=== PATIENT | female | born 1990 | race Hispanic/Latino ===

== ENCOUNTER 2017-12-01 10:45 | Emergency (ER) | payer SELFPAY ==
--- NOTE | 2017-12-01 15:06 | ER ---
Nurse's Notes [facility] Name: Chiquis Palma Age: 27 yrs Sex: Female : 1990 Arrival Date: 12/01/2017 Time: 10:48 Bed 9 Private MD: Diagnosis: Other sprain of right foot Presentation: 12/01 11:05 Presenting complaint: Mother states: Right foot pain after tripping over a toy 3 hours aj ago. Patient reports pain when baring weight. Transition of care: patient was not received from another setting of care. Onset of symptoms was December 01, 2017. Care prior to arrival: None. 11:05 Method Of Arrival: Ambulatory aj 11:05 Acuity: CHANTEL 4 aj 11:08 Note Patient ambulated to triage with limping gait. Patient ambulated to vending aj machines with no difficulty after triage. Triage Assessment: 11:06 General: Appears in no apparent distress. comfortable, Behavior is calm, cooperative, aj appropriate for age. Pain: Complains of pain in right foot Pain currently is 8 out of 10 on a pain scale. Neuro: Level of Consciousness is awake, alert, obeys commands, Oriented to person, place, time, situation. Respiratory: Airway is patent Respiratory effort is even, unlabored, Respiratory pattern is regular, symmetrical. Derm: Skin is intact, is healthy with good turgor, Skin is pink, warm \T\ dry. normal. Musculoskeletal: Reports pain in right foot. 17:00 Injury Description: Bruise. 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 - Social history:: Smoking status: Patient/guardian denies using tobacco. - Family history:: not pertinent. - Hospitalizations: : No recent hospitalization is reported. Screenin:23 Abuse screen: Denies threats or abuse. Denies injuries from another. Nutritional iw screening: No deficits noted. Tuberculosis screening: No symptoms or risk factors identified. Fall Risk None identified. Assessment: 13:22 General: Appears in no apparent distress. Behavior is calm, cooperative. Pain: iw Complains of pain in right foot. Neuro: Level of Consciousness is awake, alert, obeys commands, Oriented to person, place, time, situation. Cardiovascular: Patient's skin is warm and dry. Respiratory: Respiratory effort is even, unlabored. Derm: Skin is pink, warm \T\ dry. normal. Musculoskeletal: Range of motion: limited in right foot Swelling present in right foot. Vital Signs: 11:06 BP 146 / 116; Pulse 86; Resp 17; Temp 97.7; Pulse Ox 97% on R/A; Weight 101.15 kg; aj Height 5 ft. 0 in. (152.40 cm); Pain 8/10; 11:06 Body Mass Index 43.55 (101.15 kg, 152.40 cm) aj ED Course: 10:48 Patient arrived in ED. mr 11:06 Triage completed. aj 11:06 Arm band placed on right wrist. Patient placed in waiting room, Patient notified of aj wait time. X-ray ordered. 13:09 Shaniqua Arroyo, SELAM is Primary Nurse. iw 13:17 Lio Alvarez MD is Attending Physician. rn 13:23 No provider procedures requiring assistance completed. iw 13:30 Patient has correct armband on for positive identification. iw 15:20 Patient did not have IV access during this emergency room visit. iw Administered Medications: No medications were administered Outcome: 15:05 Discharge ordered by . rn 15:20 Discharged to home via wheelchair, with family. iw 15:20 Condition: good 15:20 Discharge instructions given to patient, family, Instructed on discharge instructions, follow up and referral plans. Demonstrated understanding of instructions, follow-up care. 15:24 Patient left the ED. iw Signatures: Rosalinda Kasper RN RN aj Rivera, Maria mr Shaniqua Arroyo, RN SELAM Lio Alvarez MD MD rn
--- NOTE | 2017-12-01 15:06 | EDPHYS ---
Physician Documentation [facility] Name: Chiquis Palma Age: 27 yrs Sex: Female : 1990 Arrival Date: 12/01/2017 Time: 10:48 Bed 9 Private MD: ED Physician Lio Alvarez HPI: 12/01 14:47 This 27 yrs old Female presents to ER via Ambulatory with complaints of Foot rn Injury. 14:47 The patient presents with an injury, pain. The complaints affect the right foot. Onset: rn The symptoms/episode began/occurred this morning. The patient has not experienced similar symptoms in the past. Reports tripped over toy, unsure which way hurt foot, hurts at heel and instep, no deformity, + mild pain, mild swelling.. 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 - Social history:: Smoking status: Patient/guardian denies using tobacco. - Family history:: not pertinent. - Hospitalizations: : No recent hospitalization is reported. ROS: 14:47 Constitutional: Negative for fever, chills, and weight loss, MS/Extremity: + right foot rn injury and pain Exam: 14:47 Constitutional: This is a well developed, well nourished patient who is awake, alert, rn and in no acute distress. MS/ Extremity: Pulses equal, no cyanosis. Neurovascular intact. Full, normal range of motion. Equal circumference. + mild tenderness top of foot at midfoot, + mild tenderness inner heel, no deformities. No tenderness along bilateral malleoli. Vital Signs: 11:06 BP 146 / 116; Pulse 86; Resp 17; Temp 97.7; Pulse Ox 97% on R/A; Weight 101.15 kg; aj Height 5 ft. 0 in. (152.40 cm); Pain 8/10; 11:06 Body Mass Index 43.55 (101.15 kg, 152.40 cm) aj MDM: 13:17 Patient medically screened. rn 15:04 Differential diagnosis: fracture, sprain. Data reviewed: vital signs, nurses notes, rn radiologic studies, plain films, and as a result, I will discharge patient. Counseling: I had a detailed discussion with the patient and/or guardian regarding: the historical points, exam findings, and any diagnostic results supporting the discharge/admit diagnosis, radiology results, the need for outpatient follow up, to return to the emergency department if symptoms worsen or persist or if there are any questions or concerns that arise at home. Special discussion: I discussed with the patient/guardian in detail that at this point there is no indication for admission to the hospital. It is understood, however, that if the symptoms persist or worsen the patient needs to return immediately for re-evaluation. 12/01 11:08 Order name: XRAY Foot RIGHT 3 View aj Administered Medications: No medications were administered Disposition: 12/01/17 15:05 Discharged to Home. Impression: Other sprain of right foot. - Condition is Stable. - Discharge Instructions: Foot Sprain. - Work release form, Medication Reconciliation Form, Thank You Letter, Antibiotic Education, Prescription Opioid Use form. - Follow up: Private Physician; When: As needed; Reason: Recheck today's complaints, Re-evaluation by your physician. - Problem is new. - Symptoms have improved. Signatures: Dispatcher [employer] Rosalinda George RN RN aj Williams, Irene, RN RN iw Nieto, Roman, MD MD rn
[2017-12-01 15:27] VITALS: BP 146/116; TEMP 97.7; O2SAT 97
--- NOTE | 2017-12-01 15:30 | RAD REPORT ---
EXAM DESCRIPTION: RAD - Foot Right 3 View - 12/01/2017 2:58 pm CLINICAL HISTORY: Right foot pain following trauma COMPARISON: None. FINDINGS: No fracture, dislocation or periosteal reaction. No air or foreign body in the soft tissues. IMPRESSION: Negative right foot examination.
== END 2017-12-01 15:24 | disposition home or self-care (01) ==
LOC: ER 10:45
DX: S93.691A Other sprain of right foot, initial encounter (principal); W01.0XXA Fall on same level from slipping, tripping and stumbling without subsequent striking against object, initial encounter; Y92.009 Unspecified place in unspecified non-institutional (private) residence as the place of occurrence of the external cause
CPT/HCPCS: 99281

== ENCOUNTER 2018-08-08 20:12 | Inpatient (IN) | payer OTHER ==
[2018-08-08] MEDS ORDERED: BUTORPHANOL 1 MG/ML INJ IV PRN (20:51)
[2018-08-08] MEDS ORDERED: PROMETHAZINE 25 MG/ML VIAL IV PRN (20:51)
[2018-08-08] MEDS ORDERED: Ringers Lactate 1,000 ML IV PRN (20:51)
[2018-08-08] MEDS ORDERED: METHYLERGONOVINE 0.2MG/ML AMP IM PRN (20:51)
[2018-08-08] MEDS ORDERED: Ringers Lactate 1,000 ML IV SCH (21:00)
[2018-08-08 21:38] LABS: RPR Titer ND
[2018-08-08 21:44] LABS: Absolute Lymphocytes (CBC) 1.5 K/uL (0.7-4.9); Absolute Monocytes 0.4 K/uL (0.1-1.3); Absolute Neutrophil 5.5 K/uL (1.8-8.0); Basophils % 0.3 % (0-1.3); Eosinophils % 0.4 % (0-4.4); Hematocrit 38.9 % (36.0-45.0); Lymphocytes % 20.1 % (15.3-44.8); MCH 27.6 pg (27.0-35.0); MCV 83.1 fL (80-100); MPV 9.9 fL (7.6-11.3); Monocytes % 5.6 % (3.3-12.3); RBC Red Blood Cell Count 4.68 M/uL (3.86-4.86)
[2018-08-08 21:53] LABS: Glucose Level 197 mg/dL (74-106)
[2018-08-09 00:27] VITALS: BMI 41.0
[2018-08-09 01:42] LABS: RPR (Rapid Plasma Reagin) NON-REACT (NON-REACT)
[2018-08-09] MEDS ORDERED: FENTANYL CITR 100 MCG/2 ML IV ONE (03:45)
[2018-08-09] MEDS ORDERED: ROPIVACAINE HCL 100 ML IV PRN (03:45)
[2018-08-09] MEDS ORDERED: ROPIVACAINE HCL 0.2% 20ML AMP SQ ONE (03:47)
[2018-08-09] MEDS ORDERED: OXYTOCIN/LR 20 UNIT/1,000 ML BAG IV SCH (04:00)
[2018-08-09] MEDS ORDERED: IBUPROFEN 200 MG TAB PO PRN (06:49)
[2018-08-09] MEDS ORDERED: CARBOPROST TROME 250 MCG/ML IM PRN (06:49)
[2018-08-09] MEDS ORDERED: METHYLERGONOVINE 0.2 MG TAB PO PRN (06:49)
[2018-08-09] MEDS ORDERED: METHYLERGONOVINE 0.2MG/ML AMP IM PRN (06:49)
--- NOTE | 2018-08-09 06:55 | P.BOP ---
Preoperative diagnosis: Term IUP, Gestational DM, uncontrolled, SROM Postoperative diagnosis: Same, delivery viable male infant Secondary procedure: repair perineal lacerations Estimated blood loss: <300ml Anesthesia: epidural Complications: Other (mild shoulder dystocia treated with Carmelita manuever) Transferred to: Other (273)
[2018-08-09] MEDS ORDERED: OXYTOCIN/LR 20 UNITS/1,000 ML BAG IV SCH (07:00)
[2018-08-09] MEDS ORDERED: METFORMIN ER 500 MG TAB PO SCH (08:00)
[2018-08-09] MEDS: Oxycodone HCl/Acetaminophen 1 TAB TAB PO PRN ×2 (11:17→17:18)
[2018-08-09] MEDS: METFORMIN ER 500 MG TAB PO SCH (17:14)
[2018-08-10] MEDS: Oxycodone HCl/Acetaminophen 1 TAB TAB PO PRN (04:06)
[2018-08-10] MEDS: METFORMIN ER 500 MG TAB PO SCH (07:58)
[2018-08-10] MEDS ORDERED: MEASLES,MUMPS,RUBELLA VAC 0.5ML SQVAC ONE (08:07)
[2018-08-10 08:13] VITALS: BP 124/68; TEMP 97.6
--- NOTE | 2018-08-10 08:39 | PREOPHP ---
Date of Admission: 08/08/2018 History Of Present Illness: Ms. Palma is a 27-year-old female, 4, para 2-1-0-3, fo llowed initially through Dr. Sanchez's office, but transferred to [facility] when she became a gestati onal diabetic. She has been seen through the [facility] and diagnosed with gestational diabetes and was placed on metformin, but has not taken her medication over the last 3 weeks. She says that she had a hard time remembering to take it. She presents with spontaneous rupture of membranes in prodro mal labor. Past Medical History: Includes 2 prior term deliveries, 1 prior 5-plus pound infant who was probably born at 35 weeks gestation. She has no other significant hospitalizations, accidents, illnesses, in juries, on no medications on a regular basis other than the prescribed vitamins and metformi n, which she does not take. She does not smoke. She has no significant allergies. Family History: Noncontributory. Review of Systems: She reports no recent cough, cold, fever, chills. No recent nausea, vomiting. She denies any breast lumps. She denies any bowel or bladder issues. has been active. She reports spontaneous ru pture of membranes and then presented by ambulance to Labor and Delivery. Physical Examination: General: Reveals obese female, in no apparent distress. Neck: Supple without adenopathy or thyromegaly. Lungs: Clear. Cardiac: Regular rate and rhythm without murmurs. Breasts: Not examined. Abdomen: Obese, term fetus. Pelvic: Cervix noted to be 3+ to 4 cm dilated, vertex presentation. Extremities: No cyanosis, clubbing, or edema. Impression: Term , gestational diabetes, uncontrolled spontaneous rupture of membranes. Plan: The patient will be augmented with Pitocin as necessary. ESE/STEFFI Voice ID: [id number]
--- NOTE | 2018-08-10 19:17 | OP ---
Surgeon: Mynor Castellon MD Ms. Palma is a 27-year-old female, followed through [facility], admitted with spontaneous rupture of membranes, not in labor. After Pitocin augmentation of labor, she had a first stage of labor of 10 hours and 9 minutes, second stage of labor of 21 minutes. She delivered by spontaneous controlled vaginal delivery a 7-pound 15-ounce male , 6 and 7. After short delay of cord clamping, the cord was clamped, cut, and the infant placed in a warmer, attended to by the nursing staff. Cor d blood was obtained. Placenta spontaneously expelled and appeared to be intact. Intrauterine exam revealed no retained placental fragments. She delivered with epidural anesthesia and had excellent r elief with this. She suffered a midline second-degree perineal laceration and periclitoral laceratio n repaired in the usual fashion with 3-0 Vicryl suture. Estimated total blood loss was less than 300 cc. The infant is somewhat floppy at , responded to stimulation. heart rate tracing wit h good variability to the end of the tracing. No obvious evidence of infection was noted from the st andpoint of maternal fever or tachycardia. MPG/MODL Voice ID: [id number] Report ID: [id number]
--- NOTE | 2018-08-11 06:39 | DS ---
Date of Discharge: 08/10/2018 Final Hospital Discharge Diagnosis: Term , delivered. Complications: None. Procedures: Pitocin augmentation of labor, placement of epidural catheter, spontaneous controlled va ginal delivery of viable male , repair of perineal lacerations. Hospital Course: The patient is a 27-year-old female, 4, para 2-1-0-3 at 39 weeks g estation admitted with spontaneous rupture of membranes, not in labor. She was followed through [facility] and presents to our facility via ambulance with spontaneous rupture of membranes. Labor and delivery were complicated by somewhat low scores. She delivered a 7 pound 15 ounce male infant , 6, 7. Infant was subsequently transferred to [facility]. The patient was dismissed on t he first day, ambulatory, to be seen back through the [facility] for visit and for diabetic care. Of note is that she had not been taking her metformin for at least a 3-week cuong od of time by her history. Lab work included an admission hemoglobin and hematocrit 12.9, 38.9, dism issal of 33.1. Dismissal medications include metformin 1000 mg p.o. b.i.d. She was to check her blo od sugars 4 times daily and report to her clinic. She has Rh positive blood type. She had an admiss ion glucose approximately 197. Fasting blood sugar on the morning of dismissal was 168. She was to continue taking her iron and vitamins. Of note is despite repeated requests for re cords through [facility], these were not supplied until after her delivery retrieving them through [facility]. They were not received from [facility]. Because of this on review of those katie rds that showed she was positive strep for carriage, which the patient did not have knowledge of and/ or voice and the patient was treated according to unknown strep protocol including risk factors, which she did not have. ESE/STEFFI Voice ID: [id number] Report ID: [id number]
[2018-08-12 13:31] LABS: HBsAG Nonreactive (Nonreactive)
== END 2018-08-10 10:35 | disposition home or self-care (01) | DRG 807 ==
LOC: L&D 20:12 → 2ND-WC 20:57
PROVIDERS: ADMIT Specialist; ATTEND Specialist
PROC: 0KQM0ZZ Repair Perineum Muscle, Open Approach (ICD-10-PCS; principal; 2018-08-09)
PROC: 10E0XZZ Delivery of Products of Conception, External Approach (ICD-10-PCS; 2018-08-09)
DX: O70.1 Second degree perineal laceration during delivery (principal); Z37.0 Single live birth; O66.0 Obstructed labor due to shoulder dystocia; O24.425 Gestational diabetes mellitus in childbirth, controlled by oral hypoglycemic drugs; O99.824 Streptococcus B carrier state complicating childbirth; Z3A.00 Weeks of gestation of pregnancy not specified; Z23 Encounter for immunization; O99.214 Obesity complicating childbirth
CPT/HCPCS: 36415; 82947; 82962; 85014; 85025; 86592; 86762; 86901; 87340; 90707; G0433; J0595; J2210; J2550; J2590; J2795; J3010

== ENCOUNTER 2019-04-30 21:10 | Emergency (ER) | payer OTHER, SELFPAY ==
--- OUTSIDE RECORDS SUMMARY | 2019-04-30 21:13 | XMS REPORT ---
:1990 [facility] Address [address] [place] [address] Dr. Bliss [address] [place] [id number] Care Team Providers Name Role Phone Unavailable Unavailable Unavailable Problems This patient has no known problems. Allergies, Adverse Reactions, Alerts This patient has no known allergies or adverse reactions. Medications This patient has no known medications.
[2019-04-30] MEDS ORDERED: ONDANSETRON 4 MG/2 ML VIAL ONE (21:42)
[2019-04-30] MEDS ORDERED: MORPHINE 4 MG/ML SYR ONE (21:42)
[2019-04-30] MEDS ORDERED: NA CHLORIDE 0.9% 1,000 ML ONE (21:42)
[2019-04-30 22:09] LABS: Absolute Lymphocytes (CBC) 1.4 K/uL (0.7-4.9); Basophils % 0.4 % (0-1.3); Hematocrit 47.3 % (36.0-45.0); Lymphocytes % 11.5 % (15.3-44.8); MPV 9.1 fL (7.6-11.3); RBC Red Blood Cell Count 5.41 M/uL (3.86-4.86)
[2019-04-30 22:29] LABS: Albumin 3.6 g/dL (3.4-5.0); Bilirubin Direct 0.2 mg/dL (0-0.2); Bilirubin Total 0.9 mg/dL (0.2-1.0); Potassium 3.4 mmol/L (3.5-5.1); Protein, Total 7.9 g/dL (6.4-8.2)
--- NOTE | 2019-05-01 00:43 | ER ---
Nurse's Notes [facility] Name: Chiquis Palma Age: 28 yrs Sex: Female : 1990 Arrival Date: 04/30/2019 Time: 21:19 Bed 19 Private MD: Diagnosis: Upper abdominal pain, unspecified Presentation: 04/30 21:21 Presenting complaint: Patient states: RUQ pain made worse with breathing since 1500 la1 today, denies V/D. Transition of care: patient was not received from another setting of care. Onset of symptoms was April 30, 2019. Risk Assessment: Do you want to hurt yourself or someone else? Patient reports no desire to harm self or others. Initial Sepsis Screen: Does the patient meet any 2 criteria? No. Patient's initial sepsis screen is negative. Does the patient have a suspected source of infection? No. Patient's initial sepsis screen is negative. Care prior to arrival: None. 21:21 Method Of Arrival: Ambulatory la1 21:21 Acuity: CHANTEL 2 la1 Historical: - Allergies: 21:23 NKDA; la1 - Home Meds: 21:23 None [Active]; la1 - PMHx: 21:23 Diabetes - NIDDM; la1 - PSHx: 21:23 None; la1 - Immunization history:: Adult Immunizations up to date. - Social history:: Smoking status: Patient/guardian denies using tobacco. - Ebola Screening: : No symptoms or risks identified at this time. Screenin:03 Abuse screen: Denies threats or abuse. Denies injuries from another. Nutritional rr5 screening: No deficits noted. Tuberculosis screening: No symptoms or risk factors identified. Fall Risk IV access (20 points). Total Madsen Fall Scale indicates No Risk (0-24 pts). Assessment: 21:30 General: Appears in no apparent distress. uncomfortable, Behavior is calm, cooperative, rr5 appropriate for age. 21:30 Pain: Complains of pain in right upper quadrant Pain radiates to right lower quadrant rr5 Pain currently is 10 out of 10 on a pain scale. Quality of pain is described as aching, Pain began gradually, Is intermittent. Neuro: Level of Consciousness is awake, alert, obeys commands, Oriented to person, place, time, situation, Appropriate for age. Cardiovascular: Capillary refill < 3 seconds Patient's skin is warm and dry. Respiratory: Airway is patent Respiratory effort is even, unlabored, Respiratory pattern is regular, symmetrical. GI: Abdomen is obese, Reports lower abdominal pain, upper abdominal pain. : No signs and/or symptoms were reported regarding the genitourinary system. EENT: No signs and/or symptoms were reported regarding the EENT system. Derm: Skin is intact, Skin temperature is warm. Musculoskeletal: Circulation, motion, and sensation intact. Capillary refill < 3 seconds. 22:30 Reassessment: Patient appears in no apparent distress at this time. Patient and/or rr5 family updated on plan of care and expected duration. Pain level reassessed. Patient is alert, oriented x 3, equal unlabored respirations, skin warm/dry/pink. 23:15 Reassessment: Patient appears in no apparent distress at this time. Patient is alert, rr5 oriented x 3, equal unlabored respirations, skin warm/dry/pink. awaiting for CT result. Patient states feeling better. Patient states symptoms have improved. 05/01 00:10 Reassessment: Patient appears in no apparent distress at this time. Patient and/or rr5 family updated on plan of care and expected duration. Pain level reassessed. Patient is alert, oriented x 3, equal unlabored respirations, skin warm/dry/pink. no complaints made. Patient states symptoms have improved. 01:05 Reassessment: Patient appears in no apparent distress at this time. Patient is alert, rr5 oriented x 3, equal unlabored respirations, skin warm/dry/pink. discharge instruction given and explained without complaints made. Vital Signs: 04/30 21:23 BP 129 / 91; Pulse 135; Resp 16; Temp 98.4; Pulse Ox 98% on R/A; Weight 90.72 kg; la1 Height 5 ft. 1 in. (154.94 cm); 22:20 BP 125 / 79; Pulse 115; Resp 17; Pulse Ox 98% on R/A; rr5 23:00 BP 121 / 85; Pulse 110; Resp 17; Pulse Ox 99% on R/A; rr5 05/01 00:00 BP 115 / 70; Pulse 95; Resp 17; Pulse Ox 99% on R/A; rr5 00:56 BP 110 / 75; Pulse 100; Resp 16; Temp 98.1; Pulse Ox 99% on R/A; Pain 6/10; rr5 04/30 21:23 Body Mass Index 37.79 (90.72 kg, 154.94 cm) la1 ED Course: 04/30 21:19 Patient arrived in ED. es 21:22 Triage completed. la1 21:23 Arm band placed on right wrist. la1 21:25 Patient has correct armband on for positive identification. Placed in gown. Bed in low rr5 position. Call light in reach. Side rails up X2. Pulse ox on. NIBP on. 21:30 Rose Mary Anna FNP-C is PHCP. kb 21:30 Dav Gonzales MD is Attending Physician. kb 21:41 Charly Varela RN is Primary Nurse. rr5 21:50 No provider procedures requiring assistance completed. Inserted saline lock: 20 gauge rr5 in right forearm, using aseptic technique. Blood collected. 22:38 Radiology exam delayed due to test not completed at this time. vm2 23:54 CT Abd/Pelvis - IV Contrast Only In Process Unspecified. EDMS 05/01 01:05 IV discontinued, intact, bleeding controlled, No redness/swelling at site. Pressure rr5 dressing applied. 01:32 Chest Single View XRAY In Process Unspecified. EDMS Administered Medications: 04/30 21:55 Drug: NS 0.9% 1000 ml Route: IV; Rate: 1000 ml; Site: right forearm; rr5 22:50 Follow up: Response: No adverse reaction; IV Status: Completed infusion; IV Intake: rr5 1000ml 21:56 Drug: Zofran 4 mg Route: IVP; Site: right forearm; rr5 22:50 Follow up: Response: No adverse reaction rr5 21:58 Drug: morphine 4 mg Route: IVP; Site: right forearm; rr5 21:58 Follow up: RASS 0 rr5 23:00 Follow up: Response: RASS: Alert and Calm (0) rr5 Intake: 22:50 IV: 1000ml; Total: 1000ml. rr5 Outcome: 05/01 00:35 Discharge ordered by . kb 01:05 Discharged to home ambulatory. rr5 01:05 Condition: stable 01:05 Discharge instructions given to patient, Instructed on discharge instructions, follow up and referral plans. medication usage, Demonstrated understanding of instructions, follow-up care, medications, Prescriptions given X 2. 01:07 Patient left the ED. rr5 Signatures: Dispatcher [employer] Rose Mary Alcantara, GABRIELLE PARSONS-Brit Chapa Lee RN RN [email or web address] Heather Da Silva Raymond, RN RN rr5
--- NOTE | 2019-05-01 00:44 | EDPHYS ---
Physician Documentation [facility] Name: Chiquis Palma Age: 28 yrs Sex: Female : 1990 Arrival Date: 04/30/2019 Time: 21:19 Bed 19 Private MD: ED Physician Dav Gonzales HPI: 05/01 00:26 This 28 yrs old Female presents to ER via Ambulatory with complaints of kb Abdominal Pain. 00:26 The patient presents with abdominal pain in the right upper quadrant. Onset: The kb symptoms/episode began/occurred today. The symptoms do not radiate. Associated signs and symptoms: none. The symptoms are described as constant. Modifying factors: The symptoms are alleviated by nothing, the symptoms are aggravated by breathing deeply. Severity of pain: At its worst the pain was moderate in the emergency department the pain is unchanged. The patient has not experienced similar symptoms in the past. The patient has not recently seen a physician. Historical: - Allergies: 04/30 21:23 NKDA; la1 - Home Meds: 21:23 None [Active]; la1 - PMHx: 21:23 Diabetes - NIDDM; la1 - PSHx: 21:23 None; la1 - Immunization history:: Adult Immunizations up to date. - Social history:: Smoking status: Patient/guardian denies using tobacco. - Ebola Screening: : No symptoms or risks identified at this time. ROS: 23:19 Constitutional: Negative for fever, chills, and weight loss, Cardiovascular: Negative kb for chest pain, palpitations, and edema, Back: Negative for injury and pain, : Negative for injury, bleeding, discharge, and swelling, MS/Extremity: Negative for injury and deformity, Skin: Negative for injury, rash, and discoloration, Neuro: Negative for headache, weakness, numbness, tingling, and seizure. 23:19 Respiratory: Positive for pain with respiration. 23:19 Abdomen/GI: Positive for abdominal pain, nausea, Negative for nausea, vomiting, and diarrhea. Exam: 23:21 Constitutional: This is a well developed, well nourished patient who is awake, alert, kb and in no acute distress. Head/Face: Normocephalic, atraumatic. Chest/axilla: Normal chest wall appearance and motion. Nontender with no deformity. No lesions are appreciated. Cardiovascular: Regular rate and rhythm with a normal S1 and S2. No gallops, murmurs, or rubs. Normal PMI, no JVD. No pulse deficits. Respiratory: Lungs have equal breath sounds bilaterally, clear to auscultation and percussion. No rales, rhonchi or wheezes noted. No increased work of breathing, no retractions or nasal flaring. Back: No spinal tenderness. No costovertebral tenderness. Full range of motion. Skin: Warm, dry with normal turgor. Normal color with no rashes, no lesions, and no evidence of cellulitis. MS/ Extremity: Pulses equal, no cyanosis. Neurovascular intact. Full, normal range of motion. Neuro: Awake and alert, GCS 15, oriented to person, place, time, and situation. Cranial nerves II-XII grossly intact. Motor strength 5/5 in all extremities. Sensory grossly intact. Cerebellar exam normal. Normal gait. 23:21 Abdomen/GI: Inspection: abdomen appears normal, Bowel sounds: normal, in all quadrants, Palpation: soft, in all quadrants, mild abdominal tenderness, in the right lower quadrant, moderate abdominal tenderness, in the right upper quadrant. Vital Signs: 21:23 BP 129 / 91; Pulse 135; Resp 16; Temp 98.4; Pulse Ox 98% on R/A; Weight 90.72 kg; la1 Height 5 ft. 1 in. (154.94 cm); 22:20 BP 125 / 79; Pulse 115; Resp 17; Pulse Ox 98% on R/A; rr5 23:00 BP 121 / 85; Pulse 110; Resp 17; Pulse Ox 99% on R/A; rr5 05/01 00:00 BP 115 / 70; Pulse 95; Resp 17; Pulse Ox 99% on R/A; rr5 00:56 BP 110 / 75; Pulse 100; Resp 16; Temp 98.1; Pulse Ox 99% on R/A; Pain 6/10; rr5 04/30 21:23 Body Mass Index 37.79 (90.72 kg, 154.94 cm) la1 MDM: 04/30 21:30 Patient medically screened. kb 05/01 00:18 Data reviewed: vital signs, nurses notes. Data interpreted: Pulse oximetry: on room air kb is 99 %. Interpretation: normal. 00:35 Data reviewed: I have discussed the patient's presentation/case with the attending Emergency Department Physician;. Counseling: I had a detailed discussion with the patient and/or guardian regarding: the historical points, exam findings, and any diagnostic results supporting the discharge/admit diagnosis, lab results, radiology results, the need for outpatient follow up, a family practitioner, to return to the emergency department if symptoms worsen or persist or if there are any questions or concerns that arise at home. 04/30 21:39 Order name: Basic Metabolic Panel; Complete Time: 22:34 kb 04/30 21:39 Order name: CBC with Diff; Complete Time: 22:34 04/30 21:39 Order name: Hepatic Function; Complete Time: 22:34 kb 04/30 21:39 Order name: Lipase; Complete Time: 22:34 04/30 21:39 Order name: D-Dimer; Complete Time: 22:34 kb 04/30 22:35 Order name: CT Abd/Pelvis - IV Contrast Only 04/30 21:39 Order name: IV Saline Lock; Complete Time: 22:03 04/30 21:39 Order name: Labs collected and sent; Complete Time: 22:03 05/01 00:20 Order name: Chest Single View XRAY Administered Medications: 04/30 21:55 Drug: NS 0.9% 1000 ml Route: IV; Rate: 1000 ml; Site: right forearm; rr5 22:50 Follow up: Response: No adverse reaction; IV Status: Completed infusion; IV Intake: rr5 1000ml 21:56 Drug: Zofran 4 mg Route: IVP; Site: right forearm; rr5 22:50 Follow up: Response: No adverse reaction rr5 21:58 Drug: morphine 4 mg Route: IVP; Site: right forearm; rr5 21:58 Follow up: RASS 0 rr5 23:00 Follow up: Response: RASS: Alert and Calm (0) rr5 Disposition: 05/01 04:42 Co-signature as Attending Physician, Dav Gonzales MD I agree with the assessment and tw4 plan of care. Disposition: 05/01/19 00:35 Discharged to Home. Impression: Upper abdominal pain, unspecified. - Condition is Stable. - Discharge Instructions: Abdominal Pain, Adult, [id number]. - Prescriptions for Bentyl 20 mg Oral Tablet - take 1 tablet by ORAL route every 6 hours As needed; 20 tablet. Zofran 4 mg Oral Tablet - take 1 tablet by ORAL route every 6 hours As needed; 20 tablet. - Medication Reconciliation Form, Thank You Letter, Antibiotic Education, Prescription Opioid Use, Work release form form. - Follow up: Emergency Department; When: As needed; Reason: Worsening of condition. Follow up: Private Physician; When: 2 - 3 days; Reason: Recheck today's complaints, Continuance of care, Re-evaluation by your physician. Signatures: Dispatcher [employer] EDMS Rose Mary Anna, NNPS-C NNPS-Gino Rubio RN RN la1 Dav Gonzales MD MD tw4 Charly Varela RN RN rr5 Corrections: (The following items were deleted from the chart) 01:07 00:35 05/01/2019 00:35 Discharged to Home. Impression: Upper abdominal pain, rr5 unspecified. Condition is Stable. Forms are Medication Reconciliation Form, Thank You Letter, Antibiotic Education, Prescription Opioid Use. Follow up: Emergency Department; When: As needed; Reason: Worsening of condition. Follow up: Private Physician; When: 2 - 3 days; Reason: Recheck today's complaints, Continuance of care, Re-evaluation by your physician. kb
[2019-05-01 02:32] VITALS: O2SAT 99
[2019-05-01 02:34] VITALS: BP 110/75; TEMP 98.1
--- NOTE | 2019-05-01 12:07 | RAD REPORT ---
EXAM DESCRIPTION: RAD - Chest Single View - 05/01/2019 1:31 am CLINICAL HISTORY: CHEST PAIN Chest pain. COMPARISON: CHEST PA AND LAT 2 VIEW dated 09/30/2012; CHEST PA AND LAT 2 VIEW dated 01/17/2009; ABDOMEN ACUTE SERIES dated 07/24/2006 FINDINGS: Portable technique limits examination quality. The lungs are grossly clear. The heart is normal in size. No displaced fractures. IMPRESSION: No acute intrathoracic process suspected.
--- NOTE | 2019-05-03 10:02 | RAD REPORT ---
EXAM DESCRIPTION: Pelvis W Contrast CLINICAL HISTORY: 28 years Female ABD PAIN COMPARISON: None TECHNIQUE: Images were obtained in axial, sagittal, and coronal planes. Intravenous contrast was adm inistered. Arterial and venous phase imaging was performed. This exam was performed according to our departmental dose-optimization program which includes use of Automated Exposure Control, adjustment of the mA and/or kV according to patient size and/or use of i terative reconstruction technique. FINDINGS: Marked decreased attenuation involving the liver consistent with fatty change. Hepatic enl argement noted. Spleen is enlarged measuring 13.4 cm in greatest dimension. Unremarkable pancreas, ga llbladder, and adrenal glands bilaterally. No obstructing renal calcifications bilaterally. No hydronephrosis bilaterally. Unremarkable bladder. No abnormality abdominal aorta or portal vein. No adenopathy or abnormal fluid collections seen. 3.2 x 2.3 cm right ovarian cyst. Appendix not well identified however no secondary signs for appendicitis. No bowel obstruction, perfo ration, or inflammation. Dependent atelectatic change lower lungs bilaterally. No acute osseous abnormality. IMPRESSION: No acute intra-abdominal abnormality. Enlarged liver with associated fatty change. Enlarged spleen. 3.2 cm right ovarian cyst. Electronically signed by: Belen Wiggins MD 05/01/2019 12:12 AM CDT Due to temporary technical issues with the PACS/Fluency reporting system, reports are being signed by the in house radiologist as a courtesy to ensure prompt reporting. The interpreting radiologist is f ully responsible for the content of the report.
== END 2019-05-01 01:07 | disposition home or self-care (01) ==
LOC: ER 21:10
DX: R10.11 Right upper quadrant pain (principal)
CPT/HCPCS: 36415; 71045; 74177; 80048; 80076; 83690; 85025; 85379; 96361; 96374; 96375; 99284; J2405; J7030

== ENCOUNTER 2019-12-29 06:01 | Emergency (ER) | payer SELFPAY ==
--- OUTSIDE RECORDS SUMMARY | 2019-12-29 06:03 | XMS REPORT | Summary of Care ---
:1990 Author Organization [facility] - Health Address [address] [place] [address] Care Team Providers Name Role Phone Doctor Unassigned, [place] Insurance Hmo Unavailable Parvez Uribe Primary Care Provider Reason for Referral Other (Routine) Status Reason Specialty Diagnoses / Referred By Referred To Procedures Contact Contact New Request Diagnoses Personal history of gallstones Rey Wakefield Humphrey, [place], Procedures Discharge Follow-up: Specialty Provider MALCOLM DRAPER; 1 Week MD ALVES [address] [place] [address] [address] [facility] [id number] [place], [place] Mc [id number] [place] [address] Phone: [phone] Phone: Fax: Reason for Visit Reason Comments Epigastric Pain Auth/Cert Status Reason Specialty Diagnoses / Referred By Referred To Procedures Contact Contact Emergency Medicine Diagnoses EPIGASTRIC PAIN [facility] Emergency Dept [address] [place] [address] [place] [address] Fax: Encounter Details Date Type Department Care Team Description 05/01/2019 - Emergency ADC-Emergency Rey Wakefield RUTye pain (Pr imary Dx); 05/02/2019 Department MD Delma Personal history of gallstones; [address] [place] [address] Dr Sullivan [facility] Uncontrolled type 2 diabetes mellitus with hyperglycemia; [place] [address] [id number] Noncompliance with medication regimen [phone] [place] [address] [phone] Allergies No Known Allergiesdocumented as of this encounter (statuses as of 05/02/2019) Medications No known medicationsdocumented as of this encounter (statuses as of 05/02/2019) Active Problems Problem Noted Date Nexplanon insertion 12/03/2018 Atypical squamous cell changes of undetermined signifi cance (ASCUS) on 12/01/2018 vaginal cytology Overview: Awaiting on HPV results. Well woman exam 11/19/2018 Diabetes insipidus 11/19/2018 Encounter for contraceptive management, unspecified ty pe 11/19/2018 BMI 40.0-44.9, adult 11/19/2018 Morbid obesity 06/10/2018 documented as of this encounter (statuses as of 05/02/2019) Resolved Problems Problem Noted Date Resolved Date Encounter for initial prescription of contraceptives, 201811/19/2018 unspecified contraceptive Pre-existing diabetes mellitus affecting in third 07/16/2018 11/19/2018 trimester, antepartum Rubella non-immune status 06/11/2018 11/19/2018 Overview: Address in PP. Maternal varicella, non-immune 06/11/2018 9 Overview: Address in PP. Supervision of high risk , antepartum 06/10/2018 11/19/2018 Overview: Transfer from Dr Sanchez - L papers scanned in [place], GBBS positive O positive Hep B NR HIV NR Dated by 15 week ultrasound History of delivery, currently 06/10/2018 11/19/2018 Multiparity 06/10/2018 11/19/2018 Type II or unspecified type diabetes mellitus with 8 11/19/2018 hyperosmolarity, not stated as uncontrolled Need for Tdap vaccination 06/10/2018 11/19/2018 Insufficient care 08/25/2016 06/10/2018 Nausea and vomiting during 08/25/2016 Vaginal discharge during 08/25/201606/10 documented as of this encounter (statuses as of 05/02/2019) Immunizations Name Administration Dates Next Due Tdap 06/10/2018 documented as of this encounter Social History Tobacco Use Types Packs/Day Years Used Date Current Every Day Smoker Cigarettes 0.5 Sta rted: 2019 Smokeless Tobacco: Never Used Alcohol Use Drinks/Week oz/Week Comments No 0 Standard drinks or equivalent 0.0 Sex Assigned at Date Recorded Not on file Job Start Date Occupation Industry Not on file Not on file Not on file Travel History Travel Start Travel End No recent travel history available. documented as of this encounter Last Filed Vital Signs Vital Sign Reading Time Taken Comments Blood Pressure 98/85 05/01/2019 11:00 PM CDT Pulse 91 05/01/2019 11:00 PM CDT Temperature 36.9 C (98.4 F) 05/01/2019 7:21 PM CDT Respiratory Rate 29 05/01/2019 11:00 PM CDT Oxygen Saturation 97% 05/01/2019 11:00 PM CDT Inhaled Oxygen Concentration - - Weight 100.2 kg (221 lb) 05/01/2019 9:02 PM CDT Height - - Body Mass Index 36.78 12/03/2018 9:54 AM CDT documented in this encounter Discharge Instructions Rey Oakes MD - 05/01/2019 DIAGNOSIS Diagnoses that have been ruled out: None Diagnoses that are still under consideration: None Final diagnoses: RUQ pain Personal history of gallstones Uncontrolled type 2 diabetes mellitus with hyperglycemia Noncompliance with medication regimen NO LIFE-THREATENING FINDINGS ON TODAY'S EXAM. PROCEDURES IN THE ER TODAY: Orders Placed This Encounter Procedures CBC WITH DIFF COMP. METABOLIC PANEL (42728) LIPASE URINALYSIS POCT TEST CBC WITH DIFFERENTIAL MEDICATIONS ADMINISTERED IN THE ER TODAY AND DISCHARGE MEDICATIONS: Orders Placed This Encounter Medications insulin regular human (HUMULIN R) injection 10 Units NaCl 0.9% (NS) IV infusion 1,000 mL FOLLOW-UP RECOMMENDATIONS: RECOMMEND FOLLOW-UP WITH YOUR PRIMARY CARE PROVIDER TO MANAGE YOUR DIABETES MELLITUS DISCUSSED YOU MAY ALSO FOLLOW-UP WITH DR DRAPER TO EVALUATE YOU FOR THE GALLSTONES DISCUSSED STAY ON [address] ADA DIET/EXERCISE DISCUSSED documented in this encounter Plan of Treatment Health Maintenance Due Date Last Done Comments PNEUMOCOCCAL 0-64 YEARS COMBINED SERIES (1 of 1 - 1997 PPSV23) EYE EXAM 2001 LDL-C 2001 URINE MICROALBUMIN 2001 VARICELLA VACCINES (1 of 2 - 13+ 2-dose series) 2004 FOOT EXAM 2009 CREATININE (SERUM) 08/25/2017 08/25/2016 HgA1C 12/08/2018 06/10/2018 INFLUENZA VACCINE (#1) 2019 PAP SMEAR 11/19/2021 11/19/2018 DTaP,Tdap,and Td Vaccines (2 - Td) 06/10/2028 06/10/2018 documented as of this encounter Procedures Procedure Name Priority Date/Time Associated Diagnosis Comme nts POCT GLUCOSE(AGE GALI 05/01/2019 11:43 Uncontrolled type 2 Results for this >30DAYS) PM CDT diabetes mellitus procedure are in with hyperglycemia the resul ts section. POCT GLUCOSE Routine 05/01/2019 11:40 Results for this (AUTOMATED) PM CDT procedure are i n the results section. POCT TEST GALI 05/01/2019 9:05 RUQ pain Resu lts for this PM CDT procedure are i n the results section. CBC WITH DIFFERENTIAL STAT 05/01/2019 9:04 RUQ pain Re sults for this PM CDT procedure are i n the results section. URINALYSIS STAT 05/01/2019 9:04 RUQ pain Results for this PM CDT procedure are i n the results section. CBC WITH DIFF STAT 05/01/2019 9:04 RUQ pain Results fo r this PM CDT procedure are i n the results section. COMP. METABOLIC PANEL STAT 05/01/2019 9:04 RUQ pain Re sults for this (40001) PM CDT procedure are i n the results section. LIPASE STAT 05/01/2019 9:04 RUQ pain Results for this PM CDT procedure are i n the results section. NOTICE OF PRIVACY Routine 05/01/2019 7:05 PRACTICES PM CDT CONSENT/REFUSAL FOR Routine 05/01/2019 7:05 DIAGNOSIS AND PM CDT TREATMENT documented in this encounter Results POCT GLUCOSE(AGE >30DAYS) (05/01/2019 11:43 PM CDT) Pathologist Sig nature POCT Glu (age>30days) 250 (A) 70 - 110 mg/dL Specimen Blood - CAPILLARY POCT GLUCOSE (AUTOMATED) (05/01/2019 11:40 PM CDT) Pathologist Sig nature POCT GLU 250 (H) 70 - 110 mg/dL [facility] Specimen Blood Performing Organization Address City/State/Zipcode Phone Number [facility] CLIA: [id number], [address] [place], [place] [address] [facility] POCT TEST (05/01/2019 9:05 PM CDT) Pathologist Sig nature POCT PREG negative On board controls acceptable present with C Line POCT PREG LOT # [id number] POCT PREG TEST DATE 09/14/2020 Specimen Urine CBC WITH DIFFERENTIAL (05/01/2019 9:04 PM CDT) Pathologist Sig nature WBC 6.03 4.30 - 11.10 [facility] 10*3/L [facility] RBC 4.84 3.93 - 5.25 [facility] 10*6/L [facility] HGB 14.0 11.6 - 15.0 [facility] g/dL [facility] HCT 42.4 35.7 - 45.2 % [facility] MCV 87.6 80.6 - 95.5 fL [facility] MCH 28.9 25.9 - 32.8 pg [facility] MCHC 33.0 31.6 - 35.1 [facility] g/dL [facility] RDW-SD 40.3 39.0 - 49.9 fL [facility] RDW-CV 12.5 12.0 - 15.5 % [facility] PLT 235 166 - 358 [facility] 10*3/L [facility] MPV 11.2 9.5 - 12.9 fL [facility] NRBC/100 WBC 0.0 0.0 - 10.0 /100 [facility] WBCs [facility] NRBC x10^3 <0.01 10*3/L [facility] GRAN MAT (NEUT) % 71.2 % [facility] IMM GRAN % 0.30 % [facility] LYMPH % 21.2 % [facility] MONO % 6.6 % [facility] EOS % 0.2 % [facility] BASO % 0.5 % [facility] GRAN MAT x10^3(ANC) 4.29 1.88 - 7.09 [facility] 10*3/uL [facility]PITAL [facility] IMM GRAN x10^3 <0.03 0.00 - 0.06 [facility] 10*3/uL [facility] LYMPH x10^3 1.28 (L) 1.32 - 3.29 [facility] 10*3/uL [facility] MONO x10^3 0.40 0.33 - 0.92 [facility] 10*3/uL [facility] EOS x10^3 <0.03 (L) 0.03 - 0.39 [facility] 10*3/uL [facility] BASO x10^3 0.03 0.01 - 0.07 [facility] 10*3/uL [facility] Specimen Blood - VENOUS Performing Organization Address [facility] Phone Number [facility] CLIA: [id number], [address] [place] [address] URINALYSIS (05/01/2019 9:04 PM CDT) Pathologist Sig nature APPEARANCE Clear Clear [facility] COLOR Yellow Yellow [facility] PH 5.5 4.8 - 8.0 [facility] SP GRAVITY 1.010 1.003 - 1.030 [facility] GLU U QUAL >1000 mg/dL (A) Negative [facility] BLOOD Negative Negative [facility] KETONES 15 mg/dL (A) Negative [facility] PROTEIN Negative Negative [facility] UROBILIN 0.2 mg/dL 0-1.0 mg/dL [facility] BILIRUBIN Negative Negative [facility] NITRITE Negative Negative [facility] LEUK ADAM Negative Negative [facility] RBC/HPF 0 0 - 3 HPF [facility] WBC/HPF 0 0 - 5 HPF [facility] BACTERIA Negative Negative [facility] Specimen Urine - URINE, CLEAN CATCH Performing Organization Address [facility] Phone Number [facility] CLIA: [id number], [address] [place] [address] LIPASE (05/01/2019 9:04 PM CDT) Pathologist Sig nature LIPASE 98 0 - 220 U/L [facility] Specimen Blood - VENOUS Performing Organization Address [facility] Phone Number [facility] CLIA: [id number], [address] [place] [address] [place] [address] COMP. METABOLIC PANEL (47099) (05/01/2019 9:04 PM CDT) NA 138 135 - 145 [facility] mmol/L [facility] K 3.5 3.5 - 5.0 [facility] mmol/[facility] CL 101 98 - 108 mmol/L [facility] CO2 TOTAL 22 (L) 23 - 31 mmol/L [facility] AGAP 15 2 - 16 [facility] BUN 5 (L) 7 - 23 mg/dL [facility] GLUCOSE 507 (HH) 70 - 110 mg/dL [facility] CREATININE 0.40 (L) 0.50 - 1.04 [facility] mg/dL [facility] TOTAL BILI 0.7 0.1 - 1.1 mg/dL [facility] CALCIUM 9.3 8.6 - 10.6 [facility] mg/dL [facility] T PROTEIN 7.2 6.3 - 8.2 g/dL [facility] ALBUMIN 4.0 3.5 - 5.0 g/dL [facility] ALK PHOS 104 34 - 122 U/L [facility] ALT(SGPT) 31 9 - 51 U/L [facility] AST(SGOT) 38 13 - 40 U/L [facility] eGFR Calculation 191.5 mL/min/1.73m2 [facility] [place]) eGFR Calculation 232.1 mL/min/1.73m2 [facility] ([facility]) [facility] Specimen Blood - VENOUS Narrative Performed At [facility] of Glomerular Filtration Rate (GFR) [facility] and Staging of Kidney Disease* + + +- + | GFR (mL/min/1.73 m2)| With Kidney Damage|Without Kidney Damage + + +- + |>90| Stage one| Normal + + +- + |60-89|S tage two| Decreased GFR + + +- + |30-59|S tage three| Stage three + + +- + |15-29|S tage four | Stage four + + +- + |<15 (or dialysis)|Stage five | Stage five + + +- + *Each stage assumes the associated GFR level has been in effect for at least three months.Stages 1 to 5, with or without kidney disease, indicate chronic kidney disease . Notes: Determination of stages one and two (with eGFR >59mL/min/1.73 m2) requires estimation of kidney damage for at least three months as defined by structural or functional abnormalities of the kidney, manifested by either: Pathological abnormalities or Markers of kidney damage (including abnormalities in the composition of the blood or urine or abnormalities in imaging tests). Performing Organization Address City/State/Zipcode Phone Number [facility] CLIA: [id number], [address] [place], [place] [address] documented in this encounter Visit Diagnoses Diagnosis RUQ pain - Primary Abdominal pain, right upper quadrant Personal history of gallstones Personal history of other diseases of di gestive system Uncontrolled type 2 diabetes mellitus wi th hyperglycemia Noncompliance with medication regimen Personal history of noncompliance with m edical treatment, presenting hazards to health documented in this encounter Administered Medications Medication Order MAR Action Action Date Dose Rate Site NaCl 0.9% (NS) IV infusion New Bag 05/01/2019 10:44 PM CDT 1,000 m L 999 mL/hr 1,000 mL at 999 mL/hr, Intravenous, CONTINUOUS, Starting 05/01/19 at 2330, Until Discontinued, Routine Medication Order MAR Action Action Date Dose Rate Site insulin regular human Given 05/01/2019 10:44 PM CDT 10 Units Right Arm (HUMULIN R) injection 10 Units 10 Units, Subcutaneous, ONCE, 1 dose, 05/01/19 at 2330, Routine documented in this encounter Advance Directives Name Relationship Healthcare Agent Relationship Co mmunication Lizz Palma Mother Primary healthcare agent "
--- OUTSIDE RECORDS SUMMARY | 2019-12-29 06:03 | XMS REPORT ---
:1990 Author Organization [facility] t Address [address] [place] [address] Dr. Bliss [address] [place] [id number] Care Team Providers Name Role Phone Unavailable Unavailable Unavailable Problems This patient has no known problems. Allergies, Adverse Reactions, Alerts This patient has no known allergies or adverse reactions. Medications This patient has no known medications.
--- NOTE | 2019-12-29 06:36 | ER ---
Nurse's Notes [facility] Name: Chiquis Palma Age: 29 yrs Sex: Female : 1990 Arrival Date: 12/29/2019 Time: 06:03 Bed 8 Private MD: Diagnosis: Carpal tunnel syndrome, left upper limb Presentation: 12/28 06:15 Ebola Screen: No symptoms or risks identified at this time. ea 06:15 Chief complaint: Patient states: my left arm started to feel numb yesterday around 3 rr5 PM. now still feels numb and it wont go away. denies any weakness.denies any trauma. 06:15 Coronavirus screen: Proceed with normal triage. Initial Sepsis Screen: Does the patient rr5 meet any 2 criteria? No. Patient's initial sepsis screen is negative. Does the patient have a suspected source of infection? No. Patient's initial sepsis screen is negative. Risk Assessment: Do you want to hurt yourself or someone else?. Onset of symptoms was December 28, 2019. 06:15 Method Of Arrival: Ambulatory rr5 06:15 Acuity: CHANTEL 3 rr5 Historical: - Allergies: 06:15 NKDA; ea - PMHx: 06:15 Diabetes - NIDDM; ea - PSHx: 06:15 None; ea - Immunization history:: Adult Immunizations up to date. - Social history:: Smoking status: unknown Patient/guardian denies using alcohol, street drugs. Screenin:15 VAN Screening: Arm Drift: Patient shows no arm weakness. Patient is VAN negative. rr5 06:15 Abuse screen: Denies threats or abuse. Denies injuries from another. Nutritional rr5 screening: No deficits noted. Tuberculosis screening: No symptoms or risk factors identified. Fall Risk None identified. Total Madsen Fall Scale indicates No Risk (0-24 pts). Assessment: 06:15 Pain: Denies pain. Neuro: Level of Consciousness is awake, alert, obeys commands, rr5 Oriented to person, place, time, situation, Corrosion Control Technician are equal bilaterally Moves all extremities. Full function Gait is steady, Speech is normal, Facial symmetry appears normal, Reports numbness in left arm. Cardiovascular: Capillary refill < 3 seconds Patient's skin is warm and dry. Respiratory: Airway is patent Respiratory effort is even, unlabored, Respiratory pattern is regular, symmetrical. GI: No signs and/or symptoms were reported involving the gastrointestinal system. : No signs and/or symptoms were reported regarding the genitourinary system. EENT: No signs and/or symptoms were reported regarding the EENT system. Derm: Skin is intact, is healthy with good turgor, Skin temperature is warm. Musculoskeletal: Capillary refill < 3 seconds. 06:15 General: Appears in no apparent distress. comfortable, Behavior is calm, cooperative, rr5 appropriate for age. 06:48 Reassessment: Patient appears in no apparent distress at this time. Patient is alert, rr5 oriented x 3, equal unlabored respirations, skin warm/dry/pink. discharge instruction given and explained without complaints made. Vital Signs: 06:14 BP 136 / 95; Pulse 86; Resp 18; Temp 97.6; Pulse Ox 100% ; ea 06:15 BP 136 / 95; Pulse 90; Resp 19; Temp 97.6; Pulse Ox 100% ; Weight 90.72 kg; Height 5 rr5 ft. 1 in. (154.94 cm); Pain 0/10; 06:45 BP 115 / 70; Pulse 85; Resp 17; Pulse Ox 98% on R/A; rr5 06:15 Body Mass Index 37.79 (90.72 kg, 154.94 cm) rr5 ED Course: 06:03 Patient arrived in ED. ds1 06:15 Patient has correct armband on for positive identification. Bed in low position. Call ea light in reach. Side rails up X2. 06:15 Arm band placed on right wrist. Patient placed in an exam room, on a stretcher, on ea pulse oximetry. 06:16 Charly Varela, SELAM is Primary Nurse. rr5 06:19 Narendra Walker PA is PHCP. jmm 06:19 Lio Alvarez MD is Attending Physician. jmm 06:20 Triage completed. rr5 06:26 Werner Brower MD is Referral Physician. jmm 06:45 wrist splint. rr5 06:48 No provider procedures requiring assistance completed. Patient did not have IV access rr5 during this emergency room visit. Administered Medications: No medications were administered Outcome: 06:35 Discharge ordered by . jmm 06:49 Discharged to home ambulatory. rr5 06:49 Condition: stable 06:49 Discharge instructions given to patient, Instructed on discharge instructions, follow up and referral plans. Demonstrated understanding of instructions, follow-up care. 06:51 Patient left the ED. rr5 Signatures: Narendra Walker PA PA jmm Sanford, Demi ds1 Blanca Rios RN RN Charly Kee RN RN rr5
--- NOTE | 2019-12-29 06:36 | EDPHYS ---
Physician Documentation [facility] Name: Chiquis Palma Age: 29 yrs Sex: Female : 1990 Arrival Date: 12/29/2019 Time: 06:03 Bed 8 Private MD: ED Physician Lio Alvarez HPI: 12/28 06:25 This 29 yrs old Female presents to ER via Ambulatory with complaints of jmm Numbness Of Arm. 06:25 The patient or guardian complains of numbness. The complaints affect the left hand. jmm Onset: The symptoms/episode began/occurred gradually, 1 day(s) ago. Modifying factors: The symptoms are alleviated by nothing. the symptoms are aggravated by nothing. This is a 29 year old female with a history of DM that presents to the ED with complaints of left hand numbness beginning yesterday and worsening this morning. Patient states she was making cakes this past weekend. Denies other known repetitive activities. Patient states the symptoms are worse at the 1-3 finger on the palmar surface. Historical: - Allergies: 06:15 NKDA; ea - PMHx: 06:15 Diabetes - NIDDM; ea - PSHx: 06:15 None; ea - Immunization history:: Adult Immunizations up to date. - Social history:: Smoking status: unknown Patient/guardian denies using alcohol, street drugs. ROS: 06:25 Constitutional: Negative for fever, chills, and weight loss, Cardiovascular: Negative jmm for chest pain, palpitations, and edema, Respiratory: Negative for shortness of breath, cough, wheezing, and pleuritic chest pain. 06:25 MS/extremity: Positive for paresthesias. 06:25 Neuro: Positive for numbness. 06:25 All other systems are negative. Exam: 06:25 Constitutional: This is a well developed, well nourished patient who is awake, alert, jmm and in no acute distress. Head/Face: atraumatic. Eyes: EOMI, no conjunctival erythema appreciated ENT: Moist Mucus Membranes Neck: Trachea midline, Supple Chest/axilla: Normal chest wall appearance and motion. Cardiovascular: Regular rate and rhythm. No edema appreciated Respiratory: Normal respirations, no respiratory distress appreciated Abdomen/GI: Non distended, soft Back: Normal ROM Skin: General appearance color normal 06:25 Musculoskeletal/extremity: full left radial pulse, compartments are soft, FROM appreciated, decreased sensitivity noted to the median nerve distribution of the left hand , motor function intact. 06:25 Skin: Appearance: Color: normal in color. 06:25 Neuro: Orientation: is normal, Mentation: is normal, Memory: is normal. 06:25 Psych: Behavior/mood is pleasant, cooperative. Vital Signs: 06:14 BP 136 / 95; Pulse 86; Resp 18; Temp 97.6; Pulse Ox 100% ; ea 06:15 BP 136 / 95; Pulse 90; Resp 19; Temp 97.6; Pulse Ox 100% ; Weight 90.72 kg; Height 5 rr5 ft. 1 in. (154.94 cm); Pain 0/10; 06:45 BP 115 / 70; Pulse 85; Resp 17; Pulse Ox 98% on R/A; rr5 06:15 Body Mass Index 37.79 (90.72 kg, 154.94 cm) rr5 MDM: 06:25 Patient medically screened. [facility] 06:26 Data reviewed: vital signs, nurses notes. [facility] 06:41 Data reviewed:. Counseling: I had a detailed discussion with the patient and/or [facility] guardian regarding: the historical points, exam findings, and any diagnostic results supporting the discharge/admit diagnosis, the need for outpatient follow up, to return to the emergency department if symptoms worsen or persist or if there are any questions or concerns that arise at home. ED course: Left arm is NVI, positive phalens signs. PE consistent with CTR. Advised to follow up with hand and otherwise given strict return precautions. Patient understood and agrees with the plan of care. . 12/28 06:26 Order name: Wrist Splint; Complete Time: 06:47 [facility] Administered Medications: No medications were administered Disposition: 06:52 Co-signature as Attending Physician, Lio Alvarez MD. rn Disposition: 12/29/19 06:35 Discharged to Home. Impression: Carpal tunnel syndrome, left upper limb. - Condition is Stable. - Discharge Instructions: Carpal Tunnel Syndrome. - Medication Reconciliation Form, Thank You Letter, Antibiotic Education, Prescription Opioid Use, Work release form form. - Follow up: Werner Brower MD; When: 2 - 3 days; Reason: Recheck today's complaints, Continuance of care, Re-evaluation by your physician. Signatures: Narendra Walker PA PA jmm Nieto, Roman, MD MD rn Antunez, Elena, RN RN ea Roque, Raymond, RN RN rr5 Corrections: (The following items were deleted from the chart) 06:51 06:35 12/29/2019 06:35 Discharged to Home. Impression: Carpal tunnel syndrome, left rr5 upper limb. Condition is Stable. Forms are Medication Reconciliation Form, Thank You Letter, Antibiotic Education, Prescription Opioid Use. Follow up: Werner Brower; When: 2 - 3 days; Reason: Recheck today's complaints, Continuance of care, Re-evaluation by your physician. noreen
[2019-12-29 06:56] VITALS: TEMP 97.6
[2019-12-29 06:58] VITALS: BP 115/70; O2SAT 98
== END 2019-12-29 06:51 | disposition home or self-care (01) ==
LOC: ER 06:01
DX: G56.02 Carpal tunnel syndrome, left upper limb (principal); E11.9 Type 2 diabetes mellitus without complications
CPT/HCPCS: 99283

== ENCOUNTER 2020-05-17 17:35 | Emergency (ER) | payer SELFPAY, OTHER ==
--- OUTSIDE RECORDS SUMMARY | 2020-05-17 17:36 | XMS REPORT | Continuity of Care Document ---
:1990 Author Organization [facility] t Address [address] [place] [address] Dr. Bentley. [address] [place] [address] Care Team Providers Name Role Phone Twyla ALVES S Attending Clinician Problems This patient has no known problems. Allergies, Adverse Reactions, Alerts This patient has no known allergies or adverse reactions. Medications This patient has no known medications. Procedures This patient has no known procedures. Encounters Start End Encounter Admission Attending Care Care Encounter Source Date/Time Date/Time Type Type Clinicians Facility Department ID 2019-05-01 2019-05-02 Emergency Twyla [facility] [place] [id number] 19:23:31 00:11:00 [place] [id number] [place] [id number] [place] [id number] Results This patient has no known results.
[2020-05-17] MEDS ORDERED: NA CHLORIDE 0.9% 2,000 ML ONE (20:19)
[2020-05-17 21:05] LABS: Absolute Lymphocytes (CBC) 4.2 K/uL (0.7-4.9); Hematocrit 45.3 % (36.0-45.0); Lymphocytes % 33.1 % (15.3-44.8); MPV 9.9 fL (7.6-11.3); RBC Red Blood Cell Count 5.15 M/uL (3.86-4.86)
--- NOTE | 2020-05-17 21:15 | RAD REPORT ---
EXAM DESCRIPTION: Ken Single View05/17/2020 9:00 pm CLINICAL HISTORY: cough COMPARISON: 2018 FINDINGS: The lungs appear clear of acute infiltrate. The heart is normal size IMPRESSION: No acute abnormalities displayed
[2020-05-17 21:24] LABS: ALT/SGPT 41 U/L (12-78); AST/SGOT 19 U/L (15-37); Albumin 3.6 g/dL (3.4-5.0); Alkaline Phosphatase 79 U/L (45-117); BUN Blood Urea Nitrogen 10 mg/dL (7-18); Bicarbonate 27 mmol/L (21-32); Bilirubin Direct 0.2 mg/dL (0-0.2); Bilirubin Total 0.8 mg/dL (0.2-1.0); Glucose Level 234 mg/dL (74-106); Lipase 252 U/L (73-393); Magnesium 1.8 mg/dL (1.8-2.4); NT PRO-BNP 9 pg/mL (<125); Potassium 3.7 mmol/L (3.5-5.1); Protein, Total 8.2 g/dL (6.4-8.2); Sodium Level 137 mmol/L (136-145); Troponin (Emerg Dept Use Only) < 0.02 ng/mL (0.0-0.045)
[2020-05-17 21:27] LABS: Urine Blood NEGATIVE (NEG); Urine Glucose 2+ (NEG); Urine Protein NEGATIVE (NEG)
--- NOTE | 2020-05-17 22:10 | ER ---
Nurse's Notes [facility] Name: Chiquis Palma Age: 29 yrs Sex: Female : 1990 Arrival Date: 05/17/2020 Time: 17:39 Bed 8 Private MD: Diagnosis: Cough;Type 2 diabetes mellitus;Obesity, unspecified Presentation: 05/17 17:46 Chief complaint: Patient states: Cough for 1 week. Started to urinate herself while ll1 coughing since yesterday, then started having dysuria last night. No fever. States she has been out of her metformin for 2 days, sugar at home was in the 400's today. Coronavirus screen: Client denies travel out of the [place] in the last 14 days. cough unrelated to allergies, Client presents with at least one sign or symptom that may indicate coronavirus-19. Standard/surgical mask placed on the client. The client reports previous COVID testing was negative. Ebola Screen: Patient denies travel to an Ebola-affected area in the 21 days before illness onset. Initial Sepsis Screen: Does the patient meet any 2 criteria? HR > 90 bpm. No. Patient's initial sepsis screen is negative. Risk Assessment: Do you want to hurt yourself or someone else? Patient reports no desire to harm self or others. Onset of symptoms was May 10, 2020. 17:46 Method Of Arrival: Ambulatory ll1 17:46 Acuity: CHANTEL 3 ll1 20:00 Initial Sepsis Screen: Does the patient have a suspected source of infection? Yes: mt2 Productive cough/pneumonia. 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 - Social history:: Smoking status: Patient denies any tobacco usage or history of. Patient/guardian denies using alcohol, street drugs. Screenin:25 Abuse screen: Denies threats or abuse. Nutritional screening: No deficits noted. mt2 Tuberculosis screening: No symptoms or risk factors identified. Fall Risk None identified. Assessment: 20:25 Reassessment: Patient and/or family updated on plan of care and expected duration. Pain mt2 level reassessed. Patient is alert, oriented x 3, equal unlabored respirations, skin warm/dry/pink. General: Appears comfortable, Behavior is cooperative. Pain: Complains of pain in generalized Pain currently is 5 out of 10 on a pain scale. Neuro: No deficits noted. Cardiovascular: No deficits noted. Respiratory: Reports shortness of breath on exertion. GI: No deficits noted. : No deficits noted. EENT: No deficits noted. Derm: No deficits noted. Musculoskeletal: Reports BODY ACHES. Vital Signs: 17:46 BP 109 / 61; Pulse 97; Resp 18; Temp 98.7; Pulse Ox 99% ; Weight 81.65 kg; Height 5 ft. ll1 (152.40 cm); Pain 0/10; 20:25 BP 92 / 70; Pulse 81; Resp 16; Pulse Ox 97% on R/A; Pain 5/10; mt2 21:30 BP 104 / 67; Pulse 77; Resp 16; Pulse Ox 97% ; Pain 0/10; mt2 22:28 BP 114 / 67; Pulse 74; Resp 16; Temp 97.7(O); Pulse Ox 100% on R/A; Pain 0/10; mt2 17:46 Body Mass Index 35.15 (81.65 kg, 152.40 cm) ll1 ED Course: 17:39 Patient arrived in ED. mr 17:48 Triage completed. ll1 17:49 Arm band placed on. ll1 19:50 Dawit Yousif MD is Attending Physician. gwyn 20:12 Ping Ramos, SELAM is Primary Nurse. mt2 20:22 Inserted saline lock: 20 gauge in right antecubital area, using aseptic technique. mt2 Blood collected. 20:25 Patient has correct armband on for positive identification. Call light in reach. Side mt2 rails up X 1. monitoring analyst on. Pulse ox on. NIBP on. 20:25 Initial lab(s) drawn, by me, sent to lab. First set of blood cultures drawn by me. mt2 21:00 XRAY Chest (1 view) In Process Unspecified. EDMS 22:27 No provider procedures requiring assistance completed. IV discontinued, intact, mt2 bleeding controlled, No redness/swelling at site. Pressure dressing applied. Administered Medications: 20:49 Drug: NS 0.9% 1000 ml Route: IV; Rate: 125 ml/hr; Site: right antecubital; mt2 22:28 Follow up: Response: No adverse reaction; IV Status: Completed infusion mt2 20:51 Drug: NS 0.9% 1000 ml Route: IV; Rate: 1 bolus; Site: right antecubital; mt2 21:49 Follow up: Response: No adverse reaction; IV Status: Completed infusion mt2 Outcome: 22:10 Discharge ordered by . gwyn 22:27 Discharged to home ambulatory. mt2 22:27 Condition: good 22:27 Discharge instructions given to patient, Instructed on discharge instructions, follow up and referral plans. medication usage, Demonstrated understanding of instructions, follow-up care, medications, Prescriptions given X 2. 22:29 Patient left the ED. mt2 Addendum: 05/20/2020 14:38 Addendum: COVID-19 Result: Negative result given to RN to notify pt. Attempted to i w contact pt regarding negative COVID-19 swab results. Left voice mail. 05/22/2020 17:29 Addendum: COVID-19 Result: Negative result given to RN to notify pt. Attempted to i w contact pt regarding negative COVID-19 swab results. Left voice mail. Signatures: Dispatcher [employer] EDDawit Marie MD MD cha Rivera, Rin mr Shaniqua Arroyo RN RN iw Lewis, Lynsay, RN RN ll1 Ping Ramos RN RN mt2 Corrections: (The following items were deleted from the chart) 05/17 17:50 17:46 Chief complaint: Patient states: Cough for 1 week. Started to urinate herself ll1 while coughing since yesterday, then started having dysuria last night. No fever. ll1
--- NOTE | 2020-05-17 22:11 | EDPHYS ---
Physician Documentation [facility] Name: Chiquis Palma Age: 29 yrs Sex: Female : 1990 Arrival Date: 05/17/2020 Time: 17:39 Bed 8 Private MD: ED Physician Dawit Yousif HPI: 05/17 21:22 This 29 yrs old Female presents to ER via Ambulatory with complaints of Cough. gwyn 21:22 The patient or guardian reports cough. Onset: The symptoms/episode began/occurred 3 gwyn day(s) ago. Severity of symptoms: At their worst the symptoms were mild, in the emergency department the symptoms are unchanged. Modifying factors: The symptoms are alleviated by nothing, the symptoms are aggravated by nothing. Associated signs and symptoms: The patient has no apparent associated signs or symptoms. The patient has not experienced similar symptoms in the past. 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 - Social history:: Smoking status: Patient denies any tobacco usage or history of. Patient/guardian denies using alcohol, street drugs. ROS: 21:23 Constitutional: Negative for fever, chills, and weight loss, Eyes: Negative for injury, gwyn pain, redness, and discharge, ENT: Negative for injury, pain, and discharge, Neck: Negative for injury, pain, and swelling, Cardiovascular: Negative for chest pain, palpitations, and edema, Abdomen/GI: Negative for abdominal pain, nausea, vomiting, diarrhea, and constipation, Back: Negative for injury and pain, : Negative for injury, bleeding, discharge, and swelling, MS/Extremity: Negative for injury and deformity, Skin: Negative for injury, rash, and discoloration, Neuro: Negative for headache, weakness, numbness, tingling, and seizure, Psych: Negative for depression, anxiety, suicide ideation, homicidal ideation, and hallucinations, Allergy/Immunology: Negative for hives, rash, and allergies, Endocrine: Negative for neck swelling, polydipsia, polyuria, polyphagia, and marked weight changes, Hematologic/Lymphatic: Negative for swollen nodes, abnormal bleeding, and unusual bruising. 21:23 Respiratory: Positive for cough. 21:23 MS/extremity: Negative for acute changes. Exam: 21:24 Constitutional: This is a well developed, well nourished patient who is awake, alert, gwyn and in no acute distress. Head/Face: Normocephalic, atraumatic. Eyes: Pupils equal round and reactive to light, extra-ocular motions intact. Lids and lashes normal. Conjunctiva and sclera are non-icteric and not injected. Cornea within normal limits. Periorbital areas with no swelling, redness, or edema. ENT: Nares patent. No nasal discharge, no septal abnormalities noted. Tympanic membranes are normal and external auditory canals are clear. Oropharynx with no redness, swelling, or masses, exudates, or evidence of obstruction, uvula midline. Mucous membranes moist. Neck: Trachea midline, no thyromegaly or masses palpated, and no cervical lymphadenopathy. Supple, full range of motion without nuchal rigidity, or vertebral point tenderness. No Meningismus. Chest/axilla: Normal chest wall appearance and motion. Nontender with no deformity. No lesions are appreciated. Cardiovascular: Regular rate and rhythm with a normal S1 and S2. No gallops, murmurs, or rubs. Normal PMI, no JVD. No pulse deficits. Respiratory: Lungs have equal breath sounds bilaterally, clear to auscultation and percussion. No rales, rhonchi or wheezes noted. No increased work of breathing, no retractions or nasal flaring. Abdomen/GI: Soft, non-tender, with normal bowel sounds. No distension or tympany. No guarding or rebound. No evidence of tenderness throughout. Back: No spinal tenderness. No costovertebral tenderness. Full range of motion. Skin: Warm, dry with normal turgor. Normal color with no rashes, no lesions, and no evidence of cellulitis. MS/ Extremity: Pulses equal, no cyanosis. Neurovascular intact. Full, normal range of motion. Neuro: Awake and alert, GCS 15, oriented to person, place, time, and situation. Cranial nerves II-XII grossly intact. Motor strength 5/5 in all extremities. Sensory grossly intact. Cerebellar exam normal. Normal gait. Psych: Awake, alert, with orientation to person, place and time. Behavior, mood, and affect are within normal limits. 21:24 Musculoskeletal/extremity: Extremities: all appear grossly normal, with no appreciated pain with palpation, ROM: no acute changes, Circulation is intact in all extremities. Sensation intact. Compartment Syndrome exam of affected extremity: is normal. DVT Exam: No signs of deep vein thrombosis. no pain, no swelling, no tenderness, negative Homans' sign noted on exam, no appreciated bluish discoloration, no erythema, no increased warmth. Vital Signs: 17:46 BP 109 / 61; Pulse 97; Resp 18; Temp 98.7; Pulse Ox 99% ; Weight 81.65 kg; Height 5 ft. ll1 (152.40 cm); Pain 0/10; 20:25 BP 92 / 70; Pulse 81; Resp 16; Pulse Ox 97% on R/A; Pain 5/10; mt2 21:30 BP 104 / 67; Pulse 77; Resp 16; Pulse Ox 97% ; Pain 0/10; mt2 22:28 BP 114 / 67; Pulse 74; Resp 16; Temp 97.7(O); Pulse Ox 100% on R/A; Pain 0/10; mt2 17:46 Body Mass Index 35.15 (81.65 kg, 152.40 cm) ll1 MDM: 19:55 Patient medically screened. gwyn 21:24 Differential Diagnosis: flu, Bronchitis Upper Respiratory Infection Pharyngitis Asthma gwyn Exacerbation Viral Syndrome Pneumonia. Data reviewed: vital signs, nurses notes, lab test result(s), EKG, radiologic studies, plain films. 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 rate is 81 beats/min, rhythm is regular, Pulse oximetry: is not applicable for this patient encounter. Test interpretation: by ED physician or midlevel provider: ECG, plain radiologic studies. Counseling: I had a detailed discussion with the patient and/or guardian regarding: the historical points, exam findings, and any diagnostic results supporting the discharge/admit diagnosis, lab results, radiology results, the need for outpatient follow up, for definitive care, a family practitioner. ED course: cough, non toxic, well hydrated, will cover with abx and cough meds. 22:09 ED course: discussed labs with patient, pt feels better , no cp, no sob, no dvt or pe gwyn history, no hc state. 05/17 18:07 Order name: Glucose, Ancillary Testing; Complete Time: 21:06 EDPA 05/17 19:53 Order name: Basic Metabolic Panel; Complete Time: 22:07 [facility] 05/17 19:53 Order name: CBC with Diff; Complete Time: 22:07 [facility] 05/17 19:53 Order name: LFT's; Complete Time: 22:07 [facility] 05/17 19:53 Order name: Magnesium; Complete Time: 22:07 [facility] 05/17 19:53 Order name: NT PRO-BNP; Complete Time: 22:07 [facility] 05/17 19:53 Order name: PT-INR; Complete Time: 22: [facility] 05/17 19:53 Order name: Troponin (emerg Dept Use Only); Complete Time: 22: [facility] 05/17 19:53 Order name: Lipase; Complete Time: 22: [facility] 05/17 19:53 Order name: Blood Culture Adult (2) [facility] 05/17 19:53 Order name: Lactate; Complete Time: 22:07 [facility] 05/17 19:53 Order name: Procalcitonin [facility] 05/17 19:53 Order name: COVID-19 [facility] 05/17 19:54 Order name: Urine Culture [facility] 05/17 19:53 Order name: XRAY Chest (1 view); Complete Time: 22:07 [facility] 05/17 19:53 Order name: EKG; Complete Time: 19:54 [facility] 05/17 19:53 Order name: Cardiac monitoring; Complete Time: 20:52 [facility] 05/17 19:53 Order name: EKG - Nurse/Tech; Complete Time: 20:50 [facility] 05/17 19:53 Order name: IV Saline Lock; Complete Time: 20:52 [facility] 05/17 19:53 Order name: Labs collected and sent; Complete Time: 20:52 [facility] 05/17 19:53 Order name: O2 Per Protocol; Complete Time: 20:52 [facility] 05/17 19:53 Order name: O2 Sat Monitoring; Complete Time: 20:52 [facility] 05/17 19:54 Order name: Urine Dipstick-Ancillary (obtain specimen); Complete Time: 21:23 [facility] 05/17 19:54 Order name: Urine Test (obtain specimen); Complete Time: 21:23 [facility] 05/17 21:23 Order name: Urine Dipstick--Ancillary (enter results); Complete Time: 22:07 2 05/17 21:23 Order name: Urine --Ancillary (enter results); Complete Time: 22:07 mw2 Administered Medications: 20:49 Drug: NS 0.9% 1000 ml Route: IV; Rate: 125 ml/hr; Site: right antecubital; mt2 22:28 Follow up: Response: No adverse reaction; IV Status: Completed infusion mt2 20:51 Drug: NS 0.9% 1000 ml Route: IV; Rate: 1 bolus; Site: right antecubital; mt2 21:49 Follow up: Response: No adverse reaction; IV Status: Completed infusion mt2 Disposition: 05/17/20 22:10 Discharged to Home. Impression: Cough, Type 2 diabetes mellitus, Obesity, unspecified. - Condition is Stable. - Discharge Instructions: Type 2 Diabetes Mellitus, Diagnosis, Adult, Obesity, Adult, Cool Mist Vaporizer, Cough, Adult, Type 2 Diabetes Mellitus, Diagnosis, Adult, [id number]. - Prescriptions for Bromfed DM 2- 30-10 mg/5 mL Oral syrup - take 10 milliliter by ORAL route every 6 hours; 160 milliliter. Zithromax 500 mg Oral Tablet - take 1 tablet by ORAL route once daily for 4 days; 4 tablet. - Medication Reconciliation Form, Thank You Letter, Antibiotic Education, Prescription Opioid Use, Work release form form. - Follow up: Private Physician; When: 2 - 3 days; Reason: Recheck today's complaints, Continuance of care, Re-evaluation by your physician. - Problem is new. - Symptoms have improved. Signatures: Dispatcher [employer] EDPA Dawit Yousif MD MD cha Lewis, Lynsay, RN RN ll1 Ping Ramos RN RN mt2 Corrections: (The following items were deleted from the chart) 22:29 22:10 05/17/2020 22:10 Discharged to Home. Impression: Cough; Type 2 diabetes mellitus; mt2 Obesity, unspecified. Condition is Stable. Discharge Instructions: Type 2 Diabetes Mellitus, Diagnosis, Adult, Obesity, Adult, Cool Mist Vaporizer, Cough, Adult, Type 2 Diabetes Mellitus, Diagnosis, Adult, [id number]. Prescriptions for Bromfed DM 2-30-10 mg/5 mL Oral syrup - take 10 milliliter by ORAL route every 6 hours; 160 milliliter, Zithromax 500 mg Oral Tablet - take 1 tablet by ORAL route once daily for 4 days; 4 tablet. and Forms are Medication Reconciliation Form, Thank You Letter, Antibiotic Education, Prescription Opioid Use. Follow up: Private Physician; When: 2 - 3 days; Reason: Recheck today's complaints, Continuance of care, Re-evaluation by your physician. Problem is new. Symptoms have improved. gwyn
--- NOTE | 2020-05-19 11:15 | EKG ---
Test Date: 2020-05-17 Test Time: 20:24:23 Supply Assistant: LIZABETH MEASUREMENT RESULTS: Intervals: Rate: 74 TN: 150 QRSD: 74 QT: 368 QTc: 408 [place]: P: 29 TN: 150 QRS: 44 T: 27 INTERPRETIVE STATEMENTS: Normal sinus rhythm with sinus arrhythmia Cannot rule out Anterior infarct, age undetermined Abnormal ECG No previous ECG available for comparison Electronically Signed On 05-19-20 11:10:41 CDT by Dangelo Matso
[2020-05-20 00:29] VITALS: BP 114/67; TEMP 97.7; O2SAT 100
== END 2020-05-17 22:29 | disposition home or self-care (01) ==
LOC: ER 17:35
DX: R05 Cough (principal); E66.9 Obesity, unspecified; E11.9 Type 2 diabetes mellitus without complications; Z20.828 Contact with and (suspected) exposure to other viral communicable diseases
CPT/HCPCS: 36415; 71045; 80048; 80076; 81003; 81025; 82947; 83605; 83690; 83735; 83880; 84145; 84484; 85025; 85610; 87040; 87077; 87086; 87088; 87186; 93005; 96360; 96361; 99284; J7030; U0002

== ENCOUNTER 2020-06-18 06:12 | Emergency (ER) | payer SELFPAY, OTHER ==
--- NOTE | 2020-06-18 07:26 | EDPHYS ---
Physician Documentation [facility] Name: Chiquis Palma Age: 29 yrs Sex: Female : 1990 Arrival Date: 06/18/2020 Time: 06:14 Bed 4 Private MD: TING Physician Dawit Yousif HPI: 06/18 07:05 This 29 yrs old Female presents to ER via Ambulatory with complaints of Toe gwyn Injury. 07:05 The patient presents with decreased range of motion, an injury, pain. The complaints gwyn affect the left foot, plantar aspect of left first toe, left first toe and Left first toenail. Context: The problem was sustained at home, resulted from stubbing toe on furniture. Onset: The symptoms/episode began/occurred just prior to arrival. Modifying factors: The symptoms are alleviated by nothing, elevation of extremity, ice packs, the symptoms are aggravated by weight bearing, wearing shoes. Associated signs and symptoms: The patient has no apparent associated signs or symptoms. Severity of symptoms: At their worst the symptoms were moderate, in the emergency department the symptoms are unchanged. The patient has not experienced similar symptoms in the past. 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 - Social history:: Smoking status: Patient denies any tobacco usage or history of. Smoking status: . - Family history:: not pertinent. ROS: 07:05 Constitutional: Negative for fever, chills, and weight loss, Eyes: Negative for injury, gwyn pain, redness, and discharge, ENT: Negative for injury, pain, and discharge, Neck: Negative for injury, pain, and swelling, Cardiovascular: Negative for chest pain, palpitations, and edema, Respiratory: Negative for shortness of breath, cough, wheezing, and pleuritic chest pain, Abdomen/GI: Negative for abdominal pain, nausea, vomiting, diarrhea, and constipation, Back: Negative for injury and pain, : Negative for injury, bleeding, discharge, and swelling, Skin: Negative for injury, rash, and discoloration, Neuro: Negative for headache, weakness, numbness, tingling, and seizure, Psych: Negative for depression, anxiety, suicide ideation, homicidal ideation, and hallucinations, Allergy/Immunology: Negative for hives, rash, and allergies, Endocrine: Negative for neck swelling, polydipsia, polyuria, polyphagia, and marked weight changes, Hematologic/Lymphatic: Negative for swollen nodes, abnormal bleeding, and unusual bruising. 07:05 MS/extremity: Positive for injury or acute deformity, pain, swelling, tenderness, of the plantar aspect of left first toe, left first toe and Left first toenail. Exam: 07:05 Constitutional: This is a well developed, well nourished patient who is awake, alert, gwyn and in no acute distress. Head/Face: Normocephalic, atraumatic. Eyes: Pupils equal round and reactive to light, extra-ocular motions intact. Lids and lashes normal. Conjunctiva and sclera are non-icteric and not injected. Cornea within normal limits. Periorbital areas with no swelling, redness, or edema. ENT: Nares patent. No nasal discharge, no septal abnormalities noted. Tympanic membranes are normal and external auditory canals are clear. Oropharynx with no redness, swelling, or masses, exudates, or evidence of obstruction, uvula midline. Mucous membranes moist. Neck: Trachea midline, no thyromegaly or masses palpated, and no cervical lymphadenopathy. Supple, full range of motion without nuchal rigidity, or vertebral point tenderness. No Meningismus. Chest/axilla: Normal chest wall appearance and motion. Nontender with no deformity. No lesions are appreciated. Cardiovascular: Regular rate and rhythm with a normal S1 and S2. No gallops, murmurs, or rubs. Normal PMI, no JVD. No pulse deficits. Respiratory: Lungs have equal breath sounds bilaterally, clear to auscultation and percussion. No rales, rhonchi or wheezes noted. No increased work of breathing, no retractions or nasal flaring. Abdomen/GI: Soft, non-tender, with normal bowel sounds. No distension or tympany. No guarding or rebound. No evidence of tenderness throughout. Back: No spinal tenderness. No costovertebral tenderness. Full range of motion. Skin: Warm, dry with normal turgor. Normal color with no rashes, no lesions, and no evidence of cellulitis. Neuro: Awake and alert, GCS 15, oriented to person, place, time, and situation. Cranial nerves II-XII grossly intact. Motor strength 5/5 in all extremities. Sensory grossly intact. Cerebellar exam normal. Normal gait. Psych: Awake, alert, with orientation to person, place and time. Behavior, mood, and affect are within normal limits. 07:05 Musculoskeletal/extremity: ROM: limited active range of motion due to pain, limited passive range of motion due to pain, Circulation is intact in all extremities. Sensation intact. Compartment Syndrome exam of affected extremity: is normal. DVT Exam: pain, swelling, tenderness. Vital Signs: 06:29 BP 140 / 98; Pulse 92; Resp 18; Temp 97.9(TE); Pulse Ox 97% on R/A; Weight 86.18 kg lp1 (R); Height 5 ft. 0 in. (152.40 cm); Pain 10/10; 07:30 BP 128 / 98; Pulse 75; Resp 15; Pulse Ox 100% ; jl7 06:29 Body Mass Index 37.11 (86.18 kg, 152.40 cm) lp1 Procedures: 07:05 Performed 18 gauge to nail. gwyn 07:23 Performed 2 drill holes applied, good blood return, tolerated well. gwyn MDM: 06:21 Patient medically screened. [facility] 07:05 Differential diagnosis: fracture, sprain. Data reviewed: vital signs, nurses notes, [facility] radiologic studies, plain films. Data interpreted: bus monitor: not applicable for this patient encounter. rate is 92 beats/min, Pulse oximetry: on room air is 99 %. Test interpretation: by ED physician or midlevel provider: plain radiologic studies. Counseling: I had a detailed discussion with the patient and/or guardian regarding: the historical points, exam findings, and any diagnostic results supporting the discharge/admit diagnosis, radiology results, the need for outpatient follow up, for definitive care, a manager studio. 06/18 06:54 Order name: XRAY Foot LEFT 3 View rr5 06/18 07:21 Order name: Dressing - Wound; Complete Time: 07:40 gwyn 06/18 07:21 Order name: Gloves, Sterile; Complete Time: 07:40 [facility] 06/18 07:21 Order name: Setup Suture Tray; Complete Time: 07:40 [facility] 06/18 07:21 Order name: Post-op shoe; Complete Time: 07:40 [facility] 06/18 07:23 Order name: Ice pack; Complete Time: 07:41 [facility] Administered Medications: 07:40 Drug: Neosporin Ointment 1 application Route: Topical; Site: affected area; [facility] 07:40 Drug: Motrin 800 mg Route: PO; [facility] 07:50 Follow up: Response: Medication administered at discharge. jl7 Disposition: 06/18/20 07:25 Discharged to Home. Impression: Contusion of great toe with damage to nail - subungal hematoma, drained. - Condition is Stable. - Discharge Instructions: Type 2 Diabetes Mellitus, Diagnosis, Adult, Subungual Hematoma, Toe Fracture, Turf Toe, Subungual Hematoma, [id number]. - Prescriptions for Ibuprofen 600 mg Oral Tablet - take 1 tablet by ORAL route every 6 hours As needed take with food; 20 tablet. Tylenol- Codeine #3 300-30 mg Oral Tablet - take 2 tablets by ORAL route every 6 hours As needed; 20 tablet. - Medication Reconciliation Form, Thank You Letter, Antibiotic Education, Prescription Opioid Use, Work release form form. - Follow up: Private Physician; When: 2 - 3 days; Reason: Recheck today's complaints, Continuance of care, Re-evaluation by your physician. - Problem is new. - Symptoms have improved. Signatures: Dispatcher [employer] EDMS Dawit Yousif MD MD cha Pena, Laura, RN RN lp1 Jess Glaser RN RN jl7 Jani Mcnally RN RN rv Corrections: (The following items were deleted from the chart) 08: 07:25 06/18/2020 07:25 Discharged to Home. Impression: Contusion of great toe with 7 damage to nail - subungal hematoma, drained. Condition is Stable. Forms are Medication Reconciliation Form, Thank You Letter, Antibiotic Education, Prescription Opioid Use. Follow up: Private Physician; When: 2 - 3 days; Reason: Recheck today's complaints, Continuance of care, Re-evaluation by your physician. Problem is new. Symptoms have improved. gwyn
--- NOTE | 2020-06-18 07:26 | ER ---
Nurse's Notes [facility] Name: Chiquis Palma Age: 29 yrs Sex: Female : 1990 Arrival Date: 06/18/2020 Time: 06:14 Bed 4 Private MD: Diagnosis: Contusion of great toe with damage to nail-subungal hematoma, drained Presentation: 06/18 06:29 Chief complaint: Patient states: Hit left great toe on door last night; states pain lp1 unrelieved this morning; unable to bear weight. Coronavirus screen: Client denies travel out of the [place] in the last 14 days. At this time, the client does not indicate any symptoms associated with coronavirus-19. Ebola Screen: No symptoms or risks identified at this time. Initial Sepsis Screen: Does the patient meet any 2 criteria? No. Patient's initial sepsis screen is negative. Does the patient have a suspected source of infection? No. Patient's initial sepsis screen is negative. Risk Assessment: Do you want to hurt yourself or someone else? Patient reports no desire to harm self or others. Onset of symptoms was June 17, 2020. 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 - Social history:: Smoking status: Patient denies any tobacco usage or history of. Smoking status: . - Family history:: not pertinent. Screenin:32 Abuse screen: Denies threats or abuse. Denies injuries from another. Nutritional rv screening: No deficits noted. Tuberculosis screening: No symptoms or risk factors identified. Fall Risk None identified. Assessment: 06:31 General: Appears uncomfortable, Behavior is calm, cooperative. Pain: Complains of pain rv in right first toe and Right first toenail. Neuro: Level of Consciousness is awake, alert, obeys commands, Oriented to person, place, time, situation. Cardiovascular: Patient's skin is warm and dry. Derm: Skin is intact. Musculoskeletal: Circulation, motion, and sensation intact. Swelling present in right first toe and Right first toenail. 07:41 Reassessment: Patient appears in no apparent distress at this time. No changes from jl7 previously documented assessment. Patient and/or family updated on plan of care and expected duration. Pain level reassessed. Patient is alert, oriented x 3, equal unlabored respirations, skin warm/dry/pink. Vital Signs: 06:29 BP 140 / 98; Pulse 92; Resp 18; Temp 97.9(TE); Pulse Ox 97% on R/A; Weight 86.18 kg lp1 (R); Height 5 ft. 0 in. (152.40 cm); Pain 10/10; 07:30 BP 128 / 98; Pulse 75; Resp 15; Pulse Ox 100% ; jl7 06:29 Body Mass Index 37.11 (86.18 kg, 152.40 cm) lp1 ED Course: 06:14 Patient arrived in ED. bp1 06:20 Dawit Yousif MD is Attending Physician. [facility] 06:31 Triage completed. lp1 06:31 Arm band placed on. lp1 06:32 Patient has correct armband on for positive identification. Pulse ox on. NIBP on. rv 07:07 Jess Glaser, SELAM is Primary Nurse. jl7 07:26 XRAY Foot LEFT 3 View In Process Unspecified. EDMD 07:41 draining of hematoma of toe nail. Patient did not have IV access during this emergency jl7 room visit. Administered Medications: 07:40 Drug: Neosporin Ointment 1 application Route: Topical; Site: affected area; jl7 07:40 Drug: Motrin 800 mg Route: PO; jl7 07:50 Follow up: Response: Medication administered at discharge. jl7 Outcome: 07:25 Discharge ordered by . [facility] 07:41 Discharged to home ambulatory. jl7 07:41 Condition: stable 07:41 Discharge instructions given to patient, Instructed on discharge instructions, follow up and referral plans. medication usage, Demonstrated understanding of instructions, follow-up care, medications, Prescriptions given X 2. 07:50 Patient left the ED. jl7 Signatures: Dispatcher [employer] EDMD Dawit Yousif MD MD cha Pena, Laura, RN RN lp1 Jses Glaser RN RN jl7 Jani Mcnally, SELAM RN rv Yolande Locke Corrections: (The following items were deleted from the chart) 08:07 08:07 Patient left the ED. william thomas
[2020-06-18] MEDS ORDERED: IBUPROFEN 400 MG TAB ONE (07:44)
[2020-06-18 08:12] VITALS: TEMP 97.9
[2020-06-18 08:14] VITALS: BP 128/98; O2SAT 100
--- NOTE | 2020-06-18 11:40 | RAD REPORT ---
EXAM DESCRIPTION: RAD - Foot Left 3 View - 06/18/2020 7:26 am CLINICAL HISTORY: PAIN COMPARISON: No comparisons FINDINGS: Soft tissue swelling is seen affecting the great toe. Subtle transverse lucency is seen in the distal phalanx of the great toe. This is suspicious for a hairline fracture and correlation with point tenderness in this region is recommended.
--- OUTSIDE RECORDS SUMMARY | 2020-06-22 00:23 | XMS REPORT | Continuity of Care Document ---
:1990 Author Organization [facility] t Address [address] [place] [address] Dr. Bliss [address] [place] [address] Care Team Providers Name Role Phone Twyla [...] Clinicians Facility Department ID 2019-05-01 2019-05-02 Emergency [facility] [id number] 19:23:31 00:11:00 Rey Willoughby [id number] [place] [id number] [place] [phone] [id number] Results This patient has no known results.
== END 2020-06-18 08:07 | disposition home or self-care (01) ==
LOC: ER 06:12
PROC: 0H9RXZZ Drainage of Toe Nail, External Approach (ICD-10-PCS; principal; 2020-06-18)
DX: S90.212A Contusion of left great toe with damage to nail, initial encounter (principal); E11.9 Type 2 diabetes mellitus without complications; W22.03XA Walked into furniture, initial encounter; Y93.01 Activity, walking, marching and hiking; Y92.009 Unspecified place in unspecified non-institutional (private) residence as the place of occurrence of the external cause
CPT/HCPCS: 99284

== ENCOUNTER 2020-08-06 20:22 | Emergency (ER) | payer SELFPAY ==
--- OUTSIDE RECORDS SUMMARY | 2020-08-06 20:24 | XMS REPORT | Continuity of Care Document ---
:1990 Author Organization [facility] t Address [address] [place] [address] Dr. Bentley. [address] [place] [address] Care Team Providers Name Role Phone Twyla [...] Facility Department ID 2019-05-01 2019-05-02 Emergency Twyla [facility] [id number] 19:23:31 00:11:00 Rey Willoughby [id number] [place] [id number] [place] [phone] [id number] Results This patient has no known results.
--- NOTE | 2020-08-06 23:02 | ER ---
Nurse's Notes [facility] Name: Chiquis Palma Age: 29 yrs Sex: Female : 1990 Arrival Date: 08/06/2020 Time: 20:40 Bed Waiting Private MD: Diagnosis: Presentation: 08/06 20:43 Chief complaint: Patient states: Diarrhea x 3 today. Started having throat pain. ll1 sweating, rash to neck/chest since this afternoon. no known fever. Coronavirus screen: Client denies travel out of the [place] in the last 14 days. diarrhea, fatigue, headache, nausea, sore throat, loss of taste or smell. Ebola Screen: Patient denies travel to an Ebola-affected area in the 21 days before illness onset. Initial Sepsis Screen: Does the patient meet any 2 criteria? HR > 90 bpm. No. Patient's initial sepsis screen is negative. Does the patient have a suspected source of infection? Yes: Other: sore throat. Risk Assessment: Do you want to hurt yourself or someone else? Patient reports no desire to harm self or others. Onset of symptoms was August 06, 2020. 20:43 Method Of Arrival: Ambulatory ll1 20:43 Acuity: CHANTEL 3 ll1 20:48 Chief complaint: Fingerstick 248. ll1 Historical: - Allergies: 20:45 NKDA; ll1 - PMHx: 20:45 Diabetes - NIDDM; ll1 - PSHx: 20:45 None; ll1 - Immunization history:: Flu vaccine is not up to date. - Social history:: Smoking status: Patient denies any tobacco usage or history of. Vital Signs: 20:43 BP 129 / 93; Pulse 100; Resp 18; Temp 98.6; Pulse Ox 98% ; Weight 81.65 kg; Height 5 ll1 ft. 0 in. (152.40 cm); Pain 8/10; 20:43 Body Mass Index 35.15 (81.65 kg, 152.40 cm) ll1 ED Course: 20:40 Patient arrived in ED. cf2 20:45 Triage completed. ll1 20:45 Arm band placed on. ll1 Administered Medications: No medications were administered Outcome: 23:01 Patient left the ED. dm5 Signatures: Maxine Nguyen RN RN dm5 Silver Truong cf2 Morgan Felix, RN RN ll1
[2020-08-07 04:43] VITALS: BP 129/93; TEMP 98.6; O2SAT 98
== END 2020-08-06 23:01 | disposition left against medical advice (07) ==
LOC: ER 20:22
DX: Z53.21 Procedure and treatment not carried out due to patient leaving prior to being seen by health care provider (principal)
CPT/HCPCS: 82947; 99281

== ENCOUNTER 2020-09-09 15:17 | Emergency (ER) | payer SELFPAY ==
--- OUTSIDE RECORDS SUMMARY | 2020-09-09 15:20 | XMS REPORT | Continuity of Care Document ---
:1990 Author Organization [facility] t Address [address] [place] [address] Dr. Bentley. [address] [place] [address] Care Team Providers Name Role Phone Twyla [...] Facility Department ID 2019-05-01 2019-05-02 Emergency Twyla [facility] [id number] 19:23:31 00:11:00 Rey Willoughby [id number] [place] [id number] [place] [phone] [id number] Results This patient has no known results.
--- NOTE | 2020-09-09 16:26 | RAD REPORT ---
EXAM DESCRIPTION: RAD - Chest Pa And Lat (2 Views) - 09/09/2020 4:21 pm CLINICAL HISTORY: COUGH Chest pain. COMPARISON: Chest Single View dated 05/17/2020; Chest Single View dated 05/01/2019; CHEST PA AND LAT 2 VIEW dated 09/30/2012; CHEST PA AND LAT 2 VIEW dated 01/17/2009 FINDINGS: The lungs are clear. The heart is normal in size. No displaced fractures. IMPRESSION: No acute or concerning finding suspected.
--- NOTE | 2020-09-09 19:45 | ER ---
Nurse's Notes [facility] Name: Chiquis Palma Age: 29 yrs Sex: Female : 1990 Arrival Date: 09/09/2020 Time: 15:18 Bed 12 Private MD: Diagnosis: Streptococcal pharyngitis Presentation: 09/09 15:50 Coronavirus screen: cough unrelated to allergies, sore throat. Ebola Screen: Patient aa5 negative for fever greater than or equal to 101.5 degrees Fahrenheit, and additional compatible Ebola Virus Disease symptoms. Initial Sepsis Screen: Does the patient meet any 2 criteria? No. Patient's initial sepsis screen is negative. Does the patient have a suspected source of infection? No. Patient's initial sepsis screen is negative. Risk Assessment: Do you want to hurt yourself or someone else? Patient reports no desire to harm self or others. Onset of symptoms was September 06, 2020. 15:50 Method Of Arrival: Ambulatory aa5 15:50 Acuity: CHANTEL 4 aa5 15:50 Chief complaint: Patient states: cough,shortness of breath, sore throat that began aa5 September 06. Triage Assessment: 19:10 General: Appears in no apparent distress. comfortable, Behavior is calm, cooperative, rr5 appropriate for age. Respiratory: Reports cough that is Onset: The symptoms/episode began/occurred gradually, the patient has mild shortness of breath. 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 - Social history:: Smoking status: Patient denies any tobacco usage or history of. Screenin:50 Abuse screen: Denies threats or abuse. Denies injuries from another. Nutritional rr5 screening: No deficits noted. Tuberculosis screening: No symptoms or risk factors identified. Fall Risk None identified. Total Madsen Fall Scale indicates No Risk (0-24 pts). Assessment: 19:40 General: Appears in no apparent distress. uncomfortable, Behavior is calm, cooperative, rr5 appropriate for age, Reports fever for feeling ill for fatigue for. Pain: Complains of pain in throat Pain radiates to chest Pain Quality of pain is described as aching, Pain began gradually, Is intermittent. Neuro: Level of Consciousness is awake, alert, obeys commands, Oriented to person, place, time, situation. Cardiovascular: Capillary refill < 3 seconds Patient's skin is warm and dry. Rhythm is. Respiratory: Reports shortness of breath cough that is Airway is patent Respiratory effort is even, unlabored, Respiratory pattern is regular, symmetrical, 19:40 GI: No signs and/or symptoms were reported involving the gastrointestinal system. : rr5 No signs and/or symptoms were reported regarding the genitourinary system. EENT: Reports pain when swallowing. Derm: Skin is intact, is healthy with good turgor, Skin temperature is warm. Musculoskeletal: Circulation, motion, and sensation intact. Capillary refill < 3 seconds. 20:18 Reassessment: Patient appears in no apparent distress at this time. Patient is alert, rr5 oriented x 3, equal unlabored respirations, skin warm/dry/pink. discharge instruction given and explained without compliant made. Vital Signs: 15:50 BP 132 / 80; Pulse 90; Resp 18 S; Temp 98.0(O); Pulse Ox 100% on R/A; aa5 20:15 BP 138 / 75; Pulse 95; Resp 16; Temp 97.8; Pulse Ox 99% ; rr5 ED Course: 15:18 Patient arrived in ED. ag5 15:30 Rose Mary Anna FNP-C is [facility]. kb 15:30 Dawit Yousif MD is Attending Physician. kb 15:49 Arm band placed on. aa5 15:51 Triage completed. aa5 16:21 Chest Pa And Lat (2 Views) XRAY In Process Unspecified. EDMS 19:01 Flu and/or RSV swab sent to lab. Strep swab sent to lab. rr5 19:44 [facility]. kb 19:44 Kirit Ng MD is Attending Physician. kb 19:49 Charly Varela RN is Primary Nurse. rr5 19:50 Patient has correct armband on for positive identification. Bed in low position. Call rr5 light in reach. 19:50 No provider procedures requiring assistance completed. Patient did not have IV access rr5 during this emergency room visit. 20:15 COVID swab sent to lab. rr5 Administered Medications: 19:57 Drug: Bicillin L-A 1.2 million units Route: IM; Site: left gluteus; rr5 19:58 Drug: GI Cocktail without - (Maalox Suspension 30 ml, Lidocaine Liquid 2 % 15 rr5 ml) Route: PO; Outcome: 19:45 Discharge ordered by MD. stacy 20:15 Discharged to home ambulatory. rr5 20:15 Condition: stable 20:15 Discharge instructions given to patient, Instructed on discharge instructions, follow up and referral plans. Demonstrated understanding of instructions, follow-up care. 20:18 Patient left the ED. rr5 Addendum: 09/13/2020 07:56 Addendum: COVID-19 Result: Negative result given to RN to notify pt. Unable to leave d m5 voice mail due to the number provided was either not a working number, the voice mail has not been set up, or the voice mailbox is full.. 09/14/2020 10:36 Addendum: COVID-19 Result: Negative result given to RN to notify pt. Unable to leave i w voice mail due to the number provided was either not a working number, the voice mail has not been set up, or the voice mailbox is full.. Signatures: Dispatcher [employer] Rose Mary Alcantara, MANAGER REPORT-C MANAGER REPORT-CkMaxine Huerta RN RN dm5 Shaniqua Arroyo, RN Aleida Echavarria, RN RN torri5 Charly Varela RN RN rr5 Marques Bass [facility]
--- NOTE | 2020-09-09 19:45 | EDPHYS ---
Physician Documentation [facility] Name: Chiquis Palma Age: 29 yrs Sex: Female : 1990 Arrival Date: 09/09/2020 Time: 15:18 Bed 12 Private MD: ED Physician Kirit Ng HPI: 09/09 19:57 This 29 yrs old Female presents to ER via Ambulatory with complaints of Fever, kb Cough, Shortness Of Breath, R/O COVID. 19:57 The patient or guardian reports cough, that is intermittent, described as moderate, kb with no sputum, difficulty breathing, flu symptoms, myalgias. Onset: The symptoms/episode began/occurred 3 day(s) ago. Severity of symptoms: At their worst the symptoms were moderate, in the emergency department the symptoms are unchanged. Modifying factors: The symptoms are alleviated by nothing, the symptoms are aggravated by nothing. Associated signs and symptoms: Pertinent positives: rhinorrhea, sore throat, Pertinent negatives: chest pain, diarrhea, ear ache, fever, nausea, vomiting. The patient has not experienced similar symptoms in the past. The patient has not recently seen a physician. 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 - Social history:: Smoking status: Patient denies any tobacco usage or history of. ROS: 19:56 Constitutional: Negative for fever, chills, and weight loss, Cardiovascular: Negative kb for chest pain, palpitations, and edema, Abdomen/GI: Negative for abdominal pain, nausea, vomiting, diarrhea, and constipation, MS/Extremity: Negative for injury and deformity, Skin: Negative for injury, rash, and discoloration, Neuro: Negative for headache, weakness, numbness, tingling, and seizure. 19:56 ENT: Positive for sore throat. 19:56 Respiratory: Positive for cough, dyspnea on exertion, shortness of breath, Negative for hemoptysis, orthopnea, pleurisy. Exam: 19:56 Constitutional: This is a well developed, well nourished patient who is awake, alert, kb and in no acute distress. Head/Face: Normocephalic, atraumatic. Chest/axilla: Normal chest wall appearance and motion. Nontender with no deformity. No lesions are appreciated. Cardiovascular: Regular rate and rhythm with a normal S1 and S2. No gallops, murmurs, or rubs. Normal PMI, no JVD. No pulse deficits. Respiratory: Lungs have equal breath sounds bilaterally, clear to auscultation and percussion. No rales, rhonchi or wheezes noted. No increased work of breathing, no retractions or nasal flaring. Abdomen/GI: Soft, non-tender, with normal bowel sounds. No distension or tympany. No guarding or rebound. No evidence of tenderness throughout. Skin: Warm, dry with normal turgor. Normal color with no rashes, no lesions, and no evidence of cellulitis. MS/ Extremity: Pulses equal, no cyanosis. Neurovascular intact. Full, normal range of motion. Neuro: Awake and alert, GCS 15, oriented to person, place, time, and situation. Cranial nerves II-XII grossly intact. Motor strength 5/5 in all extremities. Sensory grossly intact. Cerebellar exam normal. Normal gait. 19:56 ENT: Posterior pharynx: Airway: normal, no evidence of obstruction, Tonsils: bilaterally enlarged, with erythema, Uvula: normal, midline, swelling, that is mild, erythema, that is moderate, exudate, is not appreciated. Vital Signs: 15:50 BP 132 / 80; Pulse 90; Resp 18 S; Temp 98.0(O); Pulse Ox 100% on R/A; aa5 20:15 BP 138 / 75; Pulse 95; Resp 16; Temp 97.8; Pulse Ox 99% ; rr5 MDM: 19:44 Data reviewed: vital signs, nurses notes. Data interpreted: Pulse oximetry: on room air kb is 100 %. Interpretation: normal. Counseling: I had a detailed discussion with the patient and/or guardian regarding: the historical points, exam findings, and any diagnostic results supporting the discharge/admit diagnosis, lab results, the need for outpatient follow up, a family practitioner, to return to the emergency department if symptoms worsen or persist or if there are any questions or concerns that arise at home. 19:45 Patient medically screened. kb 09/09 15:37 Order name: Flu; Complete Time: 19:44 kb 09/09 16:28 Order name: Strep; Complete Time: 19:44 kb 09/09 15:37 Order name: Chest Pa And Lat (2 Views) XRAY; Complete Time: 16:28 kb 09/09 19:55 Order name: COVID-19 kb Administered Medications: 19:57 Drug: Bicillin L-A 1.2 million units Route: IM; Site: left gluteus; rr5 19:58 Drug: GI Cocktail without - (Maalox Suspension 30 ml, Lidocaine Liquid 2 % 15 rr5 ml) Route: PO; Disposition: 09/10 05:28 Co-signature as Attending Physician, Kirit Ng MD. 7 Disposition: 09/09/20 19:45 Discharged to Home. Impression: Streptococcal pharyngitis. - Condition is Stable. - Discharge Instructions: Strep Throat, [id number]. - Prescriptions for Augmentin 875- 125 mg Oral Tablet - take 1 tablet by ORAL route every 12 hours for 10 days; 20 tablet. - Medication Reconciliation Form, Thank You Letter, Antibiotic Education, Prescription Opioid Use form. - Follow up: Emergency Department; When: As needed; Reason: Worsening of condition. Follow up: Private Physician; When: 2 - 3 days; Reason: Recheck today's complaints, Continuance of care, Re-evaluation by your physician. Signatures: Dispatcher [employer] EDSC Rose Mary Anna, ISSA-Daren PARSONS-Aleida Ye RN RN 5 Charly Varela RN RN rr5 Kirit Ng MD MD 7 Corrections: (The following items were deleted from the chart) 09/09 20:18 19:45 09/09/2020 19:45 Discharged to Home. Impression: Streptococcal pharyngitis. rr5 Condition is Stable. Forms are Medication Reconciliation Form, Thank You Letter, Antibiotic Education, Prescription Opioid Use. Follow up: Emergency Department; When: As needed; Reason: Worsening of condition. Follow up: Private Physician; When: 2 - 3 days; Reason: Recheck today's complaints, Continuance of care, Re-evaluation by your physician. kb
[2020-09-09] MEDS ORDERED: MAGNES/ALUMIN/SIMET 30ML UCUP ONE (20:07)
[2020-09-09] MEDS ORDERED: LIDOCAINE VISCOUS 2% SOLN 15 ML UDC ONE (20:07)
[2020-09-09] MEDS ORDERED: PEN G BENZ LA 1.2MU/2ML SYRINGE IM ONE (20:08)
[2020-09-09 20:24] VITALS: BP 132/80; TEMP 98; O2SAT 100
== END 2020-09-09 20:18 | disposition home or self-care (01) ==
LOC: ER 15:17
DX: J02.0 Streptococcal pharyngitis (principal); E11.9 Type 2 diabetes mellitus without complications; Z20.828 Contact with and (suspected) exposure to other viral communicable diseases
CPT/HCPCS: 71046; 87081; 87804; 96372; 99283; J0561; U0002

== ENCOUNTER 2021-01-06 08:30 | Inpatient (IN) | payer SELFPAY ==
--- OUTSIDE RECORDS SUMMARY | 2021-01-06 08:32 | XMS REPORT | Continuity of Care Document ---
:1990 Author Organization [facility] t Address [address] [place] [address] Dr. Bliss [address] [place] [address] Care Team Providers Name Role Phone Twyla [...] Facility Department ID 2019-05-01 2019-05-02 Emergency Twyla [facility] [id number] 19:23:31 00:11:00 Rey Willoughby [id number] [place] [id number] [place] [phone] [id number] Results This patient has no known results.
[2021-01-06 10:17] LABS: Basophils % 0.3 % (0-1.3); Hematocrit 49.1 % (36.0-45.0); Lymphocytes % 13.9 % (15.3-44.8); MPV 9.6 fL (7.6-11.3); RBC Red Blood Cell Count 5.52 M/uL (3.86-4.86)
[2021-01-06 10:25] LABS: Protime INR 1.09
[2021-01-06 10:40] LABS: ALT/SGPT 43 U/L (12-78); AST/SGOT 44 U/L (15-37); Albumin 3.3 g/dL (3.4-5.0); Alkaline Phosphatase 85 U/L (45-117); BUN Blood Urea Nitrogen 8 mg/dL (7-18); Bilirubin Direct 0.2 mg/dL (0-0.2); Bilirubin Total 0.6 mg/dL (0.2-1.0); Lipase 177 U/L (73-393); NT PRO-BNP 20 pg/mL (<125); Potassium 3.8 mmol/L (3.5-5.1); Protein, Total 8.8 g/dL (6.4-8.2); Sodium Level 131 mmol/L (136-145); Troponin (Emerg Dept Use Only) < 0.02 ng/mL (0.0-0.045)
[2021-01-06 10:42] LABS: Bicarbonate 13 mmol/L (21-32); Glucose Level 425 mg/dL (74-106)
[2021-01-06] MEDS ORDERED: dexAMETHasone 10 MG/ML VIAL ONE (10:49)
[2021-01-06] MEDS ORDERED: ASPIRIN EC 81 MG TAB PO ONE (10:49)
[2021-01-06] MEDS ORDERED: FAMOTIDINE 20 MG/2 ML VIAL IV ONE (10:50)
[2021-01-06] MEDS ORDERED: ALBUTEROL INHALER 60 PUFF/8 GM IH ONE (10:50)
[2021-01-06] MEDS ORDERED: CEFTRIAXONE/SWI 1gm 1 GM/10 ML SYR ONE (10:50)
[2021-01-06] MEDS ORDERED: NA CHLORIDE 0.9% 500 ML ONE ×2 (10:50→11:34)
[2021-01-06] MEDS ORDERED: ONDANSETRON 4 MG/2 ML VIAL ONE (10:50)
[2021-01-06 10:53] LABS: Arterial Blood Carboxyhemoglob 1.4 % (0-1.5); Blood Gas Oxyhemoglobin 91.1 % (94-97); Blood O2 Saturation 93.1 % (92-98.5)
[2021-01-06 10:53] LABS: Urine Blood Trace-lysed (Negative); Urine Glucose 2+ (Negative); Urine Protein 2+ (Negative); Urine Specific Gravity >=1.030 (1.005-1.030)
--- NOTE | 2021-01-06 11:03 | EDPHYS ---
Physician Documentation [facility] Name: Chiquis Palma Age: 30 yrs Sex: Female : 1990 Arrival Date: 01/06/2021 Time: 08:33 Bed 13 Private MD: ED Physician Dawit Yousif HPI: 01/06 09:51 This 30 yrs old Female presents to ER via Ambulatory with complaints of gwyn Covid+- Headache, Can't Eat. 09:51 The patient has shortness of breath at rest, with light activity. Onset: The gwyn symptoms/episode began/occurred 3 day(s) ago. Duration: The symptoms are continuous, and are steadily getting worse. The patient's shortness of breath is aggravated by coughing, eating, light activity, supine position. The patient presents to the emergency department with nausea, vomiting, that is intermittent, described as bilious. Possible causes: covid 19, dx 10 days ago. Historical: - Allergies: 08:55 NKDA; ss - Home Meds: 08:55 metformin 500 mg Oral tab 1 tab 2 times per day [Active]; ss - PMHx: 08:55 Diabetes - NIDDM; ss - PSHx: 08:55 None; ss - Immunization history:: Adult Immunizations up to date. - Social history:: Smoking status: Patient denies any tobacco usage or history of. - Family history:: not pertinent. ROS: 09:51 Constitutional: Negative for fever, chills, and weight loss, Eyes: Negative for injury, gwyn pain, redness, and discharge, ENT: Negative for injury, pain, and discharge, Neck: Negative for injury, pain, and swelling, Cardiovascular: Negative for chest pain, palpitations, and edema, Back: Negative for injury and pain, : Negative for injury, bleeding, discharge, and swelling, MS/Extremity: Negative for injury and deformity, Skin: Negative for injury, rash, and discoloration, Neuro: Negative for headache, weakness, numbness, tingling, and seizure, Psych: Negative for depression, anxiety, suicide ideation, homicidal ideation, and hallucinations, Allergy/Immunology: Negative for hives, rash, and allergies, Endocrine: Negative for neck swelling, polydipsia, polyuria, polyphagia, and marked weight changes, Hematologic/Lymphatic: Negative for swollen nodes, abnormal bleeding, and unusual bruising. 09:51 Respiratory: Positive for cough, "sounds productive", shortness of breath, at rest. 09:51 Abdomen/GI: Positive for nausea and vomiting. 09:51 Neuro: Positive for headache, weakness. Exam: 09:51 Constitutional: This is a well developed, well nourished patient who is awake, alert, wgyn and in no acute distress. Head/Face: Normocephalic, atraumatic. Eyes: Pupils equal round and reactive to light, extra-ocular motions intact. Lids and lashes normal. Conjunctiva and sclera are non-icteric and not injected. Cornea within normal limits. Periorbital areas with no swelling, redness, or edema. ENT: Nares patent. No nasal discharge, no septal abnormalities noted. Tympanic membranes are normal and external auditory canals are clear. Oropharynx with no redness, swelling, or masses, exudates, or evidence of obstruction, uvula midline. Mucous membranes moist. Neck: Trachea midline, no thyromegaly or masses palpated, and no cervical lymphadenopathy. Supple, full range of motion without nuchal rigidity, or vertebral point tenderness. No Meningismus. Chest/axilla: Normal chest wall appearance and motion. Nontender with no deformity. No lesions are appreciated. Abdomen/GI: Soft, non-tender, with normal bowel sounds. No distension or tympany. No guarding or rebound. No evidence of tenderness throughout. Back: No spinal tenderness. No costovertebral tenderness. Full range of motion. Skin: Warm, dry with normal turgor. Normal color with no rashes, no lesions, and no evidence of cellulitis. MS/ Extremity: Pulses equal, no cyanosis. Neurovascular intact. Full, normal range of motion. Neuro: Awake and alert, GCS 15, oriented to person, place, time, and situation. Cranial nerves II-XII grossly intact. Motor strength 5/5 in all extremities. Sensory grossly intact. Cerebellar exam normal. Normal gait. Psych: Awake, alert, with orientation to person, place and time. Behavior, mood, and affect are within normal limits. 09:51 Cardiovascular: Rate: tachycardic, Rhythm: regular, Pulses: Pulses are 4+ in bilateral radial, brachial, femoral, popliteal, posterior tibial and and dorsalis pedis arteries.. Heart sounds: normal, Edema: is not appreciated, JVD: is not appreciated. 10:28 ECG was reviewed by the Attending Physician. [facility] Vital Signs: 08:53 BP 134 / 96; Pulse 129; Resp 27; Temp 98.2(TE); Pulse Ox 94% on R/A; Weight 90.72 kg; ss Height 5 ft. 0 in. (152.40 cm); Pain 10/10; 08:56 Pulse 117; Resp 25; Pulse Ox 96% ; ss 09:51 BP 102 / 84; Pulse 106; Resp 24; Pulse Ox 95% on R/A; ll1 10:26 BP 116 / 79; Pulse 110; Resp 28; Pulse Ox 95% on 2 lpm NC; vg1 13:00 BP 114 / ???; Pulse 76; Resp 90; Pulse Ox 97% on 2 lpm NC; vg1 08:53 Body Mass Index 39.06 (90.72 kg, 152.40 cm) MDM: 09:01 Patient medically screened. gwyn 09:56 Differential diagnosis: Anemia asthma, Bronchitis bronchitis, flu, pancreatitis, gwyn pneumonia, pulmonary edema, reactive airway disease. Antibiotic administration: Rocephin and Zithromax given. The patient's Wells Deep Vein Thrombosis Score was calculated as follows: Heart Rate >100 BPM (1.5 Pts) Total Score: 0-2 Pts- Low Risk. The patient's pulmonary embolism risk score was calculated as follows: the patients heart rate is greater than 100 beats per minute (1.5 Pts) Total Score: 0-2 points. This patient was found to be at low risk for a pulmonary embolism by using the Well's assessment criteria. Immunization status:. Data reviewed: vital signs, nurses notes, lab test result(s), EKG, radiologic studies, plain films. Data interpreted: director search: rate is 106 beats/min, rhythm is regular, Pulse oximetry: on room air is 94 %. Test interpretation: by ED physician or midlevel provider: ECG, plain radiologic studies. Counseling: I had a detailed discussion with the patient and/or guardian regarding: the historical points, exam findings, and any diagnostic results supporting the discharge/admit diagnosis, lab results, radiology results, the need for further work-up and treatment in the hospital. 01/06 09:48 Order name: Basic Metabolic Panel; Complete Time: 10:59 gwyn 01/06 09:48 Order name: CBC with Diff; Complete Time: 10:59 [facility] 01/06 09:48 Order name: LFT's; Complete Time: 10:59 [facility] 01/06 09:48 Order name: Magnesium; Complete Time: 10:59 [facility] 01/06 09:48 Order name: NT PRO-BNP; Complete Time: 10:59 [facility] 01/06 09:48 Order name: PT-INR; Complete Time: 10:59 [facility] 01/06 09:48 Order name: Troponin (emerg Dept Use Only); Complete Time: 10:59 [facility] 01/06 09:50 Order name: Lipase [facility] 01/06 10:13 Order name: Lipase; Complete Time: 10:59 EDIN 01/06 10:42 Order name: ABG; Complete Time: 11:04 [facility] 01/06 10:53 Order name: Urine Dipstick-Ancillary; Complete Time: 10:59 EDIN 01/06 11:02 Order name: Urine --Ancillary (enter results) 01/06 13:22 Order name: Acetone Level EDIN 01/06 13:22 Order name: Acetone Level EDIN 01/06 13:22 Order name: Acetone Level EDIN 01/06 13:22 Order name: Acetone Level EDMS 01/06 13:22 Order name: Acetone Level EDMS 01/06 13:23 Order name: Acetone Level EDIN 01/06 13:23 Order name: Acetone Level EDMS 01/06 13:23 Order name: Basic Metabolic Panel EDMS 01/06 13:23 Order name: Basic Metabolic Panel EDMS 01/06 13:23 Order name: Basic Metabolic Panel EDMS 01/06 13:23 Order name: Basic Metabolic Panel EDIN 01/06 13:23 Order name: Basic Metabolic Panel EDMS 01/06 13:23 Order name: Basic Metabolic Panel EDMS 01/06 13:23 Order name: Basic Metabolic Panel EDMS 01/06 13:23 Order name: CBC with Automated Diff EDMS 01/06 13:23 Order name: CBC with Automated Diff EDMS 01/06 13:23 Order name: CBC with Automated Diff EDMS 01/06 09:48 Order name: XRAY Chest (1 view); Complete Time: 11:41 [facility] 01/06 09:48 Order name: EKG; Complete Time: 09:49 [facility] 01/06 09:48 Order name: Cardiac monitoring; Complete Time: 10:23 01/06 09:48 Order name: EKG - Nurse/Tech; Complete Time: 10:23 01/06 09:48 Order name: IV Saline Lock; Complete Time: 09:51 [facility] 01/06 09:48 Order name: Labs collected and sent; Complete Time: 09:51 [facility] 01/06 09:48 Order name: O2 Per Protocol; Complete Time: 09:51 [facility] 01/06 10:28 Order name: CT Chest For PE Angio; Complete Time: 11:41 [facility] 01/06 13:22 Order name: NPO EDMS 01/06 13:23 Order name: Lipid Profile EDMS 01/06 13:23 Order name: Lipid Profile EDMS 01/06 13:23 Order name: Magnesium EDMS 01/06 13:23 Order name: Magnesium EDMS 01/06 13:23 Order name: Magnesium EDMS 01/06 13:23 Order name: Magnesium EDMS 01/06 13:23 Order name: Phosphorus EDMS 01/06 13:23 Order name: Phosphorus EDMS 01/06 13:23 Order name: Phosphorus EDMS 01/06 13:23 Order name: Phosphorus EDMS 01/06 13:23 Order name: CBC with Automated Diff MS 01/06 09:48 Order name: O2 Sat Monitoring; Complete Time: 09:51 01/06 09:48 Order name: Urine Dipstick-Ancillary (obtain specimen); Complete Time: 10:53 [facility] 01/06 09:48 Order name: Urine Test (obtain specimen); Complete Time: 09:50 [facility] 01/06 11:06 Order name: IV Saline Lock - Large Bore; Complete Time: 11:29 [facility] EC:28 Rate is 114 beats/min. Rhythm is regular. QRS [place] is Normal. FL interval is normal. [facility] QRS interval is normal. QT interval is normal. No Q waves. T waves are Normal. No ST changes noted. Clinical impression: Sinus tachycardia and No evidence of ischemia. Interpreted by me. Reviewed by me. Administered Medications: 10:47 Drug: NS 0.9% 500 ml Route: IV; Rate: bolus; Site: right antecubital; vg1 13:00 Follow up: IV Status: Completed infusion; IV Intake: 500ml vg1 10:47 Drug: Zofran (Ondansetron) 4 mg Route: IVP; Site: right antecubital; vg1 13:04 Follow up: Response: No adverse reaction vg1 10:47 Drug: Pepcid (famotidine) 20 mg Route: IVP; Site: right antecubital; vg1 13:04 Follow up: Response: No adverse reaction vg1 10:48 Drug: Rocephin (cefTRIAXone) 1 grams Route: IV; Rate: per protocol; Site: right vg1 antecubital; 10:48 Drug: Decadron - Dexamethasone 10 mg Route: IVP; Site: right antecubital; vg1 13:04 Follow up: Response: No adverse reaction vg1 10:48 Drug: Albuterol HFA Inhaler 4 puffs Route: Inhalation; vg1 13:04 Follow up: Response: No adverse reaction vg1 10:48 Drug: Aspirin Chewable Tablet 324 mg Route: PO; vg1 13:03 Follow up: Response: No adverse reaction vg1 11:28 Drug: NS 0.9% 500 ml Route: IV; Rate: bolus; Site: left antecubital; vg1 13:00 Follow up: IV Status: Completed infusion; IV Intake: 500ml vg1 11:29 Drug: Insulin Regular Human 10 units {Co-Signature: kg (Kaley Renteria).} Route: IVP; vg1 Site: left antecubital; 14:39 Follow up: Response: No adverse reaction vg1 12:30 Drug: NS 0.9% 1000 ml Route: IV; Rate: 1 bolus; Site: right antecubital; vg1 14:39 Follow up: IV Status: Completed infusion; IV Intake: 1000ml vg1 14:38 Not Given (Take with patient up to ICU room): NS 0.9% 1000 ml IV at 125 ml/hr continuousvg1 Disposition: 01/06/21 11:02 Hospitalization ordered by Tita Young for Inpatient Admission. Preliminary diagnosis are Viral pneumonia, unspecified - Covid 19, Vomiting, Type 1 diabetes mellitus, Type 1 diabetes mellitus with ketoacidosis without coma, Cough. - Bed requested for Intensive Care Unit. - Status is Inpatient Admission. eb - Condition is Fair. - Problem is new. - Symptoms have improved. Signatures: Dispatcher [employer] [facility] [place] RN RN dw Anderson, Corey, MD MD cha Smirch, Shelby, RN RN ss Botello, Elizabeth eb Thomas, Heather, RN RN vg1 Kaley Renteria Corrections: (The following items were deleted from the chart) 10:13 09:51 Lipase ordered. EDMS EDMS 13:57 11:02 Hospitalization Ordered by Tita Young MD for Inpatient Admission. Preliminary dw diagnosis is Viral pneumonia, unspecified - Covid 19; Vomiting; Type 1 diabetes mellitus; Type 1 diabetes mellitus with ketoacidosis without coma; Cough. Bed requested for Intensive Care Unit. Status is Inpatient Admission. Condition is Fair. Problem is new. Symptoms have improved. [facility] 14:47 13:57 01/06/2021 11:02 Hospitalization Ordered by Tita Young MD for Inpatient eb Admission. Preliminary diagnosis is Viral pneumonia, unspecified - Covid 19; Vomiting; Type 1 diabetes mellitus; Type 1 diabetes mellitus with ketoacidosis without coma; Cough. Bed requested for Intensive Care Unit. Status is Inpatient Admission. Condition is Fair. Problem is new. Symptoms have improved. dw
--- NOTE | 2021-01-06 11:03 | ER ---
Nurse's Notes [facility] Name: Chiquis Palma Age: 30 yrs Sex: Female : 1990 Arrival Date: 01/06/2021 Time: 08:33 Bed 13 Private MD: Diagnosis: Viral pneumonia, unspecified-Covid 19;Vomiting;Type 1 diabetes mellitus;Type 1 diabetes mellitus with ketoacidosis without coma;Cough Presentation: 01/06 08:53 Chief complaint: Patient states: nausea/ vomiting, shortness of breath and painful ss cough that began this morning. Pt reports that she was diagnosed a week ago with COVID. Coronavirus screen: Client denies travel out of the [place] in the last 14 days. Client presents with at least one sign or symptom that may indicate coronavirus-19. Standard/surgical mask placed on the client. Provider contacted for isolation considerations. Ebola Screen: Patient denies exposure to infectious person. Patient denies travel to an Ebola-affected area in the 21 days before illness onset. Initial Sepsis Screen: Does the patient meet any 2 criteria? RR > 20 per min. HR > 90 bpm. Does the patient have a suspected source of infection? No. Patient's initial sepsis screen is negative. Risk Assessment: Do you want to hurt yourself or someone else? Patient reports no desire to harm self or others. Onset of symptoms was January 06, 2021. 08:53 Method Of Arrival: Ambulatory 08:53 Acuity: CHANTEL 2 ss Historical: - Allergies: 08:55 NKDA; ss - Home Meds: 08:55 metformin 500 mg Oral tab 1 tab 2 times per day [Active]; ss - PMHx: 08:55 Diabetes - NIDDM; ss - PSHx: 08:55 None; ss - Immunization history:: Adult Immunizations up to date. - Social history:: Smoking status: Patient denies any tobacco usage or history of. - Family history:: not pertinent. Screenin:00 Abuse screen: Denies threats or abuse. Nutritional screening: No deficits noted. ll1 Tuberculosis screening: No symptoms or risk factors identified. Assessment: 10:15 General: Appears in no apparent distress. uncomfortable, Behavior is calm, cooperative. vg1 Pain: Complains of pain in left lateral anterior chest Pain currently is 10 out of 10 on a pain scale. Pain began 2-3 days ago. Neuro: Level of Consciousness is awake, alert, obeys commands, Oriented to person, place, time, situation. Cardiovascular: Patient's skin is warm and dry. Rhythm is sinus tachycardia. Respiratory: Airway is patent Respiratory effort is even, labored, Respiratory pattern is tachypnea Breath sounds are coarse in left posterior lower lobe and right posterior lower lobe. Respiratory: Reports shortness of breath on exertion cough that is productive. GI: Reports diarrhea, nausea, vomiting. : No signs and/or symptoms were reported regarding the genitourinary system. EENT: No signs and/or symptoms were reported regarding the EENT system. Derm: Skin is intact, is healthy with good turgor. Musculoskeletal: Circulation, motion, and sensation intact. 13:35 Reassessment: FSBS 298. vg1 14:22 Reassessment: Attempted to call report. vg1 14:38 Reassessment: Report given to Aric Murrieta. vg1 Vital Signs: 08:53 BP 134 / 96; Pulse 129; Resp 27; Temp 98.2(TE); Pulse Ox 94% on R/A; Weight 90.72 kg; ss Height 5 ft. 0 in. (152.40 cm); Pain 10/10; 08:56 Pulse 117; Resp 25; Pulse Ox 96% ; ss 09:51 BP 102 / 84; Pulse 106; Resp 24; Pulse Ox 95% on R/A; ll1 10:26 BP 116 / 79; Pulse 110; Resp 28; Pulse Ox 95% on 2 lpm NC; vg1 13:00 BP 114 / ???; Pulse 76; Resp 90; Pulse Ox 97% on 2 lpm NC; vg1 08:53 Body Mass Index 39.06 (90.72 kg, 152.40 cm) ED Course: 08:33 Patient arrived in ED. ds1 08:54 Triage completed. ss 08:55 Arm band placed on right wrist. 08:59 Morgan Felix, SELAM is Primary Nurse. ll1 09:00 Patient placed in an exam room, on a stretcher. ll1 09:00 Patient has correct armband on for positive identification. Bed in low position. Call ll1 light in reach. Side rails up X 1. Pulse ox on. NIBP on. 09:01 Dawit Yousif MD is Attending Physician. gwyn 10:04 Inserted saline lock: 22 gauge in right antecubital area, using aseptic technique. ll1 Blood collected. 10:11 Xray at bedside. vg1 10:20 XRAY Chest (1 view) In Process Unspecified. EDMS 10:[address] via wheelchair. vg1 10:53 Primary Nurse role handed off by Morgan Felix RN vg1 10:53 Heather Guzman RN is Primary Nurse. vg1 11:00 Tita Young MD is Hospitalizing Provider. gwyn 11:11 CT Chest For PE Angio In Process Unspecified. EDMS 11:32 Inserted saline lock: 20 gauge in left antecubital area, using aseptic technique. vg1 14:39 No provider procedures requiring assistance completed. Patient admitted, IV remains in vg1 place. Administered Medications: 10:47 Drug: NS 0.9% 500 ml Route: IV; Rate: bolus; Site: right antecubital; vg1 13:00 Follow up: IV Status: Completed infusion; IV Intake: 500ml vg1 10:47 Drug: Zofran (Ondansetron) 4 mg Route: IVP; Site: right antecubital; vg1 13:04 Follow up: Response: No adverse reaction vg1 10:47 Drug: Pepcid (famotidine) 20 mg Route: IVP; Site: right antecubital; vg1 13:04 Follow up: Response: No adverse reaction vg1 10:48 Drug: Rocephin (cefTRIAXone) 1 grams Route: IV; Rate: per protocol; Site: right vg1 antecubital; 10:48 Drug: Decadron - Dexamethasone 10 mg Route: IVP; Site: right antecubital; vg1 13:04 Follow up: Response: No adverse reaction vg1 10:48 Drug: Albuterol HFA Inhaler 4 puffs Route: Inhalation; vg1 13:04 Follow up: Response: No adverse reaction vg1 10:48 Drug: Aspirin Chewable Tablet 324 mg Route: PO; vg1 13:03 Follow up: Response: No adverse reaction vg1 11:28 Drug: NS 0.9% 500 ml Route: IV; Rate: bolus; Site: left antecubital; vg1 13:00 Follow up: IV Status: Completed infusion; IV Intake: 500ml vg1 11:29 Drug: Insulin Regular Human 10 units {Co-Signature: kg (Kaley Renteria).} Route: IVP; vg1 Site: left antecubital; 14:39 Follow up: Response: No adverse reaction vg1 12:30 Drug: NS 0.9% 1000 ml Route: IV; Rate: 1 bolus; Site: right antecubital; vg1 14:39 Follow up: IV Status: Completed infusion; IV Intake: 1000ml vg1 14:38 Not Given (Take with patient up to ICU room): NS 0.9% 1000 ml IV at 125 ml/hr continuousvg1 Intake: 13:00 IV: 500ml; Total: 500ml. vg1 13:00 IV: 500ml; Total: 1000ml. vg1 14:39 IV: 1000ml; Total: 2000ml. vg1 Outcome: 11:02 Decision to Hospitalize by Provider. [facility] 14:47 Patient left the ED. eb Signatures: Dispatcher [employer] EDDawit Marie MD MD cha Sanford, Demi ds1 Mariama Serna RN RN Kateryna Funk Victoria, RN RN vg1 Morgan Felix, SELAM RN 1 Kaley Renteria kg Corrections: (The following items were deleted from the chart) 09:03 08:53 Acuity: CHANTEL 3 ss ss
--- NOTE | 2021-01-06 11:17 | RAD REPORT ---
EXAM DESCRIPTION: CT - Chest For Pe Angio - 01/06/2021 11:05 am CLINICAL HISTORY: Chest pain. Chest pain;Dyspnea COMPARISON: No comparisons TECHNIQUE: CT angiogram of the pulmonary arteries was performed with MIP. All CT scans are performed using dose optimization technique as appropriate and may include automated exposure control or mA/KV adjustment according to patient size. FINDINGS: No evidence of pulmonary thromboembolism. No acute aortic finding demonstrated. Mild peripherally oriented ground-glass lung opacities are seen. In addition, there is patchy opacity in both lung bases, greatest in the right base, likely related to infiltrate/pneumonia. No significant pericardial or pleural fluid. No concerning bony finding. Advanced fatty liver. IMPRESSION: No evidence of pulmonary thromboembolism. Findings compatible with COVID-19 infection noted as detailed.
[2021-01-06] MEDS ORDERED: INSULIN -REGULAR HUMAN 50 UNIT/0.5 ML ML ONE (11:34)
[2021-01-06] MEDS ORDERED: NA CHLORIDE 0.9% 1,000 ML ONE ×2 (11:34→11:50)
--- NOTE | 2021-01-06 11:36 | RAD REPORT ---
EXAM DESCRIPTION: RAD - Chest Single View - 01/06/2021 10:21 am CLINICAL HISTORY: Congestion;Dyspnea Chest pain. COMPARISON: Chest Pa And Lat (2 Views) dated 09/09/2020; Chest Single View dated 05/17/2020; CHEST PA AND LAT 2 VIEW dated 09/30/2012; Chest For Pe Angio dated 01/06/2021 FINDINGS: Portable technique limits examination quality. Mild opacities are seen in both lung bases. These are likely related to infection. The heart is steffen l in size. No displaced fractures.
[2021-01-06] MEDS ORDERED: INSULIN -REGULAR HUMAN 100 UNIT in NA CHLORIDE 0.9% 100 ML IV SCH ×2 (12:00→15:45)
[2021-01-06] MEDS ORDERED: ONDANSETRON 4 MG/2 ML VIAL IV PRN (13:17)
[2021-01-06] MEDS ORDERED: ALBUTEROL INHALER 60 PUFF/8 GM IH PRN (13:17)
--- NOTE | 2021-01-06 13:37 | P.HP ---
Certification for Inpatient Patient admitted to: Inpatient With expected LOS: >2 Midnights Patient will require the following post-hospital care: None Practitioner: I am a practitioner with admitting privileges, knowledge of patient current condition, hospital course, and medical plan of care. Services: Services provided to patient in accordance with Admission requirements found in Title 42 Section 412.3 of the Code of Federal Regulations Patient History Date of Service: 01/06/21 Reason for admission: Intractable nausea and vomiting; COVID-19 pneumonia; DKA History of Present Illness: Patient is a 30-year-old female who was recently diagnosed with COVID-19 pneumonia. Patient was given steroids. She has history of diabetes. She started having nausea and vomiting in came into the emergency room and found to be in diabetic ketoacidosis. She will be admitted to the hospital for further evaluation. Patient only takes metformin for her diabetes. However her blood sugars have been unstable. She came into the emergency room for further evaluation. She was found have DKA. She was also found have COVID-19 pneumonia. She will be admitted for further evaluation. Allergies No Known Allergies Allergy (Verified 01/06/21 17:04) Home Medications: Metformin HCl 500 mg PO BIDAC 08/09/18 Albuterol Inhaler [Ventolin Inhaler*] 2 puff IH Q6H PRN #1 hfa.aer.ad 01/07/21 Benzonatate [Tessalon Perle*] 200 mg PO TID PRN #30 cap 01/07/21 Insulin Glargine Human [Lantus*] 15 units SQ BEDTIME #2 syr 01/07/21 predniSONE [Deltasone*] 20 mg PO BID #28 tab 01/07/21 - Past Medical/Surgical History Diabetic: Yes -: Gallstones -: Diabetes Past Surgical History: Patient denies surgical history - Family History Father Family History: Reviewed- Non-Contributory Mother Medical History: Hypertension, Diabetes Sister Medical History: Diabetes - Social History Smoking Status: Former smoker Alcohol use: No CD- Drugs: No Caffeine use: Yes Review of Systems 10-point ROS is otherwise unremarkable Physical Examination - Vital Signs Temperature: 98 F Blood Pressure: 110/80 Pulse: 80 Respirations: 18 Pulse Ox (%): 99 - Physical Exam General: Alert, In no apparent distress, Oriented x2 HEENT: Atraumatic, PERRLA, Mucous membr. moist/pink, EOMI, Sclerae nonicteric Neck: Supple, 2+ carotid pulse no bruit, No LAD, Without JVD or thyroid abnormality Respiratory: Clear to auscultation bilaterally, Normal air movement Cardiovascular: Regular rate/rhythm, Normal S1 S2 Gastrointestinal: Normal bowel sounds, No tenderness Musculoskeletal: No tenderness Integumentary: No rashes Neurological: Normal gait, Normal speech, Normal strength at 5/5 x4 extr, Normal tone, Normal affect Lymphatics: No axilla or inguinal lymphadenopathy - Studies Laboratory Data (last 24 hrs) 01/06/21 10:00: PT 12.6 H, INR 1.09 01/06/21 10:00: WBC 7.10, Hgb 16.4 H, Hct 49.1 H, Plt Count 153 01/06/21 10:00: Sodium 131 L, Potassium 3.8, BUN 8, Creatinine 0.78, Glucose 425 H*, Magnesium 2.0, Total Bilirubin 0.6, AST 44 H, ALT 43, Alkaline Phosphatase 85, Lipase 177 01/06/21 09:50: Lipase Cancelled Assessment & Plan - Problems (Diagnosis) (1) Intractable nausea and vomiting Current Visit: Yes Status: Acute (2) Pneumonia due to COVID-19 virus Current Visit: Yes Status: Acute (3) Diabetic ketoacidosis Current Visit: Yes Status: Acute - Plan 1. IV hydration 2. Insulin drip 3. Accu-Cheks q1h 4. Measure anion gap every 2 hrs 5. Resume diet once anion gap is closed and will resume insulin pump 6. Diabetic education 7. Long-acting insulin once patient able to tolerate diet and at that time will discontinue insulin drip 8. Steroids for treatment of COVID-19 9. GI and DVT prophylaxis Discharge Plan: Home Plan to discharge in: Greater than 2 days - Advance Directives Does patient have a Living Will: No Does patient have a Durable POA for Healthcare: No - Code Status/Comfort Care Code Status Assessed: Yes Code Status: Full Code Critical Care: No Time Spent Managing PTS Care (In Minutes): 45
[2021-01-06 14:27] LABS: BUN Blood Urea Nitrogen 7 mg/dL (7-18); Bicarbonate 15 mmol/L (21-32); Glucose Level 303 mg/dL (74-106); Potassium 4.4 mmol/L (3.5-5.1); Sodium Level 135 mmol/L (136-145)
[2021-01-06] MEDS: NA CHLORIDE 0.9% 1,000 ML IV SCH ×2 (15:05→19:00)
[2021-01-06] MEDS ORDERED: GLUCAGON 1 MG/VIAL IM PRN ×3 (15:09→22:54)
[2021-01-06] MEDS ORDERED: D50W 25 GM/50 ML SYRINGE IV PRN ×2 (15:09→15:31)
[2021-01-06] MEDS ORDERED: INSULIN -REGULAR HUMAN 50 UNIT/0.5 ML ML IV SCH (15:15)
[2021-01-06 16:58] VITALS: BMI 38.0
[2021-01-06] MEDS: ENOXAPARIN 40 MG/0.4 ML SQ SCH (17:37)
[2021-01-06] MEDS: BENZONATATE 100 MG CAP PO PRN ×2 (17:37→23:01)
[2021-01-06 18:15] LABS: BUN Blood Urea Nitrogen 7 mg/dL (7-18); Glucose Level 229 mg/dL (74-106); Potassium 3.8 mmol/L (3.5-5.1); Sodium Level 138 mmol/L (136-145)
[2021-01-06 18:16] LABS: Bicarbonate 13 mmol/L (21-32)
[2021-01-06] MEDS ORDERED: D5 0.45 NS 1,000 ML IV SCH (20:00)
[2021-01-06] MEDS ORDERED: KCL 20 MEQ/100 mL IVPB 20 MEQ/100 ML BAG IV SCH (20:00)
[2021-01-06] MEDS: predniSONE 10 MG TAB PO SCH (20:01)
[2021-01-06 21:50] LABS: BUN Blood Urea Nitrogen 7 mg/dL (7-18); Bicarbonate 15 mmol/L (21-32); Glucose Level 189 mg/dL (74-106); Potassium 3.8 mmol/L (3.5-5.1); Sodium Level 139 mmol/L (136-145)
[2021-01-06] MEDS ORDERED: INSULIN GLARGINE 100 UNITS/ML SQ SCH (22:54)
[2021-01-06] MEDS ORDERED: INSULIN GLARGINE 100 UNITS/ML SQ ONE (23:18)
[2021-01-07 05:21] LABS: Basophils % 0.4 % (0-1.3); Hematocrit 45.9 % (36.0-45.0); Lymphocytes % 17.6 % (15.3-44.8); MPV 9.7 fL (7.6-11.3); RBC Red Blood Cell Count 5.21 M/uL (3.86-4.86)
[2021-01-07 05:47] LABS: BUN Blood Urea Nitrogen 8 mg/dL (7-18); Bicarbonate 15 mmol/L (21-32); Glucose Level 248 mg/dL (74-106); HDL Cholesterol 30 mg/dL (40-60); LDL Cholesterol, Calculated 106 (<130); Phosphorus 2.1 mg/dL (2.5-4.9); Sodium Level 138 mmol/L (136-145)
[2021-01-07] MEDS: ENOXAPARIN 40 MG/0.4 ML SQ SCH (08:15)
[2021-01-07] MEDS: INSULIN -REGULAR HUMAN 50 UNIT/0.5 ML ML SQ SCH ×2 (08:15→12:35)
[2021-01-07] MEDS: predniSONE 10 MG TAB PO SCH (08:15)
--- NOTE | 2021-01-07 08:17 | EKG ---
Test Date: 2021-01-06 Test Time: 10:19:18 Boiler Cleaner: EVANS MEASUREMENT RESULTS: Intervals: Rate: 114 ME: 134 QRSD: 76 QT: 318 QTc: 438 [place]: P: 58 ME: 134 QRS: 57 T: 34 INTERPRETIVE STATEMENTS: Sinus tachycardia Otherwise normal ECG Compared to ECG 05/17/2020 20:24:23 Sinus rhythm no longer present Sinus arrhythmia no longer present Myocardial infarct finding no longer present Electronically Signed On 01-07-21 08:15:39 CDT by Dangelo Matos
[2021-01-07 09:32] LABS: BUN Blood Urea Nitrogen 7 mg/dL (7-18); Bicarbonate 17 mmol/L (21-32); Glucose Level 258 mg/dL (74-106); Potassium 3.6 mmol/L (3.5-5.1); Sodium Level 137 mmol/L (136-145)
[2021-01-07 09:38] VITALS: O2SAT 96
[2021-01-07] MEDS ORDERED: PNEUMOCOCCAL VACCINE 0.5 ML IMVAC ONE (10:00)
[2021-01-07] MEDS: BENZONATATE 100 MG CAP PO PRN (10:37)
[2021-01-07 12:53] VITALS: BP 135/87; TEMP 97.8
[2021-01-07] MEDS ORDERED: POTASSIUM CL SA 10 MEQ TAB PO ONE (13:47)
--- NOTE | 2021-01-22 17:27 | P.DS ---
Discharge Date: 01/07/21 Disposition: ROUTINE DISCHARGE Discharge Condition: GOOD Reason for Admission: Intractable nausea and vomiting; COVID-19 pneumonia; DKA - Problems (1) Intractable nausea and vomiting Status: Acute (2) Pneumonia due to COVID-19 virus Status: Acute (3) Diabetic ketoacidosis Status: Acute Brief History of Present Illness: Patient is a 30-year-old female who was recently diagnosed with COVID-19 pneumonia. Patient was given steroids. She has history of diabetes. She started having nausea and vomiting in came into the emergency room and found to be in diabetic ketoacidosis. She will be admitted to the hospital for further evaluation. Patient only takes metformin for her diabetes. However her blood sugars have been unstable. She came into the emergency room for further evaluation. She was found have DKA. She was also found have COVID-19 pneumonia. She will be admitted for further evaluation. Hospital Course: Patient diabetic ketoacidosis is resolved. Patient is clinically doing well. Patient had COVID-19 Pneumonia. Patient's oxygenation is stable. At this time, patient is stable for discharge home. Vital Signs/Physical Exam: Temp Pulse Resp BP Pulse Ox 97.8 F 78 18 135/87 95 01/07/21 12:00 01/07/21 12:00 01/07/21 12:00 01/07/21 12:00 01/07/21 12:00 General: Alert, In no apparent distress, Oriented x3 Laboratory Data at Discharge: WBC 5.70 K/uL (4.3-10.9) D 01/07/21 04:50 Hgb 15.0 g/dL (12.0-15.0) 01/07/21 04:50 Hct 45.9 % (36.0-45.0) H 01/07/21 04:50 Plt Count 143 K/uL (152-406) L 01/07/21 04:50 PT 12.6 SECONDS (9.5-12.5) H 01/06/21 10:00 INR 1.09 01/06/21 10:00 Sodium 137 mmol/L (136-145) 01/07/21 09:04 Potassium 3.6 mmol/L (3.5-5.1) 01/07/21 09:04 BUN 7 mg/dL (7-18) 01/07/21 09:04 Creatinine 0.58 mg/dL (0.55-1.3) 01/07/21 09:04 Glucose 258 mg/dL (74-106) H 01/07/21 09:04 Phosphorus 2.1 mg/dL (2.5-4.9) L 01/07/21 04:50 Magnesium 2.0 mg/dL (1.8-2.4) 01/07/21 04:50 Total Bilirubin 0.6 mg/dL (0.2-1.0) 01/06/21 10:00 AST 44 U/L (15-37) H 01/06/21 10:00 ALT 43 U/L (12-78) 01/06/21 10:00 Alkaline Phosphatase 85 U/L (45-117) 01/06/21 10:00 Triglycerides 131 mg/dL (<150) 01/07/21 04:50 Cholesterol 162 mg/dL (<200) 01/07/21 04:50 HDL Cholesterol 30 mg/dL (40-60) L 01/07/21 04:50 Cholesterol/HDL Ratio 5.40 01/07/21 04:50 Lipase 177 U/L (73-393) 01/06/21 10:00 Home Medications: Albuterol Inhaler [Ventolin Inhaler*] 2 puff IH Q6H PRN #1 hfa.aer.ad 01/07/21 Ascorbic Acid [Vitamin C*] 500 mg PO TID #90 tablet 01/10/21 Benzonatate [Tessalon Perle*] 100 mg PO TID PRN #10 cap 01/10/21 Cholecalciferol (Vitamin D3) [Vitamin D 1000 Iu Tab*] 2,000 unit PO DAILY #60 tab 01/10/21 Insulin Aspart [Novolog Flexpen] See Protocol SQ SEECOM #1 box 01/10/21 Insulin Glargine Human [Lantus*] 15 units SQ BEDTIME #2 vial 01/10/21 Thiamine HCl [Vitamin B-1*] 100 mg PO BID #60 tablet 01/10/21 Zinc Sulfate [Zinc Sulfate*] 220 mg PO DAILY #30 cap 01/10/21 New Medications: Albuterol Inhaler [Ventolin Inhaler*] 2 puff IH Q6H PRN #1 hfa.aer.ad PRN Reason: Shortness Of Breath Physician Discharge Instructions: OK TO DC IV AND DC HOME FOLLOW-UP WITH PRIMARY CARE PROVIDER IN 1-2 WEEKS FOLLOW-UP WITH hole filler and weatherseal technician in 1-2 weeks RETURN TO THE ER IF symptoms worsen CALL or TEXT DR. DAN AT [phone] IF ANY QUESTIONS REGARDING HOSPITAL STAY. PLEASE CALL THE FLOOR AT [phone] IF ANY MEDICATION OR NURSING QUESTIONS. Diet: ADA Activity: Fall precautions Followup: Edward Dan MD [ACTIVE - CAN ADMIT] - 1-2 Weeks (Call for appointment) NONE,NONE [Primary Care Provider] - 1-2 Weeks (Call to schedule for appointment) Time spent managing pt's care (in minutes): 35
== END 2021-01-07 15:55 | disposition home or self-care (01) | DRG 177 ==
LOC: ER 08:30 → ERHOLD 13:31 → 3RD-ICU 15:24 → 4TH 01-07 03:16
PROVIDERS: ADMIT Hospitalist; ATTEND Hospitalist
DX: U07.1 COVID-19 (principal); E10.10 Type 1 diabetes mellitus with ketoacidosis without coma; J12.82 Pneumonia due to coronavirus disease 2019; Z79.4 Long term (current) use of insulin; Z79.52 Long term (current) use of systemic steroids; Z79.899 Other long term (current) drug therapy
CPT/HCPCS: 36415; 71045; 71275; 80048; 80061; 80076; 81003; 81025; 82010; 82805; 82947; 83690; 83735; 83880; 84100; 84484; 85025; 85610; 90471; 90732; 93005; 99285; J0696; J1100; J1650; J1815; J2405; J3480; J7030; J7040; J7512; J7799; Q9967

== ENCOUNTER 2021-01-08 13:53 | Inpatient (IN) | payer SELFPAY ==
--- OUTSIDE RECORDS SUMMARY | 2021-01-08 13:56 | XMS REPORT | Continuity of Care Document ---
:1990 Author Organization [facility] t Address [address] [place] [address] [address] [place] [address] Care Team Providers Name Role Phone Twyla [...] Clinicians Facility Department ID 2019-05-01 2019-05-02 Emergency [place] [facility] [phone] [id number] 19:23:31 00:11:00 [place] [id number] [place] [id number] [place] [phone] Results This patient has no known results.
[2021-01-08] MEDS ORDERED: NA CHLORIDE 0.9% 1,000 ML ONE ×2 (15:01→20:30)
[2021-01-08 15:06] LABS: Absolute Lymphocytes (CBC) 0.4 K/uL (0.7-4.9); Basophils % 0.5 % (0-1.3); Hematocrit 48.3 % (36.0-45.0); Lymphocytes % 4.7 % (15.3-44.8); MPV 9.1 fL (7.6-11.3); RBC Red Blood Cell Count 5.43 M/uL (3.86-4.86)
[2021-01-08 15:07] LABS: Protime INR 0.99
--- NOTE | 2021-01-08 15:20 | RAD REPORT ---
EXAM DESCRIPTION: [facility] Single View01/08/2021 3:06 pm CLINICAL HISTORY: Shortness of breath COMPARISON: 01/06/2021 FINDINGS: Mild bibasilar lung opacities. The heart is normal size IMPRESSION: Mild bibasilar lung opacities without significant change probably pneumonia
[2021-01-08 15:24] LABS: ALT/SGPT 32 U/L (12-78); AST/SGOT 25 U/L (15-37); Albumin 2.9 g/dL (3.4-5.0); Alkaline Phosphatase 77 U/L (45-117); BUN Blood Urea Nitrogen 6 mg/dL (7-18); Bilirubin Direct 0.2 mg/dL (0-0.2); Bilirubin Total 0.6 mg/dL (0.2-1.0); Glucose Level 374 mg/dL (74-106); Lipase 116 U/L (73-393); Magnesium 1.9 mg/dL (1.8-2.4); NT PRO-BNP 19 pg/mL (<125); Potassium 3.8 mmol/L (3.5-5.1); Protein, Total 8.2 g/dL (6.4-8.2); Sodium Level 136 mmol/L (136-145); Troponin (Emerg Dept Use Only) < 0.02 ng/mL (0.0-0.045)
[2021-01-08 15:30] LABS: Bicarbonate 10 mmol/L (21-32)
--- NOTE | 2021-01-08 15:56 | EDPHYS ---
Physician Documentation [facility] Name: Chiquis Palma Age: 30 yrs Sex: Female : 1990 Arrival Date: 01/08/2021 Time: 13:56 Bed 8 Private MD: ED Physician Dawit Yousif HPI: 01/08 14:35 This 30 yrs old Female presents to ER via EMS with complaints of covid cp symptoms worsening. 14:35 The patient has shortness of breath at rest. cp 14:35 Onset: The symptoms/episode began/occurred gradually. cp 14:35 Duration: The symptoms are continuous, and are steadily getting worse. cp 14:35 Associated signs and symptoms: Pertinent negatives: chest pain, fever. The patient has cp been recently been admitted at [facility], for similar complaints, but despite evaluation and treatment the patient now has worsening symptoms. Patient reports testing positive for COVID-19 and being discharged yesterday after being admitted for DKA. Historical: - Allergies: 14:36 NKDA; ld1 - Home Meds: 14:36 Lantus 15U Sub-Q nightly [Active]; Prednisone Oral [Active]; Tessalon Perles 100 mg ld1 Oral cap 2 caps [Active]; - PMHx: 14:12 Diabetes - NIDDM; ll1 - PSHx: 14:12 None; ll1 - Immunization history:: Flu vaccine is not up to date. - Social history:: Smoking status: Reported history of juuling and/or vaping. Patient denies any tobacco usage or history of. ROS: 14:40 Constitutional: Negative for body aches, chills, fever, poor PO intake. cp 14:40 Eyes: Negative for injury, pain, redness, and discharge. cp 14:40 ENT: Negative for ear pain, sore throat, difficulty swallowing, difficulty handling secretions. 14:40 Cardiovascular: Negative for chest pain, edema, palpitations. 14:40 Respiratory: Positive for cough, "sounds productive", shortness of breath, at rest. Negative for wheezing. 14:40 Abdomen/GI: Negative for abdominal pain, nausea, vomiting, and diarrhea, constipation, black/tarry stool, rectal bleeding. 14:40 : Negative for urinary symptoms. 14:40 Neuro: Negative for altered mental status, headache, syncope, weakness. 14:40 All other systems are negative. Exam: 14:45 Constitutional: The patient appears in no acute distress, alert, awake, cp non-diaphoretic, non-toxic, well developed, well nourished, obese. 14:45 Head/Face: Normocephalic, atraumatic. cp 14:45 Eyes: Periorbital structures: appear normal, Conjunctiva: normal, no exudate, no injection, Sclera: no appreciated abnormality, Lids and lashes: appear normal, bilaterally. 14:45 ENT: External ear(s): are unremarkable, Nose: is normal, Mouth: Lips: moist, Oral mucosa: moist, Posterior pharynx: Airway: no evidence of obstruction, patent. 14:45 Neck: ROM/movement: is normal, is supple, without pain, no range of motions limitations, no meningismus. 14:45 Chest/axilla: Inspection: normal, Palpation: is normal, no crepitus, no tenderness. 14:45 Cardiovascular: Rate: tachycardic, Rhythm: regular, Edema: is not appreciated, JVD: is not appreciated. 14:45 Respiratory: the patient does not display signs of respiratory distress, Respirations: labored breathing, is not present, shallow respirations, that is mild, Breath sounds: bronchial sounds, that are mild, are heard diffusely, decreased breath sounds, are not appreciated, stridor, is not appreciated, wheezing: is not appreciated. 14:45 Abdomen/GI: Inspection: abdomen appears normal, Palpation: abdomen is soft and non-tender, in all quadrants. 14:45 Skin: no rash present. 14:45 Neuro: Orientation: to person, place \\T\\ time. Mentation: is normal, Motor: moves all fours, strength is normal. 15:00 ECG was reviewed by the Attending Physician. cp Vital Signs: 14:09 BP 124 / 105; Pulse 125; Resp 24; Temp 97.7; Pulse Ox 94% on R/A; Weight 83.46 kg; ll1 Height 5 ft. 0 in. (152.40 cm); Pain 9/10; 14:36 BP 127 / 87; Pulse 112; Resp 26; Temp 98.9(O); Pulse Ox 96% on 2 lpm NC; ld1 15:49 BP 164 / 87; Pulse 92; Resp 29; Pulse Ox 96% on R/A; ld1 16:46 BP 131 / 106; Pulse 106; Resp 30; Pulse Ox 96% on R/A; Pain 0/10; ld1 17:52 BP 121 / 80; Pulse 101; Resp 40; Pulse Ox 96% on R/A; ld1 19:23 BP 111 / 79; Pulse 98; Resp 25; Pulse Ox 93% on R/A; ea 14:09 Body Mass Index 35.93 (83.46 kg, 152.40 cm) ll1 MDM: 14:23 Patient medically screened. gwyn 15:55 Physician consultation: was called at 15:45, was contacted at 15:45, regarding cp admission, David Arthur [employer], hospitalist services, will be admitting patient for continued care. 19:15 Data reviewed: vital signs, nurses notes, lab test result(s), EKG, radiologic studies, cp CT scan, plain films. 01/08 14:34 Order name: Basic Metabolic Panel cp 01/08 14:34 Order name: CBC with Diff cp 01/08 14:34 Order name: LFT's; Complete Time: 15:36 cp 01/08 15:37 Interpretation: Normal except: ALB 2.9; GLOB 5.3; A/G 0.5. cp 01/08 14:34 Order name: Magnesium; Complete Time: 15:36 cp 01/08 14:34 Order name: NT PRO-BNP; Complete Time: 15:36 cp 01/08 14:34 Order name: PT-INR; Complete Time: 15:22 cp 01/08 14:34 Order name: Troponin (emerg Dept Use Only); Complete Time: 15:36 cp 01/08 14:34 Order name: Ketone, Serum; Complete Time: 15:36 cp 01/08 14:34 Order name: Lipase; Complete Time: 15:36 cp 01/08 14:35 Order name: Basic Metabolic Panel; Complete Time: 15:36 EDMS 01/08 15:39 Interpretation: Normal except: CO2 10; GLUC 374; BUN 6; CA 8.4. cp 01/08 14:35 Order name: CBC with Automated Diff; Complete Time: 16:37 EDMS 01/08 15:23 Interpretation: Normal except: WBC 9.00; RBC 5.43; HGB 16.0; HCT 48.3; PLT 190; ELIZABETH% cp 90.7; LYM% 4.7; NEUT A 8.2; LYMA 0.4. 01/08 15:53 Order name: Procalcitonin 01/08 15:53 Order name: Lactate 01/08 15:53 Order name: D-Dimer 01/08 15:53 Order name: Blood Culture Adult (2) 01/08 15:53 Order name: CRP; Complete Time: 17:15 01/08 17:15 Interpretation: Abnormal: C-REACTIVE PROT 104.00. 01/08 15:53 Order name: Ferritin; Complete Time: 17:15 01/08 17:15 Interpretation: Abnormal: FRANKY 421.0. 01/08 15:54 Order name: Procalcitonin; Complete Time: 17:55 EDTX 01/08 15:54 Order name: Lactate; Complete Time: 17:15 [facility] 01/08 15:54 Order name: D-Dimer; Complete Time: 17:55 [facility] 01/08 15:54 Order name: Blood Culture [facility] 01/08 16:07 Order name: CBC Smear Scan; Complete Time: 16:37 [facility] 01/08 18:02 Order name: Basic Metabolic Panel [facility] 01/08 18:02 Order name: CBC with Automated Diff [facility] 01/08 20:11 Order name: ABG 01/08 21:32 Order name: BMP 01/08 21:32 Order name: ABG Arterial Blood Gas; Complete Time: 02:10 [facility] 01/08 21:33 Order name: Glucose, Ancillary Testing; Complete Time: 22:40 [facility] 01/08 23:20 Order name: Glucose, Ancillary Testing; Complete Time: 02:10 [facility] 01/08 23:30 Order name: Basic Metabolic Panel; Complete Time: 02:10 [facility] 01/09 01:17 Order name: Glucose, Ancillary Testing; Complete Time: 02:10 EDTX 01/09 02:29 Order name: Glucose, Ancillary Testing [facility] 01/09 02:55 Order name: Basic Metabolic Panel [facility] 01/09 04:08 Order name: Glucose, Ancillary Testing [facility] 01/09 04:49 Order name: Glucose, Ancillary Testing [facility] 01/09 05:48 Order name: Glucose, Ancillary Testing [facility] 01/09 06:20 Order name: Basic Metabolic Panel [facility] 01/09 06:20 Order name: Lipid Profile [facility]TX 01/09 06:20 Order name: C-Reactive Protein [facility]TX 01/09 06:20 Order name: Magnesium [facility]TX 01/09 06:20 Order name: Ferritin [facility]TX 01/09 06:56 Order name: Glucose, Ancillary Testing [facility] 01/09 07:25 Order name: Glucose, Ancillary Testing [facility] 01/09 08:11 Order name: CBC with Automated Diff EDTX 01/09 08:29 Order name: Glucose, Ancillary Testing [facility] 01/09 09:32 Order name: Glucose, Ancillary Testing [facility] 01/09 10:14 Order name: Basic Metabolic Panel [facility] 01/09 10:53 Order name: Glucose, Ancillary Testing [facility] 01/09 11:35 Order name: Glucose, Ancillary Testing [facility] 01/09 12:49 Order name: Glucose, Ancillary Testing [facility] 01/09 13:58 Order name: Glucose, Ancillary Testing [facility] 01/09 15:03 Order name: Glucose, Ancillary Testing [facility] 01/09 16:03 Order name: Glucose, Ancillary Testing [facility] 01/09 16:39 Order name: Basic Metabolic Panel [facility] 01/09 16:57 Order name: Glucose, Ancillary Testing [facility] 01/09 18:18 Order name: Glucose, Ancillary Testing [facility] 01/09 18:41 Order name: Glucose, Ancillary Testing [facility] 01/09 19:43 Order name: Glucose, Ancillary Testing [facility] 01/09 21:12 Order name: Glucose, Ancillary Testing [facility] 01/09 21:42 Order name: Glucose, Ancillary Testing [facility] 01/08 14:34 Order name: XRAY Chest (1 view); Complete Time: 15:36 cp 01/08 14:34 Order name: EKG; Complete Time: 14:35 cp 01/08 14:34 Order name: Cardiac monitoring; Complete Time: 14:37 cp 01/08 14:34 Order name: EKG - Nurse/Tech; Complete Time: 15:38 cp 01/08 14:34 Order name: IV Saline Lock; Complete Time: 15:38 cp 01/08 14:34 Order name: Labs collected and sent; Complete Time: 16:44 cp 01/08 14:34 Order name: O2 Per Protocol; Complete Time: 14:38 cp 01/08 14:34 Order name: O2 Sat Monitoring; Complete Time: 14:37 cp 01/08 15:44 Order name: NPO; Complete Time: 15:50 cp 01/08 17:56 Order name: CT Chest For PE Angio; Complete Time: 19:13 cp 01/08 19:14 Interpretation: Report reviewed. 01/08 20:47 Order name: Accucheck Blood Glucose; Complete Time: 21:22 cp 01/09 23:22 Order name: Glucose, Ancillary Testing EDMS 01/10 00:26 Order name: Glucose, Ancillary Testing EDMS 01/10 01:06 Order name: Glucose, Ancillary Testing EDMS 01/10 01:21 Order name: Basic Metabolic Panel EDMS 01/10 01:53 Order name: Glucose, Ancillary Testing EDMS 01/10 05:19 Order name: Glucose, Ancillary Testing EDMS 01/10 05:54 Order name: CBC with Automated Diff EDMS 01/10 06:08 Order name: Basic Metabolic Panel EDMS 01/10 06:08 Order name: Uric Acid EDMS 01/10 06:08 Order name: Phosphorus EDMS 01/10 06:08 Order name: C-Reactive Protein EDMS 01/10 06:08 Order name: Magnesium EDMS 01/10 06:08 Order name: Ferritin EDMS 01/10 08:11 Order name: Glucose, Ancillary Testing EDMS 01/10 10:24 Order name: Hemoglobin A1c EDMS 01/10 11:45 Order name: Glucose, Ancillary Testing EDMS EC:00 Rate is 102 beats/min. Rhythm is regular. MS interval is normal. QRS interval is cp normal. QT interval is normal. T waves are Inverted in lead aVR. Interpreted by me. Reviewed by me. Administered Medications: 14:20 Drug: NS 0.9% 500 ml Route: IV; Rate: 500 ml/hr; Site: left antecubital; ld1 15:38 Follow up: Response: No adverse reaction ld1 16:03 Drug: SOLU-Medrol (methylPrednisoLONE) 80 mg Route: IVP; Site: left antecubital; ld1 16:47 Follow up: Response: No adverse reaction ld1 17:25 Not Given (Patient had their own inhaler): Albuterol HFA Inhaler 2 puffs Inhalation onceld1 20:22 Drug: NS 0.9% 1000 ml Route: IV; Rate: 1 bolus; Site: left antecubital; ea 21:37 Drug: Insulin Drip - (Insulin Regular Human 100 units, NS 0.9% 100 ml) {Co-Signature: matt chappell (Blanca Rios RN).} Route: IV; Rate: 5 units/hr; Site: left antecubital; Disposition: 01/11 06:26 Co-signature as Attending Physician, Dawit Yousif MD I agree with the assessment and gwyn plan of care. Disposition: 01/08/21 15:55 Hospitalization ordered by Daryl Mccloud for Inpatient Admission. Preliminary diagnosis are Other viral pneumonia, Diabetes mellitus due to underlying condition with ketoacidosis. - Bed requested for [facility] ER HOLD. - Status is Inpatient Admission. ld1 - Condition is Stable. - Problem is an ongoing problem. - Symptoms have improved. Signatures: Dispatcher [employer] EDTX Marion Rivas, RN Dawit Villagomez MD MD cha Attema, Lee, MILK CONDENSER-C MILK CONDENSER-Cla1 Dawit Palomares PA PA cp Antunez, Elena RN Jani Menjivar ea, RN RN rv Lewis, Lynsay, RN RN [facility] Peyton Hammer RN RN [facility] Blanca Rios RN, ea Corrections: (The following items were deleted from the chart) 01/08 14:36 14:12 Allergies: NKDA; ll1 ld1 14:36 14:35 GLUCOSE+C.LAB.BRZ ordered. EDTX EDMS 15:39 15:37 Normal except: CO2 10; GLUC 374; BUN 6. cp cp 19:16 15:55 Hospitalization Ordered by Daryl Mccloud DO for Inpatient Admission. Preliminary dw diagnosis is Other viral pneumonia; Diabetes mellitus due to underlying condition with ketoacidosis. Bed requested for Telemetry/MedSurg (Inpatient). Status is Inpatient Admission. Condition is Stable. Problem is an ongoing problem. Symptoms have improved. cp 01/10 12:28 01/08 19:16 01/08/2021 15:55 Hospitalization Ordered by Daryl Mccluod DO for Inpatient ld1 Admission. Preliminary diagnosis is Other viral pneumonia; Diabetes mellitus due to underlying condition with ketoacidosis. Bed requested for [facility] ER HOLD. Status is Inpatient Admission. Condition is Stable. Problem is an ongoing problem. Symptoms have improved. dw
--- NOTE | 2021-01-08 15:56 | ER ---
Nurse's Notes [facility] Name: Chiquis Palma Age: 30 yrs Sex: Female : 1990 Arrival Date: 01/08/2021 Time: 13:56 Bed 8 Private MD: Diagnosis: Other viral pneumonia;Diabetes mellitus due to underlying condition with ketoacidosis Presentation: 01/08 14:09 Chief complaint: Patient states: SOB and feeling worse since being released from our [facility] yesterday for covid and DKA. Coronavirus screen: Client denies travel out of the [place] in the last 14 days. cough unrelated to allergies, difficulty breathing, fatigue, fever, headache, shortness of breath, Client presents with at least one sign or symptom that may indicate coronavirus-19. Standard/surgical mask placed on the client. Ebola Screen: Patient denies travel to an Ebola-affected area in the 21 days before illness onset. Initial Sepsis Screen: Does the patient meet any 2 criteria? RR > 20 per min. HR > 90 bpm. No. Patient's initial sepsis screen is negative. Does the patient have a suspected source of infection? Yes: Productive cough/pneumonia. Risk Assessment: Do you want to hurt yourself or someone else? Patient reports no desire to harm self or others. Onset of symptoms was January 01, 2021. 14:09 Method Of Arrival: EMS [facility] 14:09 Acuity: CHANTEL 2 [facility] 14:17 Chief complaint: EMS states: Tachypnea with O2 sat 93% RA. Fingerstick 315. ll1 Historical: - Allergies: 14:36 NKDA; ld1 - Home Meds: 14:36 Lantus 15U Sub-Q nightly [Active]; Prednisone Oral [Active]; Tessalon Perles 100 mg ld1 Oral cap 2 caps [Active]; - PMHx: 14:12 Diabetes - NIDDM; ll1 - PSHx: 14:12 None; ll1 - Immunization history:: Flu vaccine is not up to date. - Social history:: Smoking status: Reported history of juuling and/or vaping. Patient denies any tobacco usage or history of. Screenin:36 Abuse screen: Denies threats or abuse. Denies injuries from another. Nutritional ld1 screening: No deficits noted. Tuberculosis screening: No symptoms or risk factors identified. Fall Risk IV access (20 points). Assessment: 14:33 General: Appears in no apparent distress. uncomfortable, Behavior is calm, cooperative, ld1 appropriate for age. Pain: Denies pain. Neuro: Level of Consciousness is awake, alert, obeys commands, Oriented to person, place, time, situation, Appropriate for age. Cardiovascular: Capillary refill < 3 seconds Patient's skin is warm and dry. Respiratory: Airway is patent Respiratory effort is even, unlabored, Respiratory pattern is regular, symmetrical. GI: Abdomen is round non-distended, Bowel sounds present X 4 quads. : No deficits noted. EENT: No deficits noted. Derm: No deficits noted. Musculoskeletal: No deficits noted. 15:38 Reassessment: Patient and/or family updated on plan of care and expected duration. Pain ld1 level reassessed. Patient is alert, oriented x 3, equal unlabored respirations, skin warm/dry/pink. Patient denies pain at this time. 16:45 Reassessment: Patient and/or family updated on plan of care and expected duration. Pain ld1 level reassessed. Patient is alert, oriented x 3, equal unlabored respirations, skin warm/dry/pink. Patient denies pain at this time. 17:29 Reassessment:. ld1 19:22 General: Appears in no apparent distress. Behavior is appropriate for age. Pain: Denies ea pain. Neuro: Level of Consciousness is awake, alert, obeys commands, Oriented to person, place, time, situation. Cardiovascular: Patient's skin is warm and dry. Respiratory: Airway is patent Respiratory effort is even, unlabored, Respiratory pattern is regular, symmetrical. GI: Abdomen is non-distended, Bowel sounds present X 4 quads. Derm: No deficits noted. 01/09 07:00 Reassessment: RECD REPORT FROM BLANCA DOSS. 30YO HF P/W COVID S/S, NOW ER ICU HOLD FOR bp DKA. SEE [id number]. Vital Signs: 01/08 14:09 BP 124 / 105; Pulse 125; Resp 24; Temp 97.7; Pulse Ox 94% on R/A; Weight 83.46 kg; ll1 Height 5 ft. 0 in. (152.40 cm); Pain 9/10; 14:36 BP 127 / 87; Pulse 112; Resp 26; Temp 98.9(O); Pulse Ox 96% on 2 lpm NC; ld1 15:49 BP 164 / 87; Pulse 92; Resp 29; Pulse Ox 96% on R/A; ld1 16:46 BP 131 / 106; Pulse 106; Resp 30; Pulse Ox 96% on R/A; Pain 0/10; ld1 17:52 BP 121 / 80; Pulse 101; Resp 40; Pulse Ox 96% on R/A; ld1 19:23 BP 111 / 79; Pulse 98; Resp 25; Pulse Ox 93% on R/A; ea 14:09 Body Mass Index 35.93 (83.46 kg, 152.40 cm) ll1 ED Course: 13:56 Patient arrived in ED. as 14:00 Arm band placed on. ll1 14:11 Triage completed. ll1 14:17 Dawit Palomares PA is PHCP. cp 14:17 Dawit Yousif MD is Attending Physician. cp 14:17 Patient placed in an exam room, on a stretcher. 1 14:19 Peyton Hammer, RN is Primary Nurse. ld1 14:36 Patient has correct armband on for positive identification. Placed in gown. Bed in low ld1 position. Call light in reach. Side rails up X2. nurse monitoring on. Pulse ox on. NIBP on. Door closed. Noise minimized. Warm blanket given. 14:36 No provider procedures requiring assistance completed. ld1 15:05 XRAY Chest (1 view) In Process Unspecified. EDMS 15:38 Basic Metabolic Panel Sent. ld1 15:38 CBC with Diff Sent. ld1 15:54 Daryl Mccloud DO is Hospitalizing Provider. cp 16:43 Blood Culture Adult (2) Sent. mh5 16:43 D-Dimer Sent. mh5 16:43 Lactate Sent. mh5 16:44 Procalcitonin Sent. mh5 18:21 CT Chest For PE Angio In Process Unspecified. EDMS 19:21 Patient admitted, IV remains in place. ea 01/09 19:14 Primary Nurse role handed off by Peyton Hammer, RN mw2 01/10 08:30 Peyton Hammer, SELAM is Primary Nurse. ld1 Administered Medications: 01/08 14:20 Drug: NS 0.9% 500 ml Route: IV; Rate: 500 ml/hr; Site: left antecubital; ld1 15:38 Follow up: Response: No adverse reaction ld1 16:03 Drug: SOLU-Medrol (methylPrednisoLONE) 80 mg Route: IVP; Site: left antecubital; ld1 16:47 Follow up: Response: No adverse reaction ld1 17:25 Not Given (Patient had their own inhaler): Albuterol HFA Inhaler 2 puffs Inhalation onceld1 20:22 Drug: NS 0.9% 1000 ml Route: IV; Rate: 1 bolus; Site: left antecubital; ea 21:37 Drug: Insulin Drip - (Insulin Regular Human 100 units, NS 0.9% 100 ml) {Co-Signature: matt chappell (Blanca Rios RN).} Route: IV; Rate: 5 units/hr; Site: left antecubital; Outcome: 15:55 Decision to Hospitalize by Provider. cp 19:20 Admitted to ER Hold. Please see [facility] for further documentation. ea 19:20 Condition: stable 19:20 Instructed on the need for admit, Demonstrated understanding of instructions. 01/10 12:28 Patient left the ED. ld1 Signatures: Dispatcher [employer] EDMS Addie Peterson Corey, PA PA cp Martinez, [facility] Blanca Rios, RN Sergio Johnson ea RN Joelle Nowak 2 Jani Mcnally RN RN rv Lewis, Lynsay, RN RN 1 Peyton Hammer RN RN ld1 Blanca Rios RN, ea Corrections: (The following items were deleted from the chart) 01/08 14:36 14:12 Allergies: NKDA; ll1 ld1
[2021-01-08 16:07] LABS: Platelet Estimate ADEQ; White Blood Cell Scan OK (OK)
[2021-01-08 16:08] LABS: Blood Morphology Comment NOT SEEN (NOT SEEN)
[2021-01-08] MEDS ORDERED: METHYLPREDNISOLONE 40 MG INJ ONE (16:16)
--- NOTE | 2021-01-08 18:33 | RAD REPORT ---
EXAM DESCRIPTION: CT - Chest For Pe Angio - 01/08/2021 6:22 pm CLINICAL HISTORY: sob COMPARISON: January 06, 2021 TECHNIQUE: Dynamically enhanced axial 3 mm thick images of the chest were obtained during administra tion of <100> mL Isovue 370 IV contrast. Coronal and oblique reconstruction images were generated and reviewed. Exam utilizes a protocol for optimal evaluation of pulmonary arterial tree. Maximum intensity projections 3D imaging was utilized All CT scans are performed using dose optimization technique as appropriate and may include automated exposure control or mA/KV adjustment according to patient size. FINDINGS: A pulmonary embolus is not seen. A thoracic aortic aneurysm is not noted. A pleural effusion is not seen. A pericardial effusion is not seen. Mild to moderate bilateral patchy ground-glass opacities within the lungs Fatty liver IMPRESSION: Negative for a pulmonary embolism. Mild to moderate patchy bilateral ground-glass opacities within the lungs may indicate Covid pneumon ia
--- NOTE | 2021-01-08 18:36 | P.HP ---
Certification for Inpatient Patient admitted to: Observation With expected LOS: <2 Midnights Patient will require the following post-hospital care: None Practitioner: I am a practitioner with admitting privileges, knowledge of patient current condition, hospital course, and medical plan of care. Services: Services provided to patient in accordance with Admission requirements found in Title 42 Section 412.3 of the Code of Federal Regulations <Jorge A Arthur - Last Filed: 01/09/21 11:56> Patient admitted to: Inpatient <Daryl Mccloud - Last Filed: 01/09/21 14:36> Patient History Date of Service: 01/08/21 Reason for admission: Covid 19 Pneumonia History of Present Illness: Patient is a 30-year-old female with a past medical history significant for HTN, DM 2 who presents to the hospital due to worsening shortness of breath. Patient was discharged from the hospital yesterday after been treated for COVID 19 PNA. Patient reported that when she got home shortness of breath increased. Patient reported associated signs and symptoms of cough, nausea, vomiting, fever, chills, weakness, dizziness, loss of taste, loss of appetite, loss of smell, chest tightness and fatigue. Patient reported that she could not keep any p.o. intake down. Patient denies any other signs and symptoms. Symptoms are aggravated or relieved by nothing. Patient decided to present to the ER due to worsening symptoms. Home medications list reviewed: Yes - Past Medical/Surgical History Has patient received pneumonia vaccine in the past: No Diabetic: Yes -: Gallstones -: Diabetes -: fractured her right big toe, healed -: chronic diarrhea -: heavy menstrual cycle x2/month, needs hysterectomy -: drug usage, quit 4 yrs ago -: etoh usage, quit 4yrs ago - Family History Mother -: Hypertension, Diabetes Sister -: Diabetes - Social History Smoking Status: Never smoker Alcohol use: No CD- Drugs: No Caffeine use: Yes Place of Residence: Home <Jorge A Arthur - Last Filed: 01/09/21 11:56> Date of Service: 01/09/21 - Past Medical/Surgical History Psychosocial/ Personal History: Lives at home <Daryl Mccloud - Last Filed: 01/09/21 14:36> Allergies No Known Allergies Allergy (Verified 01/06/21 17:04) Home Medications: Metformin HCl 500 mg PO BIDAC 08/09/18 Albuterol Inhaler [Ventolin Inhaler*] 2 puff IH Q6H PRN #1 hfa.aer.ad 01/07/21 Benzonatate [Tessalon Perle*] 200 mg PO TID PRN #30 cap 01/07/21 Insulin Glargine Human [Lantus*] 15 units SQ BEDTIME #2 syr 01/07/21 predniSONE [Deltasone*] 20 mg PO BID #28 tab 01/07/21 Review of Systems General: Fever, Chills, Weakness, Malaise Eyes: Other (loss of taste, loss of appetite, loss of smell, ), Unremarkable Respiratory: Cough, Shortness of Breath, SOB with Excertion, Other (Chest tightness ) Gastrointestinal: Nausea, Vomiting, No Distention Genitourinary: Unremarkable Musculoskeletal: Unremarkable Integumentary: Unremarkable Neurological: Weakness Lymphatics: Unremarkable <Jorge A Arthur - Last Filed: 01/09/21 11:56> Physical Examination - Physical Exam General: Alert, Oriented x3, Cooperative, Mild distress, Obese HEENT: Atraumatic, Normocephalic, PERRLA, EOMI Neck: Supple, 2+ carotid pulse no bruit, JVD not distended Respiratory: Diminished, Expiratory wheezes Cardiovascular: No edema, Normal pulses, Regular rate/rhythm, Normal S1 S2 Capillary refill: <2 Seconds Gastrointestinal: Normal bowel sounds, Non-distended Musculoskeletal: No clubbing, No swelling, No erythema, No tenderness Integumentary: No rashes, No breakdown, No tenderness/swelling, No erythema, No ulcers Neurological: Normal gait, Normal speech, Normal affect Lymphatics: No axilla or inguinal lymphadenopathy External genitalia: Deferred Rectal: Deferred - Studies Laboratory Data (last 24 hrs) 01/08/21 14:46: PT 11.4, INR 0.99 01/08/21 14:46: WBC 9.00 D, Hgb 16.0 H, Hct 48.3 H, Plt Count 190 D 01/08/21 14:46: Sodium 136, Potassium 3.8, BUN 6 L, Creatinine 0.65, Glucose 374 H, Magnesium 1.9, Total Bilirubin 0.6, AST 25, ALT 32, Alkaline Phosphatase 77, Lipase 116 <MonaejaradJorge A evans E - Last Filed: 01/09/21 11:56> - Studies Laboratory Data (last 24 hrs) 01/08/21 14:46: PT 11.4, INR 0.99 01/08/21 14:46: WBC 9.00 D, Hgb 16.0 H, Hct 48.3 H, Plt Count 190 D 01/08/21 14:46: Sodium 136, Potassium 3.8, BUN 6 L, Creatinine 0.65, Glucose 374 H, Magnesium 1.9, Total Bilirubin 0.6, AST 25, ALT 32, Alkaline Phosphatase 77, Lipase 116 <Daryl Mccloud - Last Filed: 01/09/21 14:36> Assessment and Plan - Plan --COVID-19 pneumonia. Pulmonology consulted. Patient started on steroids.Continue supportive care with vitamin C\thiamine\zinc\vitamin D3. Will await further recommendation from social sciences chair. --COVID-19 infection. Continue current treatment regimen. Continue contact and droplet precautions. Further management per social sciences chair . --DM 2. Poorly controlled. BS monitoring with s\s insulin, premeal insulin and Lantus --Class 2 Obesity. Likely secondary to excess calories intake. Patient counselled on weight reduction, diet and exercise therapy --HTNB. Stable. Will continue to monitor BP and treat if elevated. --DVT prophylaxis with Lovenox subQ Discharge Plan: Home Plan to discharge in: 72 Hours - Advance Directives Does patient have a Living Will: No Does patient have a Durable POA for Healthcare: No - Code Status/Comfort Care Code Status Assessed: Yes Code Status: Full Code Critical Care: No <JersonJorge A E - Last Filed: 01/09/21 11:56> - Plan Patient with DKA. DKA protocol in place. Continue with plan of care. Time Spent Managing Pts Care (In Minutes): 55 <Daryl Mccloud - Last Filed: 01/09/21 14:36>
[2021-01-08] MEDS ORDERED: ONDANSETRON 4 MG (ODT) TAB ONE (20:18)
[2021-01-08] MEDS ORDERED: NA CHLORIDE 0.9% 100 ML ONE (21:23)
[2021-01-08] MEDS ORDERED: INSULIN -REGULAR HUMAN 50 UNIT/0.5 ML ML ONE (21:23)
[2021-01-08 21:31] LABS: Arterial Blood Carboxyhemoglob 1.3 % (0-1.5); Blood Gas Oxyhemoglobin 90.7 % (94-97); Blood O2 Saturation 92.6 % (92-98.5)
[2021-01-08 23:23] LABS: BUN Blood Urea Nitrogen 7 mg/dL (7-18); Glucose Level 339 mg/dL (74-106); Potassium 3.9 mmol/L (3.5-5.1); Sodium Level 138 mmol/L (136-145)
[2021-01-08 23:30] LABS: Bicarbonate 8 mmol/L (21-32)
[2021-01-08] MEDS ORDERED: KETOROLAC 30 MG/ML INJ IV PRN (23:38)
[2021-01-08] MEDS ORDERED: BENZONATATE 100 MG CAP PO PRN (23:38)
[2021-01-08] MEDS ORDERED: dexAMETHasone 10 MG/ML VIAL IV SCH (23:38)
[2021-01-08] MEDS: NACHLORIDE 0.45% 1,000 ML IV SCH (23:38)
[2021-01-08] MEDS ORDERED: INSULIN GLARGINE 100 UNITS/ML SQ SCH (23:38)
[2021-01-08] MEDS ORDERED: GLUCAGON 1 MG/VIAL IM PRN (23:38)
[2021-01-08] MEDS ORDERED: ONDANSETRON 4 MG/2 ML VIAL IV PRN (23:38)
[2021-01-08] MEDS ORDERED: ACETAMINOPHEN 325 MG TABLET PO PRN (23:38)
[2021-01-08] MEDS ORDERED: D50W 25 GM/50 ML SYRINGE IV PRN (23:38)
[2021-01-08 23:59] VITALS: BMI 35.9
[2021-01-09] MEDS ORDERED: INSULIN GLARGINE 100 UNITS/ML SQ ONE (00:05)
[2021-01-09] MEDS ORDERED: dexAMETHasone 10 MG/ML VIAL ONE (00:05)
[2021-01-09] MEDS ORDERED: NACHLORIDE 0.45% 1,000 ML IV ONE ×3 (00:05→16:38)
[2021-01-09 02:53] LABS: BUN Blood Urea Nitrogen 7 mg/dL (7-18); Glucose Level 258 mg/dL (74-106); Potassium 3.8 mmol/L (3.5-5.1); Sodium Level 138 mmol/L (136-145)
[2021-01-09 02:55] LABS: Bicarbonate 9 mmol/L (21-32)
[2021-01-09] MEDS: NACHLORIDE 0.45% 1,000 ML IV SCH ×6 (03:38→23:38)
[2021-01-09] MEDS: D5 0.45 NS 1,000 ML IV SCH ×2 (04:07→06:18)
[2021-01-09] MEDS ORDERED: D5 0.45 NS 1,000 ML IV ONE ×2 (04:21→20:30)
[2021-01-09 06:17] LABS: BUN Blood Urea Nitrogen 6 mg/dL (7-18); Ferritin 412.7 ng/mL (8-388); Glucose Level 261 mg/dL (74-106); HDL Cholesterol 38 mg/dL (40-60); LDL Cholesterol, Calculated 123 (<130); Magnesium 2.2 mg/dL (1.8-2.4); Potassium 3.7 mmol/L (3.5-5.1); Sodium Level 137 mmol/L (136-145)
[2021-01-09 06:19] LABS: Bicarbonate 10 mmol/L (21-32)
[2021-01-09] MEDS ORDERED: POTASSIUM CL SA 10 MEQ TAB PO ONE ×2 (06:29→08:12)
[2021-01-09 08:03] LABS: Absolute Lymphocytes (CBC) 0.8 K/uL (0.7-4.9); Basophils % 0.2 % (0-1.3); Hematocrit 47.3 % (36.0-45.0); Lymphocytes % 16.2 % (15.3-44.8); MPV 9.7 fL (7.6-11.3)
[2021-01-09] MEDS ORDERED: ZINC SULFATE 220 MG CAP ONE (08:11)
[2021-01-09] MEDS ORDERED: THIAMINE HCL 100 MG TABLET ONE ×2 (08:11→20:29)
[2021-01-09] MEDS ORDERED: ASCORBIC ACID 500 MG TABLET ONE ×2 (08:12→20:30)
[2021-01-09] MEDS ORDERED: VITAMIN D 1000 UNIT TAB ONE (08:12)
--- NOTE | 2021-01-09 08:12 | P.CNS ---
Date of Consult: 01/09/21 Reason for Consult: Acidosis Requesting Physician: Daryl Mccloud Chief Complaint: Covid 19 Pneumonia History of Present Illness: Patient is a 30-year-old female with a past medical history significant for HTN, DM 2 who presents to the hospital due to worsening shortness of breath. Patient was discharged from the hospital yesterday after been treated for COVID 19 PNA. Patient reported that when she got home shortness of breath increased. Patient reported associated signs and symptoms of cough, nausea, vomiting, fever, chills, weakness, dizziness, loss of taste, loss of appetite, loss of smell, chest tightness and fatigue. Patient reported that she could not keep any p.o. intake down. Patient denies any other signs and symptoms. Symptoms are aggravated or relieved by nothing. Patient decided to present to the ER due to worsening symptoms. Allergies No Known Allergies Allergy (Verified 01/06/21 17:04) Home medications list reviewed: Yes Home Medications: Metformin HCl 500 mg PO BIDAC 08/09/18 Albuterol Inhaler [Ventolin Inhaler*] 2 puff IH Q6H PRN #1 hfa.aer.ad 01/07/21 Benzonatate [Tessalon Perle*] 200 mg PO TID PRN #30 cap 01/07/21 Insulin Glargine Human [Lantus*] 15 units SQ BEDTIME #2 syr 01/07/21 predniSONE [Deltasone*] 20 mg PO BID #28 tab 01/07/21 - Past Medical/Surgical History Diabetic: Yes -: Gallstones -: Diabetes -: fractured her right big toe, healed -: chronic diarrhea -: heavy menstrual cycle x2/month, needs hysterectomy -: drug usage, quit 4 yrs ago -: etoh usage, quit 4yrs ago - Family History Mother Medical History: Hypertension, Diabetes Sister Medical History: Diabetes - Social History Smoking Status: Unknown if ever smoked Alcohol use: No CD- Drugs: No Caffeine use: Yes Place of Residence: Home Review of Systems 10-point ROS is otherwise unremarkable General: Weakness, Malaise Respiratory: Cough Neurological: Weakness Physical Examination Temp Pulse Resp BP Pulse Ox 98.2 F 80 23 H 132/92 H 97 01/09/21 07:00 01/09/21 08:00 01/09/21 08:00 01/09/21 08:00 01/09/21 08:00 General: Alert, In no apparent distress, Oriented x3, Cooperative HEENT: Atraumatic Neck: Supple Respiratory: Clear to auscultation bilaterally Cardiovascular: No edema, Regular rate/rhythm Gastrointestinal: Soft and benign, Non-distended Musculoskeletal: No clubbing, No contractures Integumentary: No rashes, No cyanosis Neurological: Normal speech Laboratory Data (last 24 hrs) 01/08/21 14:46: PT 11.4, INR 0.99 01/08/21 14:46: WBC 9.00 D, Hgb 16.0 H, Hct 48.3 H, Plt Count 190 D 01/08/21 14:46: Sodium 136, Potassium 3.8, BUN 6 L, Creatinine 0.65, Glucose 374 H, Magnesium 1.9, Total Bilirubin 0.6, AST 25, ALT 32, Alkaline Phosphatase 77, Lipase 116 Imagings Data: EXAM DESCRIPTION: [facility] Single View01/08/2021 3:06 pm CLINICAL HISTORY: Shortness of breath COMPARISON: 01/06/2021 FINDINGS: Mild bibasilar lung opacities. The heart is normal size IMPRESSION: Mild bibasilar lung opacities without significant change probably pneumonia EXAM DESCRIPTION: CT - Chest For Pe Angio - 01/08/2021 6:22 pm CLINICAL HISTORY: sob COMPARISON: January 06, 2021 TECHNIQUE: Dynamically enhanced axial 3 mm thick images of the chest were obtained during administration of <100> mL Isovue 370 IV contrast. Coronal and oblique reconstruction images were generated and reviewed. Exam utilizes a protocol for optimal evaluation of pulmonary arterial tree. Maximum intensity projections 3D imaging was utilized All CT scans are performed using dose optimization technique as appropriate and may include automated exposure control or mA/KV adjustment according to patient size. FINDINGS: A pulmonary embolus is not seen. A thoracic aortic aneurysm is not noted. A pleural effusion is not seen. A pericardial effusion is not seen. Mild to moderate bilateral patchy ground-glass opacities within the lungs Fatty liver IMPRESSION: Negative for a pulmonary embolism. Mild to moderate patchy bilateral ground-glass opacities within the lungs may indicate Covid pneumonia Conclusions/Impression: A/P: Continue the current POC and Medications other than the changes listed. AM Labs PRN. Recommend daily weight. Please see the orders for complete details. Hyponatremia/ Pseudohyponatremia -Insulin gtt for hyperglycemia -Aggressive IVF Hypokalemia -Give another dose of potassium AG Metabolic Acidosis due to DKA -Insulin gtt for hyperglycemia -Aggressive IVF Hypocalcemia -Continue Vitamin D DM II with DKA -Insulin gtt for hyperglycemia -Aggressive IVF Moderate malnutrition -Advance diet as tolerated COVID-19 PNA Acute hypoxic respiratory failure -Maintain Oxygen supplementation Thank you kindly for the consultation.
[2021-01-09] MEDS: ZINC SULFATE 220 MG CAP PO SCH (09:00)
[2021-01-09] MEDS ORDERED: VITAMIN D 1000 UNIT TAB PO SCH (09:00)
[2021-01-09] MEDS ORDERED: ASCORBIC ACID 500 MG TABLET PO SCH (09:00)
[2021-01-09] MEDS ORDERED: THIAMINE HCL 100 MG TABLET PO SCH (09:00)
[2021-01-09 10:12] LABS: BUN Blood Urea Nitrogen 6 mg/dL (7-18); Glucose Level 313 mg/dL (74-106); Potassium 3.3 mmol/L (3.5-5.1); Sodium Level 136 mmol/L (136-145)
[2021-01-09 10:13] LABS: Bicarbonate 10 mmol/L (21-32)
--- NOTE | 2021-01-09 11:15 | EKG ---
Test Date: 2021-01-08 Test Time: 14:53:01 Final Dressing Cutter: YAS MEASUREMENT RESULTS: Intervals: Rate: 102 UT: 134 QRSD: 76 QT: 338 QTc: 440 Slater: P: 38 UT: 134 QRS: 27 T: 38 INTERPRETIVE STATEMENTS: Sinus tachycardia Otherwise normal ECG Compared to ECG 01/06/2021 10:19:18 No significant changes Electronically Signed On 01-09-21 11:13:28 CDT by Dangelo Matos
--- NOTE | 2021-01-09 14:42 | P.PN ---
Subjective Date of Service: 01/09/21 Primary Care Provider: none Chief Complaint: Covid 19 Pneumonia Subjective: Improving, Doing well Physical Examination - Vital Signs Temperature: 98.2 F Blood Pressure: 115/75 Pulse: 88 Respirations: 21 Pulse Ox (%): 97 - Studies Laboratory Data (last 24 hrs) 01/08/21 14:46: PT 11.4, INR 0.99 01/08/21 14:46: WBC 9.00 D, Hgb 16.0 H, Hct 48.3 H, Plt Count 190 D 01/08/21 14:46: Sodium 136, Potassium 3.8, BUN 6 L, Creatinine 0.65, Glucose 374 H, Magnesium 1.9, Total Bilirubin 0.6, AST 25, ALT 32, Alkaline Phosphatase 77, Lipase 116 Assessment & Plan Discharge Plan: Home Plan to discharge in: 48 Hours Physician Review Additional Text: Physical exam: Patient alert, cooperative. No significant distress Heart: Regular rate and rhythm Lungs: Clear to auscultation Abdomen: Soft nontender nondistended Extremities: Good range of motion Impression: Diabetic ketoacidosis with history of diabetes mellitus type 1 Bilateral COVID-19 pneumonia without hypoxia Plan: Diabetic ketoacidosis with history of diabetes mellitus type 1: Patient on DKA protocol. Continue to monitor the lab closely. Accu-Cheks in place. Once gap is closed we will transition to her normal basal insulin. Patient takes Lantus 15 units at bedtime. Patient on clear liquid diet. DVT prophylaxis in place. Anticipate improvement over the next 48 hours. Bilateral COVID-19 pneumonia without hypoxia: No evidence of severe infection noted. No need for steroids at this time. Continue supplementation. Oxygen saturations within normal range. Time Spent Managing Pts Care (In Minutes): 55
[2021-01-09] MEDS ORDERED: INSULIN -REGULAR HUMAN 100 UNIT in NA CHLORIDE 0.9% 100 ML IV SCH (15:15)
[2021-01-09] MEDS ORDERED: D50W 25 GM/50 ML VIAL IV PRN (16:00)
[2021-01-09 16:38] LABS: BUN Blood Urea Nitrogen 5 mg/dL (7-18); Glucose Level 250 mg/dL (74-106); Potassium 3.6 mmol/L (3.5-5.1); Sodium Level 135 mmol/L (136-145)
[2021-01-09] MEDS ORDERED: ENOXAPARIN 100 MG/ML SYR SQ ONE (16:38)
[2021-01-09 16:39] LABS: Bicarbonate 14 mmol/L (21-32)
[2021-01-09] MEDS ORDERED: ENOXAPARIN 40 MG/0.4 ML SQ SCH (17:00)
[2021-01-09] MEDS ORDERED: POTASSIUM 25 MEQ EFFERV TAB PO ONE (18:53)
[2021-01-09] MEDS ORDERED: D5 0.45 NS 1,000 ML IV SCH (20:00)
[2021-01-09] MEDS: ASCORBIC ACID 500 MG TABLET PO SCH (20:17)
[2021-01-09] MEDS: THIAMINE HCL 100 MG TABLET PO SCH (20:17)
[2021-01-09] MEDS ORDERED: POTASSIUM 25 MEQ EFFERV TAB ONE (20:33)
[2021-01-10 01:20] LABS: BUN Blood Urea Nitrogen 4 mg/dL (7-18); Bicarbonate 19 mmol/L (21-32); Glucose Level 215 mg/dL (74-106); Sodium Level 139 mmol/L (136-145)
[2021-01-10 01:21] LABS: Potassium 2.9 mmol/L (3.5-5.1)
[2021-01-10] MEDS ORDERED: GLUCAGON 1 MG/VIAL IM PRN (01:51)
[2021-01-10] MEDS ORDERED: D50W 25 GM/50 ML SYRINGE IV PRN (01:51)
[2021-01-10] MEDS: KCL 20 MEQ/100 mL IVPB 20 MEQ/100 ML BAG IV SCH ×2 (02:00→02:39)
[2021-01-10] MEDS ORDERED: NACHLORIDE 0.45% 1,000 ML IV SCH (02:00)
[2021-01-10] MEDS ORDERED: INSULIN GLARGINE 100 UNITS/ML SQ ONE (02:08)
[2021-01-10] MEDS ORDERED: KCL 20 MEQ/100 mL IVPB 40 MEQ/200 ML BAG IV ONE (02:09)
[2021-01-10] MEDS ORDERED: NACHLORIDE 0.45% 1,000 ML IV ONE (02:13)
[2021-01-10] MEDS ORDERED: POTASSIUM CL SA 10 MEQ TAB PO ONE ×2 (02:39→02:54)
[2021-01-10 04:44] VITALS: TEMP 97.2
[2021-01-10 05:30] LABS: Absolute Lymphocytes (CBC) 1.5 K/uL (0.7-4.9); Basophils % 0.4 % (0-1.3); Lymphocytes % 20.7 % (15.3-44.8); MPV 8.4 fL (7.6-11.3); RBC Red Blood Cell Count 4.67 M/uL (3.86-4.86)
[2021-01-10 06:08] LABS: BUN Blood Urea Nitrogen 4 mg/dL (7-18); Bicarbonate 18 mmol/L (21-32); Ferritin 306.4 ng/mL (8-388); Glucose Level 248 mg/dL (74-106); Magnesium 1.9 mg/dL (1.8-2.4); Phosphorus 1.1 mg/dL (2.5-4.9); Potassium 3.4 mmol/L (3.5-5.1); Sodium Level 138 mmol/L (136-145); Uric Acid 5.6 mg/dL (2.6-6.0)
[2021-01-10 06:35] VITALS: BP 101/65
[2021-01-10] MEDS: INSULIN -REGULAR HUMAN 50 UNIT/0.5 ML ML SQ SCH ×2 (07:30→11:30)
[2021-01-10] MEDS: POTASS/SODIUM PHOSPHATE 1 PKT POWD.PACK PO SCH ×2 (08:00→11:00)
[2021-01-10] MEDS: ZINC SULFATE 220 MG CAP PO SCH (08:56)
[2021-01-10] MEDS: THIAMINE HCL 100 MG TABLET PO SCH (08:56)
[2021-01-10] MEDS ORDERED: INSULIN -REGULAR HUMAN 50 UNIT/0.5 ML ML ONE ×2 (08:57→12:00)
--- NOTE | 2021-01-10 08:58 | P.DS ---
Admission Date: 01/08/21 Discharge Date: 01/10/21 Primary Care Provider: Clint Zabala NP Disposition: ROUTINE DISCHARGE Discharge Condition: GOOD Reason for Admission: Covid 19 Pneumonia Consultations: Nephrology-Dr. Duke Procedures: COVID: Positive CT scan: FINDINGS: A pulmonary embolus is not seen. A thoracic aortic aneurysm is not noted. A pleural effusion is not seen. A pericardial effusion is not seen. Mild to moderate bilateral patchy ground-glass opacities within the lungs Fatty liver IMPRESSION: Negative for a pulmonary embolism. Mild to moderate patchy bilateral ground-glass opacities within the lungs may indicate Covid pneumonia Medical Problem List: Diabetic ketoacidosis with history of diabetes mellitus type 1 Bilateral COVID-19 pneumonia without hypoxia Fatty liver Brief History of Present Illness: 30-year-old female female with a past medical history of diabetes mellitus type 2 who presents to the hospital due to worsening shortness of breath. Patient had been recently hospitalized for COVID-19 pneumonia and DKA. She was sent home with steroids. Blood sugars have been elevated. She was found to be in DKA again. Patient admitted for treatment. Hospital Course: Patient presented with diabetic ketoacidosis. Patient with history of type 1 diabetes. Patient was recently hospitalized for Covid pneumonia and DKA. She was sent home with steroids and treatment. Her condition did not improve. Patient was readmitted for DKA. During the course of her stay patient received IV insulin. She was transitioned off insulin to her regular regimen. At discharge she is without significant symptoms. At discharge she will continue with her Lantus 15 units subcu every bedtime. Insulin NovoLog sliding scale will also be provided. Recommend to maintain blood sugars less than 140 fasting are less than 200 after meals. Recommend to monitor blood sugars at least twice daily. If blood sugars remain above 200 she is to increase Lantus for better control. Recommend follow-up with her PCP to further monitor and adjust. Patient with recent bilateral COVID-19 pneumonia. She is without hypoxia. Her symptoms have improved. Will recommend to discontinue steroid at this time. At discharge she may continue with vitamin C 500 mg 3 times a day, vitamin D 2000 units daily, thiamine 100 mg 1 pill twice daily, and zinc 220 mg daily. Tessalon Perles 100 mg 3 times a day as needed for cough will be provided. Patient will continue with CDC guidelines on isolation. Patient will continue with handwashing, proning, facemask use and social distancing. Vital Signs/Physical Exam: Temp Pulse Resp BP Pulse Ox 97.2 F 75 16 101/65 95 01/10/21 07:00 01/10/21 07:00 01/10/21 07:00 01/10/21 07:00 01/10/21 07:00 General: Alert, In no apparent distress, Oriented x3, Cooperative HEENT: Atraumatic Neck: Supple Respiratory: Clear to auscultation bilaterally, Normal air movement Cardiovascular: Normal pulses, Regular rate/rhythm Gastrointestinal: Normal bowel sounds, Soft and benign, Non-distended Integumentary: No tenderness/swelling Neurological: Normal speech, Normal strength at 5/5 x4 extr, Normal tone, Normal affect Laboratory Data at Discharge: WBC 7.40 K/uL (4.3-10.9) D 01/10/21 05:06 Hgb 13.9 g/dL (12.0-15.0) 01/10/21 05:06 Hct 40.0 % (36.0-45.0) D 01/10/21 05:06 Plt Count 204 K/uL (152-406) 01/10/21 05:06 PT 11.4 SECONDS (9.5-12.5) 01/08/21 14:46 INR 0.99 01/08/21 14:46 Sodium 138 mmol/L (136-145) 01/10/21 05:06 Potassium 3.4 mmol/L (3.5-5.1) L 01/10/21 05:06 BUN 4 mg/dL (7-18) L 01/10/21 05:06 Creatinine 0.42 mg/dL (0.55-1.3) L 01/10/21 05:06 Glucose 248 mg/dL (74-106) H 01/10/21 05:06 Uric Acid 5.6 mg/dL (2.6-6.0) 01/10/21 05:06 Phosphorus 1.1 mg/dL (2.5-4.9) L 01/10/21 05:06 Magnesium 1.9 mg/dL (1.8-2.4) 01/10/21 05:06 Total Bilirubin 0.6 mg/dL (0.2-1.0) 01/08/21 14:46 AST 25 U/L (15-37) 01/08/21 14:46 ALT 32 U/L (12-78) 01/08/21 14:46 Alkaline Phosphatase 77 U/L (45-117) 01/08/21 14:46 Triglycerides 150 mg/dL (<150) 01/09/21 05:37 Cholesterol 191 mg/dL (<200) 01/09/21 05:37 HDL Cholesterol 38 mg/dL (40-60) L 01/09/21 05:37 Cholesterol/HDL Ratio 5.03 01/09/21 05:37 Lipase 116 U/L (73-393) 01/08/21 14:46 Home Medications: Albuterol Inhaler [Ventolin Inhaler*] 2 puff IH Q6H PRN #1 hfa.aer.ad 01/07/21 Ascorbic Acid [Vitamin C*] 500 mg PO TID #90 tablet 01/10/21 Benzonatate [Tessalon Perle*] 100 mg PO TID PRN #10 cap 01/10/21 Cholecalciferol (Vitamin D3) [Vitamin D 1000 Iu Tab*] 2,000 unit PO DAILY #60 tab 01/10/21 Insulin Aspart [Novolog Flexpen] See Protocol SQ SEECOM #1 box 01/10/21 Insulin Glargine Human [Lantus*] 15 units SQ BEDTIME #2 vial 01/10/21 Thiamine HCl [Vitamin B-1*] 100 mg PO BID #60 tablet 01/10/21 Zinc Sulfate [Zinc Sulfate*] 220 mg PO DAILY #30 cap 01/10/21 New Medications: Insulin Glargine Human [Lantus*] 15 units SQ BEDTIME #2 vial Insulin Aspart [Novolog Flexpen] See Protocol SQ SEECOM #1 box Benzonatate [Tessalon Perle*] 100 mg PO TID PRN #10 cap PRN Reason: Cough Thiamine HCl [Vitamin B-1*] 100 mg PO BID #60 tablet Ascorbic Acid [Vitamin C*] 500 mg PO TID #90 tablet Cholecalciferol (Vitamin D3) [Vitamin D 1000 Iu Tab*] 2,000 unit PO DAILY #60 tab Zinc Sulfate [Zinc Sulfate*] 220 mg PO DAILY #30 cap Physician Discharge Instructions: Patient presented with diabetic ketoacidosis. Patient with history of type 1 diabetes. Patient was recently hospitalized for Covid pneumonia and DKA. She was sent home with steroids and treatment. Her condition did not improve. Patient was readmitted for DKA. During the course of her stay patient received IV insulin. She was transitioned off insulin to her regular regimen. At discharge she is without significant symptoms. At discharge she will continue with her Lantus 15 units subcu every bedtime. Insulin NovoLog mild sliding scale will also be provided. Recommend to maintain blood sugars less than 140 fasting are less than 200 after meals. Recommend to monitor blood sugars at least twice daily. If blood sugars remain above 200 she is to increase Lantus for better control. Recommend follow-up with her PCP to further monitor and adjust. Education on diabetes will be provided. Patient with recent bilateral COVID-19 pneumonia. She is without hypoxia. Her symptoms have improved. Will recommend to discontinue steroid at this time. At discharge she may continue with vitamin C 500 mg 3 times a day, vitamin D 2000 units daily, thiamine 100 mg 1 pill twice daily, and zinc 220 mg daily. Tessalon Perles 100 mg 3 times a day as needed for cough will be provided. Patient will continue with CDC guidelines on isolation. Patient will continue with handwashing, proning, facemask use and social distancing. Diet: ADA Activity: Ad dusty Followup: NONE,NONE [Primary Care Provider] - Time spent managing pt's care (in minutes): 55
[2021-01-10] MEDS ORDERED: ZINC SULFATE 220 MG CAP ONE (08:59)
[2021-01-10] MEDS ORDERED: POTASS/SODIUM PHOSPHATE 1 PKT POWD.PACK ONE ×2 (08:59→12:00)
[2021-01-10] MEDS ORDERED: ASCORBIC ACID 500 MG TABLET ONE (09:00)
[2021-01-10] MEDS ORDERED: VITAMIN D 1000 UNIT TAB PO SCH (09:00)
[2021-01-10] MEDS ORDERED: VITAMIN D 1000 UNIT TAB ONE (09:00)
[2021-01-10] MEDS: ASCORBIC ACID 500 MG TABLET PO SCH (09:00)
[2021-01-10 10:09] VITALS: O2SAT 99
[2021-01-10] MEDS ORDERED: INSULIN GLARGINE 100 UNITS/ML SQ SCH (21:00)
== END 2021-01-10 12:32 | disposition home or self-care (01) | DRG 637 ==
LOC: ER 13:53 → ERHOLD 17:56
PROVIDERS: ADMIT Family Medicine; ATTEND Family Medicine
DX: E10.10 Type 1 diabetes mellitus with ketoacidosis without coma (principal); U07.1 COVID-19; J12.82 Pneumonia due to coronavirus disease 2019; J96.01 Acute respiratory failure with hypoxia; E87.1 Hypo-osmolality and hyponatremia; E44.0 Moderate protein-calorie malnutrition; K76.0 Fatty (change of) liver, not elsewhere classified; E87.6 Hypokalemia; E83.51 Hypocalcemia; I10 Essential (primary) hypertension; Z68.35 Body mass index [BMI] 35.0-35.9, adult; Z79.4 Long term (current) use of insulin; Z79.52 Long term (current) use of systemic steroids; Z79.899 Other long term (current) drug therapy
CPT/HCPCS: 36415; 71045; 71275; 80048; 80061; 80076; 82010; 82728; 82805; 82947; 83036; 83605; 83690; 83735; 83880; 84100; 84145; 84484; 84550; 85025; 85379; 85610; 86140; 87040; 93005; 96374; 96375; 99285; J1100; J1650; J1815; J2920; J3480; J7030; J7799; Q9967

== ENCOUNTER 2021-01-18 08:21 | Emergency (ER) | payer SELFPAY ==
--- OUTSIDE RECORDS SUMMARY | 2021-01-18 08:25 | XMS REPORT | Continuity of Care Document ---
:1990 Author Organization [facility] t Address [address] [place] [address] [address]. Bl[address] [place] [address] Care Team Providers Name Role Phone Twyla [...] Facility Department ID 2019-05-01 2019-05-[address] [facility] [id number] 19:23:31 00:11:00 [place] [id number] [place] [id number] [place] [id number] [id number] Results This patient has no known results.
[2021-01-18 09:02] LABS: Urine Blood Trace-intact (Negative); Urine Glucose 3+ (Negative); Urine Protein Negative (Negative); Urine Specific Gravity 1.025 (1.005-1.030); Urine pH 7.5 (5.0-7.0)
[2021-01-18] MEDS ORDERED: ONDANSETRON 4 MG/2 ML VIAL ONE (09:03)
[2021-01-18] MEDS ORDERED: MORPHINE 4 MG/ML SYR ONE (09:03)
[2021-01-18] MEDS ORDERED: GABAPENTIN 300 MG CAP ONE (09:03)
[2021-01-18] MEDS ORDERED: NA CHLORIDE 0.9% 1,000 ML ONE (09:04)
[2021-01-18 09:09] LABS: Absolute Lymphocytes (CBC) 2.3 K/uL (0.7-4.9); Basophils % 0.8 % (0-1.3); Hematocrit 40.6 % (36.0-45.0); Lymphocytes % 27.3 % (15.3-44.8); MPV 7.8 fL (7.6-11.3); RBC Red Blood Cell Count 4.63 M/uL (3.86-4.86)
[2021-01-18 09:14] LABS: Arterial Blood Carboxyhemoglob 1.3 % (0-1.5); Blood O2 Saturation 93.9 % (92-98.5)
[2021-01-18 09:24] LABS: ALT/SGPT 32 U/L (12-78); AST/SGOT 18 U/L (15-37); Alkaline Phosphatase 78 U/L (45-117); BUN Blood Urea Nitrogen 9 mg/dL (7-18); Bicarbonate 29 mmol/L (21-32); Bilirubin Total 0.4 mg/dL (0.2-1.0); Glucose Level 302 mg/dL (74-106); Potassium 3.6 mmol/L (3.5-5.1); Protein, Total 6.9 g/dL (6.4-8.2); Sodium Level 139 mmol/L (136-145)
[2021-01-18 09:25] LABS: Albumin 2.6 g/dL (3.4-5.0)
--- NOTE | 2021-01-18 09:44 | EDPHYS ---
Physician Documentation [facility] Name: Chiquis Palma Age: 30 yrs Sex: Female : 1990 Arrival Date: 01/18/2021 Time: 08:22 Bed 18 Private MD: TING Physician Dawit Yousif HPI: 01/18 08:29 This 30 yrs old Female presents to ER via EMS with complaints of Foot Pain. gwyn 08:29 The patient presents with pain, that is acute. The complaints affect the right foot and gwyn left foot. Context: The problem was sustained at an unknown location, resulted from a chronic condition, uncontrolled dm. Modifying factors: The symptoms are alleviated by nothing, the symptoms are aggravated by weight bearing. Associated signs and symptoms: The patient has no apparent associated signs or symptoms. The patient has experienced similar episodes in the past, a few times. Historical: - Allergies: 08:27 NKDA; tr6 - Home Meds: 08:27 Lantus 15U Sub-Q nightly [Active]; Prednisone Oral [Active]; Tessalon Perles 100 mg tr6 Oral cap 2 caps [Active]; - Immunization history:: Adult Immunizations up to date. - Family history:: not pertinent. - Social history:: Smoking status: unknown. ROS: 08:29 Constitutional: Negative for fever, chills, and weight loss, Eyes: Negative for injury, gwyn pain, redness, and discharge, ENT: Negative for injury, pain, and discharge, Neck: Negative for injury, pain, and swelling, Cardiovascular: Negative for chest pain, palpitations, and edema, Respiratory: Negative for shortness of breath, cough, wheezing, and pleuritic chest pain, Abdomen/GI: Negative for abdominal pain, nausea, vomiting, diarrhea, and constipation, Back: Negative for injury and pain, : Negative for injury, bleeding, discharge, and swelling, Skin: Negative for injury, rash, and discoloration, Neuro: Negative for headache, weakness, numbness, tingling, and seizure, Psych: Negative for depression, anxiety, suicide ideation, homicidal ideation, and hallucinations, Allergy/Immunology: Negative for hives, rash, and allergies, Endocrine: Negative for neck swelling, polydipsia, polyuria, polyphagia, and marked weight changes, Hematologic/Lymphatic: Negative for swollen nodes, abnormal bleeding, and unusual bruising. 08:29 MS/extremity: Positive for pain, of the right foot and left foot. Exam: 08:29 Constitutional: This is a well developed, well nourished patient who is awake, alert, gwyn and in no acute distress. Head/Face: Normocephalic, atraumatic. Eyes: Pupils equal round and reactive to light, extra-ocular motions intact. Lids and lashes normal. Conjunctiva and sclera are non-icteric and not injected. Cornea within normal limits. Periorbital areas with no swelling, redness, or edema. ENT: Nares patent. No nasal discharge, no septal abnormalities noted. Tympanic membranes are normal and external auditory canals are clear. Oropharynx with no redness, swelling, or masses, exudates, or evidence of obstruction, uvula midline. Mucous membranes moist. Neck: Trachea midline, no thyromegaly or masses palpated, and no cervical lymphadenopathy. Supple, full range of motion without nuchal rigidity, or vertebral point tenderness. No Meningismus. Chest/axilla: Normal chest wall appearance and motion. Nontender with no deformity. No lesions are appreciated. Cardiovascular: Regular rate and rhythm with a normal S1 and S2. No gallops, murmurs, or rubs. Normal PMI, no JVD. No pulse deficits. Respiratory: Lungs have equal breath sounds bilaterally, clear to auscultation and percussion. No rales, rhonchi or wheezes noted. No increased work of breathing, no retractions or nasal flaring. Abdomen/GI: Soft, non-tender, with normal bowel sounds. No distension or tympany. No guarding or rebound. No evidence of tenderness throughout. Back: No spinal tenderness. No costovertebral tenderness. Full range of motion. Skin: Warm, dry with normal turgor. Normal color with no rashes, no lesions, and no evidence of cellulitis. Neuro: Awake and alert, GCS 15, oriented to person, place, time, and situation. Cranial nerves II-XII grossly intact. Motor strength 5/5 in all extremities. Sensory grossly intact. Cerebellar exam normal. Normal gait. Psych: Awake, alert, with orientation to person, place and time. Behavior, mood, and affect are within normal limits. 08:29 Musculoskeletal/extremity: Circulation is intact in all extremities. Sensation intact. Compartment Syndrome exam of affected extremity: is normal. Joints: All joints appear normal with full range of motion. Weight bearing: is unable to bear weight, DVT Exam: No signs of deep vein thrombosis. no swelling, no tenderness, negative Homans' sign noted on exam, no appreciated bluish discoloration, no erythema, no increased warmth, pain. Vital Signs: 08:25 BP 157 / 82; Pulse 92; Resp 18; Pulse Ox 100% ; tr6 10:05 BP 124 / 92; Pulse 76; Resp 18; Pulse Ox 99% ; tr6 MDM: 08:25 Patient medically screened. [facility] 08:35 Differential diagnosis: arthritis, gout. Data reviewed: vital signs, nurses notes, lab [facility] test result(s). Data interpreted: awake overnight monitor: rate is 92 beats/min, rhythm is regular, Pulse oximetry: on room air is 100 %. Test interpretation: by ED physician or midlevel provider:. Counseling: I had a detailed discussion with the patient and/or guardian regarding: the historical points, exam findings, and any diagnostic results supporting the discharge/admit diagnosis, lab results, radiology results. 05 08:29 Order name: CBC with Diff [facility] 01/18 08:29 Order name: Comprehensive Metabolic Panel; Complete Time: 09:33 [facility] 01/18 08:29 Order name: ABG; Complete Time: 09:33 [facility] 01/18 08:29 Order name: Ketone, Serum; Complete Time: 09:33 [facility] 01/18 08:30 Order name: CBC with Automated Diff; Complete Time: 09:33 [facility] 01/18 09:02 Order name: Urine Dipstick-Ancillary; Complete Time: 09:33 [facility] 01/18 08:29 Order name: Urine Dipstick-Ancillary (obtain specimen); Complete Time: 09:05 [facility] 01/18 08:29 Order name: Urine Test (obtain specimen); Complete Time: 09:05 [facility] Administered Medications: 09:05 Drug: Zofran (Ondansetron) 4 mg Route: IVP; Site: right antecubital; tr6 09:21 Follow up: Response: No adverse reaction tr6 09:06 Drug: NS 0.9% 1000 ml Route: IV; Rate: 1 bolus; Site: right antecubital; tr6 09:21 Follow up: IV Status: Completed infusion; IV Intake: 1000ml tr6 09:06 Drug: Gabapentin 600 mg Route: PO; tr6 09:21 Follow up: Response: No adverse reaction tr6 09:06 Drug: morphine 2 mg Route: IVP; Site: right antecubital; tr6 09:21 Follow up: Response: Pain is decreased tr6 09:49 Drug: Insulin Regular Human 7 units {Co-Signature: ap3 (Rosalinda Shaver RN).} Route: tr6 IVP; Site: right antecubital; 09:56 Follow up: Response: No adverse reaction tr6 Disposition: 01/18/21 09:43 Discharged to Home. Impression: Type 1 diabetes mellitus, Type 1 diabetes mellitus with diabetic neuropathy, unspecified. - Condition is Stable. - Discharge Instructions: Type 1 Diabetes Mellitus, Diagnosis, Adult, Diabetes and Foot Care, Peripheral Neuropathy, Diabetic Neuropathy, Blood Glucose Monitoring, Adult, Type 1 Diabetes Mellitus, Self Care, Adult. - Prescriptions for amitriptyline 25 mg Oral tablet - take 1 tablet by ORAL route once daily at bedtime; 30 tablet. gabapentin 300 mg Oral capsule - take 1 capsule by ORAL route 3 times per day; 60 capsule. - Medication Reconciliation Form, Thank You Letter, Antibiotic Education, Prescription Opioid Use, Work release form form. - Follow up: Private Physician; When: 2 - 3 days; Reason: Recheck today's complaints, Continuance of care, Re-evaluation by your physician. Follow up: Baljit Santillan DO; When: 2 - 3 days; Reason: Recheck today's complaints, Re-evaluation by your physician. - Problem is new. - Symptoms have improved. Signatures: Dispatcher [employer] [facility] Dawit Yousif MD MD cha Ramnanan, Tiffany, RN RN tr6 Rosalinda Shaver RN ap3 Corrections: (The following items were deleted from the chart) 10:28 09:43 01/18/2021 09:43 Discharged to Home. Impression: Type 1 diabetes mellitus; Type 1 tr6 diabetes mellitus with diabetic neuropathy, unspecified. Condition is Stable. Forms are Medication Reconciliation Form, Thank You Letter, Antibiotic Education, Prescription Opioid Use. Follow up: Private Physician; When: 2 - 3 days; Reason: Recheck today's complaints, Continuance of care, Re-evaluation by your physician. Follow up: Baljit Santillan; When: 2 - 3 days; Reason: Recheck today's complaints, Re-evaluation by your physician. Problem is new. Symptoms have improved. gwyn
--- NOTE | 2021-01-18 09:44 | ER ---
Nurse's Notes [facility] Name: Chiquis Palma Age: 30 yrs Sex: Female : 1990 Arrival Date: 01/18/2021 Time: 08:22 Bed 18 Private MD: Diagnosis: Type 1 diabetes mellitus;Type 1 diabetes mellitus with diabetic neuropathy, unspecified Presentation: 01/18 08:25 Chief complaint: Patient states: c/o b/l neuropathy. Coronavirus screen: Client reports tr6 previous positive COVID test result. Ebola Screen: Patient negative for fever greater than or equal to 101.5 degrees Fahrenheit, and additional compatible Ebola Virus Disease symptoms Patient denies exposure to infectious person. Patient denies travel to an Ebola-affected area in the 21 days before illness onset. Initial Sepsis Screen: Does the patient meet any 2 criteria? No. Patient's initial sepsis screen is negative. Does the patient have a suspected source of infection? No. Patient's initial sepsis screen is negative. Risk Assessment: Do you want to hurt yourself or someone else? Patient reports no desire to harm self or others. Onset of symptoms was January 16, 2021. 08:25 Method Of Arrival: EMS: [facility] tr6 08:25 Acuity: CHANTEL 3 tr6 Triage Assessment: 08:27 General: Appears distressed, uncomfortable, well groomed, Behavior is cooperative, tr6 crying. Pain: Complains of pain in b/l feet. EENT: No deficits noted. Neuro: No deficits noted. Cardiovascular: No deficits noted. Respiratory: No deficits noted. GI: No deficits noted. : No deficits noted. Derm: No deficits noted. Musculoskeletal: Reports pain in b/l feet. Historical: - Allergies: 08:27 NKDA; tr6 - Home Meds: 08:27 Lantus 15U Sub-Q nightly [Active]; Prednisone Oral [Active]; Tessalon Perles 100 mg tr6 Oral cap 2 caps [Active]; - Immunization history:: Adult Immunizations up to date. - Family history:: not pertinent. - Social history:: Smoking status: unknown. Screenin:28 Abuse screen: Denies threats or abuse. Denies injuries from another. Nutritional tr6 screening: No deficits noted. Tuberculosis screening: No symptoms or risk factors identified. Fall Risk None identified. Assessment: 08:28 Reassessment: see triage assessment. tr6 Vital Signs: 08:25 BP 157 / 82; Pulse 92; Resp 18; Pulse Ox 100% ; tr6 10:05 BP 124 / 92; Pulse 76; Resp 18; Pulse Ox 99% ; tr6 ED Course: 08:22 Patient arrived in ED. ds1 08:25 Dawit Yousif MD is Attending Physician. gwyn 08:26 Triage completed. tr6 08:29 Arm band placed on left wrist. Patient placed in an exam room, on a stretcher. tr6 08:29 No provider procedures requiring assistance completed. tr6 08:30 Patient has correct armband on for positive identification. Placed in gown. Bed in low tr6 position. Call light in reach. Side rails up X 1. 09:07 CBC with Automated Diff Sent. tr6 09:07 Ketone, Serum Sent. tr6 09:38 Baljit Santillan DO is Referral Physician. gwyn 09:56 IV discontinued. tr6 Administered Medications: 09:05 Drug: Zofran (Ondansetron) 4 mg Route: IVP; Site: right antecubital; tr6 09:21 Follow up: Response: No adverse reaction tr6 09:06 Drug: NS 0.9% 1000 ml Route: IV; Rate: 1 bolus; Site: right antecubital; tr6 09:21 Follow up: IV Status: Completed infusion; IV Intake: 1000ml tr6 09:06 Drug: Gabapentin 600 mg Route: PO; tr6 09:21 Follow up: Response: No adverse reaction tr6 09:06 Drug: morphine 2 mg Route: IVP; Site: right antecubital; tr6 09:21 Follow up: Response: Pain is decreased tr6 09:49 Drug: Insulin Regular Human 7 units {Co-Signature: ap3 (Rosalinda Shaver RN).} Route: tr6 IVP; Site: right antecubital; 09:56 Follow up: Response: No adverse reaction tr6 Intake: 09:21 IV: 1000ml; Total: 1000ml. tr6 Outcome: 09:43 Discharge ordered by . gwyn 09:56 Discharged to home ambulatory. tr6 09:56 Condition: good 09:56 Discharge instructions given to patient. 10:28 Patient left the ED. tr6 Signatures: Dawit Yousif MD MD cha [place] Kathleen ds1 Catherine Alves, RN RN tr6 Rosalinda Shaver RN ap3
[2021-01-18] MEDS ORDERED: INSULIN -REGULAR HUMAN 50 UNIT/0.5 ML ML ONE (10:08)
[2021-01-18 10:33] VITALS: BP 124/92; O2SAT 99
== END 2021-01-18 10:28 | disposition home or self-care (01) ==
LOC: ER 08:21
DX: E10.40 Type 1 diabetes mellitus with diabetic neuropathy, unspecified (principal); M79.671 Pain in right foot; Z79.4 Long term (current) use of insulin
CPT/HCPCS: 36415; 80053; 81003; 82010; 82805; 85025; 96374; 96375; 99283; J2405; J7030

== ENCOUNTER 2021-02-22 07:17 | Emergency (ER) | payer SELFPAY ==
--- OUTSIDE RECORDS SUMMARY | 2021-02-22 07:20 | XMS REPORT | Continuity of Care Document ---
:1990 Author Organization [facility] t Address [address] [place] [address] Dr. Bliss [address] [place] [address] Care Team Providers Name Role Phone Twyla [...] Facility Department ID 2019-05-01 2019-05-02 Emergency Twyla [facility] [id number] 19:23:31 00:11:00 Rey Willoughby [id number] [place] [id number] [place] [id number] Results This patient has no known results.
[2021-02-22 07:46] LABS: Urine Blood 1+ (Negative); Urine Glucose Negative (Negative); Urine Protein Negative (Negative); Urine Specific Gravity <=1.005 (1.005-1.030)
[2021-02-22 08:21] LABS: Basophils % 0.6 % (0-1.3); Hematocrit 43.4 % (36.0-45.0); Lymphocytes % 17.2 % (15.3-44.8); MPV 9.2 fL (7.6-11.3); RBC Red Blood Cell Count 4.87 M/uL (3.86-4.86)
[2021-02-22 08:37] LABS: BUN Blood Urea Nitrogen 7 mg/dL (7-18); Bicarbonate 27 mmol/L (21-32); Glucose Level 272 mg/dL (74-106); Potassium 3.7 mmol/L (3.5-5.1); Sodium Level 138 mmol/L (136-145)
--- NOTE | 2021-02-22 09:02 | RAD REPORT ---
EXAM DESCRIPTION: CT - Head Brain Wo Cont - 02/22/2021 7:55 am CLINICAL HISTORY: HEADACHE Headache, drowsiness COMPARISON: HEAD BRAIN W O CONTRAST dated 01/20/2009 TECHNIQUE: All CT scans are performed using dose optimization technique as appropriate and may inclu de automated exposure control or mA/KV adjustment according to patient size. FINDINGS: No intracranial hemorrhage, hydrocephalus or extra-axial fluid collection.No areas of brai n edema or evidence of midline shift. The paranasal sinuses and mastoids are clear. The calvarium is intact. IMPRESSION: No acute intracranial abnormality.
--- NOTE | 2021-02-22 09:07 | RAD REPORT ---
EXAM DESCRIPTION: RAD - Chest Single View - 02/22/2021 8:05 am CLINICAL HISTORY: DYSPNEA Chest pain. COMPARISON: Chest Single View dated 01/08/2021; Chest Single View dated 01/06/2021; Chest Pa And Lat ( 2 Views) dated 09/09/2020; Chest Single View dated 05/17/2020 FINDINGS: Portable technique limits examination quality. The lungs are grossly clear. The heart is normal in size. No displaced fractures. IMPRESSION: No acute intrathoracic process suspected.
--- NOTE | 2021-02-22 09:56 | ER ---
Nurse's Notes [facility] Name: Chiquis Palma Age: 30 yrs Sex: Female : 1990 Arrival Date: 02/22/2021 Time: 07:22 Bed 7 Private MD: Diagnosis: Headache;Nausea and vomiting Presentation: 02/22 07:25 Chief complaint: Patient states: i have been nauseous and vomiting with diarrhea 4 days tw2 ago, and i have a headache and i feel like my face hurts and my eyes are swollen. my grandmother came the day before yesterday and she had Covid. I was the only one sick so I think I was the one to get her sick. I also feel like i cant breathe again. Coronavirus screen: diarrhea, difficulty breathing, fever, headache, nausea, runny nose, sore throat, vomiting. Ebola Screen: Patient denies travel to an Ebola-affected area in the 21 days before illness onset. Initial Sepsis Screen: Does the patient meet any 2 criteria? HR > 90 bpm. Does the patient have a suspected source of infection? No. Patient's initial sepsis screen is negative. Risk Assessment: Do you want to hurt yourself or someone else? Patient reports no desire to harm self or others. Onset of symptoms was February 22, 2021. 07:25 Method Of Arrival: Ambulatory tw2 07:25 Acuity: CHANTEL 3 tw2 Triage Assessment: 07:29 General: Appears in no apparent distress. obese, well groomed, Behavior is calm, tw2 cooperative, appropriate for age. Pain: Complains of pain in headache. Respiratory: Reports shortness of breath Onset: The symptoms/episode began/occurred 4 days ago, the patient has mild shortness of breath. 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 - Social history:: Smoking status: Patient denies any tobacco usage or history of. Screenin:46 Abuse screen: Denies threats or abuse. Denies injuries from another. Nutritional ld1 screening: No deficits noted. Tuberculosis screening: No symptoms or risk factors identified. Fall Risk None identified. Assessment: 07:46 General: Appears in no apparent distress. comfortable, Behavior is calm, cooperative, ld1 appropriate for age. Pain: Denies pain. Neuro: Level of Consciousness is awake, alert, obeys commands, Oriented to person, place, time, situation, Reports headache in entire since X 4 days. Cardiovascular: Capillary refill < 3 seconds Patient's skin is warm and dry. Rhythm is sinus rhythm. Respiratory: Airway is patent Respiratory effort is even, unlabored, Respiratory pattern is regular, symmetrical, Breath sounds are clear bilaterally. GI: Abdomen is round non-distended, obese. : No signs and/or symptoms were reported regarding the genitourinary system. EENT: No signs and/or symptoms were reported regarding the EENT system. Derm: No signs and/or symptoms reported regarding the dermatologic system. Musculoskeletal: No signs and/or symptoms reported regarding the musculoskeletal system. 08:30 Reassessment: Patient appears in no apparent distress at this time. Patient and/or ld1 family updated on plan of care and expected duration. Pain level reassessed. Patient laying in bed. Denies concerns at this time. 09:48 Reassessment: Patient appears in no apparent distress at this time. Patient and/or ld1 family updated on plan of care and expected duration. Pain level reassessed. Patient denies pain at this time. Vital Signs: 07:25 BP 122 / 98; Pulse 96; Resp 18; Temp 97.9(TE); Pulse Ox 99% on R/A; Weight 90.72 kg tw2 (R); Pain 6/10; 08:18 BP 106 / 75; Pulse 86; Resp 18; Pulse Ox 99% on R/A; ld1 09:48 BP 130 / 102; Pulse 87; Resp 18; Pulse Ox 99% on R/A; ld1 ED Course: 07:22 Patient arrived in ED. mr 07:28 Triage completed. tw2 07:30 Arm band placed on. tw2 07:33 Gavi Garcia RN is Primary Nurse. hb 07:33 Donn Ac MD is Attending Physician. kdr 07:46 Patient has correct armband on for positive identification. Bed in low position. Call ld1 light in reach. Side rails up X2. panel monitor on. Pulse ox on. NIBP on. 07:55 CT Head Brain wo Cont In Process Unspecified. EDMS 08:05 CXR XRAY In Process Unspecified. EDMS 08:05 Initial lab(s) drawn. Inserted saline lock: 20 gauge in right antecubital area, using kj1 aseptic technique. Blood collected. 08:58 Primary Nurse role handed off by Gavi Garcia RN ld1 08:58 Peyton Hammer, RN is Primary Nurse. ld1 10:04 No provider procedures requiring assistance completed. IV discontinued, intact, ld1 bleeding controlled, No redness/swelling at site. Administered Medications: No medications were administered Outcome: :55 Discharge ordered by . kdr 10:04 Discharged to home ambulatory. ld1 10:04 Condition: stable 10:04 Discharge instructions given to patient, Instructed on discharge instructions, follow up and referral plans. medication usage, Demonstrated understanding of instructions, follow-up care, medications. 10:06 Patient left the ED. ld1 Signatures: Dispatcher [employer] [facility] Donn Ac MD MD kdr Rivera, Mary mr Gavi Garcia, RN RN Mary Ha RN RN 2 Jennifer Anna kj1 Peyton Hammer, RN RN ld1
--- NOTE | 2021-02-22 09:56 | EDPHYS ---
Physician Documentation [facility] Name: Chiquis Palma Age: 30 yrs Sex: Female : 1990 Arrival Date: 02/22/2021 Time: 07:22 Bed 7 Private MD: ED Physician Donn Ac HPI: 02/22 07:48 This 30 yrs old Female presents to ER via Ambulatory with complaints of n/v x kdr 4 days. 07:48 The patient presents to the emergency department with nausea, that is mild, vomiting, kdr that is intermittent, diarrhea, that is intermittent. Onset: The symptoms/episode began/occurred gradually, 4 day(s) ago. Possible causes: unknown. The symptoms are aggravated by nothing. The symptoms are alleviated by remaining still, food . Associated signs and symptoms: Pertinent positives:. Severity of symptoms: At their worst the symptoms were mild in the emergency department the symptoms are unchanged. The patient has experienced similar episodes in the past, a few times. The patient has not recently seen a physician. 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 - Social history:: Smoking status: Patient denies any tobacco usage or history of. ROS: 09:58 Constitutional: Negative for fever, chills, and weight loss, Eyes: Negative for injury, kdr pain, redness, and discharge, ENT: Negative for injury, pain, and discharge, Neck: Negative for injury, pain, and swelling, Cardiovascular: Negative for chest pain, palpitations, and edema, Respiratory: Negative for shortness of breath, cough, wheezing, and pleuritic chest pain, Back: Negative for injury and pain, : Negative for injury, bleeding, discharge, and swelling, MS/Extremity: Negative for injury and deformity, Skin: Negative for injury, rash, and discoloration, Psych: Negative for depression, anxiety, suicide ideation, homicidal ideation, and hallucinations, Allergy/Immunology: Negative for hives, rash, and allergies, Endocrine: Negative for neck swelling, polydipsia, polyuria, polyphagia, and marked weight changes, Hematologic/Lymphatic: Negative for swollen nodes, abnormal bleeding, and unusual bruising. 09:58 Abdomen/GI: Positive for nausea and vomiting, Negative for abdominal pain, constipation, abdominal cramps, abdominal distension, anorexia, dysphagia, hematemesis, rectal pain. 09:58 Neuro: Positive for headache, Negative for altered mental status, dizziness, gait disturbance, loss of consciousness, seizure activity, speech changes, syncope, near syncope, tingling, tinnitus, tremor, weakness. Exam: 09:58 Constitutional: This is a well developed, well nourished patient who is awake, alert, kdr and in no acute distress. Head/Face: Normocephalic, atraumatic. Eyes: Pupils equal round and reactive to light, extra-ocular motions intact. Lids and lashes normal. Conjunctiva and sclera are non-icteric and not injected. Cornea within normal limits. Periorbital areas with no swelling, redness, or edema. Neck: Trachea midline, no thyromegaly or masses palpated, and no cervical lymphadenopathy. Supple, full range of motion without nuchal rigidity, or vertebral point tenderness. No Meningismus. Chest/axilla: Normal chest wall appearance and motion. Nontender with no deformity. No lesions are appreciated. Cardiovascular: Regular rate and rhythm with a normal S1 and S2. No gallops, murmurs, or rubs. Normal PMI, no JVD. No pulse deficits. Respiratory: Lungs have equal breath sounds bilaterally, clear to auscultation and percussion. No rales, rhonchi or wheezes noted. No increased work of breathing, no retractions or nasal flaring. Abdomen/GI: Soft, non-tender, with normal bowel sounds. No distension or tympany. No guarding or rebound. No evidence of tenderness throughout. Back: No spinal tenderness. No costovertebral tenderness. Full range of motion. Skin: Warm, dry with normal turgor. Normal color with no rashes, no lesions, and no evidence of cellulitis. MS/ Extremity: Pulses equal, no cyanosis. Neurovascular intact. Full, normal range of motion. Neuro: Awake and alert, GCS 15, oriented to person, place, time, and situation. Cranial nerves II-XII grossly intact. Motor strength 5/5 in all extremities. Sensory grossly intact. Cerebellar exam normal. Normal gait. Psych: Awake, alert, with orientation to person, place and time. Behavior, mood, and affect are within normal limits. Vital Signs: 07:25 BP 122 / 98; Pulse 96; Resp 18; Temp 97.9(TE); Pulse Ox 99% on R/A; Weight 90.72 kg tw2 (R); Pain 6/10; 08:18 BP 106 / 75; Pulse 86; Resp 18; Pulse Ox 99% on R/A; ld1 09:48 BP 130 / 102; Pulse 87; Resp 18; Pulse Ox 99% on R/A; ld1 MDM: 09:55 Patient medically screened. kdr 09:58 Data reviewed: vital signs, nurses notes, lab test result(s), radiologic studies. kdr Counseling: I had a detailed discussion with the patient and/or guardian regarding: the historical points, exam findings, and any diagnostic results supporting the discharge/admit diagnosis, lab results, radiology results, the need for outpatient follow up. Response to treatment: the patient's symptoms have markedly improved after treatment. 09:58 Special discussion: Based on the patient's Hx, exam, and Dx evaluation, there is no kdr indication for emergent surgery or inpatient Tx. It is understood by the patient/guardian that if the Sx's persist or worsen they need to return immediately for re-evaluation. I discussed with the patient/guardian in detail that at this point there is no indication for admission to the hospital. It is understood, however, that if the symptoms persist or worsen the patient needs to return immediately for re-evaluation. 02/22 07:42 Order name: CBC with Diff; Complete Time: 09:48 kdr 02/22 07:42 Order name: Chem 7; Complete Time: 09:48 kdr 02/22 07:42 Order name: CXR XRAY; Complete Time: 09:48 kdr 02/22 07:46 Order name: Urine Dipstick-Ancillary EDMS 02/22 09:17 Order name: SARS-COV-2 RT PCR; Complete Time: 09:48 EDMS 02/22 07:42 Order name: CT Head Brain wo Cont; Complete Time: 09:48 kdr Administered Medications: No medications were administered Disposition: 02/22/21 09:55 Discharged to Home. Impression: Headache, Nausea and vomiting. - Condition is Stable. - Discharge Instructions: General Headache Without Cause, Nausea and Vomiting, Adult, [id number], Diabetic Neuropathy. - Prescriptions for Neurontin 300 mg Oral Capsule - take 1 capsule by ORAL route every 8 hours; 30 capsule. Zofran 4 mg Oral Tablet - take 1 tablet by ORAL route every 4-6 hours As needed; 12 tablet. - Medication Reconciliation Form, Thank You Letter form. - Follow up: Private Physician; When: 2 - 3 days; Reason: If symptoms return, Further diagnostic work-up, Recheck today's complaints, Continuance of care, Re-evaluation by your physician. - Problem is new. - Symptoms have improved. Signatures: Dispatcher [employer] [facility] Donn Ac MD MD kdr Mary Rodrigues RN RN tw2 Peyton Hammer RN RN ld1 Corrections: (The following items were deleted from the chart) 08:15 07:42 CORONAVIRUS+MR.LAB.BRZ ordered. [facility] 10:06 09:55 02/22/2021 09:55 Discharged to Home. Impression: Headache; Nausea and vomiting. ld1 Condition is Stable. Forms are Medication Reconciliation Form, Thank You Letter, Antibiotic Education, Prescription Opioid Use. Follow up: Private Physician; When: 2 - 3 days; Reason: If symptoms return, Further diagnostic work-up, Recheck today's complaints, Continuance of care, Re-evaluation by your physician. Problem is new. Symptoms have improved. kdr
[2021-02-22 11:09] VITALS: TEMP 97.9; O2SAT 99
[2021-02-22 11:12] VITALS: BP 130/102
== END 2021-02-22 10:06 | disposition home or self-care (01) ==
LOC: ER 07:17
DX: R51.9 Headache, unspecified (principal); E11.9 Type 2 diabetes mellitus without complications; Z79.4 Long term (current) use of insulin; Z20.822 Contact with and (suspected) exposure to COVID-19
CPT/HCPCS: 36415; 70450; 71045; 80048; 81003; 85025; 99284; U0003

== ENCOUNTER 2021-04-26 06:55 | Emergency (ER) | payer SELFPAY ==
--- OUTSIDE RECORDS SUMMARY | 2021-04-26 06:57 | XMS REPORT | Continuity of Care Document ---
:1990 Author Organization [facility] t Address [facility] [place] [address] Care Team Providers Name Role Phone Twyla [...] Facility Department ID 2019-05-01 2019-05-02 Emergency Twyla [facility] [id number] 19:23:31 00:11:00 Rey Willoughby [id number] [place] [id number] [place] [id number] Results This patient has no known results.
--- NOTE | 2021-04-26 07:45 | ER ---
Nurse's Notes [facility] Name: Chiquis Palma Age: 30 yrs Sex: Female : 1990 Arrival Date: 04/26/2021 Time: 06:58 Bed 28 Private MD: Diagnosis: Carpal tunnel syndrome, left upper limb;Hyperglycemia, unspecified Presentation: 04/26 07:14 Chief complaint: Patient states: Left arms numbness from elbow to fingers, hx of carpal jl7 tunnel. Coronavirus screen: Client denies travel out of the [place] in the last 14 days. At this time, the client does not indicate any symptoms associated with coronavirus-19. Ebola Screen: No symptoms or risks identified at this time. Initial Sepsis Screen: Does the patient meet any 2 criteria? No. Patient's initial sepsis screen is negative. Does the patient have a suspected source of infection? No. Patient's initial sepsis screen is negative. Risk Assessment: Do you want to hurt yourself or someone else? Patient reports no desire to harm self or others. Onset of symptoms was April 25, 2021. 07:14 Method Of Arrival: Ambulatory [facility] 07:14 Acuity: CHANTEL 4 jl7 Triage Assessment: 07:19 General: Appears in no apparent distress. uncomfortable, Behavior is calm, cooperative, jl7 appropriate for age. Pain: Complains of pain in left arm Pain currently is 7 out of 10 on a pain scale. 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 - Social history:: Smoking status: Patient denies any tobacco usage or history of. Screenin:32 Abuse screen: Denies threats or abuse. Nutritional screening: No deficits noted. ap3 Tuberculosis screening: No symptoms or risk factors identified. Fall Risk None identified. Assessment: 07:30 General: Appears in no apparent distress. comfortable, Behavior is calm, cooperative, ap3 appropriate for age. Pain: Denies pain. Neuro: Reports numbness in left arm since last night. Cardiovascular: Denies chest pain, lightheadedness, shortness of breath. Respiratory: Airway is patent Respiratory effort is even, unlabored, Respiratory pattern is regular, symmetrical. GI: No signs and/or symptoms were reported involving the gastrointestinal system. : No signs and/or symptoms were reported regarding the genitourinary system. EENT: No signs and/or symptoms were reported regarding the EENT system. Derm: No signs and/or symptoms reported regarding the dermatologic system. Vital Signs: 07:14 BP 134 / 92; Pulse 55; Resp 15; Temp 96.9; Pulse Ox 95% ; Pain 7/10; jl7 ED Course: 06:58 Patient arrived in ED. as 07:17 Triage completed. jl7 07:18 Rose Mary Anna FNP-C [facility]. kb 07:18 Lio Alvarez MD is Attending Physician. kb 07:19 Arm band placed on right wrist. Patient placed in an exam room, on a stretcher. jl7 07:22 Rosalinda Shaver, SELAM is Primary Nurse. ap3 07:32 Patient has correct armband on for positive identification. Bed in low position. Call ap3 light in reach. Pulse ox on. NIBP on. Door closed. Noise minimized. 07:34 FSBS: 315. ap3 07:58 No provider procedures requiring assistance completed. Patient did not have IV access ap3 during this emergency room visit. Administered Medications: 07:43 Drug: Ketorolac 60 mg Route: IM; Site: right gluteus; ap3 07:58 Follow up: Response: No adverse reaction; Pain is decreased ap3 Outcome: 07:44 Discharge ordered by . kb 07:58 Discharged to home ambulatory. ap3 07:58 Condition: good 07:58 Discharge instructions given to patient, Instructed on discharge instructions, follow up and referral plans. medication usage, Demonstrated understanding of instructions, follow-up care, medications, Prescriptions given X 1. 07:59 Patient left the ED. ap3 Signatures: Rose Mary Anna FNP-C FNP-Ckb Martinez, Amelia as Leal, Jahala, RN RN jl7 Rosalinda Shaver RN RN ap3 Corrections: (The following items were deleted from the chart) 07:19 07:17 PMHx: Diabetes - NIDDM; jl7 jl7 07:19 07:17 PMHx: Diabetes - NIDDM; jl7 jl7
--- NOTE | 2021-04-26 07:45 | EDPHYS ---
Physician Documentation [facility] Name: Chiquis Palma Age: 30 yrs Sex: Female : 1990 Arrival Date: 04/26/2021 Time: 06:58 Bed 28 Private MD: ED Physician Lio Alvarez HPI: 04/26 07:59 This 30 yrs old Female presents to ER via Ambulatory with complaints of Arm kb Pain. 07:59 The patient or guardian complains of pain, that is acute, tingling, numbness. The kb complaints affect the left forearm and left hand. Context: The problem was sustained at home, resulted from a chronic condition. Onset: The symptoms/episode began/occurred yesterday. Treatment prior to arrival includes: no previous treatment. Modifying factors: The symptoms are alleviated by nothing. the symptoms are aggravated by nothing. Associated signs and symptoms: Pertinent positives: numbness, pain, tingling, Pertinent negatives: decreased range of motion, deformity, tingling. Severity of symptoms: At their worst the symptoms were moderate, in the emergency department the symptoms are unchanged. The patient has experienced similar episodes in the past, multiple times. The patient has not recently seen a physician. Pt reports pain to forearm, wrist and hand that started yesterday, then tingling and numbness began last evening. States she thought symptoms would be gone this morning, but they have continued. States she has had this multiple times due to carpal tunnel. 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 - Social history:: Smoking status: Patient denies any tobacco usage or history of. ROS: 07:59 Constitutional: Negative for fever, chills, and weight loss. kb 07:59 MS/extremity: Positive for pain, tingling, of the left forearm and left hand. 07:59 All other systems are negative. Exam: 07:58 Constitutional: This is a well developed, well nourished patient who is awake, alert, kb and in no acute distress. Head/Face: Normocephalic, atraumatic. ENT: Moist Mucous membranes Cardiovascular: Regular rate and rhythm with a normal S1 and S2. No gallops, murmurs, or rubs. No pulse deficits. Respiratory: Respirations even and unlabored. No increased work of breathing, no retractions or nasal flaring. Skin: Warm, dry with normal turgor. Normal color. Neuro: Awake and alert, GCS 15, oriented to person, place, time, and situation. Moves all extremities. Normal gait. Psych: Awake, alert, with orientation to person, place and time. Behavior, mood, and affect are within normal limits. 07:58 Musculoskeletal/extremity: Extremities: grossly normal except: noted in the left hand and left forearm: pain, ROM: intact in all extremities, Circulation is intact in all extremities. the left hand and left forearm Tingling of extremity. numbness. Vital Signs: 07:14 BP 134 / 92; Pulse 55; Resp 15; Temp 96.9; Pulse Ox 95% ; Pain 7/10; jl7 MDM: 07:18 Patient medically screened. kb 07:43 Data reviewed: vital signs, nurses notes. Data interpreted: Pulse oximetry: on room air kb is 95 %. Interpretation: normal. Counseling: I had a detailed discussion with the patient and/or guardian regarding: the historical points, exam findings, and any diagnostic results supporting the discharge/admit diagnosis, the need for outpatient follow up, a orthopedic surgeon, to return to the emergency department if symptoms worsen or persist or if there are any questions or concerns that arise at home. 08:01 ED course: Pt educated to follow up with ortho/hand to discuss treatment options for kb carpal tunnel. . 08 07:41 Order name: Glucose, Ancillary Testing; Complete Time: 07:41 EDMS 04/26 07:18 Order name: Blood Glucose Level; Complete Time: 07:29 kb Administered Medications: 07:43 Drug: Ketorolac 60 mg Route: IM; Site: right gluteus; ap3 07:58 Follow up: Response: No adverse reaction; Pain is decreased ap3 Disposition Summary: 04/26/21 07:44 Discharge Ordered Location: Home kb Condition: Stable kb Diagnosis - Carpal tunnel syndrome, left upper limb kb - Hyperglycemia, unspecified kb Followup: kb - With: Emergency Department - When: As needed - Reason: Worsening of condition Followup: kb - With: Private Physician - When: 2 - 3 days - Reason: Recheck today's complaints, Continuance of care, Re-evaluation by your physician Discharge Instructions: - Discharge Summary Sheet kb - Open Carpal Tunnel Release kb - Carpal Tunnel Syndrome, [id number] kb Forms: - Medication Reconciliation Form kb - Thank You Letter kb - Antibiotic Education kb - Prescription Opioid Use kb - Work release form em1 Prescriptions: - Ibuprofen 800 mg Oral Tablet - take 1 tablet by ORAL route every 8 hours As needed take with food; 30 tablet; kb Refills: 0, Product Selection Permitted Signatures: Dispatcher [employer] EDMS Rose Mary Anna, ISSA-C Jess Little RN RN jl7 Rosalinda Shaver RN RN ap3 Corrections: (The following items were deleted from the chart) 07:19 07:17 PMHx: Diabetes - NIDDM; jl7 jl7 07:19 07:17 PMHx: Diabetes - NIDDM; jl7 jl7
[2021-04-26] MEDS ORDERED: KETOROLAC 30 MG/ML INJ ONE (08:01)
[2021-04-26 08:13] VITALS: TEMP 97.3; O2SAT 100
[2021-04-26 08:14] VITALS: BP 150/79
== END 2021-04-26 07:59 | disposition home or self-care (01) ==
LOC: ER 06:55
DX: G56.02 Carpal tunnel syndrome, left upper limb (principal); E11.65 Type 2 diabetes mellitus with hyperglycemia; Z79.4 Long term (current) use of insulin
CPT/HCPCS: 82947; 96372; 99283

== ENCOUNTER 2021-06-16 09:26 | Emergency (ER) | payer SELFPAY ==
[2021-06-16 10:51] LABS: Absolute Lymphocytes (CBC) 2.8 K/uL (0.7-4.9); Basophils % 1.1 % (0-1.3); Hematocrit 44.6 % (36.0-45.0); MPV 8.9 fL (7.6-11.3); RBC Red Blood Cell Count 5.03 M/uL (3.86-4.86)
[2021-06-16] MEDS ORDERED: NA CHLORIDE 0.9% 1,000 ML ONE ×2 (10:56→12:18)
[2021-06-16 11:17] LABS: ALT/SGPT 22 U/L (12-78); AST/SGOT 10 U/L (15-37); Albumin 3.4 g/dL (3.4-5.0); Alkaline Phosphatase 86 U/L (45-117); BUN Blood Urea Nitrogen 10 mg/dL (7-18); Bicarbonate 26 mmol/L (21-32); Bilirubin Direct 0.2 mg/dL (0-0.2); Bilirubin Total 0.7 mg/dL (0.2-1.0); Glucose Level 297 mg/dL (74-106); Potassium 4.3 mmol/L (3.5-5.1); Protein, Total 7.6 g/dL (6.4-8.2); Sodium Level 136 mmol/L (136-145)
--- NOTE | 2021-06-16 11:56 | ER ---
Nurse's Notes [facility] Name: Chiquis Palma Age: 30 yrs Sex: Female : 1990 Arrival Date: 06/16/2021 Time: 09:28 Bed 25 Private MD: Diagnosis: Hyperglycemia, unspecified;Unspecified acute conjunctivitis, bilateral Presentation: 06/16 09:49 Chief complaint: Patient states: felt sharp pain in ears then eyes went blurry. has ot ch5 had insulin in 2 weeks. BS 305 on arrival. Coronavirus screen: Vaccine status: Patient reports being unvaccinated. Client denies travel out of the [place] in the last 14 days. Ebola Screen: Patient negative for fever greater than or equal to 101.5 degrees Fahrenheit, and additional compatible Ebola Virus Disease symptoms Patient denies exposure to infectious person. Patient denies travel to an Ebola-affected area in the 21 days before illness onset. Initial Sepsis Screen: Does the patient meet any 2 criteria? No. Patient's initial sepsis screen is negative. Does the patient have a suspected source of infection? No. Patient's initial sepsis screen is negative. Risk Assessment: Do you want to hurt yourself or someone else? Patient reports no desire to harm self or others. Onset of symptoms was June 16, 2021. 09:49 Method Of Arrival: Ambulatory 5 09:49 Acuity: CHANTEL 3 ch5 Triage Assessment: 09:56 General: Appears uncomfortable, Behavior is cooperative, anxious. Pain: Complains of ch5 pain in right eye and left eye. Historical: - Immunization history:: Adult Immunizations unknown, Client reports having NOT received the Covid vaccine. - Social history:: Smoking status: Patient reports the use of cigarette tobacco products, denies chronic smoking, but will smoke occasionally. Screenin:57 Abuse screen: Denies threats or abuse. Denies injuries from another. Nutritional ch5 screening: No deficits noted. Tuberculosis screening: No symptoms or risk factors identified. Fall Risk None identified. No fall in past 12 months (0 pts). Assessment: 09:57 Reassessment: No changes from previously documented assessment. ch5 11:00 Reassessment: No changes from previously documented assessment. Patient and/or family bp updated on plan of care and expected duration. Pain level reassessed. ALL CURRENT ORDERS COMPLETED. 11:58 Reassessment: No changes from previously documented assessment. Patient and/or family bp updated on plan of care and expected duration. Pain level reassessed. D/C ON HOLD FOR IVF AND REPEAT BMP. 13:47 Reassessment: PT D/C HOME AMBULATORY, DX WITH CONJUNCTIVITIS AND DIABETES. bp Vital Signs: 09:49 BP 113 / 71; Pulse 66; Resp 18; Temp 98.3; Pulse Ox 99% ; Weight 86.18 kg; Height 5 ft. ch5 0 in. (152.40 cm); Pain 8/10; 09:57 BP 113 / 71; Pulse 86; Resp 18; Temp 98.3; Pulse Ox 99% ; Pain 8/10; ch5 11:00 BP 120 / 86; Pulse 65; Resp 17; Pulse Ox 100% ; bp 13:47 BP 110 / 74; Pulse 71; Resp 17; Temp 98.5; Pulse Ox 100% ; bp 09:49 Body Mass Index 37.11 (86.18 kg, 152.40 cm) 5 ED Course: 09:28 Patient arrived in ED. mr 09:40 Daniel Ball, LEORA is PHCP. pm1 09:40 Tita Bautista MD is Attending Physician. pm1 09:56 Triage completed. 5 09:57 Bed in low position. Call light in reach. Side rails up X2. ch5 09:57 No provider procedures requiring assistance completed. ch5 10:02 Sergio Bennett, RN is Primary Nurse. bp 10:40 Inserted saline lock: 20 gauge in left antecubital area, using aseptic technique. Blood bp collected. 11:39 CBC with Diff Sent. bp 11:39 Basic Metabolic Panel Sent. bp 13:48 IV discontinued, intact, bleeding controlled, No redness/swelling at site. Pressure bp dressing applied. Administered Medications: 10:40 Drug: NS 0.9% 1000 ml Route: IV; Rate: 1000 ml; Site: left antecubital; bp 13:47 Follow up: IV Status: Completed infusion; IV Intake: 1000ml bp 11:50 Drug: NS 0.9% 1000 ml Route: IV; Rate: 1000 ml; Site: left antecubital; bp 13:46 Follow up: IV Status: Completed infusion; IV Intake: 1000ml bp Intake: 13:46 IV: 1000ml; Total: 1000ml. bp 13:47 IV: 1000ml; Total: 2000ml. bp Outcome: 11:55 Discharge ordered by MD. pm1 13:48 Discharged to home ambulatory. bp 13:48 Condition: stable 13:48 Discharge instructions given to patient, Instructed on discharge instructions, follow up and referral plans. medication usage, Demonstrated understanding of instructions, follow-up care, medications, Prescriptions given X 2. 13:49 Patient left the ED. bp Signatures: Rin Jarvis Patrick, LEORA RN CLINICAL RESEARCH pm1 Sergio Bennett RN RN bp Jf Wilkinson RN RN ch5 Corrections: (The following items were deleted from the chart) 09:56 09:56 PMHx: diabetes mellitus; ch5 ch5 09:56 09:56 PMHx: carpel tunnel; ch5 ch5
--- NOTE | 2021-06-16 11:56 | EDPHYS ---
Physician Documentation [facility] Name: Chiquis Palma Age: 30 yrs Sex: Female : 1990 Arrival Date: 06/16/2021 Time: 09:28 Bed 25 Private MD: ED Physician Tita Bautista HPI: 06/16 10:06 This 30 yrs old Female presents to ER via Ambulatory with complaints of Vision pm1 Problem. 10:06 The patient is experiencing matting or discharge, to both eyes, caused by an unknown pm1 mechanism. Onset: The symptoms/episode began/occurred this morning. Alleviated by Removing discharge from eye. Associated signs and symptoms: Pertinent positives: Hyperglycemia. Patient does not utilize any form of vision correction. Severity of symptoms: in the emergency department the symptoms have improved. The patient has not recently seen a physician. Patient reports that she has not taken her insulin, Lantus, for 2 weeks. Historical: - Immunization history:: Adult Immunizations unknown, Client reports having NOT received the Covid vaccine. - Social history:: Smoking status: Patient reports the use of cigarette tobacco products, denies chronic smoking, but will smoke occasionally. ROS: 10:06 Constitutional: Negative for fever, chills, and weight loss. pm1 10:06 Cardiovascular: Negative for chest pain, palpitations, and edema, Respiratory: Negative for shortness of breath, cough, wheezing, and pleuritic chest pain, MS/Extremity: Negative for injury and deformity, Skin: Negative for injury, rash, and discoloration, Neuro: Negative for headache, weakness, numbness, tingling, and seizure. 10:06 Eyes: Positive for matting, Negative for vision loss. 10:06 All other systems are negative. Exam: 10:06 Constitutional: This is a well developed, well nourished patient who is awake, alert, pm1 and in no acute distress. 10:06 Head/Face: Normocephalic, atraumatic. 10:06 Skin: Warm, dry with normal turgor. Normal color with no rashes, no lesions, and no evidence of cellulitis. MS/ Extremity: Pulses equal, no cyanosis. Neurovascular intact. Full, normal range of motion. 10:06 Eyes: Exam is negative for acute changes, Extraocular movements: no acute changes, Conjunctiva: exudate, bilaterally, injected, bilaterally. 10:06 Cardiovascular: Exam negative for Rate: normal, Rhythm: regular, Pulses: no pulse deficits are appreciated, Heart sounds: normal, normal S1and S2. 10:06 Respiratory: Exam negative for acute changes, respiratory distress, shortness of breath, Breath sounds: are clear throughout. 10:06 Abdomen/GI: Exam negative for acute changes, Inspection: abdomen appears normal, Palpation: abdomen is soft and non-tender, in all quadrants. 10:06 Neuro: Exam negative for acute changes, Orientation: is normal, Mentation: is normal, Motor: is normal, moves all fours, Sensation: is normal, no obvious gross deficits. Vital Signs: 09:49 BP 113 / 71; Pulse 66; Resp 18; Temp 98.3; Pulse Ox 99% ; Weight 86.18 kg; Height 5 ft. ch5 0 in. (152.40 cm); Pain 8/10; 09:57 BP 113 / 71; Pulse 86; Resp 18; Temp 98.3; Pulse Ox 99% ; Pain 8/10; ch5 11:00 BP 120 / 86; Pulse 65; Resp 17; Pulse Ox 100% ; bp 13:47 BP 110 / 74; Pulse 71; Resp 17; Temp 98.5; Pulse Ox 100% ; bp 09:49 Body Mass Index 37.11 (86.18 kg, 152.40 cm) ch5 MDM: 09:51 Patient medically screened. pm1 11:08 Data reviewed: vital signs. Data interpreted: Pulse oximetry: on room air is 100 %. pm1 Interpretation: normal. 10 09:51 Order name: Basic Metabolic Panel pm1 06/16 09:51 Order name: CBC with Diff pm1 06/16 09:51 Order name: Hepatic Function; Complete Time: 11:41 pm1 06/16 09:51 Order name: Basic Metabolic Panel; Complete Time: 11:41 EDMS 06/16 09:51 Order name: CBC with Automated Diff; Complete Time: 11:08 EDMS 06/16 13:24 Order name: Glucose, Ancillary Testing; Complete Time: 14:50 EDMS 06/16 09:51 Order name: IV Saline Lock; Complete Time: 10:41 pm1 06/16 09:51 Order name: Labs collected and sent; Complete Time: 10:41 pm1 06/16 13:25 Order name: Glucose, Ancillary Testing; Complete Time: 14:50 EDMS Administered Medications: 10:40 Drug: NS 0.9% 1000 ml Route: IV; Rate: 1000 ml; Site: left antecubital; bp 13:47 Follow up: IV Status: Completed infusion; IV Intake: 1000ml bp 11:50 Drug: NS 0.9% 1000 ml Route: IV; Rate: 1000 ml; Site: left antecubital; bp 13:46 Follow up: IV Status: Completed infusion; IV Intake: 1000ml bp Disposition Summary: 06/16/21 11:55 Discharge Ordered Location: Home pm1 Problem: new pm1 Symptoms: have improved pm1 Condition: Stable pm1 Diagnosis - Hyperglycemia, unspecified pm1 - Unspecified acute conjunctivitis, bilateral pm1 Followup: pm1 - With: Emergency Department - When: As needed - Reason: Worsening of condition Followup: pm1 - With: Private Physician - When: 2 - 3 days - Reason: Recheck today's complaints, Continuance of care, Re-evaluation by your physician Discharge Instructions: - Discharge Summary Sheet pm1 - Bacterial Conjunctivitis, Adult pm1 - Hyperglycemia pm1 - Blood Glucose Monitoring, Adult pm1 - Diabetes Mellitus and Exercise pm1 - Diabetes Mellitus and Nutrition, Adult pm1 Forms: - Medication Reconciliation Form pm1 - Thank You Letter pm1 - Antibiotic Education pm1 - Prescription Opioid Use pm1 - Work release form bp Prescriptions: - Erythromycin 5 mg/gram (0.5 %) Ophthalmic Ointment - apply 1 centimeter by OPHTHALMIC route every 8 hours for 7 days; 1 tube; pm1 Refills: 0, Product Selection Permitted - Lantus Solostar U-100 Insulin 100 unit/mL (3 mL) Subcutaneous insulin pen - inject 10 unit by SUBCUTANEOUS route once daily; 5 Pen Needle; Refills: 0, pm1 Product Selection Permitted Addendum: 06/21/2021 03:04 Co-signature as Attending Physician, Tita Bautista MD PA/IMPLEMENTATION CONSULTANT's history reviewed, m a2 patient interviewed, and examined. I agree with assessment and care plan and confirm the diagnosis (es) above. Signatures: Dispatcher [employer] EDMS Daniel Ball NP IMPLEMENTATION CONSULTANT pm1 Sergio Bennett RN RN bp Tita Bautista MD MD ky2 Minh, Christopher, RN RN ch5 Corrections: (The following items were deleted from the chart) 06/16 09:56 PMHx: diabetes mellitus; 5 ch5 PMHx: carpel tunnel; ch5 ch5
[2021-06-16 13:58] VITALS: O2SAT 100
[2021-06-16 13:59] VITALS: BP 110/74; TEMP 98.5
== END 2021-06-16 13:49 | disposition home or self-care (01) ==
LOC: ER 09:26
DX: H10.33 Unspecified acute conjunctivitis, bilateral (principal); E11.65 Type 2 diabetes mellitus with hyperglycemia; F17.210 Nicotine dependence, cigarettes, uncomplicated; Z79.4 Long term (current) use of insulin
CPT/HCPCS: 36415; 80048; 80076; 82947; 85025; 96360; 96361; 99284; J7030

== ENCOUNTER 2021-08-14 08:36 | Emergency (ER) | payer SELFPAY ==
--- OUTSIDE RECORDS SUMMARY | 2021-08-14 08:39 | XMS REPORT | Continuity of Care Document ---
:[address] [facility] t Address [address] [place] [address] Care Team Providers Name Role Phone Delma Wakefield MD Attending Clinician Advance Directives Directive Decision Effective Termination Comments Source Date Date Healthcare Agents on N/A Univ ersity FileNameRelationshipHealthcare of [place] Agent Medical RelationshipCommunicationMaMercy Health [facility] HospitalsMotherPrimary healthcare [phone] (Mobile) Problems Condition Condition Condition Status Onset Resolution Last Treating Co mments Source Name Details Category Date Date Treatment Clinician Date Nexplanon Nexplanon Disease Active Uni vers insertion insertion 3- ity of 00:00: [address] 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 Social History Social Habit Start Date Stop Date Quantity Comments Source History of tobacco Cigarette Smoker [facility] use [facility] Alcohol intake [facility] Sex Assigned At Universit y of [facility] Cigarettes smoked 2018-11-19 2018-11-19 [facility] ity of current (pack per 00:00:00 00:00:00 [facility] ) - Reported Branch Smoking Status Start Date Stop Date Source Current every day smoker 2018-11-19 00:[facility] Ordered Filled Start Stop Current Ordering Indication Dosage Frequency Signature Comments Components Source Medication Medication Date Date Medication? Clinician (SIG) Name Name NaCl 0.9% Yes 1000mL at 999 Univ ers (NS) IV 8-18 mL/hr, ity of infusion 04:30: Intravenou Ac as 1,000 mL 00 s, Medical CONTINUOUS Branch , Starting 05/01/19 at 2330, Until Discontinu ed, Routine insulin 2019- No 10U 10 Units, Univ ers regular 05-02 Subcutaneo ity o f human 04:30: 03:44 , [facility], [place] (HUMULIN R) 00 :00 1 dose, Medic al injection [facility] Branch 10 Units 05/01/19 at 2330, Routine No known No [facility] Immunizations Ordered Filled Immunization Date Status Comments [facility] Immunization Name Name Tdap 2018-06-10 Completed University of 00:00:00 [facility] Vital Signs Vital Name Observation Time Observation Value Comments Source Systolic blood 2019-05-02 04:00:00 98 mm[Hg] Univer sity of pressure [facility] Diastolic blood 2019-05-02 04:00:00 85 mm[Hg] Unive [facility] Heart rate 2019-05-02 04:00:00 91 /min [facility] Respiratory rate 2019-05-02 04:00:00 29 /min [facility] Oxygen saturation in 2019-05-02 04:00:00 97 /min University of Arterial blood by [facility] Pulse oximetry Branch Body weight 2019-05-02 02:02:00 100.245 kg [facility] BMI 2019-05-02 02:02:00 36.78 kg/m2 [facility] Body temperature 2019-05-02 00:21:00 36.89 [facility] Systolic blood 2019-05-02 04:00:00 98 mm[Hg] Univer sity of pressure [facility] Diastolic blood 2019-05-02 04:00:00 85 mm[facility]Hg[facility] 2019-05-02 04:00:00 91 /min [facility] Respiratory rate 2019-05-02 04:00:00 29 /min [facility] Oxygen saturation in 2019-05-02 04:00:00 97 /min [facility] Arterial blood by [facility] Pulse oximetry Branch Body weight 2019-05-02 02:02:00 100.245 kg [facility] BMI 2019-05-02 02:02:00 36.78 kg/m2 [facility] Body temperature 2019-05-02 00:21:00 36.89 [facility] Procedures Procedure Date / Time Performing Clinician Source Performed POCT GLUCOSE(AGE 2019-05-02 04:43:00 Rey Wakefield [facility] >30DAYS) [facility] POCT GLUCOSE 2019-05-02 04:40:00 Rey Wakefield [facility] (AUTOMATED) [facility] POCT TEST 2019-05-02 02:05:00 Rey Wakefield [facility] LIPASE 2019-05-02 02:04:00 Rey Wakefield [facility] COMP. METABOLIC PANEL 2019-05-02 02:04:00 [id number] CBC WITH DIFFERENTIAL 2019-05-02 02:04:00 Rey Wakefield [facility] URINALYSIS 2019-05-02 02:04:00 Rey Wakefield [facility] NOTICE OF PRIVACY 2019-05-02 00:05:46 Doctor Unassigned, No Univ [facility] PRACTICES Name Medical Branch CONSENT/REFUSAL FOR 2019-05-02 00:05:32 Doctor Unassigned, No [facility] Name Medical [place] Encounters Start End Encounter Admission Attending Care Care Encounter Source Date/Time Date/Time Type Type Clinicians Facility Department ID 2019-05-01 2019-05-02 Emergency [facility], [facility]1983 [id number] 19:23:31 00:11:00 Rey Willoughby [id number] [place] [id number] [place] [id number] 2019-05-01 2019-05-02 Emergency [facility] [id number] Univers 19:23:31 00:11:00 Rey Willoughby [id number] ity of [place] [id number] [facility] [id number] [address] Results Test Description Test Time Test Comments Results Result Comments Source POCT GLUCOSE(AGE >30DAYS) 2019-05-02 04:43:00 Test Item Value Reference Range Interpretation Comme nts POCT Glu (age>30days) (test code = 3342) 250 mg/dL 70-110 A Lab Interpretation (test code = 30829-4) Abnormal [facility]2019-05-02 04:41:00 Test Item Value Reference Range Interpretation Comments POCT GLU (test code = 9176084037) 250 mg/dL 70-110 H Lab Interpretation (test code = Abnormal 80326-2) [facility] (75855)2019-05-02 02:54:00 Test Item Value Reference Range Interpretation Comments NA (test code = 138 mmol/L 135-145 5285882524) K (test code = 3.5 mmol/L 3.5-5 9819579503) CL (test code = 101 mmol/L 98-108 6384539295) CO2 TOTAL (test code = 22 mmol/L 23-31 L 2740339007) AGAP (test code = 2-16 0245881939) BUN (test code = 5 mg/dL 7-23 L 9521861688) GLUCOSE (test code = 507 mg/dL 70-110 HH 2660064891) CREATININE (test code = 0.40 mg/dL 0.5-1.04 L 3797411480) TOTAL BILI (test code = 0.7 mg/dL 0.1-1.5 7123544128) CALCIUM (test code = 9.3 mg/dL 8.6-10.6 2561766214) T PROTEIN (test code = 7.2 g/dL 6.3-8.2 4524180136) ALBUMIN (test code = 4.0 g/dL 3.5-5 9572557585) ALK PHOS (test code = 104 U/L 34-122 9647122444) ALT(SGPT) (test code = 31 U/L 9-51 1976151895) AST(SGOT) (test code = 38 U/L 13-40 3920852081) eGFR Calculation mL/min/1.73m2 (Non-) (test code = 8269284688) eGFR Calculation mL/min/1.73m2 () (test code = 5752060401) CHAVA (test code = CHAVA) Association of Glomerular Filtration Rate (GFR) and Staging of Kidney Disease*+ + + +| GFR (mL/min/1.73 m2)?| With Kidney Damage?|?Without Kidney Damage+ --------+ --------+ +|?>90?|?S tage one?|? Normal?+ ---------+ ---------+ +|?60-89? |?Stage two?|? Decreased GFR? + --+ --+ ------+|?30-59?|?Stage three?|? Stage three? + --+ --+ ------+|?15-29?|?Stage four? |? Stage four?+ -------+ -------+ +|?<15 (or dialysis)?|?Stage five? |? Stage five?+ -------+ -------+ +*Each stage assumes the associated GFR level has been in effect for at least three months.?Stages 1 to 5, with or without kidney disease, indicate chronic kidney disease.Notes: Determination of stages one and two (with eGFR >59mL/min/1.73 m2) requires estimation of kidney damage for at least three months as defined by structural or functional abnormalities of the kidney, manifested by either:Pathological abnormalities or Markers of kidney damage (including abnormalities in the composition of the blood or urine or abnormalities in imaging tests). Lab Interpretation Abnormal (test code = 56825-4) [facility] 02:31:00 Test Item Value Reference Range Interpretation Comments LIPASE (test code = 6165242749) 98 U/L 0-220 Lab Interpretation (test code = Normal 25378-4) [facility] 02:23:00 Test Item Value Reference Range Interpretation Comments APPEARANCE (test code = Clear Clear 7657565408) COLOR (test code = Yellow Yellow 5920776362) PH (test code = 4.8-8.0 3054377128) SP GRAVITY (test code = 1.003-1.030 9351379688) GLU U QUAL (test code = >1000 mg/dL Negative A 0965357888) BLOOD (test code = Negative Negative 8150801554) KETONES (test code = 15 mg/dL Negative A 7932967086) PROTEIN (test code = Negative Negative 2887-8) UROBILIN (test code = 0.2 mg/dL See_Comment [Auto mated 9677053431) message] The sy stem which generated this result transmitted reference range : 0-1.0 mg/dL. Th e reference range was not used to interpret this result as normal/abnormal . BILIRUBIN (test code = Negative Negative 4790476325) NITRITE (test code = Negative Negative 8530534774) LEUK ADAM (test code = Negative Negative 2000376687) RBC/HPF (test code = See_Comment [Autom ated 2626615186) message] The sy stem which generated this result transmitted reference range : 0 - 3 HPF. The reference range was not used to interpret this result as normal/abnormal . WBC/HPF (test code = See_Comment [Autom ated 8677877124) message] The sy stem which generated this result transmitted reference range : 0 - 5 HPF. The reference range was not used to interpret this result as normal/abnormal . BACTERIA (test code = Negative Negative 4469991213) Lab Interpretation Abnormal (test code = 20560-9) [facility] WITH [id number] 02:11:00 Test Item Value Reference Range Interpretation Comments WBC (test code = See_Comment [Automated 6690-2) message] The sy stem which generated this result transmitted reference range : 4.30 - 11.10 10*3/?L. The reference range was not used to interpret this result as normal/abnormal . RBC (test code = See_Comment [Automated 789-8) message] The sy stem which generated this result transmitted reference range : 3.93 - 5.25 10*6/?L. The reference range was not used to interpret this result as normal/abnormal . HGB (test code = 14.0 g/dL 11.6-15 718-7) HCT (test code = 42.4 % 35.7-45.2 4544-3) MCV (test code = 87.6 fL 80.6-95.5 787-2) MCH (test code = 28.9 pg 25.9-32.8 785-6) MCHC (test code = 33.0 g/dL 31.6-35.1 786-4) RDW-SD (test code = 40.3 fL 39-49.9 93259-8) RDW-CV (test code = 12.5 % 12-15.5 788-0) PLT (test code = See_Comment [Automated 777-3) message] The sy stem which generated this result transmitted reference range : 166 - 358 10*3/ ?L. The reference r almaz was not used to interpret this result as normal/abnormal . MPV (test code = 11.2 fL 9.5-12.9 74123-8) NRBC/100 WBC (test See_Comment [Automat ed code = 9396001684) message] The system which generated this result transmitted reference range : 0.0 - 10.0 /100 WBCs. The refer ence range was not u sed to interpret th is result as normal/abnormal . NRBC x10^3 (test code <0.01 See_Comment [Auto mated = 9007953851) message] The s ystem which generated this result transmitted reference range : 10*3/?L. The reference range was not used to interpret this result as normal/abnormal . GRAN MAT (NEUT) % 71.2 % (test code = 770-8) IMM GRAN % (test code 0.30 % = 9938742978) LYMPH % (test code = 21.2 % 736-9) MONO % (test code = 6.6 % 5905-5) EOS % (test code = 0.2 % 713-8) BASO % (test code = 0.5 % 706-2) GRAN MAT x10^3(ANC) 4.29 10*3/uL 1.88-7.09 (test code = 3898465265) IMM GRAN x10^3 (test <0.03 0-0.06 code = 2391581644) LYMPH x10^3 (test code 1.28 10*3/uL 1.32-3.29 L = 731-0) MONO x10^3 (test code 0.40 10*3/uL 0.33-0.92 = 742-7) EOS x10^3 (test code = <0.03 0.03-0.39 L 711-2) BASO x10^3 (test code 0.03 10*3/uL 0.01-0.07 = 704-7) Lab Interpretation Abnormal (test code = 96943-9) [facility] [id number] 02:05:00 Test Item Value Reference Range Interpretation Comments POCT PREG (test code = 1605) negative On board controls acceptable with present C Line (test code = 3574) POCT PREG LOT # (test code = 3575) [id number] POCT PREG TEST DATE (test 09/14/2020 code = 3576) Lab Interpretation (test code = Normal 36041-2) [facility]"
[2021-08-14] MEDS ORDERED: NA CHLORIDE 0.9% 1,000 ML ONE (11:06)
[2021-08-14] MEDS ORDERED: FENTANYL CITR 100 MCG/2 ML ONE (11:06)
[2021-08-14 12:16] LABS: Absolute Lymphocytes (CBC) 2.8 K/uL (0.7-4.9); Basophils % 0.6 % (0-1.3); Hematocrit 43.7 % (36.0-45.0); Lymphocytes % 22.5 % (15.3-44.8); MPV 8.3 fL (7.6-11.3)
[2021-08-14 12:22] LABS: Protime INR 0.95
[2021-08-14 12:45] LABS: ALT/SGPT 19 U/L (12-78); AST/SGOT 8 U/L (15-37); Albumin 3.2 g/dL (3.4-5.0); Alkaline Phosphatase 72 U/L (45-117); BUN Blood Urea Nitrogen 10 mg/dL (7-18); Bicarbonate 28 mmol/L (21-32); Bilirubin Direct 0.2 mg/dL (0-0.2); Bilirubin Total 0.7 mg/dL (0.2-1.0); Glucose Level 226 mg/dL (74-106); Lipase 121 U/L (73-393); Potassium 3.6 mmol/L (3.5-5.1); Protein, Total 7.3 g/dL (6.4-8.2); Sodium Level 140 mmol/L (136-145)
[2021-08-14 13:10] LABS: Urine Blood Trace-intact (Negative); Urine Glucose 3+ (Negative); Urine Protein Negative (Negative); Urine Specific Gravity >=1.030 (1.005-1.030); Urine pH 5.5 (5.0-7.0)
--- NOTE | 2021-08-14 13:35 | RAD REPORT ---
EXAM DESCRIPTION: CT - Abdomen Pelvis W Contrast - 08/14/2021 1:18 pm CLINICAL HISTORY: left upper abdomen pain COMPARISON: Abdomen Pelvis W Contrast dated 04/30/2019 TECHNIQUE: Biphasic, helical CT imaging of the abdomen and pelvis was performed following 100 ml non -ionic IV contrast. No oral contrast administered. All CT scans are performed using dose optimization technique as appropriate and may include automated exposure control or mA/KV adjustment according to patient size. FINDINGS: No suspicious findings in the lung bases. No cardiomegaly or pericardial effusion. Diffuse fatty infiltration is present in a normal size liver. No portal vein abnormality. No splenome naheed or focal splenic finding. Pancreas and peripancreatic tissues are unremarkable. No gallbladder a bnormality seen. No acute gallbladder process suspected. Patient gives a history of gallstones. Stone s can be occult on CT imaging. No biliary tree abnormality seen. Symmetric renal function is seen with no hydronephrosis or suspicious renal mass. No pyelonephritis o r acute parenchymal process. No bladder abnormalities. No adrenal abnormalities. No uterine or ovaria n abnormality seen. No dilated bowel loops or bowel wall thickening. No free air, free fluid or inflammatory stranding. No hernia, mass or bulky lymphadenopathy. Patient detailed a cyst similar in the left side abdomen. This cystic structure is not identifiable on the CT images. No suspicious bony findings. IMPRESSION: Contrast enhanced CT abdomen and pelvis showing no significant or suspicious finding. Patient has diffuse fatty infiltration a normal size liver. Fatty infiltration is less pronounced shannan n seen 2018. No focal liver lesions. Gallstones are present by patient history. No evidence for gallbladder or biliary tree abnormality.
--- NOTE | 2021-08-14 14:01 | ER ---
Nurse's Notes [facility] Name: Chiquis Palma Age: 30 yrs Sex: Female : 1990 Arrival Date: 08/14/2021 Time: 08:39 Bed 6 Private MD: Diagnosis: Upper abdominal pain, unspecified Presentation: 08/14 09:20 Chief complaint: Patient states: "They say I have a cyst on my abdomen and sometimes it ss makes it hard to breath, it hurts so bad." Pt reports she began having pain since last night. Coronavirus screen: Client denies travel out of the [place] in the last 14 days. Ebola Screen: Patient denies exposure to infectious person. Patient denies travel to an Ebola-affected area in the 21 days before illness onset. Initial Sepsis Screen: Does the patient meet any 2 criteria? No. Patient's initial sepsis screen is negative. Does the patient have a suspected source of infection? No. Patient's initial sepsis screen is negative. Risk Assessment: Do you want to hurt yourself or someone else? Patient reports no desire to harm self or others. Onset of symptoms was August 13, 2021. 09:20 Method Of Arrival: Ambulatory ss 09:20 Acuity: CHANTEL 4 ss Triage Assessment: 11:26 Respiratory: the patient has mild shortness of breath. ap3 14:15 Respiratory: Onset: The symptoms/episode began/occurred gradually. ap3 GENETIC PHYSICIAN: 14:14 LMP N/A - Irregular menses ap3 Historical: - Allergies: 09:21 No Known Allergies; ss - PMHx: 09:21 Diabetes mellitus; ss - PSHx: 09:21 None; ss - Immunization history:: Client reports receiving the 1st dose of the Covid vaccine. - Social history:: Smoking status: Patient denies any tobacco usage or history of. Screenin:26 Abuse screen: Denies threats or abuse. Nutritional screening: No deficits noted. ap3 Tuberculosis screening: No symptoms or risk factors identified. Fall Risk None identified. Assessment: 11:25 General: Appears in no apparent distress. Behavior is calm, cooperative, appropriate ap3 for age. Pain: Complains of pain in left upper quadrant Also complains of nausea. Neuro: Level of Consciousness is awake, alert, obeys commands, Oriented to person, place, time, situation, Appropriate for age Rn Mds Coordinator are equal bilaterally Moves all extremities. Speech is normal. Cardiovascular: Patient's skin is warm and dry. Rhythm is regular. Respiratory: Airway is patent Respiratory effort is even, unlabored, Respiratory pattern is regular, symmetrical, Breath sounds are clear bilaterally. GI: Reports nausea. Derm: Wound noted left upper quadrant. 12:32 Reassessment: Patient and/or family updated on plan of care and expected duration. Pain ap3 level reassessed. Patient is alert, oriented x 3, equal unlabored respirations, skin warm/dry/pink. Patient states feeling better. Patient states symptoms have improved. 13:25 Reassessment: No changes from previously documented assessment. Patient and/or family ap3 updated on plan of care and expected duration. Pain level reassessed. Patient is alert, oriented x 3, equal unlabored respirations, skin warm/dry/pink. Vital Signs: 09:20 BP 111 / 77; Pulse 82; Resp 14; Temp 97.6; Pulse Ox 100% on R/A; Weight 86.18 kg; ss Height 5 ft. 0 in. (152.40 cm); Pain 9/10; 11:33 BP 116 / 64; Pulse 78; Resp 17; Pulse Ox 100% on R/A; ap3 12:33 BP 131 / 90; Pulse 68; Resp 17; Pulse Ox 99% on R/A; ap3 09:20 Body Mass Index 37.11 (86.18 kg, 152.40 cm) ED Course: 08:39 Patient arrived in ED. ds1 09:21 Triage completed. ss 09:21 Arm band placed on right wrist. ss 10:45 Dawit Palomares PA is PHCP. cp 10:45 Lio Alvarez MD is Attending Physician. cp 10:45 Dawit Yousif MD is Attending Physician. cp 10:49 Rosalinda Shaver, SELAM is Primary Nurse. ap3 11:24 Inserted saline lock: 22 gauge in right wrist, using aseptic technique. Blood collected.ap3 11:26 Patient has correct armband on for positive identification. Pulse ox on. NIBP on. Door ap3 closed. Noise minimized. Warm blanket given. 12:14 Inserted saline lock: 20 gauge in left antecubital area, using aseptic technique. Blood ap3 collected. 13:18 CT Abd/Pelvis - IV Contrast Only In Process Unspecified. EDMS 14:08 No provider procedures requiring assistance completed. IV discontinued, intact, ap3 bleeding controlled, No redness/swelling at site. Pressure dressing applied. Administered Medications: 11: Drug: NS 0.9% 1000 ml Route: IV; Rate: 1 bolus; Site: left wrist; ap3 11:27 Drug: fentaNYL (PF) 25 mcg Route: IVP; Site: right wrist; ap3 12:13 Follow up: Response: No adverse reaction; Pain is decreased; RASS: Alert and Calm (0) ap3 Outcome: 14:01 Discharge ordered by . edward 14:09 Discharged to home ambulatory. ap3 14:09 Condition: good 14:09 Discharge instructions given to patient, Instructed on discharge instructions, follow up and referral plans. medication usage, Demonstrated understanding of instructions, follow-up care, medications, Prescriptions given X 1. 14:15 Patient left the ED. ap3 Signatures: Dis[facility] ds1 Mariama Serna RN RN Dawit Loza PA PA Rosalinda Stringer RN RN ap3
--- NOTE | 2021-08-14 14:01 | EDPHYS ---
Physician Documentation [facility] Name: Chiquis Palma Age: 30 yrs Sex: Female : 1990 Arrival Date: 08/14/2021 Time: 08:39 Bed 6 Private MD: Dawit Pride HPI: 08/14 11:00 This 30 yrs old Female presents to ER via Ambulatory with complaints of cp Breathing Difficulty, Bruising on Stomach. 11:00 The patient presents with abdominal pain in the left upper quadrant. cp 11:00 Onset: The symptoms/episode began/occurred last night. cp 11:00 The symptoms do not radiate. Associated signs and symptoms: Pertinent negatives: chest cp pain, constipation, diarrhea, dysuria, fever, vomiting. Patient reports history of abdominal cyst and reports intermittent pain to area with swelling. Patient reports at times the pain causes shortness of breath. 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 - Social history:: Smoking status: Patient denies any tobacco usage or history of. ROS: 11:05 Constitutional: Negative for body aches, chills, fever, poor PO intake. cp 11:05 Eyes: Negative for injury, pain, redness, and discharge. cp 11:05 Cardiovascular: Negative for chest pain, palpitations. 11:05 Abdomen/GI: Positive for abdominal pain, of the left upper quadrant, Negative for vomiting, diarrhea, constipation. 11:05 Neuro: Negative for altered mental status, headache, weakness. 11:05 All other systems are negative. Exam: 11:10 Constitutional: The patient appears in no acute distress, alert, awake, cp non-diaphoretic, non-toxic, well developed, well nourished, obese. 11:10 Head/Face: Normocephalic, atraumatic. cp 11:10 Eyes: Periorbital structures: appear normal, Conjunctiva: normal, no exudate, no injection, Sclera: no appreciated abnormality, Lids and lashes: appear normal, bilaterally. 11:10 ENT: External ear(s): are unremarkable, Nose: is normal, Posterior pharynx: Airway: no evidence of obstruction, patent. 11:10 Chest/axilla: Inspection: normal, Palpation: is normal, no crepitus, no tenderness. 11:10 Cardiovascular: Rate: normal, Rhythm: regular. 11:10 Respiratory: the patient does not display signs of respiratory distress, Respirations: normal, no use of accessory muscles, no retractions, labored breathing, is not present, Breath sounds: are clear throughout, no decreased breath sounds, no stridor, no wheezing. 11:10 Abdomen/GI: Inspection: small area of erythema with tenderness noted LUQ, Bowel sounds: active, all quadrants, Palpation: soft, in all quadrants, moderate abdominal tenderness, in the left upper quadrant, rebound tenderness, is not appreciated, involuntary guarding, is not appreciated. 11:10 Back: pain, is absent, ROM is normal. Vital Signs: 09:20 BP 111 / 77; Pulse 82; Resp 14; Temp 97.6; Pulse Ox 100% on R/A; Weight 86.18 kg; ss Height 5 ft. 0 in. (152.40 cm); Pain 9/10; 11:33 BP 116 / 64; Pulse 78; Resp 17; Pulse Ox 100% on R/A; ap3 12:33 BP 131 / 90; Pulse 68; Resp 17; Pulse Ox 99% on R/A; ap3 09:20 Body Mass Index 37.11 (86.18 kg, 152.40 cm) ss MDM: 10:47 Patient medically screened. gwyn 11:00 Differential diagnosis: cholecystitis, Cholelithiasis, pancreatitis, Peptic Ulcer cp Disease, Perf. Duodenal Ulcer, Perf. Gastric Ulcer, Ureterolithiasis, urinary tract infection. 14:00 Data reviewed: vital signs, nurses notes, lab test result(s), radiologic studies, CT cp scan. 14:00 Counseling: I had a detailed discussion with the patient and/or guardian regarding: the cp historical points, exam findings, and any diagnostic results supporting the discharge/admit diagnosis, lab results, radiology results, to return to the emergency department if symptoms worsen or persist or if there are any questions or concerns that arise at home. Response to treatment: the patient's symptoms have markedly improved after treatment, and as a result, I will discharge patient. Special discussion: Based on the patient's Hx, exam, and Dx evaluation, there is no indication for emergent surgery or inpatient Tx. It is understood by the patient/guardian that if the Sx's persist or worsen they need to return immediately for re-evaluation. 08/14 10:50 Order name: Basic Metabolic Panel 08/14 10:50 Order name: CBC with Diff 08/14 10:50 Order name: Hepatic Function; Complete Time: 13:43 08/14 13:50 Interpretation: Normal except: AST 8; ALB 3.2; GLOB 4.1; A/G 0.8. 08/14 10:50 Order name: Lipase; Complete Time: 13:43 08/14 10:50 Order name: PT-INR; Complete Time: 12:34 08/14 10:50 Order name: Ptt, Activated; Complete Time: 12:34 08/14 10:50 Order name: IV Saline Lock; Complete Time: 11:27 08/14 10:50 Order name: Labs collected and sent; Complete Time: 11: 08/14 10:50 Order name: CT Abd/Pelvis - IV Contrast Only; Complete Time: 13:43 08/14 10:51 Order name: Basic Metabolic Panel; Complete Time: 13:43 EDMS 08/14 13:43 Interpretation: Normal except: GLUC 226; CRE 0.49. 08/14 10:51 Order name: CBC with Automated Diff; Complete Time: 12:34 EDMS 08/14 12:34 Interpretation: Normal except: WBC 12.30; RBC 4.90; NEUT A 8.9. 08/14 13:10 Order name: Urine Dipstick-Ancillary; Complete Time: 13:43 EDMS 08/14 13:44 Interpretation: Normal except: UGLUC 3+; UKET 1+; UBLD Trace-intact. 08/14 11:36 Order name: Labs - recollect needed: recollect all labs; Complete Time: 12:13 bd Administered Medications: 11:27 Drug: NS 0.9% 1000 ml Route: IV; Rate: 1 bolus; Site: left wrist; ap3 11:27 Drug: fentaNYL (PF) 25 mcg Route: IVP; Site: right wrist; ap3 12:13 Follow up: Response: No adverse reaction; Pain is decreased; RASS: Alert and Calm (0) ap3 Disposition: 08/15 09:08 Co-signature as Attending Physician, Dawit Yousif MD I agree with the assessment and gwyn plan of care. Disposition Summary: 08/14/21 14:01 Discharge Ordered Location: Home cp Problem: new cp Symptoms: have improved cp Condition: Stable cp Diagnosis - Upper abdominal pain, unspecified cp Followup: cp - With: Private Physician - When: 2 - 3 days - Reason: Recheck today's complaints Discharge Instructions: - Discharge Summary Sheet cp - Abdominal Pain, Adult cp Forms: - Medication Reconciliation Form cp - Thank You Letter cp - Antibiotic Education cp - Prescription Opioid Use cp - Work release form ap3 Prescriptions: - Cephalexin 500 mg Oral Capsule - take 1 capsule by ORAL route every 8 hours for 10 days; 30 capsule; Refills: 0, cp Product Selection Permitted Signatures: Dispatcher [employer] Valerie Márquez Corey, MD MD cha Smirch, Shelby, RN RN Dawit Loza PA PA cp Prokisch, Amanda RN RN ap3
[2021-08-14 14:26] VITALS: TEMP 97.6
[2021-08-14 14:36] VITALS: BP 131/90; O2SAT 99
== END 2021-08-14 14:15 | disposition home or self-care (01) ==
LOC: ER 08:36
DX: R10.10 Upper abdominal pain, unspecified (principal); E11.9 Type 2 diabetes mellitus without complications
CPT/HCPCS: 36415; 74177; 80048; 80076; 81003; 83690; 85025; 85610; 85730; 96374; 99284; J3010; J7030; Q9967

== ENCOUNTER 2021-09-01 08:15 | Emergency (ER) | payer SELFPAY ==
--- OUTSIDE RECORDS SUMMARY | 2021-09-01 08:17 | XMS REPORT | Continuity of Care Document ---
:1990 Author Organization [facility] t Address [address] [place] [address] [address] [place] [address] Care Team Providers Name Role Phone Delma Wakefield MD Attending Clinician Advance Directives Directive Decision Effective Termination Comments Source Date Date Healthcare Agents on N/A Univ ersity FileNameRelationshipHealthcare [facility] Agent Medical RelationshipCommunicationMaMercy Health 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 Social History Social Habit Start Date Stop Date Quantity Comments Source History of tobacco Cigarette Smoker [facility] use [facility] Alcohol intake [facility] Sex Assigned At Universit y of [facility] Cigarettes smoked 2018-11-19 2018-11-19 [facility] ity of current (pack per 00:00:00 00:00:00 [facility] ) - Reported Branch Smoking Status Start Date Stop Date Source Current every day smoker 2018-11-19 00:00:00 [facility]ations Ordered Filled Start Stop [...] ity o f human 04:30: 03:44 , [facility], [place] (HUMULIN R) 00 :00 1 dose, Medic al injection Sat Branch 10 Units 05/01/19 at 2330, Routine No known No Univers medications it of [facility] Immunizations Ordered Filled Immunization Date Status Comments Sour e Immunization Name Name Tdap 2018-06-10 Completed University of 00:00:00 [facility] Vital Signs Vital Name Observation Time Observation Value Comments Source Systolic blood 2019-05-02 04:00:00 98 mm[Hg] Univer sity of pressure [facility] Diastolic blood 2019-05-02 04:00:00 85 mm[Hg] [facility] Heart rate 2019-05-02 04:00:00 91 /min [facility] Respiratory rate 2019-05-02 04:00:00 29 /min [facility] Oxygen saturation in 2019-05-02 04:00:00 97 /min University of Arterial blood by [facility] Pulse oximetry Branch Body weight 2019-05-02 02:02:[address] [facility] BMI 2019-05-02 02:02:00 36.78 kg/m2 [facility] Body temperature 2019-05-02 00:21:00 36.89 Roseanna [facility] Systolic blood 2019-05-02 04:00:00 98 mm[Hg] Univer sity of pressure [facility] Diastolic blood 2019-05-02 04:00:00 85 mm[facility]Hg[facility] rate 2019-05-02 04:00:00 91 /min [facility] Respiratory rate 2019-05-02 04:00:00 29 /min [facility] Oxygen saturation in 2019-05-02 04:00:00 97 /min University of Arterial blood by [facility] Pulse oximetry Branch Body weight 2019-05-02 02:02:[address] [facility] BMI 2019-05-02 02:02:00 36.78 kg/m2 [facility] Body temperature 2019-05-02 00:21:00 36.89 Roseanna [facility] Procedures Procedure Date / Time Performing Clinician Source Performed POCT GLUCOSE(AGE 2019-05-02 04:43:00 Rey Wakefield [facility] >30DAYS) [facility] POCT GLUCOSE 2019-05-02 04:40:00 Rey Wakefield [facility] (AUTOMATED) [facility] POCT TEST 2019-05-02 02:05:00 Rey Wakefield [facility] LIPASE 2019-05-02 02:04:00 Rey Wakefield [facility] COMP. METABOLIC PANEL 2019-05-02 02:04:00 [facility] ([id number]) [facility] CBC WITH DIFFERENTIAL 2019-05-02 02:04:00 Rey Wakefield [facility] URINALYSIS 2019-05-02 02:04:00 Yar[place], [place] [facility] NOTICE OF PRIVACY 2019-05-02 00:05:46 Doctor Unassigned, No Univ [facility] PRACTICES Name Medical Branch CONSENT/REFUSAL FOR 2019-05-02 00:05:32 Doctor Unassigned, No [facility] Name Medical [place] Encounters Start End Encounter Admission Attending Care Care Encounter Source Date/Time Date/Time Type Type Clinicians Facility Department ID 2019-05-01 2019-05-02 Emergency [facility] [id number] 19:23:31 00:11:00 Rey Willoughby [id number] [place] [id number] [place] [id number] 2019-05-01 2019-05-02 Emergency [facility] [id number] [facility] 19:23:31 00:11:00 Rey Willoughby [id number] ity of [place] [id number] [facility] [id number] [address] Results Test Description Test Time Test Comments Results Result Comments Source POCT GLUCOSE(AGE >30DAYS) 2019-05-02 04:43:00 Test Item Value Reference Range Interpretation Comme nts POCT Glu (age>30days) (test code = 3342) 250 mg/dL 70-110 A Lab Interpretation (test code = 65453-4) [facility]normal [facility]2019-05-02 04:41:00 Test Item Value Reference Range Interpretation Comments POCT GLU (test code = 1543113858) 250 mg/dL 70-110 H Lab Interpretation (test code = Abnormal 36349-2) [facility] (57284)2019-05-02 02:54:00 Test Item Value Reference Range Interpretation Comments NA (test code = 138 mmol/L 135-145 8975169223) K (test code = 3.5 mmol/L 3.5-5 3949028835) CL (test code = 101 mmol/L 98-108 4291621575) CO2 TOTAL (test code = 22 mmol/L 23-31 L 5788903362) AGAP (test code = 2-16 7750384177) BUN (test code = 5 mg/dL 7-23 L 9860292420) GLUCOSE (test code = 507 mg/dL 70-110 HH 6866497842) CREATININE (test code = 0.40 mg/dL 0.5-1.04 L 2461775491) TOTAL BILI (test code = 0.7 mg/dL 0.1-1.5 0859005599) CALCIUM (test code = 9.3 mg/dL 8.6-10.6 2409632883) T PROTEIN (test code = 7.2 g/dL 6.3-8.2 7697783549) ALBUMIN (test code = 4.0 g/dL 3.5-5 9811122216) ALK PHOS (test code = 104 U/L 34-122 6901532075) ALT(SGPT) (test code = 31 U/L 9-51 4139506702) AST(SGOT) (test code = 38 U/L 13-40 0634115789) eGFR Calculation mL/min/1.73m2 (Non-) (test code = 5548699026) eGFR Calculation mL/min/1.73m2 () (test code = 7022124561) CHAVA (test code = CHAVA) Association of [...] tests). Lab Interpretation Abnormal (test code = 16550-5) [facility] 02:31:00 Test Item Value Reference Range Interpretation Comments LIPASE (test code = 2296210230) 98 U/L 0-220 Lab Interpretation (test code = Normal 69767-5) [facility]18 02:23:00 Test Item Value Reference Range Interpretation Comments APPEARANCE (test code = Clear Clear 3510098254) COLOR (test code = Yellow Yellow 7010100247) PH (test code = 4.8-8.0 4028543622) SP GRAVITY (test code = 1.003-1.030 8943126311) GLU U QUAL (test code = >1000 mg/dL Negative A 7560909779) BLOOD (test code = Negative Negative 5001363532) KETONES (test code = 15 mg/dL Negative A 3390849204) PROTEIN (test code = Negative Negative 2887-8) UROBILIN (test code = 0.2 mg/dL See_Comment [Auto mated 5148686109) message] The sy stem which generated this result transmitted reference range : 0-1.0 mg/dL. Th e reference range was not used to interpret this result as normal/abnormal . BILIRUBIN (test code = Negative Negative 0543851882) NITRITE (test code = Negative Negative 4326368108) LEUK ADAM (test code = Negative Negative 5562738808) RBC/HPF (test code = See_Comment [Autom ated 0604914789) message] The sy stem which generated this result transmitted reference range : 0 - 3 HPF. The reference range was not used to interpret this result as normal/abnormal . WBC/HPF (test code = See_Comment [Autom ated 3427923445) message] The sy stem which generated this result transmitted reference range : 0 - 5 HPF. The reference range was not used to interpret this result as normal/abnormal . BACTERIA (test code = Negative Negative 4746625509) Lab Interpretation Abnormal (test code = 63866-1) [facility] WITH [id number] 02:11:00 Test Item Value Reference Range Interpretation [...] RDW-SD (test code = 40.3 fL 39-49.9 03056-3) RDW-CV (test code = 12.5 % 12-15.5 788-0) PLT (test code = See_Comment [Automated 777-3) message] The sy stem which generated this result transmitted reference range : 166 - 358 10*3/ ?L. The reference r almaz was not used to interpret this result as normal/abnormal . MPV (test code = 11.2 fL 9.5-12.9 14941-7) NRBC/100 WBC (test See_Comment [Automat ed code = 7874451274) message] The system which generated this result transmitted reference range : 0.0 - 10.0 /100 WBCs. The refer ence range was not u sed to interpret th is result as normal/abnormal . NRBC x10^3 (test code <0.01 See_Comment [Auto mated = 7504086220) message] The s ystem which generated this result transmitted reference range : 10*3/?L. The reference range was not used to interpret this result as normal/abnormal . GRAN MAT (NEUT) % 71.2 % (test code = 770-8) IMM GRAN % (test code 0.30 % = 5496099745) LYMPH % (test code = 21.2 % 736-9) MONO % (test code = 6.6 % 5905-5) EOS % (test code = 0.2 % 713-8) BASO % (test code = 0.5 % 706-2) GRAN MAT x10^3(ANC) 4.29 10*3/uL 1.88-7.09 (test code = 8168859918) IMM GRAN x10^3 (test <0.03 0-0.06 code = 6876032553) LYMPH x10^3 (test code 1.28 10*3/uL 1.32-3.29 L = 731-0) MONO x10^3 (test code 0.40 10*3/uL 0.33-0.92 = 742-7) EOS x10^3 (test code = <0.03 0.03-0.39 L 711-2) BASO x10^3 (test code 0.03 10*3/uL 0.01-0.07 = 704-7) Lab Interpretation Abnormal (test code = 44942-7) [facility] [id number] 02:05:00 Test Item Value Reference Range Interpretation Comments POCT PREG (test code = 1605) negative On board controls acceptable with present C Line (test code = 3574) POCT PREG LOT # (test code = 3575) [id number] POCT PREG TEST DATE (test 09/14/2020 code = 3576) Lab Interpretation (test code = Normal 79046-7) [facility]"
[2021-09-01 10:37] LABS: SARS-COV-2 RT PCR NEGATIVE (NEGATIVE)
--- NOTE | 2021-09-01 10:46 | ER ---
Nurse's Notes [facility] Name: Chiquis Palma Age: 30 yrs Sex: Female : 1990 Arrival Date: 09/01/2021 Time: 08:29 Bed Waiting Private MD: Diagnosis: Influenza due to identified novel influenza A virus Presentation: 09/01 09:13 Chief complaint: Patient states: fever, cough and sore throat that began 4 days ago. ss Coronavirus screen: Client presents with at least one sign or symptom that may indicate coronavirus-19. Ebola Screen: Patient denies exposure to infectious person. Patient denies travel to an Ebola-affected area in the 21 days before illness onset. Initial Sepsis Screen: Does the patient meet any 2 criteria? No. Patient's initial sepsis screen is negative. Does the patient have a suspected source of infection? No. Patient's initial sepsis screen is negative. Risk Assessment: Do you want to hurt yourself or someone else? Patient reports no desire to harm self or others. Onset of symptoms was August 28, 2021. 09:13 Method Of Arrival: Ambulatory 09:13 Acuity: CHANTEL 4 ss Historical: - Allergies: 09:18 No Known Allergies; ss - PMHx: 09:18 diabetes mellitus; ss - Immunization history:: Client reports receiving the 1st dose of the Covid vaccine. - Social history:: Smoking status: Patient denies any tobacco usage or history of. Screenin:13 Abuse screen: Denies threats or abuse. Denies injuries from another. Nutritional ss screening: No deficits noted. Tuberculosis screening: Never had TB. Fall Risk None identified. Assessment: 09:13 General: Appears in no apparent distress. comfortable, Behavior is calm, cooperative, ss Reports fever for > 3 days, feeling ill for > 3 days. Neuro: Level of Consciousness is awake, alert, obeys commands, Oriented to person, place, time, situation. Cardiovascular: Capillary refill < 3 seconds is brisk in bilateral fingers. Respiratory: Airway is patent Respiratory effort is even, unlabored, Respiratory pattern is regular, symmetrical. Respiratory: Reports cough that is. GI: No signs and/or symptoms were reported involving the gastrointestinal system. EENT: Nares are clear Throat is clear. Derm: Skin is pink, warm \T\ dry. normal. 10:52 Reassessment: Patient appears in no apparent distress at this time. Patient is ss alert/active/playful, equal unlabored respirations, skin warm/dry/pink. Vital Signs: 09:13 BP 124 / 80; Pulse 86; Resp 16; Temp 96.4(TE); Pulse Ox 100% on R/A; Weight 81.65 kg; ss Height 5 ft. 0 in. (152.40 cm); Pain 0/10; 09:13 Body Mass Index 35.15 (81.65 kg, 152.40 cm) ss ED Course: 08:29 Patient arrived in ED. mr 08:31 Rose Mary Anna FNP-C [facility]. kb 08:31 Lio Alvarez MD is Attending Physician. kb 09:13 Patient has correct armband on for positive identification. ss 09:18 Triage completed. ss 09:18 Arm band placed on right wrist. ss 10:52 No provider procedures requiring assistance completed. Patient did not have IV access ss during this emergency room visit. Administered Medications: No medications were administered Outcome: 10:46 Discharge ordered by MD. kb 10:52 Discharged to home ambulatory, with family. ss 10:52 Condition: good 10:52 Discharge instructions given to patient, family, Instructed on discharge instructions, follow up and referral plans. medication usage, Demonstrated understanding of instructions, follow-up care, medications. 10:53 Patient left the ED. ss Signatures: Rose Mary nAna FNP-C FNP-Ramirez Rin Jarvis Shelby, RN RN ss Corrections: (The following items were deleted from the chart) 10:53 10:52 Discharge instructions given to patient, family, Instructed on discharge instructions, follow up and referral plans. medication usage, Demonstrated understanding of instructions, follow-up care, medications, Prescriptions given X 1, ss
--- NOTE | 2021-09-01 10:46 | EDPHYS ---
Physician Documentation [facility] Name: Chiquis Palma Age: 30 yrs Sex: Female : 1990 Arrival Date: 09/01/2021 Time: 08:29 Bed Waiting Private MD: ED Physician Lio Alvarez HPI: 09/01 12:03 This 30 yrs old Female presents to ER via Ambulatory with complaints of Fever, kb Sore Throat, Cough. 12:04 The patient or guardian reports cough, that is intermittent, described as mild. Onset: kb The symptoms/episode began/occurred 4 day(s) ago. Severity of symptoms: At their worst the symptoms were mild, moderate, in the emergency department the symptoms are unchanged. Modifying factors: The symptoms are alleviated by nothing, the symptoms are aggravated by nothing. Associated signs and symptoms: Pertinent positives: fever, rhinorrhea, sore throat. The patient has not experienced similar symptoms in the past. The patient has not recently seen a physician. Pt reports cough, runny nose, fever and sore throat that started 4 days ago. Recently exposed to flu and covid. Historical: - Allergies: 09:18 No Known Allergies; ss - PMHx: 09:18 diabetes mellitus; ss - Immunization history:: Client reports receiving the 1st dose of the Covid vaccine. - Social history:: Smoking status: Patient denies any tobacco usage or history of. ROS: 12:04 Abdomen/GI: Negative for abdominal pain, nausea, vomiting, diarrhea, and constipation. kb 12:04 Constitutional: Positive for fever. 12:04 ENT: Positive for rhinorrhea, sore throat. 12:04 Respiratory: Positive for cough. 12:04 All other systems are negative. Exam: 12:04 Constitutional: This is a well developed, well nourished patient who is awake, alert, kb and in no acute distress. Head/Face: Normocephalic, atraumatic. ENT: Moist Mucous membranes Cardiovascular: Regular rate and rhythm with a normal S1 and S2. No gallops, murmurs, or rubs. No pulse deficits. Respiratory: Respirations even and unlabored. No increased work of breathing. Talking in full sentences Skin: Warm, dry with normal turgor. Normal color. MS/ Extremity: Pulses equal, no cyanosis. Neurovascular intact. Full, normal range of motion. Neuro: Awake and alert, GCS 15, oriented to person, place, time, and situation. Moves all extremities. Normal gait. Psych: Awake, alert, with orientation to person, place and time. Behavior, mood, and affect are within normal limits. Vital Signs: 09:13 BP 124 / 80; Pulse 86; Resp 16; Temp 96.4(TE); Pulse Ox 100% on R/A; Weight 81.65 kg; ss Height 5 ft. 0 in. (152.40 cm); Pain 0/10; 09:13 Body Mass Index 35.15 (81.65 kg, 152.40 cm) ss MDM: 08:31 Patient medically screened. kb 11:16 Data reviewed: vital signs, nurses notes. Data interpreted: Pulse oximetry: on room air kb is 100 %. Interpretation: normal. Counseling: I had a detailed discussion with the patient and/or guardian regarding: the historical points, exam findings, and any diagnostic results supporting the discharge/admit diagnosis, lab results, the need for outpatient follow up, a family practitioner, to return to the emergency department if symptoms worsen or persist or if there are any questions or concerns that arise at home. 09/01 09:20 Order name: COVID-19/FLU A+B (Document "Date of Onset" if Symptomatic); Complete Time: kb 10:45 09/01 09:20 Order name: Strep; Complete Time: 10:22 kb 09/01 10:23 Order name: Throat Culture EDMS Administered Medications: No medications were administered Disposition: 16:45 Co-signature as Attending Physician, Lio Alvarez MD I agree with the assessment and rn plan of care. Attestation: The patient's history, exam findings, diagnostics, and a summary of any interventions or procedures was reviewed in detail with Rose Mary ANTHONY. Chart complete. Disposition Summary: 09/01/21 10:46 Discharge Ordered Location: Home kb Condition: Stable kb Diagnosis - Influenza due to identified novel influenza A virus kb Followup: kb - With: Emergency Department - When: As needed - Reason: Worsening of condition Followup: kb - With: Private Physician - When: 2 - 3 days - Reason: Recheck today's complaints, Continuance of care, Re-evaluation by your physician Discharge Instructions: - Discharge Summary Sheet kb - Influenza, Adult, [id number] kb Forms: - Medication Reconciliation Form kb - Thank You Letter kb - Antibiotic Education kb - Prescription Opioid Use kb - Work release form ss Signatures: Dispatcher [employer] Rose Mary Alcantara, Lio Nelson MD MD rn Mariama Serna RN RN ss
[2021-09-01 11:11] VITALS: BP 124/80; TEMP 96.4; O2SAT 100
== END 2021-09-01 10:53 | disposition home or self-care (01) ==
LOC: ER 08:15
DX: J10.1 Influenza due to other identified influenza virus with other respiratory manifestations (principal); Z20.822 Contact with and (suspected) exposure to COVID-19
CPT/HCPCS: 0240U; 87070; 87081; 99281

== ENCOUNTER 2021-09-30 20:37 | Emergency (ER) | payer SELFPAY ==
--- OUTSIDE RECORDS SUMMARY | 2021-09-30 20:41 | XMS REPORT | Continuity of Care Document ---
:1990 Author Organization [facility] t Address [address] [place] [address] [address] [place] [address] Care Team Providers Name Role Phone Delma Wakefield MD Attending Clinician Advance Directives Directive Decision Effective Termination Comments Source Date Date Healthcare Agents on N/A Univ ersity FileNameRelationshipHealthcare 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 Social History Social Habit Start Date Stop Date Quantity Comments Source History of tobacco Cigarette Smoker [facility] use [facility] Alcohol intake [facility] Sex Assigned At Universit y of [facility] Cigarettes smoked 2018-11-19 2018-11-19 [facility] ity of current (pack per 00:00:00 00:00:00 [facility] ) - Reported Branch Smoking Status Start Date Stop Date Source Current every day smoker 2018-11-19 00:00:00 [facility] Medications Ordered Filled Start Stop Current Ordering [...] ity o f human 04:30: 03:44 , [facility], [place] (HUMULIN R) 00 :00 1 dose, Medic al injection Sat Branch 10 Units 05/01/19 at 2330, Routine No known No Univers medications it of [facility] Immunizations Ordered Filled Immunization Date Status Comments Sour e Immunization Name Name Tdap 2018-06-10 Completed University of 00:00:00 [facility] Vital Signs Vital Name Observation Time Observation Value Comments Source Systolic blood 2019-05-02 04:00:00 98 mm[Hg] Univer sity of pressure [facility] Diastolic blood 2019-05-02 04:00:00 85 mm[Hg] [facility] Heart rate 2019-05-02 04:00:00 91 /min [facility] Respiratory rate 2019-05-02 04:00:00 29 /min [facility] Oxygen saturation in 2019-05-02 04:00:00 97 /min University of Arterial blood by [facility] Pulse oximetry Branch Body weight 2019-05-02 02:02:00 100.245 kg [facility] BMI 2019-05-02 02:02:00 36.78 kg/m2 [facility] Body temperature 2019-05-02 00:21:00 36.89 Roseanna [facility] Systolic blood 2019-05-02 04:00:00 98 mm[Hg] Univer sity of pressure [facility] Diastolic blood 2019-05-02 04:00:00 85 mm[Hg] [facility] 2019-05-02 04:00:00 91 /min [facility] Respiratory rate 2019-05-02 04:00:00 29 /min [facility] Oxygen saturation in 2019-05-02 04:00:00 97 /min University of Arterial blood by [facility] Pulse oximetry Branch Body weight 2019-05-02 02:02:00 100.245 kg [facility] BMI 2019-05-02 02:02:00 36.78 kg/m2 [facility] Body temperature 2019-05-02 00:21:00 36.89 Roseanna [facility] Procedures Procedure Date / Time Performing Clinician Source Performed POCT GLUCOSE(AGE 2019-05-02 04:43:00 Rey Wakefield [facility] >30DAYS) [facility] POCT GLUCOSE 2019-05-02 04:40:00 Rey Wakefield [facility] (AUTOMATED) [facility] POCT TEST 2019-05-02 02:05:00 Rey Wakefield [facility] LIPASE 2019-05-02 02:04:00 Rey Wakefield [facility] COMP. METABOLIC PANEL 2019-05-02 02:04:00 [id number] CBC WITH DIFFERENTIAL 2019-05-02 02:04:00 Rey Wakefield [facility] URINALYSIS 2019-05-02 02:04:00 [place], [place] [facility] NOTICE OF PRIVACY 2019-05-02 00:05:46 Doctor Unassigned, No Univ [facility] PRACTICES Name Medical Branch CONSENT/REFUSAL FOR 2019-05-02 00:05:32 Doctor Unassigned, No [facility] Name Medical [place] Encounters Start End Encounter Admission Attending Care Care Encounter Source Date/Time Date/Time Type Type Clinicians Facility Department ID 2019-05-01 2019-05-02 Emergency [facility] [id number] 19:23:31 00:11:00 Rey Willoughby [id number] [place] [id number] [place] [id number] 2019-05-01 2019-05-02 Emergency [facility] [id number] [facility] 19:23:31 00:11:00 Rey Willoughby [id number] ity of [place] [id number] [facility] [id number] [address] Results Test Description Test Time Test Comments Results Result Comments Source POCT GLUCOSE(AGE >30DAYS) 2019-05-02 04:43:00 Test Item Value Reference Range Interpretation Comme nts POCT Glu (age>30days) (test code = 3342) 250 mg/dL 70-110 A Lab Interpretation (test code = 84264-8) [facility]normal [facility] ([facility]2019-05-02 04:41:00 Test Item Value Reference Range Interpretation Comments POCT GLU (test code = 2484924093) 250 mg/dL 70-110 H Lab Interpretation (test code = Abnormal 63944-0) [facility] (71706)2019-05-02 02:54:00 Test Item Value Reference Range Interpretation Comments NA (test code = 138 mmol/L 135-145 2885075441) K (test code = 3.5 mmol/L 3.5-5 4496002973) CL (test code = 101 mmol/L 98-108 8813154851) CO2 TOTAL (test code = 22 mmol/L 23-31 L 2153398237) AGAP (test code = 2-16 2323682467) BUN (test code = 5 mg/dL 7-23 L 2558256305) GLUCOSE (test code = 507 mg/dL 70-110 HH 9835574053) CREATININE (test code = 0.40 mg/dL 0.5-1.04 L 0365724211) TOTAL BILI (test code = 0.7 mg/dL 0.1-1.7 1049986822) CALCIUM (test code = 9.3 mg/dL 8.6-10.6 8274275529) T PROTEIN (test code = 7.2 g/dL 6.3-8.2 6707630512) ALBUMIN (test code = 4.0 g/dL 3.5-5 8970049863) ALK PHOS (test code = 104 U/L 34-122 7952266417) ALT(SGPT) (test code = 31 U/L 9-51 0413840969) AST(SGOT) (test code = 38 U/L 13-40 9229642881) eGFR Calculation mL/min/1.73m2 (Non-) (test code = 2614923425) eGFR Calculation mL/min/1.73m2 () (test code = 4959881574) CHAVA (test code = CHAVA) Association of [...] tests). Lab Interpretation Abnormal (test code = 79537-4) [facility] 02:31:00 Test Item Value Reference Range Interpretation Comments LIPASE (test code = 4485197902) 98 U/L 0-220 Lab Interpretation (test code = Normal 71318-5) [facility] 02:23:00 Test Item Value Reference Range Interpretation Comments APPEARANCE (test code = Clear Clear 3390816282) COLOR (test code = Yellow Yellow 3404587980) PH (test code = 4.8-8.0 4346056271) SP GRAVITY (test code = 1.003-1.030 0446287568) GLU U QUAL (test code = >1000 mg/dL Negative A 1284173740) BLOOD (test code = Negative Negative 4888055260) KETONES (test code = 15 mg/dL Negative A 8380530787) PROTEIN (test code = Negative Negative 2887-8) UROBILIN (test code = 0.2 mg/dL See_Comment [Auto mated 3049087432) message] The sy stem which generated this result transmitted reference range : 0-1.0 mg/dL. Th e reference range was not used to interpret this result as normal/abnormal . BILIRUBIN (test code = Negative Negative 2784061672) NITRITE (test code = Negative Negative 8709239680) LEUK ADAM (test code = Negative Negative 4378893217) RBC/HPF (test code = See_Comment [Autom ated 3488574956) message] The sy stem which generated this result transmitted reference range : 0 - 3 HPF. The reference range was not used to interpret this result as normal/abnormal . WBC/HPF (test code = See_Comment [Autom ated 1133646025) message] The sy stem which generated this result transmitted reference range : 0 - 5 HPF. The reference range was not used to interpret this result as normal/abnormal . BACTERIA (test code = Negative Negative 7783505234) Lab Interpretation Abnormal (test code = 10072-6) [facility] WITH [id number] 02:11:00 Test Item Value Reference Range Interpretation [...] RDW-SD (test code = 40.3 fL 39-49.9 77687-9) RDW-CV (test code = 12.5 % 12-15.5 788-0) PLT (test code = See_Comment [Automated 777-3) message] The sy stem which generated this result transmitted reference range : 166 - 358 10*3/ ?L. The reference r almaz was not used to interpret this result as normal/abnormal . MPV (test code = 11.2 fL 9.5-12.9 35083-4) NRBC/100 WBC (test See_Comment [Automat ed code = 0529073631) message] The system which generated this result transmitted reference range : 0.0 - 10.0 /100 WBCs. The refer ence range was not u sed to interpret th is result as normal/abnormal . NRBC x10^3 (test code <0.01 See_Comment [Auto mated = 2248361020) message] The s ystem which generated this result transmitted reference range : 10*3/?L. The reference range was not used to interpret this result as normal/abnormal . GRAN MAT (NEUT) % 71.2 % (test code = 770-8) IMM GRAN % (test code 0.30 % = 3414581711) LYMPH % (test code = 21.2 % 736-9) MONO % (test code = 6.6 % 5905-5) EOS % (test code = 0.2 % 713-8) BASO % (test code = 0.5 % 706-2) GRAN MAT x10^3(ANC) 4.29 10*3/uL 1.88-7.09 (test code = 7307948233) IMM GRAN x10^3 (test <0.03 0-0.06 code = 2963984157) LYMPH x10^3 (test code 1.28 10*3/uL 1.32-3.29 L = 731-0) MONO x10^3 (test code 0.40 10*3/uL 0.33-0.92 = 742-7) EOS x10^3 (test code = <0.03 0.03-0.39 L 711-2) BASO x10^3 (test code 0.03 10*3/uL 0.01-0.07 = 704-7) Lab Interpretation Abnormal (test code = 73309-6) [facility] [id number] 02:05:00 Test Item Value Reference Range Interpretation Comments POCT PREG (test code = 1605) negative On board controls acceptable with present C Line (test code = 3574) POCT PREG LOT # (test code = 3575) [id number] POCT PREG TEST DATE (test 09/14/2020 code = 3576) Lab Interpretation (test code = Normal 00493-7) [facility]"
[2021-09-30 22:06] LABS: SARS-COV-2 RT PCR NEGATIVE (NEGATIVE)
--- NOTE | 2021-09-30 22:26 | EDPHYS ---
Physician Documentation [facility] Name: Chiquis Palma Age: 30 yrs Sex: Female : 1990 Arrival Date: 09/30/2021 Time: 20:55 Bed 12 Private MD: ED Physician Kirit Ng HPI: 09/30 21:56 This 30 yrs old Female presents to ER via Ambulatory with complaints of kb Abdominal Pain, Headache, Exposure to Covid. 21:56 Pt reports chills, headaches and diarrhea. States she was exposed to covid. kb 21:57 The patient presents to the emergency department with diarrhea. Onset: The kb symptoms/episode began/occurred 2 day(s) ago. Possible causes: sick contacts. The symptoms are aggravated by nothing. The symptoms are alleviated by nothing. Associated signs and symptoms: Pertinent positives: diarrhea. Severity of symptoms: At their worst the symptoms were moderate in the emergency department the symptoms are unchanged. The patient has not experienced similar symptoms in the past. The patient has not recently seen a physician. PERINATAL TECH: 21:04 LMP 09/09/2021 kd3 Historical: - Allergies: 21:06 No Known Allergies; kd3 - Home Meds: 21:06 Insulin: Lantus Sub-Q [Active]; gabapentin oral [Active]; kd3 - PMHx: 21:04 diabetes mellitus; kd3 - Immunization history:: Adult Immunizations up to date, Client reports receiving the 1st dose of the Covid vaccine. - Social history:: Smoking status: Patient reports the use of cigarette tobacco products, denies chronic smoking, but will smoke occasionally. ROS: 21:57 Respiratory: Negative for shortness of breath, cough, wheezing, and pleuritic chest kb pain. 21:57 Constitutional: Positive for chills, malaise, Negative for body aches, fatigue, fever, poor PO intake, weight loss. 21:57 Abdomen/GI: Positive for diarrhea. 21:57 Neuro: Positive for headache. 21:57 All other systems are negative. Exam: 21:57 Constitutional: This is a well developed, well nourished patient who is awake, alert, kb and in no acute distress. Head/Face: Normocephalic, atraumatic. ENT: Moist Mucous membranes Cardiovascular: Regular rate and rhythm with a normal S1 and S2. No gallops, murmurs, or rubs. No pulse deficits. Respiratory: Respirations even and unlabored. No increased work of breathing. Talking in full sentences Abdomen/GI: Soft, non-tender. No distention Skin: Warm, dry with normal turgor. Normal color. MS/ Extremity: Pulses equal, no cyanosis. Neurovascular intact. Full, normal range of motion. Neuro: Awake and alert, GCS 15, oriented to person, place, time, and situation. Moves all extremities. Normal gait. Psych: Awake, alert, with orientation to person, place and time. Behavior, mood, and affect are within normal limits. Vital Signs: 21:02 BP 135 / 94; Pulse 106; Resp 16; Temp 96.9; Pulse Ox 100% ; Weight 81.65 kg; Height 5 kd3 ft. (152.40 cm); 21:02 Body Mass Index 35.15 (81.65 kg, 152.40 cm) kd3 MDM: 21:00 Patient medically screened. 21:56 Data reviewed: vital signs, nurses notes. Data interpreted: Pulse oximetry: on room air kb is 100 %. Interpretation: normal. 22:07 Counseling: I had a detailed discussion with the patient and/or guardian regarding: the kb historical points, exam findings, and any diagnostic results supporting the discharge/admit diagnosis, lab results, the need for outpatient follow up, a family practitioner, to return to the emergency department if symptoms worsen or persist or if there are any questions or concerns that arise at home. 22:25 ED course: Pt tolerating po intake. Nontoxic in appearance. 09/30 21:07 Order name: COVID-19/FLU A+B (Document "Date of Onset" if Symptomatic); Complete Time: 22:07 09/30 21:07 Order name: PO challenge kb Administered Medications: No medications were administered Disposition: 10/01 01:59 Co-signature as Attending Physician, Kirit Ng MD. [email or web address] Disposition Summary: 09/30/21 22:25 Discharge Ordered Location: Home Condition: Stable Diagnosis - Diarrhea, unspecified kb Followup: kb - With: Emergency Department - When: As needed - Reason: Worsening of condition Followup: kb - With: Private Physician - When: 2 - 3 days - Reason: Recheck today's complaints, Continuance of care, Re-evaluation by your physician Discharge Instructions: - Discharge Summary Sheet kb - Food Choices to Help Relieve Diarrhea, Adult kb - Diarrhea, Adult, [id number]-[id number]-Dmea kb Forms: - Medication Reconciliation Form kb - Thank You Letter kb - Work release form kb - Antibiotic Education kb - Prescription Opioid Use kb Signatures: Dispatcher [employer] EDRose Mary Page, STAMP ANALYST-C ISSA-Kirit Garcia MD MD 7 Brandi Alfaro RN RN kd3 Corrections: (The following items were deleted from the chart) 09/30 21:05 21:04 Allergies: No Known Allergies; kd3 kd3
--- NOTE | 2021-09-30 22:26 | ER ---
Nurse's Notes [facility] Name: Chiquis Palma Age: 30 yrs Sex: Female : 1990 Arrival Date: 09/30/2021 Time: 20:55 Bed 12 Private MD: Diagnosis: Diarrhea, unspecified Presentation: 09/30 21:02 Chief complaint: Patient states: I HAVE CHILLS AND BODY PAIN. MY MOTHER TESTED POSITIVE kd3 FOR COVID AND MY KIDS AND I HAVE BEEN HAVING VOMITING AND DIAR EHA. Coronavirus screen: Vaccine status: Patient reports receiving the 1st dose of the Covid vaccine. Ebola Screen: No symptoms or risks identified at this time. Initial Sepsis Screen: Does the patient meet any 2 criteria? No. Patient's initial sepsis screen is negative. Does the patient have a suspected source of infection? No. Patient's initial sepsis screen is negative. Risk Assessment: Do you want to hurt yourself or someone else? Patient reports no desire to harm self or others. 21:02 Method Of Arrival: Ambulatory kd3 21:02 Acuity: CHANTEL 4 kd3 Triage Assessment: 21:04 General: Appears in no apparent distress. Behavior is calm, cooperative, appropriate kd3 for age. Pain: Complains of pain in HEADACHE. GI: Reports diarrhea. 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 - Social history:: Smoking status: Patient reports the use of cigarette tobacco products, denies chronic smoking, but will smoke occasionally. Screenin:07 Tuberculosis screening: No symptoms or risk factors identified. kd3 23:00 Abuse screen: Denies threats or abuse. Denies injuries from another. Nutritional lp1 screening: No deficits noted. Fall Risk None identified. Assessment: 22:15 General: Appears in no apparent distress. Behavior is calm, cooperative. Neuro: Level lp1 of Consciousness is awake, alert, obeys commands. Respiratory: Respiratory effort is even, unlabored. GI: Abd is soft and non tender X 4 quads. Reports diarrhea, vomiting. Derm: Skin is pink, warm \T\ dry. Vital Signs: 21:02 BP 135 / 94; Pulse 106; Resp 16; Temp 96.9; Pulse Ox 100% ; Weight 81.65 kg; Height 5 kd3 ft. (152.40 cm); 21:02 Body Mass Index 35.15 (81.65 kg, 152.40 cm) kd3 ED Course: 20:55 Patient arrived in ED. 20:59 Rose Mary Anna [facility]C [facility] kb 20:59 Kirit Ng MD is Attending Physician. kb 21:04 Triage completed. kd3 21:04 Arm band placed on right wrist. kd3 23:00 Patient has correct armband on for positive identification. lp1 23:00 No provider procedures requiring assistance completed. Patient did not have IV access lp1 during this emergency room visit. Administered Medications: No medications were administered Outcome: 22:25 Discharge ordered by MD. kb 23:00 Discharged to home ambulatory. lp1 23:00 Condition: good 23:00 Discharge instructions given to patient, Instructed on discharge instructions, follow up and referral plans. Demonstrated understanding of instructions, follow-up care. 23:04 Patient left the ED. lp1 Signatures: Rose Mary Anna FNP-C FNP-Cris Elias, RN RN lp1 Dena Brannon Brandi Alfaro RN RN kd3 Corrections: (The following items were deleted from the chart) 21:05 21:04 Allergies: No Known Allergies; kd3 kd3 10/01 02:02 09/30 22:15 GI: Reports diarrhea, lp1 lp1
[2021-09-30 23:09] VITALS: BP 135/94; TEMP 96.9; O2SAT 100
== END 2021-09-30 23:04 | disposition home or self-care (01) ==
LOC: ER 20:37
DX: R19.7 Diarrhea, unspecified (principal); Z20.822 Contact with and (suspected) exposure to COVID-19; E11.9 Type 2 diabetes mellitus without complications
CPT/HCPCS: 0240U; 99281

== ENCOUNTER 2021-11-13 10:44 | Emergency (ER) | payer SELFPAY ==
--- OUTSIDE RECORDS SUMMARY | 2021-11-13 10:47 | XMS REPORT | Continuity of Care Document ---
:1990 Author Organization [facility] t Address [address] [place] [address] Dr. Bliss [address] [place] [address] Care Team Providers Name Role Phone Delma Wakefield MD Attending Clinician Advance Directives Directive Decision Effective Termination Comments Source Date Date Healthcare Agents on N/A Univ ersity FileNameRelationshipHealthcare University Hospital Agent Medical RelationshipCommunicationMaProtestant [facility]acon[facility] Hospitalother[facility] healthcare [phone] (Mobile) Problems Condition Condition Condition Status Onset Resolution Last Treating Co mments Source Name Details Category Date Date Treatment Clinician Date Nexplanon Nexplanon Disease Active Uni vers insertion insertion 3- ity of 00:00: [address] 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 Social History Social Habit Start Date Stop Date Quantity Comments Source History of tobacco Cigarette Smoker [facility] use [facility] Alcohol intake [facility] Sex Assigned At Universit y of [facility] Cigarettes smoked 2018-11-19 2018-11-19 [facility] ity of current (pack per 00:00:00 00:00:00 [facility] ) - Reported Branch Smoking Status Start Date Stop Date Source Current every day smoker 2018-11-19 00:00:00 [facility] Ordered Filled Start Stop Current Ordering [...] ity o f human 04:30: 03:44 , [facility], [place] (HUMULIN R) 00 :00 1 dose, Medic al injection Sat Branch 10 Units 05/01/19 at 2330, Routine No known No Univers medications it of [facility] Immunizations Ordered Filled Immunization Date Status Comments Sour e Immunization Name Name Tdap 2018-06-10 Completed University of 00:00:00 [facility] Vital Signs Vital Name Observation Time Observation Value Comments Source Systolic blood 2019-05-02 04:00:00 98 mm[Hg] Univer sity of pressure [facility] Diastolic blood 2019-05-02 04:00:00 85 mm[Hg] [facility] Heart rate 2019-05-02 04:00:00 91 /min [facility] Respiratory rate 2019-05-02 04:00:00 29 /min [facility] Oxygen saturation in 2019-05-02 04:00:00 97 /min University of Arterial blood by [facility] Pulse oximetry Branch Body weight 2019-05-02 02:02:00 100.245 kg [facility] BMI 2019-05-02 02:02:00 36.78 kg/m2 [facility] Body temperature 2019-05-02 00:21:00 36.89 [facility] Systolic blood 2019-05-02 04:00:00 98 mm[Hg] Univer sity of pressure [facility] Diastolic blood 2019-05-02 04:00:00 85 mm[Hg] [facility] 2019-05-02 04:00:00 91 /min [facility] Respiratory rate 2019-05-02 04:00:00 29 /min [facility] Oxygen saturation in 2019-05-02 04:00:00 97 /min University of Arterial blood by [facility] Pulse oximetry Branch Body weight 2019-05-02 02:02:00 100.245 kg [facility] BMI 2019-05-02 02:02:00 36.78 kg/m2 [facility] Body temperature 2019-05-02 00:21:00 36.89 [facility] Procedures Procedure Date / Time Performing Clinician Source Performed POCT GLUCOSE(AGE 2019-05-02 04:43:00 Rey Wakefield [facility] >30DAYS) [facility] POCT GLUCOSE 2019-05-02 04:40:00 Rey Wakefield [facility] (AUTOMATED) [facility] POCT TEST 2019-05-02 02:05:00 Rey Wakefield [facility] LIPASE 2019-05-02 02:04:00 Rey Wakefield [facility] COMP. METABOLIC PANEL 2019-05-02 02:04:00 [facility] ([id number]) [facility] CBC WITH DIFFERENTIAL 2019-05-02 02:04:00 Rey Wakefield [facility] URINALYSIS 2019-05-02 02:04:00 [place] [facility] NOTICE OF PRIVACY 2019-05-02 00:05:46 Doctor Unassigned, No Univ [facility] PRACTICES Name Medical Branch CONSENT/REFUSAL FOR 2019-05-02 00:05:32 Doctor Unassigned, No [facility] Name [facility] [place] Encounters Start End Encounter Admission Attending Care Care Encounter Source Date/Time Date/Time Type Type Clinicians Facility Department ID 2019-05-01 2019-05-02 Emergency [facility] [id number] 19:23:31 00:11:00 Rey Willoughby [id number] [place] [id number] [place] [id number] 2019-05-01 2019-05-02 Emergency [facility] [id number] [facility] 19:23:31 00:11:00 Rey Willoughby [id number] ity of [place] [id number] [facility] [id number] [address] Results Test Description Test Time Test Comments Results Result Comments Source POCT GLUCOSE(AGE >30DAYS) 2019-05-02 04:43:00 Test Item Value Reference Range Interpretation Comme nts POCT Glu (age>30days) (test code = 3342) 250 mg/dL 70-110 A Lab Interpretation (test code = 22496-3) Abnormal [facility] ([facility]2019-05-02 04:41:00 Test Item Value Reference Range Interpretation Comments POCT GLU (test code = 2904000323) 250 mg/dL 70-110 H Lab Interpretation (test code = Abnormal 41642-9) [facility] PAN[facility] (07982)2019-05-02 02:54:00 Test Item Value Reference Range Interpretation Comments NA (test code = 138 mmol/L 135-145 8552678113) K (test code = 3.5 mmol/L 3.5-5 9765149231) CL (test code = 101 mmol/L 98-108 0743765030) CO2 TOTAL (test code = 22 mmol/L 23-31 L 8533486859) AGAP (test code = 2-16 5924788667) BUN (test code = 5 mg/dL 7-23 L 1763493191) GLUCOSE (test code = 507 mg/dL 70-110 HH 5389859892) CREATININE (test code = 0.40 mg/dL 0.5-1.04 L 2980464510) TOTAL BILI (test code = 0.7 mg/dL 0.1-1.4 7352983991) CALCIUM (test code = 9.3 mg/dL 8.6-10.6 8364722102) T PROTEIN (test code = 7.2 g/dL 6.3-8.2 0962869739) ALBUMIN (test code = 4.0 g/dL 3.5-5 5548512623) ALK PHOS (test code = 104 U/L 34-122 7152113627) ALT(SGPT) (test code = 31 U/L 9-51 7301716764) AST(SGOT) (test code = 38 U/L 13-40 3238538619) eGFR Calculation mL/min/1.73m2 (Non-) (test code = 8604946437) eGFR Calculation mL/min/1.73m2 () (test code = 0842298707) CHAVA (test code = CHAVA) Association of [...] tests). Lab Interpretation Abnormal (test code = 47179-0) [facility]-08[facility] 02:31:00 Test Item Value Reference Range Interpretation Comments LIPASE (test code = 4744034982) 98 U/L 0-220 Lab Interpretation (test code = Normal 73015-6) [facility]2019-08-18 02:23:00 Test Item Value Reference Range Interpretation Comments APPEARANCE (test code = Clear Clear 5806901364) COLOR (test code = Yellow Yellow 4369955315) PH (test code = 4.8-8.0 2739907839) SP GRAVITY (test code = 1.003-1.030 8757823648) GLU U QUAL (test code = >1000 mg/dL Negative A 6750737184) BLOOD (test code = Negative Negative 6080873341) KETONES (test code = 15 mg/dL Negative A 0476888355) PROTEIN (test code = Negative Negative 2887-8) UROBILIN (test code = 0.2 mg/dL See_Comment [Auto mated 4118581645) message] The sy stem which generated this result transmitted reference range : 0-1.0 mg/dL. Th e reference range was not used to interpret this result as normal/abnormal . BILIRUBIN (test code = Negative Negative 6526158735) NITRITE (test code = Negative Negative 9867626813) LEUK ADAM (test code = Negative Negative 3800843910) RBC/HPF (test code = See_Comment [Autom ated 8280082869) message] The sy stem which generated this result transmitted reference range : 0 - 3 HPF. The reference range was not used to interpret this result as normal/abnormal . WBC/HPF (test code = See_Comment [Autom ated 0816161668) message] The sy stem which generated this result transmitted reference range : 0 - 5 HPF. The reference range was not used to interpret this result as normal/abnormal . BACTERIA (test code = Negative Negative 9246735288) Lab Interpretation Abnormal (test code = 55378-4) [facility] WITH [id number] 02:11:00 Test Item Value Reference Range Interpretation [...] RDW-SD (test code = 40.3 fL 39-49.9 29209-0) RDW-CV (test code = 12.5 % 12-15.5 788-0) PLT (test code = See_Comment [Automated 777-3) message] The sy stem which generated this result transmitted reference range : 166 - 358 10*3/ ?L. The reference r almaz was not used to interpret this result as normal/abnormal . MPV (test code = 11.2 fL 9.5-12.9 43417-2) NRBC/100 WBC (test See_Comment [Automat ed code = 3748988231) message] The system which generated this result transmitted reference range : 0.0 - 10.0 /100 WBCs. The refer ence range was not u sed to interpret th is result as normal/abnormal . NRBC x10^3 (test code <0.01 See_Comment [Auto mated = 5944520325) message] The s ystem which generated this result transmitted reference range : 10*3/?L. The reference range was not used to interpret this result as normal/abnormal . GRAN MAT (NEUT) % 71.2 % (test code = 770-8) IMM GRAN % (test code 0.30 % = 4984878599) LYMPH % (test code = 21.2 % 736-9) MONO % (test code = 6.6 % 5905-5) EOS % (test code = 0.2 % 713-8) BASO % (test code = 0.5 % 706-2) GRAN MAT x10^3(ANC) 4.29 10*3/uL 1.88-7.09 (test code = 3219099823) IMM GRAN x10^3 (test <0.03 0-0.06 code = 7297857501) LYMPH x10^3 (test code 1.28 10*3/uL 1.32-3.29 L = 731-0) MONO x10^3 (test code 0.40 10*3/uL 0.33-0.92 = 742-7) EOS x10^3 (test code = <0.03 0.03-0.39 L 711-2) BASO x10^3 (test code 0.03 10*3/uL 0.01-0.07 = 704-7) Lab Interpretation Abnormal (test code = 13552-9) [facility] [id number] 02:05:00 Test Item Value Reference Range Interpretation Comments POCT PREG (test code = 1605) negative On board controls acceptable with present C Line (test code = 3574) POCT PREG LOT # (test code = 3575) [id number] POCT PREG TEST DATE (test 09/14/2020 code = 3576) Lab Interpretation (test code = Normal 97616-2) [facility]"
[2021-11-13 11:17] LABS: Absolute Lymphocytes (CBC) 1.9 K/uL (0.7-4.9); Hematocrit 45.1 % (36.0-45.0); Lymphocytes % 15.4 % (15.3-44.8); MPV 8.8 fL (7.6-11.3); RBC Red Blood Cell Count 5.09 M/uL (3.86-4.86)
[2021-11-13 11:19] LABS: Protime INR 1.01
[2021-11-13 11:38] LABS: ALT/SGPT 20 U/L (12-78); AST/SGOT 9 U/L (15-37); Albumin 3.5 g/dL (3.4-5.0); Alkaline Phosphatase 89 U/L (45-117); BUN Blood Urea Nitrogen 5 mg/dL (7-18); Bicarbonate 23 mmol/L (21-32); Bilirubin Direct 0.2 mg/dL (0-0.2); Bilirubin Total 1.3 mg/dL (0.2-1.0); Glucose Level 363 mg/dL (74-106); Magnesium 1.9 mg/dL (1.8-2.4); NT PRO-BNP 10 pg/mL (<125); Potassium 3.5 mmol/L (3.5-5.1); Protein, Total 8.1 g/dL (6.4-8.2); Sodium Level 133 mmol/L (136-145)
[2021-11-13 11:54] LABS: BUN Blood Urea Nitrogen 4 mg/dL (7-18); Bicarbonate 24 mmol/L (21-32); Glucose Level 338 mg/dL (74-106); Lipase 138 U/L (73-393); Potassium 3.3 mmol/L (3.5-5.1); Sodium Level 133 mmol/L (136-145)
[2021-11-13] MEDS ORDERED: ACETAMINOPHEN 500 MG TAB ONE (12:04)
[2021-11-13 12:28] LABS: Urine Blood Trace-intact (Negative); Urine Glucose 2+ (Negative); Urine Protein 2+ (Negative)
--- NOTE | 2021-11-13 13:24 | ER ---
Nurse's Notes [facility] Name: Chiquis Palma Age: 31 yrs Sex: Female : 1990 Arrival Date: 11/13/2021 Time: 10:51 Bed 7 Private MD: Diagnosis: Chills (without fever) Presentation: 11/13 10:53 Chief complaint: Patient states: Start feeling shaky after intercourse this am at 0630, ke1 went to work but shaking not going away. Per Ems BGL 387 150/90 106, patient anxious. Coronavirus screen: Vaccine status: Patient reports receiving the 1st dose of the Covid vaccine. Ebola Screen: No symptoms or risks identified at this time. Initial Sepsis Screen: Does the patient meet any 2 criteria? Temp <36.0*C (96.8*F)) or > 38.3*C (100.9*F). HR > 90 bpm. Does the patient have a suspected source of infection? No. Patient's initial sepsis screen is negative. Risk Assessment: Do you want to hurt yourself or someone else? Patient reports no desire to harm self or others. Onset of symptoms was November 13, 2021 at 06:30. 10:53 Method Of Arrival: EMS: [facility] 10:53 Acuity: CHANTEL 3 ke1 Triage Assessment: 11:10 General: Appears uncomfortable, Behavior is anxious. Pain: Complains of pain in right ke1 leg and left leg Pain currently is 6 out of 10 on a pain scale. Neuro: Level of Consciousness is awake, alert, Oriented to person, place, time, situation. Cardiovascular: Denies chest pain, Heart tones S1 S2 Capillary refill < 3 seconds Patient's skin is warm and dry. Respiratory: Airway is patent Breath sounds are clear bilaterally. GI: Abdomen is round obese. : No deficits noted. Derm: No deficits noted. Historical: - Allergies: 11:02 No Known Allergies; ke1 - PMHx: 11:02 diabetes mellitus; ke1 - Immunization history:: Flu vaccine is up to date. - Social history:: Smoking status: Patient reports the use of cigarette tobacco products, smokes one pack cigarettes per day. - Family history:: not pertinent. Screenin:45 Abuse screen: Denies threats or abuse. Nutritional screening: No deficits noted. ke1 Tuberculosis screening: No symptoms or risk factors identified. Fall Risk No fall in past 12 months (0 pts). No secondary diagnosis (0 pts). IV access (20 points). Ambulatory Aid- None/Bed Rest/Nurse Assist (0 pts). Gait- Normal/Bed Rest/Wheelchair (0 pts) Mental Status- Oriented to own ability (0 pts). Total Madsen Fall Scale indicates No Risk (0-24 pts). Assessment: 11:15 Reassessment: see triage note. ke1 11:36 Pain: Complains of pain in Left upper abdomen Pain does not radiate. Pain currently is ke1 6 out of 10 on a pain scale. at worst was 10 out of 10 on a pain scale. level that patient reports is acceptable is 4 out of 10 on a pain scale. Quality of pain is described as tightening Pain began suddenly, Is intermittent, Alleviated by rest, repositioning, relaxation, Current management is with pillow on the back is completely effective. 11:50 Pain: Complains of pain in L upper abdomen Pain currently is 6 out of 10 on a pain ke1 scale. 12:29 Reassessment: Patient denies pain at this time. Patient states symptoms have improved. ke1 13:12 Reassessment: No changes from previously documented assessment. ke1 Vital Signs: 10:53 BP 134 / 92; Pulse 98; Resp 22; Temp 101.5; Pulse Ox 100% on R/A; ke1 11:03 Weight 75.75 kg; Height 5 ft. (152.40 cm); ke1 13:12 BP 125 / 91; Pulse 91; Resp 18; Pulse Ox 99% on R/A; ke1 14:00 BP 127 / 95; Pulse 85; Resp 18; Pulse Ox 99% on R/A; ke1 11:03 Body Mass Index 32.61 (75.75 kg, 152.40 cm) ke1 ED Course: 10:51 Patient arrived in ED. em1 10:51 Abner Hale RN is Primary Nurse. ke1 11:02 Triage completed. ke1 11:14 Tita Bautista MD is Attending Physician. ma2 11:21 Maintain EMS IV. Dressing intact. Site clean \T\ dry. Gauge \T\ site: 20 G RAC. ke 1 11:46 Patient has correct armband on for positive identification. Bed in low position. Call ke1 light in reach. Side rails up X 1. 11:46 Arm band placed on. ke1 13:57 No provider procedures requiring assistance completed. ke1 Administered Medications: 12:13 Drug: Tylenol 1000 mg Route: PO; ke1 12:28 Follow up: Response: Pain is decreased ke1 Outcome: 13:23 Discharge ordered by . germaine 14:17 Discharged to home ambulatory. ke1 14:17 Condition: good 14:17 Discharge instructions given to patient. 14:17 Patient left the ED. ke1 Signatures: Alejandro Peterson1 Tita Bautista MD MD ma2 Abner Hale RN RN ke1 Corrections: (The following items were deleted from the chart) 11:39 11:36 Pain: Complains of pain in Left upper abdomen Pain does not radiate. Pain ke1 currently is 6 out of 10 on a pain scale. at worst was 10 out of 10 on a pain scale. level that patient reports is acceptable is 4 out of 10 on a pain scale. Quality of pain is described as tightening Pain began suddenly, Is intermittent, Aggravated by ke1 11:49 11:36 Pain: Complains of pain in Left upper abdomen Pain does not radiate. Pain ke1 currently is 6 out of 10 on a pain scale. at worst was 10 out of 10 on a pain scale. level that patient reports is acceptable is 4 out of 10 on a pain scale. Quality of pain is described as tightening Pain began suddenly, Is intermittent, ke1
--- NOTE | 2021-11-13 13:24 | EDPHYS ---
Physician Documentation [facility] Name: Chiquis Palma Age: 31 yrs Sex: Female : 1990 Arrival Date: 11/13/2021 Time: 10:51 Bed 7 Private MD: ED Physician Tita Bautista HPI: 11/13 12:30 This 31 yrs old Female presents to ER via EMS with complaints of Chills. ma2 12:30 Onset: The symptoms/episode began/occurred gradually, 6 hour(s) ago. Associated signs ma2 and symptoms: Pertinent negatives: altered mental status, chills, diarrhea, pulling at ears, myalgias, nausea, night sweats, sinus drainage. Severity of symptoms: At their worst the symptoms were very mild in the emergency department the symptoms have resolved. Historical: - Allergies: 11: No Known Allergies; ke1 - PMHx: 11:02 diabetes mellitus; ke1 - Immunization history:: Flu vaccine is up to date. - Social history:: Smoking status: Patient reports the use of cigarette tobacco products, smokes one pack cigarettes per day. - Family history:: not pertinent. ROS: 12:30 Constitutional: Negative for fever, chills, and weight loss. ma2 12:30 All other systems are negative. Exam: 12:30 Constitutional: This is a well developed, well nourished patient who is awake, alert, ma2 and in no acute distress. ENT: Nares patent. No nasal discharge, no septal abnormalities noted. Tympanic membranes are normal and external auditory canals are clear. Oropharynx with no redness, swelling, or masses, exudates, or evidence of obstruction, uvula midline. Mucous membranes moist. Neck: Trachea midline, no thyromegaly or masses palpated, and no cervical lymphadenopathy. Supple, full range of motion without nuchal rigidity, or vertebral point tenderness. No Meningismus. Chest/axilla: Normal chest wall appearance and motion. Nontender with no deformity. No lesions are appreciated. Cardiovascular: Regular rate and rhythm with a normal S1 and S2. No gallops, murmurs, or rubs. Normal PMI, no JVD. No pulse deficits. Respiratory: Lungs have equal breath sounds bilaterally, clear to auscultation and percussion. No rales, rhonchi or wheezes noted. No increased work of breathing, no retractions or nasal flaring. Abdomen/GI: Soft, non-tender, with normal bowel sounds. No distension or tympany. No guarding or rebound. No evidence of tenderness throughout. Skin: Warm, dry with normal turgor. Normal color with no rashes, no lesions, and no evidence of cellulitis. MS/ Extremity: Pulses equal, no cyanosis. Neurovascular intact. Full, normal range of motion. Neuro: Awake and alert, GCS 15, oriented to person, place, time, and situation. Cranial nerves II-XII grossly intact. Motor strength 5/5 in all extremities. Sensory grossly intact. Cerebellar exam normal. Normal gait. Vital Signs: 10:53 BP 134 / 92; Pulse 98; Resp 22; Temp 101.5; Pulse Ox 100% on R/A; ke1 11:03 Weight 75.75 kg; Height 5 ft. (152.40 cm); ke1 13:12 BP 125 / 91; Pulse 91; Resp 18; Pulse Ox 99% on R/A; ke1 14:00 BP 127 / 95; Pulse 85; Resp 18; Pulse Ox 99% on R/A; ke1 11:03 Body Mass Index 32.61 (75.75 kg, 152.40 cm) 1 MDM: 11:49 Patient medically screened. ma2 13:23 Differential diagnosis: URI, bronchitis, UTI, gastroenteritis. Data reviewed: vital ma2 signs, nurses notes. Counseling: I had a detailed discussion with the patient and/or guardian regarding: the historical points, exam findings, and any diagnostic results supporting the discharge/admit diagnosis, the presence of at least one elevated blood pressure reading (>120/80) during this emergency department visit, the need for outpatient follow up. Response to treatment: the patient's symptoms have markedly improved after treatment. 11/13 11:02 Order name: Basic Metabolic Panel; Complete Time: 11:57 iw 11/13 11:02 Order name: CBC with Diff; Complete Time: :57 iw 11/13 11:02 Order name: LFT's; Complete Time: 11:57 iw 11/13 11:02 Order name: Magnesium; Complete Time: 11:57 iw 11/13 11:02 Order name: NT PRO-BNP; Complete Time: 11:57 iw 11/13 11:02 Order name: PT-INR; Complete Time: 11:57 iw 11/13 11:02 Order name: Troponin HS; Complete Time: 11:57 iw 11/13 11:02 Order name: EKG; Complete Time: 11:03 iw 11/13 11:02 Order name: Cardiac monitoring; Complete Time: 11:42 iw 11/13 11:08 Order name: Glucose, Ancillary Testing; Complete Time: 11:57 EDMS 11/13 11:15 Order name: Basic Metabolic Panel; Complete Time: 11:57 mo2 11/13 11:15 Order name: Lipase; Complete Time: 11:57 ma2 11/13 12:28 Order name: Urine Dipstick-Ancillary; Complete Time: 12:29 EDMS 11/13 11:02 Order name: EKG - Nurse/Tech; Complete Time: 11:42 iw 11/13 11:02 Order name: IV Saline Lock; Complete Time: 11:04 iw 11/13 11:02 Order name: Labs collected and sent; Complete Time: 11:04 11/13 11:02 Order name: O2 Per Protocol; Complete Time: 11:04 iw 11/13 11:02 Order name: O2 Sat Monitoring; Complete Time: 11:04 iw 11/13 11:58 Order name: Urine Dipstick-Ancillary (obtain specimen); Complete Time: 12:27 ma2 Administered Medications: 12:13 Drug: Tylenol 1000 mg Route: PO; ke1 12:28 Follow up: Response: Pain is decreased ke1 Disposition Summary: 11/13/21 13:23 Discharge Ordered Location: Home ma2 Condition: Stable ma2 Diagnosis - Chills (without fever) ma2 Followup: ma2 - With: Private Physician - When: Tomorrow - Reason: Continuance of care Discharge Instructions: - Discharge Summary Sheet ma2 - Managing Anxiety, Adult ma2 Forms: - Medication Reconciliation Form ma2 - Thank You Letter ma2 - Antibiotic Education ma2 - Prescription Opioid Use ma2 Signatures: Dispatcher [employer] Shaniqua Vasquez, Tita Chopra RN, MD MD mo2 Abner Hale RN RN ke1
[2021-11-13 14:27] VITALS: TEMP 101.5
[2021-11-13 14:28] VITALS: O2SAT 99
[2021-11-13 14:29] VITALS: BP 127/95
--- NOTE | 2021-11-14 11:10 | EKG ---
Test Date: 2021-11-13 Test Time: 11:28:48 Check Weigher: WILLAIM MEASUREMENT RESULTS: Intervals: Rate: 90 WA: 132 QRSD: 80 QT: 356 QTc: 435 [place]: P: 8 WA: 132 QRS: 44 T: 29 INTERPRETIVE STATEMENTS: Normal sinus rhythm Normal ECG Compared to ECG 01/08/2021 14:53:01 Sinus tachycardia no longer present Electronically Signed On 11-14-21 11:07:48 CARE PARTNER by Dangelo Matos
== END 2021-11-13 14:17 | disposition home or self-care (01) ==
LOC: ER 10:44
DX: R68.83 Chills (without fever) (principal); E11.9 Type 2 diabetes mellitus without complications; F17.210 Nicotine dependence, cigarettes, uncomplicated
CPT/HCPCS: 36415; 80048; 80076; 81003; 82947; 83690; 83735; 83880; 84484; 85025; 85610; 93005; 99283

== ENCOUNTER 2022-01-01 20:13 | Emergency (ER) | payer SELFPAY ==
--- OUTSIDE RECORDS SUMMARY | 2022-01-01 20:16 | XMS REPORT | Continuity of Care Document ---
:1990 Author Organization [facility] t Address [address] [place] [address] [address] [place] [address] Care Team Providers Name Role Phone Delma Wakefield MD Attending Clinician Advance Directives Directive Decision Effective Termination Comments Source Date Date Healthcare Agents on N/A Univ ersity FileNameRelationshipHealthcare [facility] Agent Medical RelationshipCommunicationMaCleveland Clinic [facility] Hospitalother[facility] healthcare [phone] (Mobile) Problems Condition Condition Condition Status Onset Resolution Last Treating Co mments Source Name Details Category Date Date Treatment Clinician Date Nexplanon Nexplanon Disease Active Uni vers insertion insertion 3- ity of 00:00: [address] 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 Social History Social Habit Start Date Stop Date Quantity Comments Source History of tobacco Cigarette Smoker [facility] use [facility] Alcohol intake [facility] Sex Assigned At Universit y of [facility] Cigarettes smoked 2018-11-19 2018-11-19 [facility] ity of current (pack per 00:00:00 00:00:00 [facility] ) - Reported Branch Smoking Status Start Date Stop Date Source Current every day smoker 2018-11-19 00:00:00 [facility]ations Ordered Filled Start Stop Current Ordering [...] o f human 04:30: 03:44 , [facility], [place] (HUMULIN R) 00 :00 1 dose, Medic al injection Sat Branch 10 Units 05/01/19 at 2330, Routine No known No Univers medications it of [facility] Immunizations Ordered Filled Immunization Date Status Comments Sour e Immunization Name Name Tdap 2018-06-10 Completed University of 00:00:00 [facility] Vital Signs Vital Name Observation Time Observation Value Comments Source Systolic blood 2019-05-02 04:00:00 98 mm[Hg] Univer sity of pressure [facility] Diastolic blood 2019-05-02 04:00:00 85 mm[facility]Hg[facility] Heart rate 2019-05-02 04:00:00 91 /min [facility] Respiratory rate 2019-05-02 04:00:00 29 /min [facility] Oxygen saturation in 2019-05-02 04:00:00 97 /min University of Arterial blood by [facility] Pulse oximetry Branch Body weight 2019-05-02 02:02:00 100.245 kg [facility] BMI 2019-05-02 02:02:00 36.78 kg/m2 [facility] Body temperature 2019-05-02 00:21:00 36.89 [place] Systolic blood 2019-05-02 04:00:00 98 mm[Hg] Univer sity of pressure [facility] Diastolic blood 2019-05-02 04:00:00 85 mm[facility]Hg] [facility] Heart rate 2019-05-02 04:00:00 91 /min [facility] Respiratory rate 2019-05-02 04:00:00 29 /min [facility] Oxygen saturation in 2019-05-02 04:00:00 97 /min University of Arterial blood by [facility] Pulse oximetry Branch Body weight 2019-05-02 02:02:00 100.245 kg [facility] BMI 2019-05-02 02:02:00 36.78 kg/m2 [facility] Body temperature 2019-05-02 00:21:00 36.89 [place] [facility] Procedures Procedure Date / Time Performing Clinician Source Performed POCT GLUCOSE(AGE 2019-05-02 04:43:00 Rey Wakefield [facility] >30DAYS) [facility] POCT GLUCOSE 2019-05-02 04:40:00 Rey Wakefield [facility] (AUTOMATED) [facility] POCT TEST 2019-05-02 02:05:00 Rey Wakefield [facility] LIPASE 2019-05-02 02:04:00 Rey Wakefield [facility] COMP. METABOLIC PANEL 2019-05-02 02:04:00 [facility] ([id number]) [facility] CBC WITH DIFFERENTIAL 2019-05-02 02:04:00 Rey Wakefield [facility] URINALYSIS 2019-05-02 02:04:00 [place] [facility] NOTICE OF PRIVACY 2019-05-02 00:05:46 Doctor Unassigned, No Univ [facility] PRACTICES Name Medical Branch CONSENT/REFUSAL FOR 2019-05-02 00:05:32 Doctor Unassigned, No [facility] DI[facility]NOS[facility]REATMENT Name Medical [place] Encounters Start End Encounter Admission Attending Care Care Encounter Source Date/Time Date/Time Type Type Clinicians Facility Department ID 2019-05-01 2019-05-02 Emergency [facility] [id number] 19:23:31 00:11:00 Rey Willoughby [id number] [place] [id number] [place] [id number] 2019-05-01 2019-05-02 Emergency [facility] [id number] [facility] 19:23:31 00:11:00 Rey Willoughby [id number] ity of [place] 4.2.7.2.686 [facility] [id number] [address] Results Test Description Test Time Test Comments Results Result Comments Source POCT GLUCOSE(AGE >30DAYS) 2019-05-02 04:43:00 Test Item Value Reference Range Interpretation Comme nts POCT Glu (age>30days) (test code = 3342) 250 mg/dL 70-110 A Lab Interpretation (test code = 56448-8) Abnormal [facility] (AUTOMATED)2019-05-02 04:41:00 Test Item Value Reference Range Interpretation Comments POCT GLU (test code = 2679850091) 250 mg/dL 70-110 H Lab Interpretation (test code = Abnormal 12113-1) [facility] PAN[facility] (81115)2019-05-02 02:54:00 Test Item Value Reference Range Interpretation Comments NA (test code = 138 mmol/L 135-145 4288494491) K (test code = 3.5 mmol/L 3.5-5 8976215573) CL (test code = 101 mmol/L 98-108 6875165466) CO2 TOTAL (test code = 22 mmol/L 23-31 L 6912356152) AGAP (test code = 2-16 6631870904) BUN (test code = 5 mg/dL 7-23 L 0896641591) GLUCOSE (test code = 507 mg/dL 70-110 HH 0286038504) CREATININE (test code = 0.40 mg/dL 0.5-1.04 L 1011717723) TOTAL BILI (test code = 0.7 mg/dL 0.1-1.0 9852580068) CALCIUM (test code = 9.3 mg/dL 8.6-10.6 4596203912) T PROTEIN (test code = 7.2 g/dL 6.3-8.2 9880822106) ALBUMIN (test code = 4.0 g/dL 3.5-5 6075351104) ALK PHOS (test code = 104 U/L 34-122 3942662778) ALT(SGPT) (test code = 31 U/L 9-51 3251764641) AST(SGOT) (test code = 38 U/L 13-40 4378878681) eGFR Calculation mL/min/1.73m2 (Non-) (test code = 1152701755) eGFR Calculation mL/min/1.73m2 () (test code = 0501499012) CHAVA (test code = CHAVA) Association of [...] tests). Lab Interpretation Abnormal (test code = 40339-0) [facility]2019-08-18 02:31:00 Test Item Value Reference Range Interpretation Comments LIPASE (test code = 4025060010) 98 U/L 0-220 Lab Interpretation (test code = Normal 12711-0) [facility]2019-08-18 02:23:00 Test Item Value Reference Range Interpretation Comments APPEARANCE (test code = Clear Clear 6118808616) COLOR (test code = Yellow Yellow 2563834098) PH (test code = 4.8-8.0 8982340650) SP GRAVITY (test code = 1.003-1.030 7683239473) GLU U QUAL (test code = >1000 mg/dL Negative A 8721502708) BLOOD (test code = Negative Negative 6221013529) KETONES (test code = 15 mg/dL Negative A 7954601396) PROTEIN (test code = Negative Negative 2887-8) UROBILIN (test code = 0.2 mg/dL See_Comment [Auto mated 1670641844) message] The sy stem which generated this result transmitted reference range : 0-1.0 mg/dL. Th e reference range was not used to interpret this result as normal/abnormal . BILIRUBIN (test code = Negative Negative 7829281096) NITRITE (test code = Negative Negative 2101086222) LEUK ADAM (test code = Negative Negative 4590294256) RBC/HPF (test code = See_Comment [Autom ated 5757292307) message] The sy stem which generated this result transmitted reference range : 0 - 3 HPF. The reference range was not used to interpret this result as normal/abnormal . WBC/HPF (test code = See_Comment [Autom ated 7864902870) message] The sy stem which generated this result transmitted reference range : 0 - 5 HPF. The reference range was not used to interpret this result as normal/abnormal . BACTERIA (test code = Negative Negative 6051427587) Lab Interpretation Abnormal (test code = 23227-3) [facility] WITH [id number] 02:11:00 Test Item Value Reference Range Interpretation [...] RDW-SD (test code = 40.3 fL 39-49.9 64331-2) RDW-CV (test code = 12.5 % 12-15.5 788-0) PLT (test code = See_Comment [Automated 777-3) message] The sy stem which generated this result transmitted reference range : 166 - 358 10*3/ ?L. The reference r almaz was not used to interpret this result as normal/abnormal . MPV (test code = 11.2 fL 9.5-12.9 33338-1) NRBC/100 WBC (test See_Comment [Automat ed code = 6308048165) message] The system which generated this result transmitted reference range : 0.0 - 10.0 /100 WBCs. The refer ence range was not u sed to interpret th is result as normal/abnormal . NRBC x10^3 (test code <0.01 See_Comment [Auto mated = 9051728609) message] The s ystem which generated this result transmitted reference range : 10*3/?L. The reference range was not used to interpret this result as normal/abnormal . GRAN MAT (NEUT) % 71.2 % (test code = 770-8) IMM GRAN % (test code 0.30 % = 2187226242) LYMPH % (test code = 21.2 % 736-9) MONO % (test code = 6.6 % 5905-5) EOS % (test code = 0.2 % 713-8) BASO % (test code = 0.5 % 706-2) GRAN MAT x10^3(ANC) 4.29 10*3/uL 1.88-7.09 (test code = 4519832024) IMM GRAN x10^3 (test <0.03 0-0.06 code = 7518433710) LYMPH x10^3 (test code 1.28 10*3/uL 1.32-3.29 L = 731-0) MONO x10^3 (test code 0.40 10*3/uL 0.33-0.92 = 742-7) EOS x10^3 (test code = <0.03 0.03-0.39 L 711-2) BASO x10^3 (test code 0.03 10*3/uL 0.01-0.07 = 704-7) Lab Interpretation Abnormal (test code = 07244-5) [facility] [id number] 02:05:00 Test Item Value Reference Range Interpretation Comments POCT PREG (test code = 1605) negative On board controls acceptable with present C Line (test code = 3574) POCT PREG LOT # (test code = 3575) [id number] POCT PREG TEST DATE (test 09/14/2020 code = 3576) Lab Interpretation (test code = Normal 59029-8) [facility]"
--- NOTE | 2022-01-01 21:46 | ER ---
Nurse's Notes [facility] Name: Chiquis Palma Age: 31 yrs Sex: Female : 1990 Arrival Date: 01/01/2022 Time: 20:17 Bed Waiting Private MD: Diagnosis: Presentation: 01/01 20:20 Method Of Arrival: EMS: [facility] lp1 ED Course: 20:17 Patient arrived in ED. ja2 21:11 Patient's name was called from ER lobby. No response. lp1 21:30 Patient's name was called from ER lobby. No response. Unable to locate patient. Will lp1 disposition as left without being seen by a provider. Administered Medications: No medications were administered Outcome: 21:45 Patient left the ED. lp1 Signatures: Cris Cervantes RN RN lp1 Radha Eason
== END 2022-01-01 21:45 | disposition left against medical advice (07) ==
LOC: ER 20:13
DX: Z53.21 Procedure and treatment not carried out due to patient leaving prior to being seen by health care provider (principal)
CPT/HCPCS: 99282

== ENCOUNTER 2022-05-22 16:57 | Emergency (ER) | payer SELFPAY ==
--- OUTSIDE RECORDS SUMMARY | 2022-05-22 17:01 | XMS REPORT | Continuity of Care Document ---
:1990 Author Organization [facility] t Address 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 Social History Social Habit Start Date Stop Date Quantity Comments Source History of tobacco Cigarette Smoker [place] [facility] use [facility] Alcohol intake [facility] Sex Assigned At Universit y of [facility] Cigarettes smoked 2018-11-19 2018-11-19 Univers ity of current (pack per 00:00:00 00:00:00 [facility] ) - Reported Branch Smoking Status Start Date Stop Date Source Current every day smoker 2018-11-19 00:00:00 [facility] Medications Ordered Filled Start [...] ity o f human 04:30: 03:44 , [facility], [place] (HUMULIN R) 00 :00 1 dose, Medic al injection [facility] Branch 10 Units 05/01/19 at 2330, Routine No known No [facility] Immunizations Ordered Filled Immunization Date Status Comments Sourc e Immunization Name Name Tdap 2018-06-10 Completed [facility] 00:00:00 [facility] Vital Signs Vital Name Observation Time Observation Value Comments Source Systolic blood 2019-05-02 04:00:00 98 mm[Hg] Univer sity [facility] Diastolic blood 2019-05-02 04:00:00 85 mm[Hg] [facility] Heart rate 2019-05-02 04:00:00 91 /min [facility] Respiratory rate 2019-05-02 04:00:00 29 /min [facility] Oxygen saturation in 2019-05-02 04:00:00 97 /min [facility] Arterial blood by [facility] Pulse oximetry Branch Body weight 2019-05-02 02:02:00 100.245 kg [facility] BMI 2019-05-02 02:02:00 36.78 kg/m2 [facility] Body temperature 2019-05-02 00:21:00 36.89 [facility] Systolic blood 2019-05-02 04:00:00 98 mm[Hg] Univer sity of pressure [facility] Diastolic blood 2019-05-02 04:00:00 85 mm[Hg] [facility] Heart rate 2019-05-02 04:00:00 91 /min [facility] Respiratory rate 2019-05-02 04:00:00 29 /min [facility] Oxygen saturation in 2019-05-02 04:00:00 97 /min [facility] Arterial blood by [facility] Pulse oximetry [place] Body weight 2019-05-02 02:02:00 100.245 kg [facility] BMI 2019-05-02 02:02:00 36.78 kg/m2 [facility] Body temperature 2019-05-02 00:21:00 36.89 [facility] Procedures Procedure Date / Time Performing Clinician Source Performed POCT GLUCOSE(AGE 2019-05-02 04:43:00 Rey Wakefield [facility] >30DAYS) [facility] POCT GLUCOSE 2019-05-02 04:40:00 Rey Wakefield [facility] (AUTOMATED) [facility] POCT TEST 2019-05-02 02:05:00 Rey Wakefield [facility] LIPASE 2019-05-02 02:04:00 Rey Wakefield [facility] COMP. METABOLIC PANEL 2019-05-02 02:04:00 [facility] ([id number]) [facility] CBC WITH DIFFERENTIAL 2019-05-02 02:04:00 Rey Wakefield [facility] URINALYSIS 2019-05-02 02:04:00 Rey Wakefield [facility] NOTICE OF PRIVACY 2019-05-02 00:05:46 Doctor Unassigned, No Univ [facility] PRACTICES Name Medical Branch CONSENT/REFUSAL FOR 2019-05-02 00:05:32 Doctor Unassigned, No [facility] Name [facility] Encounters Start End Encounter Admission Attending Care Care Encounter Source Date/Time Date/Time Type Type Clinicians Facility Department ID 2019-05-01 2019-05-02 [facility] [id number] 19:23:31 00:11:00 Rey Willoughby 350.1.13.10 [place] 4.2.7.2.686 [place] [id number] 2019-05-01 2019-05-02 [facility] [id number] [facility] 19:23:31 00:11:00 Rey Willoughby 350.1.13.10 ity of [place] 4.2.7.2.686 [facility] [id number] [place] [id number] [place] Results Test Description Test Time Test Comments Results Result Comments Source POCT GLUCOSE(AGE >30DAYS) 2019-05-02 04:43:00 Test Item Value Reference Range Interpretation Comme nts POCT Glu (age>30days) (test code = 3342) 250 mg/dL 70-110 A Lab Interpretation (test code = 56132-1) Abnormal [facility]2019-05-02 04:41:00 Test Item Value Reference Range Interpretation Comments POCT GLU (test code = 8365739349) 250 mg/dL 70-110 H Lab Interpretation (test code = Abnormal 63715-5) [facility] (39552)2019-05-02 02:54:00 Test Item Value Reference Range Interpretation Comments NA (test code = 138 mmol/L 135-145 4649594730) K (test code = 3.5 mmol/L 3.5-5 7249539406) CL (test code = 101 mmol/L 98-108 4000127250) CO2 TOTAL (test code = 22 mmol/L 23-31 L 8945344208) AGAP (test code = 2-16 8424551965) BUN (test code = 5 mg/dL 7-23 L 2138096602) GLUCOSE (test code = 507 mg/dL 70-110 HH 9226971803) CREATININE (test code = 0.40 mg/dL 0.5-1.04 L 2715165333) TOTAL BILI (test code = 0.7 mg/dL 0.1-1.0 2748587529) CALCIUM (test code = 9.3 mg/dL 8.6-10.6 0668672127) T PROTEIN (test code = 7.2 g/dL 6.3-8.2 8010500283) ALBUMIN (test code = 4.0 g/dL 3.5-5 5031263909) ALK PHOS (test code = 104 U/L 34-122 0114922268) ALT(SGPT) (test code = 31 U/L 9-51 6242063988) AST(SGOT) (test code = 38 U/L 13-40 1737128151) eGFR Calculation mL/min/1.73m2 (Non-) (test code = 6603295056) eGFR Calculation mL/min/1.73m2 () (test code = 0467653238) CHAVA (test code = CHAVA) Association of [...] tests). Lab Interpretation Abnormal (test code = 31854-9) [facility] 02:31:00 Test Item Value Reference Range Interpretation Comments LIPASE (test code = 1625626867) 98 U/L 0-220 Lab Interpretation (test code = Normal 50184-4) [facility]2019-08-18 02:23:00 Test Item Value Reference Range Interpretation Comments APPEARANCE (test code = Clear Clear 6623160979) COLOR (test code = Yellow Yellow 0102038911) PH (test code = 4.8-8.0 4186840254) SP GRAVITY (test code = 1.003-1.030 7786367514) GLU U QUAL (test code = >1000 mg/dL Negative A 4461278387) BLOOD (test code = Negative Negative 0562485208) KETONES (test code = 15 mg/dL Negative A 6873668584) PROTEIN (test code = Negative Negative 2887-8) UROBILIN (test code = 0.2 mg/dL See_Comment [Auto mated 6210767529) message] The sy stem which generated this result transmitted reference range : 0-1.0 mg/dL. Th e reference range was not used to interpret this result as normal/abnormal . BILIRUBIN (test code = Negative Negative 9152272563) NITRITE (test code = Negative Negative 4672879792) LEUK ADAM (test code = Negative Negative 3623560327) RBC/HPF (test code = See_Comment [Autom ated 0935946881) message] The sy stem which generated this result transmitted reference range : 0 - 3 HPF. The reference range was not used to interpret this result as normal/abnormal . WBC/HPF (test code = See_Comment [Autom ated 6599384335) message] The sy stem which generated this result transmitted reference range : 0 - 5 HPF. The reference range was not used to interpret this result as normal/abnormal . BACTERIA (test code = Negative Negative 5569435461) Lab Interpretation Abnormal (test code = 25079-8) [facility] WITH [id number] 02:11:00 Test Item Value Reference Range Interpretation [...] RDW-SD (test code = 40.3 fL 39-49.9 78745-4) RDW-CV (test code = 12.5 % 12-15.5 788-0) PLT (test code = See_Comment [Automated 777-3) message] The sy stem which generated this result transmitted reference range : 166 - 358 10*3/ ?L. The reference r almaz was not used to interpret this result as normal/abnormal . MPV (test code = 11.2 fL 9.5-12.9 36609-9) NRBC/100 WBC (test See_Comment [Automat ed code = 4853146555) message] The system which generated this result transmitted reference range : 0.0 - 10.0 /100 WBCs. The refer ence range was not u sed to interpret th is result as normal/abnormal . NRBC x10^3 (test code <0.01 See_Comment [Auto mated = 1710293180) message] The s ystem which generated this result transmitted reference range : 10*3/?L. The reference range was not used to interpret this result as normal/abnormal . GRAN MAT (NEUT) % 71.2 % (test code = 770-8) IMM GRAN % (test code 0.30 % = 4917971679) LYMPH % (test code = 21.2 % 736-9) MONO % (test code = 6.6 % 5905-5) EOS % (test code = 0.2 % 713-8) BASO % (test code = 0.5 % 706-2) GRAN MAT x10^3(ANC) 4.29 10*3/uL 1.88-7.09 (test code = 2035319332) IMM GRAN x10^3 (test <0.03 0-0.06 code = 5175749652) LYMPH x10^3 (test code 1.28 10*3/uL 1.32-3.29 L = 731-0) MONO x10^3 (test code 0.40 10*3/uL 0.33-0.92 = 742-7) EOS x10^3 (test code = <0.03 0.03-0.39 L 711-2) BASO x10^3 (test code 0.03 10*3/uL 0.01-0.07 = 704-7) Lab Interpretation Abnormal (test code = 13956-7) [facility] [id number] 02:05:00 Test Item Value Reference Range Interpretation Comments POCT PREG (test code = 1605) negative On board controls acceptable with present C Line (test code = 3574) POCT PREG LOT # (test code = 3575) [id number] POCT PREG TEST DATE (test 09/14/2020 code = 3576) Lab Interpretation (test code = Normal 39567-5) [facility]"
[2022-05-22] MEDS ORDERED: GABAPENTIN 300 MG CAP ONE (17:39)
[2022-05-22] MEDS ORDERED: NA CHLORIDE 0.9% 1,000 ML ONE (17:39)
[2022-05-22 17:50] LABS: Absolute Lymphocytes (CBC) 3.2 K/uL (0.7-4.9); Hematocrit 40.4 % (36.0-45.0); MCV 87.8 fL (80-100); MPV 7.5 fL (7.6-11.3)
[2022-05-22 18:08] LABS: Albumin 3.1 g/dL (3.4-5.0); Bilirubin Total 0.9 mg/dL (0.2-1.0); Potassium 3.8 mmol/L (3.5-5.1)
--- NOTE | 2022-05-22 18:15 | ER ---
Nurse's Notes [facility] Name: Chiquis Palma Age: 31 yrs Sex: Female : 1990 Arrival Date: 05/22/2022 Time: 17:09 Bed 8 Private MD: Diagnosis: Polyneuropathy, unspecified;Unspecified subjective visual disturbances Presentation: 05/22 17:11 Chief complaint: Patient states: pain in her hand and feet along with blurry vision. mb8 Has been out of her Gabapentin for over a week which normally helps with the nerve pain. Denies CP or SOB. Coronavirus screen: Vaccine status: Patient reports being unvaccinated. Ebola Screen: No symptoms or risks identified at this time. Initial Sepsis Screen: Does the patient meet any 2 criteria? No. Patient's initial sepsis screen is negative. Does the patient have a suspected source of infection? No. Patient's initial sepsis screen is negative. Risk Assessment: Do you want to hurt yourself or someone else? Patient reports no desire to harm self or others. Onset of symptoms is unknown. 17:11 Method Of Arrival: EMS mb8 17:11 Acuity: CHANTEL 3 mb8 Triage Assessment: 17:13 General: Appears uncomfortable, Behavior is calm, cooperative, appropriate for age. mb8 Pain: Complains of pain in right foot and left foot Pain does not radiate. Pain currently is 6 out of 10 on a pain scale. Quality of pain is described as tingling. Historical: - Allergies: 17:12 No Known Allergies; mb8 - PMHx: 17:12 diabetes mellitus; mb8 - Social history:: Smoking status: Patient reports the use of cigarette tobacco products. Screenin:14 Abuse screen: Denies threats or abuse. Denies injuries from another. Nutritional mb8 screening: No deficits noted. Tuberculosis screening: No symptoms or risk factors identified. Fall Risk None identified. Assessment: 17:13 Neuro: Reports blurred vision in iris of right eye, inner aspect of conjuctiva of right mb8 eye and iris of left eye numbness in right hand, left hand, right foot and left foot. Cardiovascular: No deficits noted. Denies chest pain, diaphoresis, nausea, shortness of breath, vomiting, Capillary refill < 3 seconds Pulses are all present. are 3+ in right radial artery and left radial artery Rhythm is sinus rhythm Chest pain is denied. 18:17 General: Patient refusing to stay for test results due to her mom not coming here to be mb8 with her. I advised patient of the risks of leaving AMA. Patient is CAOx4. Patient reports she will have her mom bring her back when her mom gets home. SHERIFF talked with patient as well. Patient aware she can seek medical help even if she leaves. . Vital Signs: 17:11 BP 118 / 87; Pulse 72; Resp 14; Temp 97.9; Pulse Ox 100% ; Pain 6/10; mb8 ED Course: 17:09 Patient arrived in ED. iw 17:11 Mynor Nunez, RN is Primary Nurse. mb8 17:12 Triage completed. mb8 17:13 Arm band placed on. mb8 17:14 Daniel Ball NP is PHCP. pm1 17:14 Hermilo Howard DO is Attending Physician. pm1 17:14 Patient has correct armband on for positive identification. Bed in low position. Call mb8 light in reach. Side rails up X 1. Side rails up X2. Client placed on continuous cardiac and pulse oximetry monitoring. NIBP monitoring applied. clinical interviewer on. 17:15 No provider procedures requiring assistance completed. Inserted EMS IV. mb8 18:19 IV discontinued, intact, bleeding controlled, No redness/swelling at site. Pressure mb8 dressing applied. Administered Medications: 17:42 Drug: Gabapentin 300 mg Route: PO; mb8 17:42 Drug: NS 0.9% 1000 ml Route: IV; Rate: 1000 ml; Site: left antecubital; mb8 Medication: 17:14 VIS not applicable for this client. mb8 Outcome: 18:14 Discharge ordered by . pm1 18:19 AMA AMA form signed mb8 18:20 Patient left the ED. mb8 Signatures: Shaniqua Arroyo RN RN iw Daniel Ball NP SHERIFF pm1 Mynor Nunez RN RN mbBritta
--- NOTE | 2022-05-22 18:15 | EDPHYS ---
Physician Documentation [facility] Name: Chiquis Palma Age: 31 yrs Sex: Female : 1990 Arrival Date: 05/22/2022 Time: 17:09 Bed 8 Private MD: ED Physician Hermilo Howard HPI: 05/22 17:22 This 31 yrs old Female presents to ER via EMS with complaints of pain to pm1 bilateral hands and feet and blurry vision. 17:22 The patient presents with pain, that is chronic. The complaints affect the right hand, pm1 left hand, right foot and left foot. Context: The problem was sustained at an unknown location, resulted from discontinuing medications, gabapentin, the patient is able to ambulate. Onset: The symptoms/episode began/occurred 1 week(s) ago. Modifying factors: The symptoms are alleviated by nothing, the symptoms are aggravated by weight bearing. Associated signs and symptoms: Pertinent positives: Blurry vision. Severity of symptoms: in the emergency department the symptoms are actually worse. The patient has not experienced similar symptoms in the past. The patient has not recently seen a physician. Historical: - Allergies: 17:12 No Known Allergies; mb8 - PMHx: 17:12 diabetes mellitus; mb8 - Social history:: Smoking status: Patient reports the use of cigarette tobacco products. ROS: 17:22 MS/extremity: Positive for pain, of the right hand, left hand, right foot and left foot.pm1 17:22 Constitutional: Negative for fever, chills, and weight loss, Cardiovascular: Negative for chest pain, palpitations, and edema, Respiratory: Negative for shortness of breath, cough, wheezing, and pleuritic chest pain, Abdomen/GI: Negative for abdominal pain, nausea, vomiting, diarrhea, and constipation, MS/Extremity: Negative for injury and deformity, Skin: Negative for injury, rash, and discoloration. 17:22 Neuro: Negative for headache, weakness, numbness, tingling, and seizure. 17:22 Eyes: Positive for blurry vision. 17:22 All other systems are negative. Exam: 17:22 Constitutional: This is a well developed, well nourished patient who is awake, alert, pm1 and in no acute distress. Head/Face: Normocephalic, atraumatic. 17:22 Skin: Warm, dry with normal turgor. Normal color with no rashes, no lesions, and no evidence of cellulitis. MS/ Extremity: Pulses equal, no cyanosis. Neurovascular intact. Full, normal range of motion. 17:22 Eyes: Exam is negative for acute changes, Periorbital structures: appear normal, Pupils: no acute changes, Extraocular movements: no acute changes, Conjunctiva: no acute changes, no injection. 17:22 ENT: Exam is negative for acute changes, External ear(s): are unremarkable, Ear canal(s): are normal, TM's: are normal, Mouth: Lips: normal, moist, Oral mucosa: normal, pink and intact, moist. 17:22 Cardiovascular: Exam negative for acute changes, Rate: normal, Rhythm: regular, Pulses: no pulse deficits are appreciated. 17:22 Respiratory: Exam negative for acute changes, respiratory distress, shortness of breath, Breath sounds: are clear throughout. 17:22 Abdomen/GI: Inspection: abdomen appears normal, Palpation: abdomen is soft and non-tender, in all quadrants. 17:22 Neuro: Exam negative for acute changes, Orientation: is normal, Mentation: is normal, Motor: is normal, moves all fours. Vital Signs: 17:11 BP 118 / 87; Pulse 72; Resp 14; Temp 97.9; Pulse Ox 100% ; Pain 6/10; mb8 MDM: 17:14 Patient medically screened. pm1 17:22 Data reviewed: vital signs. Data interpreted: Pulse oximetry: on room air is 100 %. pm1 Interpretation: normal. 18:09 Refusal of service: The patient/guardian displays adequate decision making capability pm1 and despite a detailed discussion of alternatives, benefits, risks, and consequences refuses: Admission to the hospital for further work-up and treatment, to wait for lab results and treatment and evaluation for her current symptoms. Patient wants to go home because no family members want to stay in the hospital with her. Offered to prescribe the patient with her gabapentin that she ran out of 1 week ago. Patient takes 300 mg TID. 05/22 17:22 Order name: SARS-COV-2 RT PCR (Document "Date of Onset" if Symptomatic); Complete Time: pm1 23:05 05/22 17:22 Order name: Flu; Complete Time: 18:15 pm1 05/22 17:22 Order name: CBC with Diff; Complete Time: 18:15 pm1 05/22 17:22 Order name: CMP; Complete Time: 18:15 pm1 05/22 17:29 Order name: Glucose, Ancillary Testing; Complete Time: 17:30 EDMS 05/22 17:22 Order name: IV Saline Lock; Complete Time: 17:49 pm1 05/22 17:22 Order name: Urine Dipstick-Ancillary (obtain specimen) pm1 05/22 17:22 Order name: Urine Test (obtain specimen) pm1 Administered Medications: 17:42 Drug: Gabapentin 300 mg Route: PO; mb8 17:42 Drug: NS 0.9% 1000 ml Route: IV; Rate: 1000 ml; Site: left antecubital; mb8 Disposition: 23:05 Co-signature as Attending Physician, Hermilo Howard DO I agree with the assessment and ms3 plan of care. Disposition Summary: 05/22/22 18:14 Discharge Ordered Location: Home pm1 Problem: new pm1 Symptoms: have improved pm1 Condition: Undetermined pm1 Diagnosis - Polyneuropathy, unspecified pm1 - Unspecified subjective visual disturbances pm1 Followup: pm1 - With: Emergency Department - When: As needed - Reason: Worsening of condition Followup: pm1 - With: Private Physician - When: Upon discharge from the Emergency Department - Reason: Recheck today's complaints, Continuance of care, Re-evaluation by your physician Discharge Instructions: - Discharge Summary Sheet pm1 - Visual Disturbances pm1 - Peripheral Neuropathy pm1 Forms: - Medication Reconciliation Form pm1 - Thank You Letter pm1 - Antibiotic Education pm1 - Prescription Opioid Use pm1 Prescriptions: - gabapentin 300 mg Oral capsule - take 1 capsule by ORAL route 3 times per day; 30 capsule; Refills: 0, Product pm1 Selection Permitted Signatures: Dispatcher [employer] EDMS Daniel Ball, [employer] REPA[employer]ER [employer] REPAIRER pm1 Hermilo Howard DO DO ms3 Mynor Nunez RN RN mb8 Corrections: (The following items were deleted from the chart) 18:11 17:23 Head Brain Wo Cont+CT.RAD.BRZ ordered. EDMS EDMS
[2022-05-22 18:51] VITALS: BP 118/87; TEMP 97.9; O2SAT 100
== END 2022-05-22 18:20 | disposition home or self-care (01) ==
LOC: ER 16:57
DX: G62.9 Polyneuropathy, unspecified (principal); H53.10 Unspecified subjective visual disturbances; E11.9 Type 2 diabetes mellitus without complications; Z72.0 Tobacco use
CPT/HCPCS: 36415; 80053; 82947; 85025; 87804; 99284; J7030; U0003

== ENCOUNTER 2022-11-06 09:37 | Emergency (ER) | payer SELFPAY ==
--- OUTSIDE RECORDS SUMMARY | 2022-11-06 09:41 | XMS REPORT | Continuity of Care Document ---
:1990 Author Organization [facility] t Address 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 Social History Social Habit Start Date Stop Date Quantity Comments Source History of tobacco Cigarette Smoker [place] of use [facility] Alcohol intake [facility] Sex Assigned At Universit y of [facility] Cigarettes smoked 2018-11-19 2018-11-19 Univers ity of current (pack per 00:00:00 00:00:00 [facility] ) - Reported Branch Smoking Status Start Date Stop Date Source Current every day smoker 2018-11-19 00:00:00 [facility] Ordered Filled Start Stop Current [...] ity o f human 04:30: 03:44 , [facility], [place] (HUMULIN R) 00 :00 1 dose, Medic al injection [facility] Branch 10 Units 05/01/19 at 2330, Routine No known No [facility] Ordered Filled Immunization Date Status Comments Sourc e Immunization Name Name Tdap 2018-06-10 Completed [facility] 00:00:00 [facility] Vital Signs Vital Name Observation Time Observation Value Comments Source Systolic blood 2019-05-02 04:00:00 98 mm[Hg] Univer sity [facility] Diastolic blood 2019-05-02 04:00:00 85 mm[facility]Hg[facility] Heart rate 2019-05-02 04:00:00 91 /min [facility] Respiratory rate 2019-05-02 04:00:00 29 /min [facility] O[facility] saturation in 2019-05-02 04:00:00 97 /min [facility] Arterial blood by [facility] Pulse oximetry Branch Body weight 2019-05-02 02:02:00 100.245 kg [facility] BMI 2019-05-02 02:02:00 36.78 kg/m2 [facility] Body temperature 2019-05-02 00:21:00 36.89 [facility] Systolic blood 2019-05-02 04:00:00 98 mm[Hg] Univer sity of pressure [facility] Diastolic blood 2019-05-02 04:00:00 85 mm[Hg] [facility] Heart rate 2019-05-02 04:00:00 91 /min [facility] Respiratory rate 2019-05-02 04:00:00 29 /min [facility] Oxygen saturation in 2019-05-02 04:00:00 97 /min [facility] Arterial blood by [facility] Pulse oximetry [place] Body weight 2019-05-02 02:02:00 100.245 kg [facility] BMI 2019-05-02 02:02:00 36.78 kg/m2 [facility] Body temperature 2019-05-02 00:21:00 36.89 [facility] Procedures Procedure Date / Time Performing Clinician Source Performed POCT GLUCOSE(AGE 2019-05-02 04:43:00 Rey Wakefield [facility] >30DAYS) [facility] POCT GLUCOSE 2019-05-02 04:40:00 Rey Wakefield [facility] (AUTOMATED) [facility] POCT TEST 2019-05-02 02:05:00 Rey Wakefield [facility] LIPASE 2019-05-02 02:04:00 Rey Wakefield [facility] COMP. METABOLIC PANEL 2019-05-02 02:04:00 [facility] ([id number]) [facility] CBC WITH DIFFERENTIAL 2019-05-02 02:04:00 Rey Wakefield [facility] URINALYSIS 2019-05-02 02:04:00 Rey Wakefield [facility] NOTICE OF PRIVACY 2019-05-02 00:05:46 Doctor Unassigned, No Univ [facility] PRACTICES Name Medical Branch CONSENT/REFUSAL FOR 2019-05-02 00:05:32 Doctor [facility]assigned, No [facility] Encounters Start End Encounter Admission Attending Care Care Encounter Source Date/Time Date/Time Type Type Clinicians Facility Department ID 2019-05-01 2019-05-02 [facility] [id number] 19:23:31 00:11:00 Rey Willoughby [id number] [place] [id number] [place] [id number] 2019-05-01 2019-05-02 [facility] [id number] [facility] 19:23:31 00:11:00 Rey Willoughby [id number] ity of [place] [id number] [facility] [id number] [place] [id number] [place] Results Test Description Test Time Test Comments Results Result Comments Source POCT GLUCOSE(AGE >30DAYS) 2019-05-02 04:43:00 Test Item Value Reference Range Interpretation Comme nts POCT Glu (age>30days) (test code = 3342) 250 mg/dL 70-110 A Lab Interpretation (test code = 43527-8) [facility]normal [facility]2019-05-02 04:41:00 Test Item Value Reference Range Interpretation Comments POCT GLU (test code = 6132401683) 250 mg/dL 70-110 H Lab Interpretation (test code = Abnormal 46404-3) [facility] (01432)2019-05-02 02:54:00 Test Item Value Reference Range Interpretation Comments NA (test code = 138 mmol/L 135-145 1995514229) K (test code = 3.5 mmol/L 3.5-5 7641261870) CL (test code = 101 mmol/L 98-108 6944113563) CO2 TOTAL (test code = 22 mmol/L 23-31 L 5303851111) AGAP (test code = 2-16 6710715086) BUN (test code = 5 mg/dL 7-23 L 0743733759) GLUCOSE (test code = 507 mg/dL 70-110 HH 9094368379) CREATININE (test code = 0.40 mg/dL 0.5-1.04 L 8683918582) TOTAL BILI (test code = 0.7 mg/dL 0.1-1.3 6393881539) CALCIUM (test code = 9.3 mg/dL 8.6-10.6 2182400773) T PROTEIN (test code = 7.2 g/dL 6.3-8.2 9542596454) ALBUMIN (test code = 4.0 g/dL 3.5-5 4436207182) ALK PHOS (test code = 104 U/L 34-122 2385375289) ALT(SGPT) (test code = 31 U/L 9-51 6042467329) AST(SGOT) (test code = 38 U/L 13-40 5616251570) eGFR Calculation mL/min/1.73m2 (Non-) (test code = 0759652095) eGFR Calculation mL/min/1.73m2 () (test code = 2818295391) CHAVA (test code = CHAVA) Association of [...] tests). Lab Interpretation Abnormal (test code = 40291-7) [facility] 02:31:00 Test Item Value Reference Range Interpretation Comments LIPASE (test code = 4986170859) 98 U/L 0-220 Lab Interpretation (test code = Normal 29503-8) [facility] 02:23:00 Test Item Value Reference Range Interpretation Comments APPEARANCE (test code = Clear Clear 2904696017) COLOR (test code = Yellow Yellow 8947983250) PH (test code = 4.8-8.0 2864123555) SP GRAVITY (test code = 1.003-1.030 0056094380) GLU U QUAL (test code = >1000 mg/dL Negative A 8053063901) BLOOD (test code = Negative Negative 6995108601) KETONES (test code = 15 mg/dL Negative A 0300125436) PROTEIN (test code = Negative Negative 2887-8) UROBILIN (test code = 0.2 mg/dL See_Comment [Auto mated 4125685398) message] The sy stem which generated this result transmitted reference range : 0-1.0 mg/dL. Th e reference range was not used to interpret this result as normal/abnormal . BILIRUBIN (test code = Negative Negative 3200257144) NITRITE (test code = Negative Negative 1892745908) LEUK ADAM (test code = Negative Negative 4303295612) RBC/HPF (test code = See_Comment [Autom ated 9982873406) message] The sy stem which generated this result transmitted reference range : 0 - 3 HPF. The reference range was not used to interpret this result as normal/abnormal . WBC/HPF (test code = See_Comment [Autom ated 0433776581) message] The sy stem which generated this result transmitted reference range : 0 - 5 HPF. The reference range was not used to interpret this result as normal/abnormal . BACTERIA (test code = Negative Negative 6447349262) Lab Interpretation Abnormal (test code = 90119-5) [facility] [id number] 02:11:00 Test Item Value Reference Range Interpretation [...] RDW-SD (test code = 40.3 fL 39-49.9 92604-8) RDW-CV (test code = 12.5 % 12-15.5 788-0) PLT (test code = See_Comment [Automated 777-3) message] The sy stem which generated this result transmitted reference range : 166 - 358 10*3/ ?L. The reference r almaz was not used to interpret this result as normal/abnormal . MPV (test code = 11.2 fL 9.5-12.9 47439-8) NRBC/100 WBC (test See_Comment [Automat ed code = 6152235504) message] The system which generated this result transmitted reference range : 0.0 - 10.0 /100 WBCs. The refer ence range was not u sed to interpret th is result as normal/abnormal . NRBC x10^3 (test code <0.01 See_Comment [Auto mated = 7576092134) message] The s ystem which generated this result transmitted reference range : 10*3/?L. The reference range was not used to interpret this result as normal/abnormal . GRAN MAT (NEUT) % 71.2 % (test code = 770-8) IMM GRAN % (test code 0.30 % = 5178955301) LYMPH % (test code = 21.2 % 736-9) MONO % (test code = 6.6 % 5905-5) EOS % (test code = 0.2 % 713-8) BASO % (test code = 0.5 % 706-2) GRAN MAT x10^3(ANC) 4.29 10*3/uL 1.88-7.09 (test code = 0873892174) IMM GRAN x10^3 (test <0.03 0-0.06 code = 3377128728) LYMPH x10^3 (test code 1.28 10*3/uL 1.32-3.29 L = 731-0) MONO x10^3 (test code 0.40 10*3/uL 0.33-0.92 = 742-7) EOS x10^3 (test code = <0.03 0.03-0.39 L 711-2) BASO x10^3 (test code 0.03 10*3/uL 0.01-0.07 = 704-7) Lab Interpretation Abnormal (test code = 85620-6) [facility] [id number] 02:05:00 Test Item Value Reference Range Interpretation Comments POCT PREG (test code = 1605) negative On board controls acceptable with present C Line (test code = 3574) POCT PREG LOT # (test code = 3575) [id number] POCT PREG TEST DATE (test 09/14/2020 code = 3576) Lab Interpretation (test code = Normal 78313-4) [facility]"
[2022-11-06 10:11] LABS: Absolute Lymphocytes (CBC) 3.4 K/uL (0.7-4.9); Hematocrit 41.6 % (36.0-45.0); Lymphocytes % 31.4 % (15.3-44.8); MCV 89.1 fL (80-100); MPV 7.6 fL (7.6-11.3); RBC Red Blood Cell Count 4.66 M/uL (3.86-4.86)
[2022-11-06] MEDS ORDERED: NA CHLORIDE 0.9% 1,000 ML ONE (10:11)
[2022-11-06] MEDS ORDERED: ONDANSETRON 4 MG/2 ML VIAL ONE (10:11)
[2022-11-06 10:28] LABS: Albumin 3.5 g/dL (3.4-5.0); Bilirubin Total 0.5 mg/dL (0.2-1.0); Potassium 4.1 mmol/L (3.5-5.1); Protein, Total 7.8 g/dL (6.4-8.2)
--- NOTE | 2022-11-06 10:52 | EDPHYS ---
Physician Documentation [facility] Name: Chiquis Palma Age: 32 yrs Sex: Female : 1990 Arrival Date: 11/06/2022 Time: 09:41 Bed 19 Private MD: ED Physician Dawit Yousif HPI: 11/06 10:37 This 32 yrs old Female presents to ER via Law Enforcement with complaints of gwyn Medical Clearance. 10:37 in custody, wants clearence. Onset: The symptoms/episode began/occurred this morning. gwyn Severity of symptoms: At their worst the symptoms were mild in the emergency department the symptoms are unchanged. The patient has experienced similar episodes in the past, several times. 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 - Social history:: Smoking status: Patient reports the use of cigarette tobacco products, smokes one-half pack cigarettes per day. - Family history:: not pertinent. ROS: 10:45 Eyes: Negative for injury, pain, redness, and discharge, ENT: Negative for injury, gwyn pain, and discharge, Neck: Negative for injury, pain, and swelling. 10:45 Constitutional: Negative for fever, chills, and weight loss, Eyes: Negative for injury, pain, redness, and discharge, ENT: Negative for injury, pain, and discharge, Neck: Negative for injury, pain, and swelling, Cardiovascular: Negative for chest pain, palpitations, and edema, Respiratory: Negative for shortness of breath, cough, wheezing, and pleuritic chest pain, Abdomen/GI: Negative for abdominal pain, nausea, vomiting, diarrhea, and constipation, Back: Negative for injury and pain, : Negative for injury, bleeding, discharge, and swelling, MS/Extremity: Negative for injury and deformity, Skin: Negative for injury, rash, and discoloration, Neuro: Negative for headache, weakness, numbness, tingling, and seizure, Psych: Negative for depression, anxiety, suicide ideation, homicidal ideation, and hallucinations, Allergy/Immunology: Negative for hives, rash, and allergies, Endocrine: Negative for neck swelling, polydipsia, polyuria, polyphagia, and marked weight changes, Hematologic/Lymphatic: Negative for swollen nodes, abnormal bleeding, and unusual bruising. Exam: 10:45 Constitutional: This is a well developed, well nourished patient who is awake, alert, gwyn and in no acute distress. Head/Face: Normocephalic, atraumatic. Eyes: Pupils equal round and reactive to light, extra-ocular motions intact. Lids and lashes normal. Conjunctiva and sclera are non-icteric and not injected. Cornea within normal limits. Periorbital areas with no swelling, redness, or edema. ENT: Nares patent. No nasal discharge, no septal abnormalities noted. Tympanic membranes are normal and external auditory canals are clear. Oropharynx with no redness, swelling, or masses, exudates, or evidence of obstruction, uvula midline. Mucous membranes moist. Neck: Trachea midline, no thyromegaly or masses palpated, and no cervical lymphadenopathy. Supple, full range of motion without nuchal rigidity, or vertebral point tenderness. No Meningismus. Chest/axilla: Normal chest wall appearance and motion. Nontender with no deformity. No lesions are appreciated. Cardiovascular: Regular rate and rhythm with a normal S1 and S2. No gallops, murmurs, or rubs. Normal PMI, no JVD. No pulse deficits. Respiratory: Lungs have equal breath sounds bilaterally, clear to auscultation and percussion. No rales, rhonchi or wheezes noted. No increased work of breathing, no retractions or nasal flaring. Abdomen/GI: Soft, non-tender, with normal bowel sounds. No distension or tympany. No guarding or rebound. No evidence of tenderness throughout. Back: No spinal tenderness. No costovertebral tenderness. Full range of motion. Skin: Warm, dry with normal turgor. Normal color with no rashes, no lesions, and no evidence of cellulitis. MS/ Extremity: Pulses equal, no cyanosis. Neurovascular intact. Full, normal range of motion. Neuro: Awake and alert, GCS 15, oriented to person, place, time, and situation. Cranial nerves II-XII grossly intact. Motor strength 5/5 in all extremities. Sensory grossly intact. Cerebellar exam normal. Normal gait. Psych: Awake, alert, with orientation to person, place and time. Behavior, mood, and affect are within normal limits. 10:45 ECG was reviewed by the Attending Physician. Vital Signs: 09:42 BP 128 / 94; Pulse 110; Resp 20; Temp 97.9; Pulse Ox 98% on R/A; Weight 65.77 kg; ph Height 5 ft. 0 in. (152.40 cm); 11:57 BP 118 / 78; Pulse 97; Resp 18; Temp 98.2; Pulse Ox 99% on R/A; ph 09:42 Body Mass Index 28.32 (65.77 kg, 152.40 cm) ph MDM: 09:42 Patient medically screened. [place] 10:47 Differential Diagnosis altered mental status. Data reviewed: vital signs, nurses notes, [place] lab test result(s), EKG. Consideration of Admission/Observation Escalation of care including admission/observation considered. I considered the following discharge prescriptions or medication management in the emergency department Medications were administered in the Emergency Department. See MAR. Test considered but Not performed: CT: ct head. Care significantly affected by the following chronic conditions: Diabetes. 11/06 09:47 Order name: CBC with Diff [place] 11/06 09:47 Order name: Comprehensive Metabolic Panel [place] 11/06 10:14 Order name: Glucose, Ancillary Testing; Complete Time: 10:36 [facility] 11/06 10:28 Order name: Comprehensive Metabolic Panel; Complete Time: 10:36 [facility] 11/06 10:46 Order name: CBC with Automated Diff; Complete Time: 11:29 [facility] 11/06 11:07 Order name: Urine Dipstick-Ancillary; Complete Time: 11:29 [facility] 11/06 11:10 Order name: Urine --Ancillary (enter results) em1 11/06 11:15 Order name: Urine --Ancillary; Complete Time: 11:29 [facility] 11/06 11:26 Order name: Urine Culture 11/06 09:47 Order name: EKG; Complete Time: 09:47 [place] 11/06 09:47 Order name: EKG - Nurse/Tech; Complete Time: 10:13 [place] 11/06 09:47 Order name: Urine Dipstick-Ancillary (obtain specimen); Complete Time: 11:08 [place] 11/06 09:47 Order name: Urine Test (obtain specimen); Complete Time: 11:08 [place] 11/06 10:53 Order name: Misc. Order: get ua now please; Complete Time: 11:07 gwyn EC:45 Rate is 86 beats/min. Rhythm is regular. QRS [place] is Normal. SC interval is normal. QRS gwyn interval is normal. QT interval is normal. No Q waves. T waves are Normal. No ST changes noted. Clinical impression: Normal ECG and No evidence of ischemia. Interpreted by me. Reviewed by me. Administered Medications: 10:12 Drug: NS 0.9% 1000 ml Route: IV; Rate: 1 bolus; Site: right antecubital; ph 11:56 Follow up: Response: No adverse reaction; IV Status: Completed infusion; IV Intake: ph 1000ml 10:12 Drug: Zofran (Ondansetron) 4 mg Route: IVP; Site: right antecubital; ph 11:55 Follow up: Response: No adverse reaction ph 11:08 Drug: LanTUS (insulin glargine) 25 units Route: Sub-Q; Site: right upper arm; ph 11:55 Follow up: Response: No adverse reaction ph 11:42 Drug: Rocephin (cefTRIAXone) 1 grams Route: IV; Rate: per protocol; Site: right ph antecubital; 11:55 Follow up: Response: No adverse reaction; IV Status: Completed infusion ph 11:45 Drug: Cipro (ciprofloxacin) 500 mg Route: PO; ph 11:55 Follow up: Response: No adverse reaction ph Disposition Summary: 11/06/22 10:51 Discharge Ordered Location: Home gwyn Problem: new gwyn Symptoms: have improved gwyn Condition: Stable gwyn Diagnosis - Type 1 diabetes mellitus with hyperglycemia gwyn - Diabetes mellitus due to underlying condition with diabetic neuropathy, unspecified gwyn - UTI/ Urinary tract infection, site not specified gwyn Followup: gwyn - With: Private Physician - When: 2 - 3 days - Reason: Recheck today's complaints, Continuance of care, Re-evaluation by your physician Discharge Instructions: - Discharge Summary Sheet gwyn - Type 1 Diabetes Mellitus, Diagnosis, Adult gwyn - Hyperglycemia gwyn - Diabetic Nephropathy gwyn - Peripheral Neuropathy gwyn - Urinary Tract Infection, Adult gwyn - Blood Glucose Monitoring, Adult gwyn - Diabetes Mellitus and Nutrition, Adult gwyn - Hyperglycemia, [id number] gwyn - Urinary Tract Infection, Adult, [id number] gwyn Forms: - Medication Reconciliation Form gwyn - Thank You Letter gwyn - Antibiotic Education gwyn - Prescription Opioid Use gwyn Prescriptions: - Cipro 250 mg Oral Tablet - take 1 tablet by ORAL route every 12 hours; 14 tablet; Refills: 0, Product gwyn Selection Permitted Signatures: Dispatcher [employer] Dawit Apodaca MD MD cha Hall, Patricia RN RN ph
--- NOTE | 2022-11-06 10:52 | ER ---
Nurse's Notes [facility] Name: Chiquis Palma Age: 32 yrs Sex: Female : 1990 Arrival Date: 11/06/2022 Time: 09:41 Bed 19 Private MD: Diagnosis: Type 1 diabetes mellitus with hyperglycemia;Diabetes mellitus due to underlying condition with diabetic neuropathy, unspecified;UTI/ Urinary tract infection, site not specified Presentation: 11/06 09:42 Chief complaint: Brought in by PD for medical clearance, pt reports hx of IDDM. C/O ph headache, eye pain, and nausea. Coronavirus screen: Vaccine status: Patient reports receiving the 1st dose of the Covid vaccine. Ebola Screen: No symptoms or risks identified at this time. Initial Sepsis Screen: Does the patient meet any 2 criteria? No. Patient's initial sepsis screen is negative. Does the patient have a suspected source of infection? No. Patient's initial sepsis screen is negative. Risk Assessment: Do you want to hurt yourself or someone else? Patient reports no desire to harm self or others. Onset of symptoms was November 06, 2022. 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 - Social history:: Smoking status: Patient reports the use of cigarette tobacco products, smokes one-half pack cigarettes per day. - Family history:: not pertinent. Screenin:44 [facility] ED Fall Risk Assessment (Adult) History of falling in the last 3 months, ph including since admission No falls in past 3 months (0 pts) Confusion or Disorientation No (0 pts) Intoxicated or Sedated No (0 pts) Impaired Gait No (0 pts) Mobility Assist Device Used No (0 pt) Altered Elimination No (0 pt). Abuse screen: Denies threats or abuse. Denies injuries from another. Nutritional screening: No deficits noted. Tuberculosis screening: No symptoms or risk factors identified. Assessment: 10:14 General: Appears in no apparent distress. comfortable, Behavior is calm, cooperative, ph appropriate for age, Denies fever, feeling ill. Pain: Complains of pain in headache and eye pain. Neuro: Level of Consciousness is awake, alert, obeys commands, Oriented to person, place, time, situation, Reports headache. Cardiovascular: Capillary refill < 3 seconds in bilateral fingers Patient's skin is warm and dry. Respiratory: Airway is patent Respiratory effort is even, unlabored. GI: Reports nausea. Derm: Skin is intact, is healthy with good turgor, Skin is pink, warm \T\ dry. 10:51 Reassessment: Patient appears in no apparent distress at this time. Patient and/or ph family updated on plan of care and expected duration. Pain level reassessed. D/C pending medication from pharmacy. Vital Signs: 09:42 BP 128 / 94; Pulse 110; Resp 20; Temp 97.9; Pulse Ox 98% on R/A; Weight 65.77 kg; ph Height 5 ft. 0 in. (152.40 cm); 11:57 BP 118 / 78; Pulse 97; Resp 18; Temp 98.2; Pulse Ox 99% on R/A; ph 09:42 Body Mass Index 28.32 (65.77 kg, 152.40 cm) ph ED Course: 09:41 Patient arrived in ED. ph 09:42 Dawit Yousif MD is Attending Physician. gwyn 09:43 Triage completed. ph 09:43 Arm band placed on Patient placed in an exam room, on a stretcher. ph 09:44 Patient has correct armband on for positive identification. Bed in low position. Call ph light in reach. Side rails up X 1. Pulse ox on. NIBP on. Door closed. Noise minimized. 09:49 Payal Taylor, SELAM is Primary Nurse. ph 10:13 Initial lab(s) drawn, by ut, sent to lab. Inserted saline lock: 22 gauge in right ph antecubital area, using aseptic technique. Blood collected. 11:56 No provider procedures requiring assistance completed. IV discontinued, intact, ph bleeding controlled, No redness/swelling at site. Pressure dressing applied. Administered Medications: 10:12 Drug: NS 0.9% 1000 ml Route: IV; Rate: 1 bolus; Site: right antecubital; ph 11:56 Follow up: Response: No adverse reaction; IV Status: Completed infusion; IV Intake: ph 1000ml 10:12 Drug: Zofran (Ondansetron) 4 mg Route: IVP; Site: right antecubital; ph 11:55 Follow up: Response: No adverse reaction ph 11:08 Drug: LanTUS (insulin glargine) 25 units Route: Sub-Q; Site: right upper arm; ph 11:55 Follow up: Response: No adverse reaction ph 11:42 Drug: Rocephin (cefTRIAXone) 1 grams Route: IV; Rate: per protocol; Site: right ph antecubital; 11:55 Follow up: Response: No adverse reaction; IV Status: Completed infusion ph 11:45 Drug: Cipro (ciprofloxacin) 500 mg Route: PO; ph 11:55 Follow up: Response: No adverse reaction ph Medication: 09:44 VIS not applicable for this client. ph Intake: 11:56 IV: 1000ml; Total: 1000ml. ph Outcome: 10:51 Discharge ordered by . [facility] 11:56 Discharged to Law Enforcement ph 11:56 Condition: good 11:56 Discharge instructions given to patient, police, Instructed on discharge instructions, follow up and referral plans. medication usage, Demonstrated understanding of instructions, follow-up care, medications, Prescriptions given X 1. 11:57 Patient left the ED. ph Addendum: 11/09/2022 07:23 Addendum: Culture Results: Positive urine culture. No further action required. Bacteria e b sensitive to prescribed antibiotic. Signatures: Dawit Yousif MD MD cha Hall, Patricia RN RN Kateryna Funk
[2022-11-06] MEDS ORDERED: INSULIN GLARGINE 100 UNIT/ML SQ ONE (11:04)
[2022-11-06 11:07] LABS: Urine Blood 2+ (Negative); Urine Glucose 1+ (Negative); Urine Protein 1+ (Negative); Urine Specific Gravity >=1.030 (1.005-1.030); Urine pH 5.5 (5.0-7.0)
[2022-11-06 11:15] LABS: Urine Specific Gravity/Preg >1.030 (1.005-1.030)
[2022-11-06] MEDS ORDERED: NA CHLORIDE 0.9% 50 ML ONE (11:32)
[2022-11-06] MEDS ORDERED: CEFTRIAXONE 1000 MG/VIAL ONE (11:32)
[2022-11-06] MEDS ORDERED: CIPROFLOXACIN HCL 500 MG TAB ONE (11:50)
[2022-11-06 12:37] VITALS: BP 118/78; TEMP 98.2; O2SAT 99
--- NOTE | 2022-11-08 13:24 | EKG ---
Test Date: 2022-11-06 Test Time: 10:01:21 [address]: [facility] MEASUREMENT RESULTS: Intervals: Rate: 86 OK: 124 QRSD: 82 QT: 348 QTc: 416 Nicholson: P: 25 OK: 124 QRS: 39 T: 45 INTERPRETIVE STATEMENTS: Normal sinus rhythm Normal ECG Compared to ECG 11/13/2021 11:28:48 No significant changes Electronically Signed On 11-08-22 13:19:23 HEALTH AND FITNESS INSTRUCTOR by Jeronimo Gipson
== END 2022-11-06 11:57 | disposition home or self-care (01) ==
LOC: ER 09:37
DX: E10.65 Type 1 diabetes mellitus with hyperglycemia (principal); E10.40 Type 1 diabetes mellitus with diabetic neuropathy, unspecified; N39.0 Urinary tract infection, site not specified; F17.210 Nicotine dependence, cigarettes, uncomplicated
CPT/HCPCS: 36415; 80053; 81003; 81025; 82947; 85025; 87077; 87086; 87088; 87186; 93005; 96361; 96372; 96374; 96375; 99284; J2405; J7030

== ENCOUNTER → 2023-09-02 | Emergency (ER) | payer SELFPAY ==
[~2023-09-02] MED LIST: NA CHLORIDE 0.9% 0 ML ONE
--- OUTSIDE RECORDS SUMMARY | 2023-09-02 18:49 | XMS REPORT | Continuity of Care Document ---
Author Name Unknown Address [address] [facility] th[address] Address [address] [facility] [place] [address] Care Team Providers Care Manager Pool Name Role Phone Rey Wakefield MD Attending Clinician Encounters Start Date/Time End Date/Time Encounter Type Admission Type Attending Clinicians Care Facility Care Department Encounter ID Source 2023-08-15 17:29:39 2023-08-15 17:29:39 Outpatient [facility] [id number] 2019-05-01 19:23:31 2019-05-02 00:11:00 Emergency Rey Wakefield [facility] [id number]
--- NOTE | 2023-09-02 20:54 | RAD REPORT ---
EXAM DESCRIPTION: RAD - Chest Single View - 09/02/2023 8:47 pm CLINICAL HISTORY: CHEST PAIN Chest pain. COMPARISON: Chest Single View dated 02/22/2021; Chest Single View dated 01/08/2021; Chest Single View dated 01/06/2021; Chest Pa And Lat (2 Views) dated 09/09/2020 FINDINGS: Portable technique limits examination quality. The lungs are grossly clear. The heart is normal in size. No displaced fractures. IMPRESSION: No acute intrathoracic process suspected.
[2023-09-02 22:13] LABS: Absolute Lymphocytes (CBC) 3.9 K/uL (0.7-4.9); Hematocrit 39.4 % (36.0-45.0); Lymphocytes % 33.9 % (15.3-44.8); MCV 88.2 fL (80-100); MPV 7.9 fL (7.6-11.3); Platelets 321 thou/uL (152-406); RBC Red Blood Cell Count 4.47 M/uL (3.86-4.86)
[2023-09-02 22:17] LABS: Specific Gravity 1.024 (1.005-1.030); Urine Bilirubin NEGATIVE (Negative); Urine Blood Negative (Negative); Urine Clarity Clear (Clear); Urine Color Colorless (Yellow); Urine Glucose 4+ (Over) (Negative); Urine Protein NEGATIVE (Negative); Urine Urobilinogen Normal (Normal); Urine pH 7.5 (5.0-7.0)
[2023-09-02 22:27] LABS: Albumin 2.9 g/dL (3.4-5.0); Bilirubin Direct 0.1 mg/dL (0-0.2); Bilirubin Indirect, Calculated 0.2 mg/dL (0.2-0.8); Bilirubin Total 0.3 mg/dL (0.2-1.0); Magnesium 1.7 mg/dL (1.6-2.4); Potassium 3.7 mEq/L (3.5-5.1); Troponin High Sensitivity 3.2 pg/mL (<58.9)
--- NOTE | 2023-09-02 22:47 | ER ---
Nurse's Notes [facility] Name: Chiquis Palma Age: 32 yrs Sex: Female : 1990 Arrival Date: 09/02/2023 Time: 18:45 Bed 20 Private MD: Diagnosis: Diabetes mellitus due to underlying condition with hyperglycemia Presentation: 09/02 18:50 Chief complaint: Patient states: High blood sugar for the past 2 days, takes insulin, nj1 last check was 279. High blood pressure, checked at rehab facility, unsure of reading. Coronavirus screen: Vaccine status: Patient reports receiving the 1st dose of the Covid vaccine. Ebola Screen: Patient denies travel to an Ebola-affected area in the 21 days before illness onset. Initial Sepsis Screen: Does the patient meet any 2 criteria? HR > 90 bpm. No. Patient's initial sepsis screen is negative. Does the patient have a suspected source of infection? No. Patient's initial sepsis screen is negative. Risk Assessment: Do you want to hurt yourself or someone else? Patient reports no desire to harm self or others. Onset of symptoms was September 01, 2023. 18:50 Method Of Arrival: Ambulatory [facility] 18:50 Acuity: CHANTEL 3 nj1 Historical: - Allergies: 18:53 No Known Allergies; nj1 - PMHx: 18:53 diabetes mellitus; Hypertensive disorder; Neuropathy; nj1 - PSHx: 18:53 None; nj1 - Immunization history:: Client reports receiving the 1st dose of the Covid vaccine. - Social history:: Smoking status: Patient reports the use of cigarette tobacco products, smokes one-half pack cigarettes per day. Screenin:17 [facility] ED Fall Risk Assessment (Adult) History of falling in the last 3 months, jw7 including since admission No falls in past 3 months (0 pts) Score/Fall Risk Level 0 - 2 = Low Risk Oriented to surroundings, Maintained a safe environment. Abuse screen: Denies threats or abuse. Denies injuries from another. Nutritional screening: No deficits noted. Tuberculosis screening: No symptoms or risk factors identified. Assessment: 21:23 General: Appears in no apparent distress. uncomfortable, Behavior is calm, cooperative. jw7 Pain: Complains of pain in below left breast Pain does not radiate. Pain currently is 0 out of 10 on a pain scale. at worst was 8 out of 10 on a pain scale. Quality of pain is described as sharp, stabbing, pinching, Pain began 2-3 days ago. Is intermittent. Neuro: [place] Agitation-Sedation Scale (RASS): 0 - Alert and Calm Level of Consciousness is awake, alert, obeys commands, Oriented to person, place, time, situation. Cardiovascular: Capillary refill < 3 seconds Clubbing of nail beds is absent JVD is absent Patient's skin is warm and dry. Rhythm is sinus rhythm. Respiratory: Airway is patent Trachea midline Respiratory effort is even, unlabored, Respiratory pattern is regular, symmetrical. GI: No deficits noted. No signs and/or symptoms were reported involving the gastrointestinal system. : Reports "My urine smells like syrup". EENT: No deficits noted. No signs and/or symptoms were reported regarding the EENT system. Derm: Skin is intact, is healthy with good turgor, Skin is dry, Skin is normal, Skin temperature is warm. Musculoskeletal: Circulation, motion, and sensation intact. Range of motion: intact in all extremities. 22:42 Reassessment: Patient appears in no apparent distress at this time. Patient and/or jw7 family updated on plan of care and expected duration. Pain level reassessed. Patient is alert, oriented x 3, equal unlabored respirations, skin warm/dry/pink. Patient states feeling better. Vital Signs: 18:50 BP 161 / 89; Pulse 91; Resp 16; Temp 98(O); Pulse Ox 100% on R/A; Weight 85.73 kg; nj1 Height 5 ft. 0 in. ; 18:53 BP 153 / 82; nj1 21:00 BP 125 / 93; Pulse 80; Resp 19 S; Pulse Ox 98% on R/A; jw7 22:15 BP 125 / 56; Pulse 77; Resp 16 S; Pulse Ox 97% on R/A; jw7 18:50 Body Mass Index 36.91 (85.73 kg, 152.4 cm) co1 ED Course: 18:46 Patient arrived in ED. rg4 18:53 Triage completed. nj1 18:53 Arm band placed on right wrist. nj1 18:58 Rose Mary Anna FNP-C [facility] kb 18:58 Dawit Yousif MD is Attending Physician. kb 20:48 Chest Single View XRAY In Process Unspecified. EDMS 21:14 Flores Weber, RN is Primary Nurse. jw7 21:17 Patient has correct armband on for positive identification. Bed in low position. Call jw7 light in reach. 21:28 Inserted saline lock: 20 gauge in right antecubital area, using aseptic technique. oe Blood collected. 21:29 Urinalysis w/ reflexes Sent. oe 21:29 Troponin High Sensitivity Sent. oe 21:29 Test, Urine Sent. oe 21:29 Magnesium Sent. oe 21:29 Hepatic Function Sent. oe 21:30 CBC with Diff Sent. oe 21:30 Basic Metabolic Panel Sent. oe 23:03 Provided Education on: discharge intructions. jw7 23:03 No provider procedures requiring assistance completed. IV discontinued, intact, jw7 bleeding controlled, No redness/swelling at site. Pressure dressing applied. Administered Medications: 23:02 Not Given (Patient Refused): ns 0.9% 1000 ml IV at 1000 ml once jw7 Medication: 23:03 VIS not applicable for this client. jw7 Outcome: 22:46 Discharge ordered by MD. stacy 23:03 Discharged to home ambulatory, jw7 23:03 Condition: stable 23:03 Discharge instructions given to patient, Instructed on discharge instructions, follow up and referral plans. Demonstrated understanding of instructions, follow-up care, 23:04 Patient left the ED. jw7 Signatures: Dispatcher [employer] EDTN Rose Mary Anna, EXEC[employer]IVE [employer]ING-C EXEC[employer]IVE COMM[employer]ITY PLANNING-CkNelly Escalante rg4 Alessandro Brennan oe Flores Weber, RN RN jw7 Maria Victoria Burch RN RN nj1
--- NOTE | 2023-09-02 22:47 | EDPHYS ---
Physician Documentation [facility] Name: Chiquis Palma Age: 32 yrs Sex: Female : 1990 Arrival Date: 09/02/2023 Time: 18:45 Bed 20 Private MD: ED Physician Dawit Yousif HPI: 09/02 22:48 This 32 yrs old Female presents to ER via Ambulatory with complaints of High kb Blood Pressure, High Blood Sugar. 22:48 Patient is a 32-year-old female with a history of diabetes and hypertension who kb presents for high blood sugar that started 2 days ago. States she felt like she may pass out earlier today so the facility that she is in right now sent her to the ER for evaluation.. Historical: - Allergies: 18:53 No Known Allergies; nj1 - PMHx: 18:53 diabetes mellitus; Hypertensive disorder; Neuropathy; nj1 - PSHx: 18:53 None; nj1 - Immunization history:: Client reports receiving the 1st dose of the Covid vaccine. - Social history:: Smoking status: Patient reports the use of cigarette tobacco products, smokes one-half pack cigarettes per day. ROS: 22:47 Constitutional: Negative for fever, chills, and weight loss, kb 22:47 Neuro: Positive for near syncope, 22:47 All other systems are negative, Exam: 22:47 Constitutional: This is a well developed, well nourished patient who is awake, alert, kb and in no acute distress. Head/Face: Normocephalic, atraumatic. Eyes: Pupils equal round and reactive to light, extra-ocular motions intact. Lids and lashes normal. Conjunctiva and sclera are non-icteric and not injected. Cornea within normal limits. Periorbital areas with no swelling, redness, or edema. ENT: Moist Mucous membranes Cardiovascular: Regular rate Respiratory: Respirations even and unlabored. No increased work of breathing. Talking in full sentences Abdomen/GI: Soft, non-tender. No distention Skin: Warm, dry with normal turgor. Normal color. MS/ Extremity: Pulses equal, no cyanosis. Neurovascular intact. Full, normal range of motion. Neuro: Awake and alert, GCS 15, oriented to person, place, time, and situation. Moves all extremities. Normal gait. 22:49 ECG was reviewed by the Attending Physician. kb Vital Signs: 18:50 BP 161 / 89; Pulse 91; Resp 16; Temp 98(O); Pulse Ox 100% on R/A; Weight 85.73 kg; nj1 Height 5 ft. 0 in. ; 18:53 BP 153 / 82; nj1 21:00 BP 125 / 93; Pulse 80; Resp 19 S; Pulse Ox 98% on R/A; jw7 22:15 BP 125 / 56; Pulse 77; Resp 16 S; Pulse Ox 97% on R/A; jw7 18:50 Body Mass Index 36.91 (85.73 kg, 152.4 cm) nj1 MDM: 18:58 Patient medically screened. kb 22:47 Differential diagnosis: hyperglycemia, dka, dehydration. Data reviewed: vital signs, kb nurses notes. Counseling: I had a detailed discussion with the patient and/or guardian regarding the historical points, exam findings, and any diagnostic results supporting the discharge/admit diagnosis, lab results, the need for outpatient follow up, a family practitioner, to return to the emergency department if symptoms worsen or persist or if there are any questions or concerns that arise at home. 09/02 19:09 Order name: Glucose, Ancillary Testing; Complete Time: 19:16 EDMS 09/02 19:43 Order name: Basic Metabolic Panel; Complete Time: 22:34 kb 09/02 19:43 Order name: CBC with Diff; Complete Time: 22:17 kb 09/02 19:43 Order name: Hepatic Function; Complete Time: 22:34 kb 09/02 19:43 Order name: Magnesium; Complete Time: 22:34 kb 09/02 19:43 Order name: Test, Urine; Complete Time: 22:22 kb 09/02 19:43 Order name: Troponin High Sensitivity; Complete Time: 22:34 kb 09/02 19:43 Order name: Urinalysis w/ reflexes; Complete Time: 22:22 kb 09/02 19:43 Order name: Chest Single View XRAY; Complete Time: 20:56 kb 09/02 19:43 Order name: EKG; Complete Time: 19:44 kb 09/02 19:43 Order name: Cardiac monitoring; Complete Time: 21:14 kb 09/02 19:43 Order name: EKG - Nurse/Tech; Complete Time: 21:14 kb 09/02 19:43 Order name: IV Saline Lock; Complete Time: 21:27 kb 09/02 19:43 Order name: Labs collected and sent; Complete Time: 21:27 kb 09/02 19:43 Order name: NPO; Complete Time: 21:14 kb 09/02 19:43 Order name: O2 Per Protocol; Complete Time: 21:14 kb 09/02 19:43 Order name: O2 Sat Monitoring; Complete Time: 21:14 kb EC:49 Rate is 81 beats/min. Rhythm is regular. QRS [place] is Normal. IN interval is normal at kb 150 msec. QRS interval is normal at 78 msec. QT interval is normal at 425 msec. Administered Medications: 23:02 Not Given (Patient Refused): ns 0.9% 1000 ml IV at 1000 ml once jw7 Disposition Summary: 09/02/23 22:46 Discharge Ordered Notes: Location: Home kb Condition: Stable kb Diagnosis - Diabetes mellitus due to underlying condition with hyperglycemia kb Followup: kb - With: Emergency Department - When: As needed - Reason: Worsening of condition Followup: kb - With: Private Physician - When: 2 - 3 days - Reason: Recheck today's complaints, Continuance of care, Re-evaluation by your physician Discharge Instructions: - Discharge Summary Sheet kb - Hyperglycemia kb Forms: - Medication Reconciliation Form kb - Thank You Letter kb - Antibiotic Education kb - Prescription Opioid Use kb - Patient Portal Instructions kb - Leadership Thank You Letter kb Signatures: Dispatcher [employer] Rose Mary Alcantara FNP-C FNP-Maria Victoria Torres RN RN nj1 Flores Weber RN jw7
[2023-09-02 23:52] VITALS: TEMP 98
[2023-09-03 00:19] VITALS: BP 125/56; O2SAT 97
--- NOTE | 2023-09-03 12:51 | EKG ---
Test Date: 2023-09-02 Test Time: 21:09:27 [employer] Utility Operator: ALTHEA MEASUREMENT RESULTS: Intervals: Rate: 81 CO: 150 QRSD: 78 QT: 366 QTc: 425 [place]: P: 44 CO: 150 QRS: 55 T: 26 INTERPRETIVE STATEMENTS: Normal sinus rhythm Normal ECG Compared to ECG 11/06/2022 10:01:21 No significant changes Electronically Signed On 09-03-23 12:48:54 [employer]IDENT[employer] SALES by Jeronimo Gipson
== END ==
LOC: ER 18:45
DX: E11.65 Type 2 diabetes mellitus with hyperglycemia (principal)
CPT/HCPCS: 36415; 71045; 80048; 80076; 81003; 81025; 82947; 83735; 84484; 85025; 93005; 99284; J7030

== ENCOUNTER 2024-01-11 12:21 | Inpatient (IN) | payer OTHER, SELFPAY ==
--- OUTSIDE RECORDS SUMMARY | 2024-01-11 12:26 | XMS REPORT | Continuity of Care Document ---
Author Name Unknown Address [address] [facility] [address] [place] [address] [facility] thconnect Address [address] [facility] [place] [address] Care Team Providers Care Intermediate Designer Name Role Phone Jovana Zabala Primary Care Physician [phone] More Collins NP Attending Clinician [phone] SONJA RAMIRES Attending Clinician Unavailable Sonja Ramires NP Attending Clinician [phone] Rey Wakefield MD Attending Clinician [phone] Payers Payer Name Policy Type Policy Number Effective Date Expirati on Date Source [employer] [id number] 2022 00:00:00 Problems Condition Name Condition Details Condition Category Status Onset Date Resolution Date Last Treatment Date Treating Clinician Comments Source Nexplanon insertion Nexplanon insertion Disease Active 12-03 00:00: 00 [facility] Atypical squamous cell changes of undetermin ed significan ce (ASCUS) on vaginal cytology Atypical squamous cell changes of undetermin ed significan ce (ASCUS) on vaginal cytology Disease Active 12-01 00:00: 00 Overview: Beverly nino of this note might be different from the original. Awaiting on HPV results. [facility] Well woman exam Well woman exam Disease Active 11-19 00:00: 00 [facility] Diabetes insipidus Diabetes insipidus Disease Active 11-19 00:00: 00 [facility] Encounter for contracept jessica management , unspecifie d type Encounter for contracept jessica management , unspecifie d type Disease Active 11-19 00:00: 00 [facility] BMI 40.0-44.9, adult BMI 40.0-44.9, adult Disease Active 11-19 00:00: 00 [facility] Encounter for contracept jessica management , unspecifie d type Encounter for contracept jessica management , unspecifie d type Disease Active 11-19 00:00: 00 [facility] Morbid obesity Morbid obesity Disease Active 06-10 00:00: 00 [facility] Allergies, Adverse Reactions, Alerts Allergy Name Allergy Type Status Severity Reaction(s) Onset Date Inactive Date Treating Clinician Comments Source NO KNOWN ALLERGIE S Drug Class Active [facility] Social History Social Habit Start Date Stop Date Quantity Comments Source History of tobacco use Cigarette Smoker [facility] Gender identity [facility] Sexual orientation U [facility] Alcohol intake 2023-05-23 00:00:00 2023-05-23 00:00:00 0 /d [facility] History of Social function 2019-03-25 00:00:00 2019-03-25 00:00:00 [facility] Tobacco use and exposure 2018-11-19 00:00:00 2018-11-19 00:00:00 Smokeless tobacco non-user [facility] Cigarettes smoked current (pack per day) - Reported 2018-11-19 00:00:00 2018-11-19 00:00:00 [facility] Sex Assigned At 1990 00:00:00 1990 00:00:00 [facility] Smoking Status Start Date Stop Date Source Smokes tobacco daily 2018-11-19 00:00:00 [facility] Medications Ordered Medication Name Filled Medication Name Start Date Stop Date Current Medication? Ordering Clinician Indication Dosage Frequency Signature (SIG) Comments Components Source iopamidol (ISOVUE 370-500 mL) injection 83 mL 01-08 19:30: 00 01-08 19:26 :00 No [id number] 83mL 83 mL, Intravenou s, ONCE, 1 dose, On Fri01/09/24 at 1430, Routine [facility] insulin regular human (HUMULIN R) injection 10 Units 01-08 19:30: 00 01-08 18:56 :00 No 10U 10 Units, Subcutaneo us, ONCE, 1 dose, On Fri01/09/24 at 1430, Routine
Indicatio n for insulin: Hyperglyce [facility] HYDROcodone -acetaminop hen (NORCO 5) 5-325 mg tablet 1 tablet 01-08 17:30: 00 01-08 17:40 :00 No 1{tbl} 1 tablet, Oral, ONCE, 1 dose, On Fri01/09/24 at 1230, GALI [facility] cephALEXin (KEFLEX) capsule 500 mg 01-08 17:30: 00 01-08 17:39 :00 No 500mg 500 mg, Oral, ONCE, 1 dose, On Fri01/09/24 at 1230, GALI
Re ason for Anti-Infec tive: Empiric Therapy for Suspected Infection< br>Empiric Therapy Site: Skin / Soft tissue
Duration of therapy: Once (ED) [facility] cephALEXin 500 mg capsule 01-08 00:00: 00 01-19 04:59 :00 Yes [id number] 500mg Take 1 capsule by mouth 4 (four) times daily for 10 days. [facility] insulin regular human (HUMULIN R) injection 8 Units 05-23 22:00: 00 Yes 8U 8 Units, Subcutaneo us, BID MEALS, First dose on Fri05/23/23 at 1700, Until Discontinu ed, Routine
Indicatio n for insulin: Hyperglyce [facility] NaCl 0.9% (NS) IV infusion 1,000 mL 05-23 18:30: 00 Yes 1000mL at 999 mL/hr, Intravenou s, CONTINUOUS , Starting on Fri05/23/23 at 1330, Until Discontinu ed, GALI [facility] NaCl 0.9% (NS) bolus infusion 1,000 mL 05-23 17:30: 00 05-23 18:11 :00 No 1000mL at 999 mL/hr, 1,000 mL, IV Infusion, ONCE, 1 dose, On Fri05/23/23 at 1230, GALI [facility] metFORMIN 500 mg tablet 05-23 00:00: 00 06-23 04:59 :00 No [id number] 500mg Take 1 tablet by mouth in the morning and 1 tablet in the evening. Take with meals. Do all this for 30 days. [facility] NaCl 0.9% (NS) IV infusion 1,000 mL 05-02 04:30: 00 Yes 1000mL at 999 mL/hr, Intravenou s, CONTINUOUS , Starting 05/01/19 at 2330, Until Discontinu ed, Routine [facility] insulin regular human (HUMULIN R) injection 10 Units 05-02 04:30: 00 05-02 03:44 :00 No 10U 10 Units, Subcutaneo us, ONCE, 1 dose, 05/01/19 at 2330, Routine [facility] No known medications No Un morelia [facility] Immunizations Ordered Immunization Name Filled Immunization Name Date Status Comments Source Tdap 2018-06-10 00:00:00 Completed [facility] TDAP 2018-06-10 00:00:00 Completed [facility] TDAP Unknown Completed [facility] Vital Signs Vital Name Observation Time Observation Value Comments S ouriwona Systolic blood pressure 2024-01-09 21:00:00 124 mm[Hg] [facility] Diastolic blood pressure 2024-01-09 21:00:00 96 mm[Hg] [facility] Heart rate 2024-01-09 21:00:00 89 /min [facility] Body temperature 2024-01-09 21:00:00 36.5 [facility] Respiratory rate 2024-01-09 21:00:00 16 /min [facility] Oxygen saturation in Arterial blood by Pulse oximetry 2024-01-09 21:00:00 99 /min [facility] Body height 2024-01-09 16:12:00 152.4 cm [facility] Body weight 2024-01-09 16:12:00 86.183 kg [facility] BMI 2024-01-09 16:12:00 37.11 kg/m2 [facility] Systolic blood pressure 2023-05-23 19:02:00 117 mm[Hg] [facility] Diastolic blood pressure 2023-05-23 19:02:00 71 mm[Hg] [facility] Respiratory rate 2023-05-23 19:02:00 16 /min [facility] Oxygen saturation in Arterial blood by Pulse oximetry 2023-05-23 19:02:00 99 /min [facility] Heart rate 2023-05-23 18:00:00 76 /[facility] Body temperature 2023-05-23 16:41:00 36.83 [facility] Body height 2023-05-23 16:41:00 152.4 cm [facility] Body weight 2023-05-23 16:41:00 77.111 kg [facility] BMI 2023-05-23 16:41:00 33.20 kg/m2 [facility] Systolic blood pressure 2019-05-02 04:00:00 98 mm[Hg] [facility] Diastolic blood pressure 2019-05-02 04:00:00 85 mm[Hg] [facility] Heart rate 2019-05-02 04:00:00 91 /min [facility] Respiratory rate 2019-05-02 04:00:00 29 /min [facility] Oxygen saturation in Arterial blood by Pulse oximetry 2019-05-02 04:00:00 97 /min [facility] Body weight 2019-05-02 02:02:00 100.245 kg [facility] BMI 2019-05-02 02:02:00 36.78 kg/m2 [facility] Body temperature 2019-05-02 00:21:00 36.89 [facility] Systolic blood pressure 2019-05-02 04:00:00 98 mm[Hg] [facility] Diastolic blood pressure 2019-05-02 04:00:00 85 mm[Hg] [facility] Heart rate 2019-05-02 04:00:00 91 /min [facility] Respiratory rate 2019-05-02 04:00:00 29 /min [facility] Oxygen saturation in Arterial blood by Pulse oximetry 2019-05-02 04:00:00 97 /min [facility] Body weight 2019-05-02 02:02:00 100.245 kg [facility] BMI 2019-05-02 02:02:00 36.78 kg/m2 [facility] Body temperature 2019-05-02 00:21:00 36.89 [facility] Procedures Procedure Date / Time Performed Performing Clinician Source POCT GLUCOSE (AUTOMATED) 2024-01-09 19:55:00 More Collins [facility] CT THORAX W CONTRAST 2024-01-09 19:34:18 Joshua Collins [facility] COMP. METABOLIC PANEL ([id number]) 2024-01-09 17:38:00 More Collins [facility] CBC WITH DIFF 2024-01-09 17:38:00 More Collins [facility] URINALYSIS 2024-01-09 17:38:00 More Collins [facility] POCT GLUCOSE(AGE >30DAYS) 2023-05-23 19:03:00 Sonja Ramires [facility] POCT GLUCOSE (AUTOMATED) 2023-05-23 19:02:00 Sonja Ramires [facility] POCT GLUCOSE (AUTOMATED) 2023-05-23 17:52:00 Sonja Ramires [facility] BASIC METABOLIC PANEL (NA, K, CL, CO2, GLUCOSE, BUN, CREATININE, CA) 2023-05-23 16:55:00 Sonja Ramires [facility] CBC WITH DIFF 2023-05-23 16:55:00 Sonja Ramires [facility] GLYCOSYLATED HEMOGLOBIN (A1C) 2023-05-23 16:55:00 Sonja Ramires [facility] POCT GLUCOSE (AUTOMATED) 2023-05-23 16:41:00 Doctor Unassigned, [facility] POCT GLUCOSE(AGE >30DAYS) 2019-05-02 04:43:00 Rey Wakefield [facility] POCT GLUCOSE (AUTOMATED) 2019-05-02 04:40:00 Rey Wakefield [facility] POCT TEST 2019-05-02 02:05:00 Rey Wakefield [facility] LIPASE 2019-05-02 02:04:00 Rey Wakefield [facility] COMP. METABOLIC PANEL ([id number]) 2019-05-02 02:04:00 Rey Wakefield [facility] CBC WITH DIFFERENTIAL 2019-05-02 02:04:00 Wm Wakefield [facility] URINALYSIS 2019-05-02 02:04:00 Rey Wakefield [facility] NOTICE OF PRIVACY PRACTICES 2019-05-02 00:05:46 Doctor Unassigned, [facility] CONSENT/REFUSAL FOR DIAGNOSIS AND TREATMENT 2019-05-02 00:05:32 Doctor Unassigned, [facility] Encounters Start Date/Time End Date/Time Encounter Type Admission Type Attending [facility] Care Facility Care Department Encounter ID Source 2024-01-09 11:15:00 2024-01-09 16:34:00 Emergency More Collins [facility] [id number] [facility] 2024-01-09 11:15:00 2024-01-09 16:34:00 Emergency X MORE COLLINS [facility] ERT [id number] [facility] 2023-09-03 10:58:14 2023-09-03 10:58:14 Outpatient SFA SFA [id number] Corey F Radames 2023-08-15 17:29:39 2023-08-15 17:29:39 Outpatient SFA SFA [id number] Corey Crum 2023-05-23 11:39:00 2023-05-23 14:32:00 Emergency X SONJA RAMIRES [facility] ERT [id number] [facility] 2023-05-23 11:39:00 2023-05-23 14:32:00 Emergency Sonja Ramires [facility] [id number] [facility] 2019-05-01 19:23:31 2019-05-02 00:11:00 Emergency Rey Wakefield [facility] [id number] [facility] 2019-05-01 19:23:31 2019-05-02 00:11:00 Emergency Rey Wakefield [facility] [id number] Results Test Description Test Time Test Comments Results Result Comments Source CT THORAX W CONTRAST 20:45:47 ORDERING PHYSICIAN: MORE COLLINS. HISTORY: suspect breast cancer left breast TECHNIQUE: CT chest with intravenous contrast. ?CT was performed accordingto ALARA (As Low As Reasonably Achievable). COMPARISON: None. FINDINGS: A large poorly marginated breast mass measures 4.4 x 7 cm (image 41/3).Associated skin thickening covers a wider area, measuring 16.8 cm intransverse dimension. Great Vessels: Visualized portions of the aorta and main pulmonary arteryare normal. Heart: Normal in size. ?No pericardial effusion. Lymphadenopathy: There is hyperenhancing left axillary adenopathy. Thelargest lymph node measures 10 mm (image 32/3). Smaller hyperenhancinglymph nodes measure 5, 6, and 6 mm respectively (images 30, 28, and 25,series 3). Lungs: Lungs are clear. Airways: Airways are clear. ?No bronchiectasis. Pleura: No pneumothorax or pleural effusion. Other: A 5 mm right thyroid lobe nodule requires no follow-up (image 07/18). Visualized abdomen: Adrenal glands are normal. The liver is fatty.Gallbladder is normal. There is no biliary dilation. Osseous Structures: No suspicious lesions are identified. [facility]. METABOLIC PANEL ([id number])2024-01-09 18:32:09* Test Item Value Reference Range Interpretation Comme nts NA (test code = 4816041880) 130 mmol/L 135-145 L K (test code = 0071623324) 3.3 mmol/L 3.5-5.0 L CL (test code = 3443275072) 95 mmol/L 98-108 L CO2 TOTAL (test code = 5735564164) 23 mmol/L 23-31 AGAP (test code = 3394908596) 12 2-16 BUN (test code = 6447070297) 4 mg/dL 7-23 L GLUCOSE (test code = 7782150599) 594 mg/dL 70-110 HH CREATININE (test code = 2160-0) 0.41 mg/dL 0.50-1.04 L TOTAL BILI (test code = 3814592256) 0.5 mg/dL 0.1-1.1 CALCIUM (test code = 3492261880) 9.2 mg/dL 8.6-10.6 T PROTEIN (test code = 1653582786) 7.7 g/dL 6.3-8.2 ALBUMIN (test code = 8002899792) 3.6 g/dL 3.5-5.0 ALK PHOS (test code = 4672912171) 145 U/L 34-122 H ALTv (test code = 1742-6) 21 U/L 5-35 AST(SGOT) (test code = 3373924337) 19 U/L 13-40 eGFR (test code = 36475-4) 134.3 mL/min/1.73m2 CKD-EPI eGFR (2020). Assuming creatinine has been stable day-to-day for at least three months, the eGFR indicates Category G1 (>= 90 mL/min/1.73 m2) Lab Interpretation (test code = 50916-5) Abnormal [facility] WITH [id number] 17:59:16* Test Item Value Reference Range Interpretation Comme nts WBC (test code = 6690-2) 13.07 4.30-11.10 H RBC (test code = 789-8) 4.79 3.93-5.25 HGB (test code = 718-7) 13.9 g/dL 11.6-15.0 HCT (test code = 4544-3) 43.3 % 35.7-45.2 MCV (test code = 787-2) 90.4 fL 80.6-95.5 MCH (test code = 785-6) 29.0 pg 25.9-32.8 MCHC (test code = 786-4) 32.1 g/dL 31.6-35.1 RDW-SD (test code = 38023-2) 42.4 fL 39.0-49.9 RDW-CV (test code = 788-0) 12.9 % 12.0-15.5 PLT (test code = 777-3) 368 166-358 H MPV (test code = 70542-0) 10.1 fL 9.5-12.9 NRBC/100 WBC (test code = 2459307621) 0.0 0.0-10.0 NRBC x10^3 (test code = 8722944644) See_Comment [Automated message] The system which generated this result transmitted reference range: 10*3/?L. The reference range was not used to interpret this result as normal/abnormal. GRAN MAT (NEUT) % (test code = 770-8) 79.4 % IMM GRAN % (test code = 7336761864) 1.20 % LYMPH % (test code = 736-9) 13.2 % MONO % (test code = 5905-5) 5.3 % EOS % (test code = 713-8) 0.4 % BASO % (test code = 706-2) 0.5 % GRAN MAT x10^3(ANC) (test code = 0169765025) 10.37 10*3/uL 1.88-7.09 H IMM GRAN x10^3 (test code = 0704831755) 0.16 10*3/uL 0.00-0.06 H LYMPH x10^3 (test code = 731-0) 1.73 10*3/uL 1.32-3.29 MONO x10^3 (test code = 742-7) 0.69 10*3/uL 0.33-0.92 EOS x10^3 (test code = 711-2) 0.05 10*3/uL 0.03-0.39 BASO x10^3 (test code = 704-7) 0.07 10*3/uL 0.01-0.07 Lab Interpretation (test code = 35299-9) [facility] [id number] 05:03:30* Test Item Value Reference Range Interpretation Comme nts GLUCOSE (test code = 2217) 196 MG/DL 70-99 H BUN (test code = 8) 10 MG/DL 6-20 CREATININE (test code = 2214) 0.54 MG/DL 0.60-1.30 L eGFR (2020 CKD-EPI) (test code = 07793) 126 ML/MIN/1.73 >60 CALC BUN/CREAT (test code = 2235) 19 RATIO 6-28 SODIUM (test code = 2231) 137 MEQ/L 133-146 POTASSIUM (test code = 2228) 4.3 MEQ/L 3.5-5.4 CHLORIDE (test code = 2215) 101 MEQ/L 95-107 CARBON DIOXIDE (test code = 2206) 25 MEQ/L 19-31 CALCIUM (test code = 2209) 9.2 MG/DL 8.5-10.5 PROTEIN, TOTAL (test code = 2229) 6.5 G/DL 6.1-8.3 ALBUMIN (test code = 2201) 3.9 G/DL 3.5-5.2 CALC GLOBULIN (test code = 2240) 2.6 G/DL 1.9-3.7 CALC A/G RATIO (test code = 2234) 1.5 RATIO 1.0-2.6 BILIRUBIN, TOTAL (test code = 2207) 0.3 MG/DL <=1.2 ALKALINE PHOSPHATASE (test code = 2204) 77 U/L 40-114 AST (test code = 2218) 29 U/L 9-40 ALT (test code = 2219) 31 U/L 5-40 LIPID [id number] 05:03:30* Test Item Value Reference Range Interpretation Comme nts CHOLESTEROL (test code = 2210) 198 MG/DL <200 TRIGLYCERIDES (test code = 2232) 417 MG/DL <150 H HDL CHOLESTEROL (test code = 2220) 54 MG/DL >39 CALC LDL CHOL (test code = 2237) (NOTE) MG/DL <100 UNABLE TO CALCUL ATE A VALID LDL CHOLESTEROL WHEN THE TRIGLYCERIDEVALUE IS GREATER THAN 400 MG/DL.UNABLE TO CALCULATE A VALID LDL CHOLESTEROL WHEN THE TRIGLYCERIDEVALUE IS GREATER THAN 400 MG/DL. NOTE: CALCULATED LDL IS BASED ON SHAVON-GERMAN METHOD WHICHINCLUDES ADJUSTABLE TRIGLYCERIDE:VLDL CHOLESTEROL RATIO.THIS FACTOR VARIES BY MEASURED TRIGLYCERIDE AND NON-HDLCHOLESTEROL CONCENTRATIONS WITH INCREASED CALCULATED LDL SEENIN HIGHER TRIGLYCERIDE OR LOWER NON-HDL SPECIMENS. FOR MOREINFORMATION, SEE CLIENT ANNOUNCEMENT AT [email or web address] CalcLDL-C RISK RATIO LDL/HDL (test code = 2238) (NOTE) RATIO <3.22 UNABLE TO NOHEMI CULATE UNLESS OTHERWISE INDICATED, ALL TESTING PERFORMED AT [facility] [address] [place] [address] BEEF BREAKER: JUDI DERAS M.D. CLIA NUMBER [id number] [facility] [place]. [id number] HEMOGLOBIN [id number] 03:03:11* Test Item Value Reference Range Interpretation Comme [facility] HEMOGLOBIN A1c (test code = 81209) 8.5 % 4.2-5.6 H [employer] GUIDELINES FOR HGB A1C: PREDIABETES/INCREASED RISK . . . . . . . 5.7-6.4% DIAGNOSIS OF DIABETES . . . . . . . . . >=6.5% WITH CONFIRMATION OR APPROPRIATE SYMPTOMS NOTE: ASSAY MAY BE AFFECTED BY HEMOGLOBINOPATHIES (SICKLE CELL ANEMIA, S-C DISEASE, OTHERS) OR ARTIFICIALLY LOWERED BY DECREASED RED CELL SURVIVAL (HEMOLYTIC ANEMIAS, BLOOD LOSS, ETC.). CONSIDER ALTERNATE TESTING OR LABORATORY CONSULTATION. POCT GLUCOSE (AUTOMATED)2023-05-23 19:03:34* Test Item Value Reference Range Interpretation Comme [facility] POCT GLU (test code = 5247590889) 237 mg/dL 70-110 H Lab Interpretation (test cod e = 19203-9) Abnormal [facility] GLUCOSE(AGE >30DAYS)2023-05-23 19:03:00* Test Item Value Reference Range Interpretation Comme [facility] POCT Glu (age>30days) (test code = 3342) 237 mg/dL 70-110 A Lab Interpretation (test cod e = 36599-7) [facility]2023-05-23 17:52:48* Test Item Value Reference Range Interpretation Comme [facility] POCT GLU (test code = 0130336923) 295 mg/dL 70-110 H Lab Interpretation (test cod e = 37888-3) [facility] (A1C)2023-05-23 17:12:32* Test Item Value Reference Range Interpretation Comme [facility] HGB A1C (test code = 4548-4) 9.8 % 4.0-5.7 H CHAVA (test code = CHAVA) Reference RangesNormal: <5.7%Prediabetes: 5.7 - 6.4%Diabetes: > 6.5% Lab Interpretation (test code = 61170-7) Abnormal [facility] METABOLIC PANEL (NA, K, CL, CO2, GLUCOSE, BUN, CREATININE, CA)2023-05-23 17:11:51* Test Item Value Reference Range Interpretation Comme [facility] NA (test code = 8859835126) 133 mmol/L 135-145 L K (test code = 5298121961) 3.9 mmol/L 3.5-5.0 CL (test code = 3180081040) 99 mmol/L 98-108 CO2 TOTAL (test code = 8429377156) 27 mmol/L 23-31 AGAP (test code = 7375652858) 7 2-16 BUN (test code = 3482860512) 13 mg/dL 7-23 GLUCOSE (test code = 2233190998) 307 mg/dL 70-110 H CREATININE (test code = 2737391794) 0.42 mg/dL 0.50-1.04 L CALCIUM (test code = 9888709824) 8.8 mg/dL 8.6-10.6 eGFR (test code = 2186706893) 176.0 mL/min/1.73m2 CHAVA (test code = CHAVA) Association of Glomerular Filtration Rate (GFR) and Staging of Kidney Disease* + --+ --+ ------+| GFR (mL/min/1.73 m2) ?| With Kidney Damage ?| ?Without Kidney Damage+ --------+ --------+ +| ?>90 ?| ?Stage one ?| ? Normal ?+ ---+ ---+ -------+| ?60-89 ?| ?Stage two ?| ? Decreased GFR ? + --+ --+ ------+| ?30-59 ?| ?Stage three ?| ? Stage three ? + --+ --+ ------+| ?15-29 ?| ?Stage four ? | ? Stage four ?+ ---+ ---+ -------+| ?<15 (or dialysis) ? ?| ?Stage five ? | ? Stage five ?+ ---+ ---+ -------+ *Each stage assumes the associated GFR level has been in effect for at least three months. ?Stages 1 to 5, with or without kidney disease, indicate chronic kidney disease. Notes: Determination of stages one and two (with eGFR >59mL/min/1.73 m2) requires estimation of kidney damage for at least three months as defined by structural or functional abnormalities of the kidney, manifested by either:Pathological abnormalities or Markers of kidney damage (including abnormalities in the composition of the blood or urine or abnormalities in imaging tests). Lab Interpretation (test code = 60482-9) Abnormal [facility] WITH [id number] 17:02:31* Test Item Value Reference Range Interpretation Comme nts WBC (test code = 6690-2) 14.12 See_Comment H [Automated message] The system which generated this result transmitted reference range: 4.30 - 11.10 10*3/?L. The reference range was not used to interpret this result as normal/abnormal. RBC (test code = 789-8) 4.64 See_Comment [Automated message] The system which generated this result transmitted reference range: 3.93 - 5.25 10*6/?L. The reference range was not used to interpret this result as normal/abnormal. HGB (test code = 718-7) 14.1 g/dL 11.6-15.0 HCT (test code = 4544-3) 40.8 % 35.7-45.2 MCV (test code = 787-2) 87.9 fL 80.6-95.5 MCH (test code = 785-6) 30.4 pg 25.9-32.8 MCHC (test code = 786-4) 34.6 g/dL 31.6-35.1 RDW-SD (test code = 08248-9) 37.3 fL 39.0-49.9 L RDW-CV (test code = 788-0) 11.7 % 12.0-15.5 L PLT (test code = 777-3) 269 See_Comment [Automated message] The system which generated this result transmitted reference range: 166 - 358 10*3/?L. The reference range was not used to interpret this result as normal/abnormal. MPV (test code = 81669-2) 10.1 fL 9.5-12.9 NRBC/100 WBC (test code = 8600833825) 0.0 See_Comment [Automated message] The system which generated this result transmitted reference range: 0.0 - 10.0 /100 WBCs. The reference range was not used to interpret this result as normal/abnormal. NRBC x10^3 (test code = 5630050814) See_Comment [Automated message] The system which generated this result transmitted reference range: 10*3/?L. The reference range was not used to interpret this result as normal/abnormal. GRAN MAT (NEUT) % (test code = 770-8) 79.3 % IMM GRAN % (test code = 4106995737) 0.40 % LYMPH % (test code = 736-9) 14.6 % MONO % (test code = 5905-5) 4.5 % EOS % (test code = 713-8) 0.8 % BASO % (test code = 706-2) 0.4 % GRAN MAT x10^3(ANC) (test code = 6277733753) 11.18 10*3/uL 1.88-7.09 H IMM GRAN x10^3 (test code = 0025745462) 0.06 10*3/uL 0.00-0.06 LYMPH x10^3 (test code = 731-0) 2.06 10*3/uL 1.32-3.29 MONO x10^3 (test code = 742-7) 0.64 10*3/uL 0.33-0.92 EOS x10^3 (test code = 711-2) 0.12 10*3/uL 0.03-0.39 BASO x10^3 (test code = 704-7) 0.06 10*3/uL 0.01-0.07 Lab Interpretation (test code = 37453-4) Abnormal [facility] GLUCOSE (AUTOMATED)2023-05-23 16:43:05* Test Item Value Reference Range Interpretation Comme nts POCT GLU (test code = 5218228526) 326 mg/dL 70-110 H Lab Interpretation (test cod e = 87933-1) Abnormal [facility] GLUCOSE(AGE >30DAYS)2019-05-02 04:43:00* Test Item Value Reference Range Interpretation Comme nts POCT Glu (age>30days) (test code = 3342) 250 mg/dL 70-110 A Lab Interpretation (test cod e = 05721-8) Abnormal [facility] GLUCOSE (AUTOMATED)2019-05-02 04:41:00* Test Item Value Reference Range Interpretation Comme nts POCT GLU (test code = 3006102520) 250 mg/dL 70-110 H Lab Interpretation (test cod e = 96060-7) Abnormal [facility]. METABOLIC PANEL (53660)2019-05-02 02:54:00* Test Item Value Reference Range Interpretation Comme nts NA (test code = 3096989653) 138 mmol/L 135-145 K (test code = 2612513854) 3.5 mmol/L 3.5-5 CL (test code = 7332346952) 101 mmol/L 98-108 CO2 TOTAL (test code = 9290338625) 22 mmol/L 23-31 L AGAP (test code = 3247891306) 2-16 BUN (test code = 5506538086) 5 mg/dL 7-23 L GLUCOSE (test code = 8277356841) 507 mg/dL 70-110 HH CREATININE (test code = 8814283296) 0.40 mg/dL 0.5-1.04 L TOTAL BILI (test code = 1987275542) 0.7 mg/dL 0.1-1.1 CALCIUM (test code = 9730297512) 9.3 mg/dL 8.6-10.6 T PROTEIN (test code = 7357434233) 7.2 g/dL 6.3-8.2 ALBUMIN (test code = 3557076749) 4.0 g/dL 3.5-5 ALK PHOS (test code = 6302184351) 104 U/L 34-122 ALT(SGPT) (test code = 5806805323) 31 U/L 9-51 AST(SGOT) (test code = 9868813330) 38 U/L 13-40 eGFR Calculation (Non-) (test code = 8122185644) mL/min/1.73m2 eGFR Calculation () (test code = 7698187101) mL/min/1.73m2 CHAVA (test code = CHAVA) Association of [...] or abnormalities in imaging tests). Lab Interpretation (test code = 77320-4) [facility] Test Item Value Reference Range Interpretation Comme nts LIPASE (test code = 1868100537) 98 U/L 0-220 Lab Interpretation (test cod e = 10042-5) [facility]23:00* Test Item Value Reference Range Interpretation Comme nts APPEARANCE (test code = 8898281242) Clear Clear COLOR (test code = 8865746438) Yellow Yellow PH (test code = 0674055950) 4.8-8.0 SP GRAVITY (test code = 1840740363) 1.003-1.030 GLU U QUAL (test code = 5116609006) >1000 mg/dL Negative A BLOOD (test code = 5239940616) Negative Negative KETONES (test code = 2632029043) 15 mg/dL Negative A PROTEIN (test code = 2887-8) Negative Negative UROBILIN (test code = 1644700130) 0.2 mg/dL See_Comment [Automated messa ge] The system which generated this result transmitted reference range: 0-1.0 mg/dL. The reference range was not used to interpret this result as normal/abnormal. BILIRUBIN (test code = 8210894563) Negative Negative NITRITE (test code = 7963951273) Negative Negative LEUK ADAM (test code = 8958799395) Negative Negative RBC/HPF (test code = 7644722757) See_Comment [Automated messa ge] The system which generated this result transmitted reference range: 0 - 3 HPF. The reference range was not used to interpret this result as normal/abnormal. WBC/HPF (test code = 7121688770) See_Comment [Automated messa ge] The system which generated this result transmitted reference range: 0 - 5 HPF. The reference range was not used to interpret this result as normal/abnormal. BACTERIA (test code = 3127679138) Negative Negative Lab Interpretation (test code = 74162-2) Abnormal [facility] WITH ZRQMSIOANCCH8110-97-06 02:11:00* Test Item Value Reference Range Interpretation Comme nts WBC (test code = 6690-2) See_Comment [Automated messa ge] The system which generated this result transmitted reference range: 4.30 - 11.10 10*3/?L. The reference range was not used to interpret this result as normal/abnormal. RBC (test code = 789-8) See_Comment [Automated messa ge] The system which generated this result transmitted reference range: 3.93 - 5.25 10*6/?L. The reference range was not used to interpret this result as normal/abnormal. HGB (test code = 718-7) 14.0 g/dL 11.6-15 HCT (test code = 4544-3) 42.4 % 35.7-45.2 MCV (test code = 787-2) 87.6 fL 80.6-95.5 MCH (test code = 785-6) 28.9 pg 25.9-32.8 MCHC (test code = 786-4) 33.0 g/dL 31.6-35.1 RDW-SD (test code = 32873-6) 40.3 fL 39-49.9 RDW-CV (test code = 788-0) 12.5 % 12-15.5 PLT (test code = 777-3) See_Comment [Automated messa ge] The system which generated this result transmitted reference range: 166 - 358 10*3/?L. The reference range was not used to interpret this result as normal/abnormal. MPV (test code = 25173-5) 11.2 fL 9.5-12.9 NRBC/100 WBC (test code = 1050445167) See_Comment [Automated [employer] ssage] The system which generated this result transmitted reference range: 0.0 - 10.0 /100 WBCs. The reference range was not used to interpret this result as normal/abnormal. NRBC x10^3 (test code = 5835709666) <0.01 See_Comment [Automated messa ge] The system which generated this result transmitted reference range: 10*3/?L. The reference range was not used to interpret this result as normal/abnormal. GRAN MAT (NEUT) % (test code = 770-8) 71.2 % IMM GRAN % (test code = 0357987219) 0.30 % LYMPH % (test code = 736-9) 21.2 % MONO % (test code = 5905-5) 6.6 % EOS % (test code = 713-8) 0.2 % BASO % (test code = 706-2) 0.5 % GRAN MAT x10^3(ANC) (test code = 8105612186) 4.29 10*3/uL 1.88-7.09 IMM GRAN x10^3 (test code = 1527008030) <0.03 0-0.06 LYMPH x10^3 (test code = 731-0) 1.28 10*3/uL 1.32-3.29 L MONO x10^3 (test code = 742-7) 0.40 10*3/uL 0.33-0.92 EOS x10^3 (test code = 711-2) <0.03 0.03-0.39 L BASO x10^3 (test code = 704-7) 0.03 10*3/uL 0.01-0.07 Lab Interpretation (test code = 64489-5) [facility] Y[facility]PO4147-[facility]-12 02:05:00* Test Item Value Reference Range Interpretation Comme nts POCT PREG (test code = 1605) negative On board controls acceptable with C Line (test code = 3574) present POCT PREG LOT # (test code = 3575) [id number] POCT PREG TEST DATE ( test code = 3576) 09/14/2020 Lab Interpretation (test cod e = 20656-7) Normal [facility] Notes Date/Time Note Provider Source 2024-01-09 16:31:50 oTpugF52Ss7GIuB86RqK vBCHnJAwM+76kP fW15FUMDnz1A4Q723RuRkP2Ys0hqkD4679 -04-26T16:31:50 Written/verbal d/c instructions out of er no distress 46736-1Hczonjzuj department MewlUZ9892-37-14G94:33:00Emergency department NoteTXT1.2.840.477205.1.13.104.2.7 .2.299533|[id number] for patient bvgf84127-3QifuZWBQYMUCRXGZxlzdlin d C-CDA narrative ybwi333815892Zhhoex M. Barton RNUTMBUT - [address] Qu[id number] 94XWHCCQQXJKMJMKGPMJXMTE7292-34-00 T16:33:001.2.840.050990.1.72.3.15| 1.2.840.738437.1.13.104.2.7.2.7278 [id number] Damaris Saldana RN [facility] 2024-01-09 11:11:55 gYCVSk6+HckwXcaX6BUD +761/Mtum/fSNb JOnwWcucBUqNYWUljw0uNTVTiZWlOq4288 -04-26T11:11:55 Patient arrived via private car c/o of left breast pain and infection. Patient said that 3 days ago redness like a boil started on her left breast and progressed. The area is redness, tender to touch, warm.Hx: DM 79299-7Ecnzrquvu department Triage wujvDJ7846-26-63W73:13:58[facility] Triage noteTXT1.2.840.239790.1.13.104.2.7 .2.732442|[id number] for patient srph79658-0Zlvfozkia department NoteLNNARRATIVEFormatted C-CDA narrative [id number] M Felix RN[address] Tp[id number] 57EDOIJSNONXPRFRSMAJKSBU4732-72-19 T11:13:581.2.840.904357.1.72.3.15| 1.2.840.092734.1.13.104.2.7.2.7278 [id number] Edwige Velázquez RN [facility] 2023-05-23 14:29:39 Ng5NbzMaOgWYPdj9UOej X0vxKwhYc524a2 /V4iLxP0YNaW58RFKeGAl/Xh9QNb8Z1307 -09-08T14:29:39 Pt given printed and verbal discharge instructions regarding hyperglycemia, encouraged hydration.1 Prescriptions provided.Discussed ibuprofen and to take with food to avoid GI distress.Pt verbalized understanding of instructions, pt awake alert oriented, resp reg unlabored, skin w/d, color appropriate for race, moves all ext well,pt encouraged to follow up with pcp.Advised to seek medical attention for new/prolonged/worsening of symptoms,Symptoms improved.No adverse reaction to meds given in ER noted upon discharge.PIV d'cd, dressing to site, catheter in tact.Awake, alert oriented, resp reg unlabored, skin w/d, pt leaving via wheelchair, in no apparent distress. 66953-1Ekiizbosc department LtatLY8197-85-92G61:30:46[facility] department NoteTXT1.2.840.099495.1.13.104.2.7 .2.452839|[id number] for patient tmiq82063-6NwljMN026087698Zagczx M Herrera RN[id number] 74SQDAJBXBLBHGOOOQBWMMUC9501-73-44 T14:30:461.2.840.880602.1.72.3.15| 1.2.840.828948.1.13.104.2.7.2.7278 [id number] Damaris Freire RN [facility] 2023-05-23 11:40:08 mChTUJAu4fUGbgFfIJ9q /EzhEJUz9CF49O lebkjTabboFYH1+QokzzvbnF/eoxQP7938T11:40:08 [facility] officer states: "She had bgl of 247. She was acting fine until I put her in the back of my patrol car. She states that she has been out of her insulin for 5 days" Pt awake, answering questions, no distress. 54614-7Bonxqdynd department Triage vlzjBE9330-43-34E10:41:10Emergency department Triage noteTXT1.2.840.900750.1.13.104.2.7 .2.374435|[id number] for patient vgdh69398-3Zszchdkmv department [id number] M Cruz RN[address] Xe[id number] 74KJBIFKYUNKTRQUCPWCCVLO5320-55-43 T11:41:101.2.840.408934.1.72.3.15| 1.2.840.845264.1.13.104.2.7.2.7278 [id number] Ana Silverio RN [facility]
[2024-01-11] MEDS ORDERED: NA CHLORIDE 0.9% 1,000 ML ONE (13:33)
[2024-01-11] MEDS ORDERED: NA CHLORIDE 0.9% 100 ML ONE (13:33)
[2024-01-11] MEDS ORDERED: CEFEPIME 2 GM VIAL ONE (13:33)
[2024-01-11] MEDS ORDERED: NA CHLORIDE 0.9% 250 ML ONE (13:41)
[2024-01-11] MEDS ORDERED: VANCOMYCIN 1 GM/VIAL ONE (13:41)
[2024-01-11 13:53] LABS: Absolute Basophils 0.1 K/uL (0-0.5); Absolute Eosinophils 0.1 K/uL (0-0.5); Absolute Lymphocytes (CBC) 2.2 K/uL (0.7-4.9); Absolute Monocytes 0.7 K/uL (0.1-1.3); Absolute Neutrophil 11.2 K/uL (1.8-8.0); Basophils % 0.9 % (0-1.3); Hematocrit 40.6 % (36.0-45.0); Hemoglobin 13.3 g/dL (12.0-15.0); Lymphocytes % 15.4 % (15.3-44.8); MCH 28.8 pg (27.0-35.0); MCHC 32.6 g/dL (32.0-36.0); MCV 88.2 fL (80-100); MPV 8.3 fL (7.6-11.3); Neutrophils % 77.7 % (41.7-73.7); Platelets 392 thou/uL (152-406); RBC Red Blood Cell Count 4.61 M/uL (3.86-4.86); Red Cell Distribution Width 13.5 % (12.1-15.2)
[2024-01-11 14:00] LABS: Specific Gravity > 1.030 (1.005-1.030); Urine Bacteria None Seen /HPF (<20); Urine Bilirubin NEGATIVE (Negative); Urine Blood Negative (Negative); Urine Clarity Clear (Clear); Urine Color Colorless (Yellow); Urine Culture Reflex Order NOT NEEDED; Urine Glucose 4+ (Over) (Negative); Urine Ketones NEGATIVE (Negative); Urine Micro Reflex YN NO BILL MICROSCOPIC; Urine Nitrite NEGATIVE (Negative); Urine Protein NEGATIVE (Negative); Urine Urobilinogen Normal (Normal); Urine WBC <5 /HPF (<5); Urine pH 6.5 (5.0-7.0)
[2024-01-11 14:01] LABS: Specific Gravity > 1.030 (1.005-1.030)
[2024-01-11 14:15] LABS: PT Prothrombin Time 11.5 SECONDS (9.5-12.5); PTT, Activated Partial Thromb 31.7 SECONDS (24.3-36.9); Protime INR 1.05
[2024-01-11 15:08] LABS: Blood Gas Oxyhemoglobin 59.2 % (94-97); Blood O2 Saturation 61.2 % (92-98.5)
[2024-01-11 15:09] LABS: Arterial Blood Carboxyhemoglob 1.6 % (0-1.5); Blood Gas THB 14.2 g/dl (12-18)
[2024-01-11 15:22] LABS: Albumin 2.4 g/dL (3.4-5.0); Albumin/Globulin Ratio 0.5 (1.1-1.8); Bilirubin Total 0.3 mg/dL (0.2-1.0); Protein, Total 7.4 g/dL (6.4-8.2)
[2024-01-11] MEDS ORDERED: INSULIN REGULAR (HUMAN) 100 UNIT/ML ONE (15:42)
--- NOTE | 2024-01-11 16:18 | RAD REPORT ---
EXAM DESCRIPTION: CT - Thorax W/ Con - 01/11/2024 3:59 pm CLINICAL HISTORY: Chest pain COMPARISON: 2020 TECHNIQUE: Computed axial tomography of the chest was obtained. 100 cc Isovue 300 was administered i ntravenously. All CT scans are performed using dose optimization technique as appropriate and may include automated exposure control or mA/KV adjustment according to patient size. FINDINGS: The lungs are clear. No mediastinal or hilar lymphadenopathy is seen. A pleural effusion is not present. A pericardial effusion is not seen. 8.8 x 4.4 centimeter fluid collection left breast Fatty liver. Left axillary lymphadenopathy probably reactive IMPRESSION: 8.8 centimeter fluid collection left breast probably an abscess
--- NOTE | 2024-01-11 16:35 | ER ---
Nurse's Notes [facility] Name: Chiquis Palma Age: 33 yrs Sex: Female : 1990 Arrival Date: 01/11/2024 Time: 12:21 Bed 6 Private MD: Diagnosis: Cutaneous abscess of chest wall;Other specified diabetes mellitus with hyperglycemia Presentation: 01/10 12:31 Chief complaint: Patient states: diagnosed with L breast infection at [facility] 2 ss days ago and prescribed Keflex. Pt reports that the infection seems to be getting worse. Redness and swelling began 4 days ago. Coronavirus screen: Client denies travel out of the [place] in the last 14 days. Ebola Screen: Patient denies exposure to infectious person. Patient denies travel to an Ebola-affected area in the 21 days before illness onset. Initial Sepsis Screen: Does the patient meet any 2 criteria? No. Patient's initial sepsis screen is negative. Does the patient have a suspected source of infection? No. Patient's initial sepsis screen is negative. Risk Assessment: Do you want to hurt yourself or someone else? Patient reports no desire to harm self or others. Onset of symptoms was January 07, 2024. 12:31 Method Of Arrival: Ambulatory ss 12:31 Acuity: CHANTEL 3 ss Triage Assessment: 12:34 General: Appears uncomfortable, Behavior is calm, cooperative. Pain: Complains of pain ss in left breast Pain currently is 8 out of 10 on a pain scale. Quality of pain is described as aching, tender, throbbing, Pain began 4 days ago Is continuous. Neuro: Level of Consciousness is awake, alert, obeys commands, Oriented to person, place, time, situation, Speech is normal. Respiratory: Airway is patent Respiratory effort is even, unlabored, Respiratory pattern is regular, symmetrical. Historical: - Allergies: 12:34 No Known Allergies; ss - PMHx: 12:34 diabetes mellitus; Hypertensive disorder; neuropathy; ss - PSHx: 12:34 None; ss - Immunization history:: Client reports having NOT received the Covid vaccine. - Social history:: Smoking status: Patient reports the use of cigarette tobacco products, smokes one-half pack cigarettes per day, Reported history of juuling and/or vaping. Screenin:40 [facility] ED Fall Risk Assessment (Adult) History of falling in the last 3 months, kc6 including since admission No falls in past 3 months (0 pts) Confusion or Disorientation No (0 pts) Intoxicated or Sedated No (0 pts) Impaired Gait No (0 pts) Mobility Assist Device Used No (0 pt) Altered Elimination No (0 pt) Score/Fall Risk Level 0 - 2 = Low Risk. Abuse screen: Denies threats or abuse. Denies injuries from another. Nutritional screening: No deficits noted. Tuberculosis screening: No symptoms or risk factors identified. Assessment: 12:40 General: Appears in no apparent distress. comfortable, well groomed, well developed, kc6 Behavior is calm, cooperative, appropriate for age. Pain: Complains of pain in chest and left breast. Neuro: Level of Consciousness is awake, alert, obeys commands, Oriented to person, place, time, situation, Appropriate for age. Cardiovascular: Capillary refill < 3 seconds. Respiratory: Airway is patent Trachea midline Respiratory effort is even, unlabored, Respiratory pattern is regular, symmetrical. GI: No signs and/or symptoms were reported involving the gastrointestinal system. : No signs and/or symptoms were reported regarding the genitourinary system. EENT: No signs and/or symptoms were reported regarding the EENT system. Derm: Skin is intact, is healthy with good turgor, Skin is dry, Skin is normal, Skin temperature is warm Rash noted that is red, on left breast. Musculoskeletal: No signs and/or symptoms reported regarding the musculoskeletal system. Circulation, motion, and sensation intact. Capillary refill < 3 seconds, Range of motion: intact in all extremities. 13:40 Reassessment: Patient appears in no apparent distress at this time. No changes from kc6 previously documented assessment. Patient and/or family updated on plan of care and expected duration. Pain level reassessed. Patient is alert, oriented x 3, equal unlabored respirations, skin warm/dry/pink. 14:40 Reassessment: Patient appears in no apparent distress at this time. No changes from kc6 previously documented assessment. Patient and/or family updated on plan of care and expected duration. Pain level reassessed. Patient is alert, oriented x 3, equal unlabored respirations, skin warm/dry/pink. 15:40 Reassessment: Patient appears in no apparent distress at this time. No changes from kc6 previously documented assessment. Patient and/or family updated on plan of care and expected duration. Pain level reassessed. Patient is alert, oriented x 3, equal unlabored respirations, skin warm/dry/pink. 16:39 Reassessment: Patient appears in no apparent distress at this time. No changes from kc6 previously documented assessment. Patient and/or family updated on plan of care and expected duration. Pain level reassessed. Patient is alert, oriented x 3, equal unlabored respirations, skin warm/dry/pink. 18:07 Reassessment: Patient appears in no apparent distress at this time. No changes from kc6 previously documented assessment. Patient and/or family updated on plan of care and expected duration. Pain level reassessed. Patient is alert, oriented x 3, equal unlabored respirations, skin warm/dry/pink. [facility]. Vital Signs: 12:31 BP 106 / 73; Pulse 100; Resp 17; Temp 98.1(TE); Pulse Ox 96% on R/A; Weight 86.18 kg; ss Height 5 ft. 0 in. ; Pain 8/10; 13:06 BP 110 / 77; Pulse 91; Resp 16; Pulse Ox 98% ; ko1 13:46 BP 112 / 83; Pulse 83; Resp 16 S; Pulse Ox 99% on R/A; kc6 14:57 BP 133 / 82; Pulse 84; Resp 16 S; Pulse Ox 100% on R/A; kc6 16:39 BP 115 / 79; Pulse 87; Resp 16 S; Pulse Ox 100% on R/A; Pain 8/10; kc6 12:31 Body Mass Index 37.11 (86.18 kg, 152.4 cm) ss 12:31 Pain Scale: Adult ss 16:39 Pain Scale: Adult kc6 ED Course: 12:23 Patient arrived in ED. im 12:26 Myriam Miller MD is Attending Physician. gb1 12:26 Sally Atkins, SELAM is Primary Nurse. kc6 12:34 Triage completed. ss 12:34 Arm band placed on right wrist. ss 12:40 Patient has correct armband on for positive identification. Placed in gown. Bed in low kc6 position. Call light in reach. Side rails up X 1. Client placed on continuous cardiac and pulse oximetry monitoring. NIBP monitoring applied. Warm blanket given. 13:45 Inserted saline lock: 22 gauge in right antecubital area, using aseptic technique. kc6 Blood collected. 14:18 Notified ED physician of a critical lab result(s). Lactate 3.4. nj1 16:01 CT Chest W/ Con In Process Unspecified. EDMS 16:30 Charly Alvarez MD is Hospitalizing Provider. gb1 18:07 No provider procedures requiring assistance completed. Patient admitted, IV remains in kc6 place. Administered Medications: 13:45 Drug: Sodium Chloride 0.9% IVPB 1000 ml IVPB bolus Route: IVPB; Site: right antecubital;kc6 17:21 Follow up: Response: No adverse reaction; IV Status: Completed infusion; IV Intake: kc6 1000ml 13:45 Drug: Cefepime IVPB 2 grams IVPB at 200 ml/hr once over 30 mins; (mix in NS 100 mL) kc6 Route: IVPB; Rate: 200 ml/hr; Infused Over: 30 mins; Site: right antecubital; 14:22 Follow up: Response: No adverse reaction; IV Status: Completed infusion; IV Intake: kc6 100ml 14:23 Drug: vancoMYCIN IVPB 2 grams IVPB at calculated rate once Route: IVPB; Rate: kc6 calculated rate; Site: right antecubital; 16:00 Follow up: Response: No adverse reaction; IV Status: Completed infusion; IV Intake: kc6 250ml 15:47 Drug: Insulin Regular Human IVP 10 units IVP once {Co-Signature: nita (Kim Dennis 6 RN).} Route: IVP; Site: right antecubital; 16:09 Follow up: Response: No adverse reaction; Blood sugar is lowered kc6 16:50 Drug: HYDROcodone-acetaminophen PO 5 mg-325 mg 1 tabs PO once Route: PO; kc6 17:22 Follow up: Response: No adverse reaction; RASS: Alert and Calm (0) kc6 16:51 Drug: Ketorolac IVP 30 mg IVP once Route: IVP; Site: right antecubital; kc6 17:22 Follow up: Response: No adverse reaction; Pain is decreased kc6 18:48 Drug: Sodium Chloride 0.9% IVPB 1000 ml IVPB once Route: IVPB; Site: right antecubital; kc6 Medication: 18:07 VIS not applicable for this client. kc6 Intake: 14:22 IV: 100ml; Total: 100ml. kc6 16:00 IV: 250ml; Total: 350ml. kc6 17:21 IV: 1000ml; Total: 1350ml. kc6 Outcome: 16:34 Decision to Hospitalize by Provider. gb1 18:07 Admitted to ER Hold. Please see [facility] for further documentation. kc6 18:07 Condition: good 18:07 Instructed on the need for admit, 19:39 Patient left the ED. jb4 Signatures: Dispatcher [employer] EDMS Mariama Manzano, RN RN Geovanny De Santiago RN RN jb4 Sally Atkins RN RN kc6 Kim Dennis, SELAM RN ko1 Maria Victoria Burch RN RN nj1 Olivia Jhaveri Gina, MD MD gb1 Kim Dennis RN ko1 Corrections: (The following items were deleted from the chart) 13:46 12:40 Derm: Skin is pink, warm \T\ dry. kc6 kc6
--- NOTE | 2024-01-11 16:35 | EDPHYS ---
Physician Documentation [facility] Name: Chiquis Palma Age: 33 yrs Sex: Female : 1990 Arrival Date: 01/11/2024 Time: 12:21 Bed 6 Private MD: ED Physician Myriam Miller HPI: 01/10 16:26 This 33 yrs old Female presents to ER via Ambulatory with complaints of Breast gb1 Problem. 16:26 33-year-old female insulin-dependent diabetic who is noncompliant with her insulin gb1 regimen is here with left breast pain. She was seen in the [place] emergency department and started on an antibiotic which she is also noncompliant with. She checked her blood sugar yesterday and it was over 600.. Historical: - Allergies: 12:34 No Known Allergies; ss - PMHx: 12:34 diabetes mellitus; Hypertensive disorder; neuropathy; ss - PSHx: 12:34 None; ss - Immunization history:: Client reports having NOT received the Covid vaccine. - Social history:: Smoking status: Patient reports the use of cigarette tobacco products, smokes one-half pack cigarettes per day, Reported history of juuling and/or vaping. Exam: 16:26 Constitutional: This is a well developed, well nourished patient who is awake, alert, gb1 and in no acute distress. Head/Face: Normocephalic, atraumatic. Eyes: Pupils equal round and reactive to light, extra-ocular motions intact. Lids and lashes normal. Conjunctiva and sclera are non-icteric and not injected. Cornea within normal limits. Periorbital areas with no swelling, redness, or edema. ENT: Nares patent. No nasal discharge, no septal abnormalities noted. Tympanic membranes are normal and external auditory canals are clear. Oropharynx with no redness, swelling, or masses, exudates, or evidence of obstruction, uvula midline. Mucous membranes moist. Neck: Trachea midline, no thyromegaly or masses palpated, and no cervical lymphadenopathy. Supple, full range of motion without nuchal rigidity, or vertebral point tenderness. No Meningismus. Chest/axilla: Normal chest wall appearance and motion. Nontender with no deformity. No lesions are appreciated. Cardiovascular: Tachycardia and rhythm with a normal S1 and S2. No gallops, murmurs, or rubs. Normal PMI, no JVD. No pulse deficits. Tachycardia Respiratory: Lungs have equal breath sounds bilaterally, clear to auscultation and percussion. No rales, rhonchi or wheezes noted. No increased work of breathing, no retractions or nasal flaring. Abdomen/GI: Soft, non-tender, with normal bowel sounds. No distension or tympany. No guarding or rebound. No evidence of tenderness throughout. Skin: patient with a left breast fluctuance and induration with surrounding erythema, very tender to the touch. MS/ Extremity: Pulses equal, no cyanosis. Neurovascular intact. Full, normal range of motion. Neuro: Awake and alert, GCS 15, oriented to person, place, time, and situation. Cranial nerves II-XII grossly intact. Motor strength 5/5 in all extremities. Sensory grossly intact. Cerebellar exam normal. Normal gait. Vital Signs: 12:31 BP 106 / 73; Pulse 100; Resp 17; Temp 98.1(TE); Pulse Ox 96% on R/A; Weight 86.18 kg; ss Height 5 ft. 0 in. ; Pain 8/10; 13:06 BP 110 / 77; Pulse 91; Resp 16; Pulse Ox 98% ; ko1 13:46 BP 112 / 83; Pulse 83; Resp 16 S; Pulse Ox 99% on R/A; kc6 14:57 BP 133 / 82; Pulse 84; Resp 16 S; Pulse Ox 100% on R/A; kc6 16:39 BP 115 / 79; Pulse 87; Resp 16 S; Pulse Ox 100% on R/A; Pain 8/10; kc6 12:31 Body Mass Index 37.11 (86.18 kg, 152.4 cm) ss 12:31 Pain Scale: Adult ss 16:39 Pain Scale: Adult kc6 MDM: 12:28 Patient medically screened. gb1 16:26 Differential diagnosis: abscess, cellulitis, Diabetic ketoacidosis. Data reviewed: gb1 vital signs, nurses notes. Consideration of Admission/Observation Patient was admitted/placed on observation. ED course: 33-year-old noncompliant insulin-dependent diabetic here with a left breast abscess that is acute in nature. She is not in DKA today. I started IV antibiotics and admitted her to Dr. Alvarez's hospitalist service. She has had IV fluids here and I consulted the general surgeon on-call for an operative incision and drainage.. 18:27 ED course: 33-year-old female with acute left breast abscess here with increasing gb1 lactic likely secondary to the patient's hyperglycemia secondary to mild dehydration at this time. I do not believe that the patient is acutely septic at this time and she is not in shock. She has been fluid resuscitated to 30 cc/kg and her heart rate is in the 80s and her blood pressure is 115/79 and she is with normal mental status. She has been administered IV antibiotics I discussed the increasing lactic with the admitting team and they are aware and they are plan to continue to admit her to the floor stands. At this time I do not believe that she needs an escalation to intensive care unit monitoring.. 01/10 13:14 Order name: Blood Culture Adult (2) gb01/10 13:14 Order name: CBC with Diff; Complete Time: 14:20 gb1 01/10 13:14 Order name: CMP; Complete Time: 15:33 gb1 01/10 13:14 Order name: Lactate w/ 2H reflex if indic.; Complete Time: 14:20 gb1 01/10 13:14 Order name: Protime (+inr); Complete Time: 14:20 gb1 01/10 13:14 Order name: Ptt, Activated; Complete Time: 14:20 gb1 01/10 13:16 Order name: Urinalysis W/Microscopic; Complete Time: 14:20 gb1 01/10 13:16 Order name: BETA HYDROXYBUTYRATE; Complete Time: 14:20 gb1 01/10 13:16 Order name: ABG: vbg; Complete Time: 15:29 gb1 01/10 13:34 Order name: Test, Urine; Complete Time: 14:20 gb1 01/10 16:21 Order name: Glucose, Ancillary Testing; Complete Time: 16:37 EDMS 01/10 17:11 Order name: Lactate Sepsis 2 HR Follow-up; Complete Time: 18:27 EDMS 01/10 17:27 Order name: Lactate w/ 2H reflex if indic. EDMS 01/10 17:27 Order name: CBC with Automated Diff EDMS 01/10 17:27 Order name: CBC with Automated Diff EDMS 01/10 17:27 Order name: Comprehensive Metabolic Panel EDMS 01/10 17:27 Order name: Comprehensive Metabolic Panel EDPA 01/10 17:27 Order name: Magnesium EDPA 01/10 17:27 Order name: Magnesium [facility] 01/10 13:17 Order name: CT Chest W/ Con; Complete Time: 16:20 01/10 13:14 Order name: EKG; Complete Time: 13:15 01/10 17:27 Order name: CONS Physician Consult EDPA 01/10 13:14 Order name: Accucheck; Complete Time: 13:45 01/10 13:14 Order name: Cardiac monitoring; Complete Time: 13:39 01/10 13:14 Order name: EKG - Nurse/Tech; Complete Time: 13:39 01/10 13:14 Order name: IV Saline Lock - Large Bore; Complete Time: 13:39 01/10 13:14 Order name: Labs collected and sent; Complete Time: 13:45 01/10 13:14 Order name: O2 Per Protocol; Complete Time: 13:18 01/10 13:14 Order name: O2 Sat Monitoring; Complete Time: 13:18 01/10 13:14 Order name: Vital Signs; Complete Time: 13:18 01/10 14:06 Order name: Labs - recollect needed: recollect chemistries; Complete Time: 14:57 eb Administered Medications: 13:45 Drug: Sodium Chloride 0.9% IVPB 1000 ml IVPB bolus Route: IVPB; Site: right antecubital;kc6 17:21 Follow up: Response: No adverse reaction; IV Status: Completed infusion; IV Intake: kc6 1000ml 13:45 Drug: Cefepime IVPB 2 grams IVPB at 200 ml/hr once over 30 mins; (mix in NS 100 mL) kc6 Route: IVPB; Rate: 200 ml/hr; Infused Over: 30 mins; Site: right antecubital; 14:22 Follow up: Response: No adverse reaction; IV Status: Completed infusion; IV Intake: kc6 100ml 14:23 Drug: vancoMYCIN IVPB 2 grams IVPB at calculated rate once Route: IVPB; Rate: kc6 calculated rate; Site: right antecubital; 16:00 Follow up: Response: No adverse reaction; IV Status: Completed infusion; IV Intake: kc6 250ml 15:47 Drug: Insulin Regular Human IVP 10 units IVP once {Co-Signature: ko1 (Kim Dennis kc6 RN).} Route: IVP; Site: right antecubital; 16:09 Follow up: Response: No adverse reaction; Blood sugar is lowered kc6 16:50 Drug: HYDROcodone-acetaminophen PO 5 mg-325 mg 1 tabs PO once Route: PO; kc6 17:22 Follow up: Response: No adverse reaction; RASS: Alert and Calm (0) kc6 16:51 Drug: Ketorolac IVP 30 mg IVP once Route: IVP; Site: right antecubital; kc6 17:22 Follow up: Response: No adverse reaction; Pain is decreased kc6 18:48 Drug: Sodium Chloride 0.9% IVPB 1000 ml IVPB once Route: IVPB; Site: right antecubital; kc6 Disposition Summary: 01/11/24 16:34 Hospitalization Ordered Notes: Hospitalization Status: Inpatient Admission gb1 Provider: Charly Alvarez gb1 Location: Telemetry/MedSurg (Inpatient) gb1 Condition: Stable gb1 Problem: new gb1 Symptoms: have improved gb1 Bed/Room Type: Standard 1 Room Assignment: 202(01/11/24 18:36) eb Diagnosis - Cutaneous abscess of chest wall gb1 - Other specified diabetes mellitus with hyperglycemia gb1 Forms: - Medication Reconciliation Form gb1 - SBAR form gb1 - Leadership Thank You Letter gb1 Signatures: Dispatcher [employer] EDMS Mariama Manzano RN RN ss Botello, Elizabeth eb Campbell, Kaitlyn, RN RN kc6 Myriam Miller MD MD gb1 Kim Dennis RN ko1 Corrections: (The following items were deleted from the chart) 13:15 13:15 BLOOD CULTURE*+BA.LAB.BRZ ordered. EDMS EDMS 13:15 13:15 CBC+H.LAB.BRZ ordered. EDMS EDMS 13:15 13:15 COMPREHENSIVE METABOLIC PANEL+C.LAB.BRZ ordered. EDMS EDMS 13:15 13:15 LACTATE+C.LAB.BRZ ordered. EDMS EDMS 13:15 13:15 PROTIME (+INR)+COAG.LAB.BRZ ordered. EDMS EDMS 13:15 13:15 PTT, ACTIVATED+COAG.LAB.BRZ ordered. EDMS EDMS 13:17 13:17 Urinalysis W/Microscopic+U.LAB.BRZ ordered. EDMS EDMS 13:17 13:17 BETA HYDROXYBUTYRATE+C.LAB.BRZ ordered. EDMS EDMS 13:17 13:17 Arterial Blood Gas+RC.LAB.BRZ ordered. EDMS EDMS 13:18 13:18 Thorax W/ Con+CT.RAD.BRZ ordered. EDMS EDMS 13:35 13:35 Test, Urine+UC.LAB.BRZ ordered. EDMS EDMS 18:36 16:34 gb1 eb
[2024-01-11] MEDS ORDERED: HYDROCODONE/APAP 5/325 MG TAB ONE (16:46)
[2024-01-11] MEDS ORDERED: KETOROLAC 30 MG/ML INJ ONE (16:46)
[2024-01-11] MEDS ORDERED: ACETAMINOPHEN 500 MG TAB PO PRN (17:21)
--- NOTE | 2024-01-11 17:43 | P.HP ---
Certification for Inpatient Patient admitted to: Inpatient With expected LOS: >2 Midnights Practitioner: I am a practitioner with admitting privileges, knowledge of patient current condition, hospital course, and medical plan of care. Services: Services provided to patient in accordance with Admission requirements found in Title 42 Section 412.3 of the Code of Federal Regulations Patient History Date of Service: 01/11/24 Reason for admission: L breast abscess, hyperglycemia, sepsis History of Present Illness: 33yo F, PMH: IDDM2, HTN, presents to ED with 4 days progressively worsening L breast tenderness and swelling. Denies recent injury to breast. Noticed 4 days ago as a small tenderness, presented to [facility] ER ~2 days ago, prescribed keflex for skin infection and sent home. At home, the pain and swelling continued to worsen, despite taking 1 1/2 days of keflex, so she presented here today. Denies fever/chills at home. No nausea/vomiting/diarrhea. No history of recurrent skin infections. She reports 8/10 pain at left breast, constant, does not radiate. She was recently released from care home in that last several weeks. She normally takes 8units of lantus at night, but has missed the last several days. Fasting glucose levels are typically ~120 at home when taking the insulin. In the ED, she was noted to have significant tenderness of left breast with erythema. CT noted 8.8 x 4.4 cm fluid collection of left breast. Hyperglycemic > 400, without acidosis/anion gap at this time. Admitted for glucose control and I&D of abscess. Given IVF, cefepime, vanc, and 10u insulin in ED. Allergies No Known Allergies Allergy (Verified 01/06/21 17:04) Home Medications: Albuterol Inhaler [Ventolin Inhaler*] 2 puff IH Q6H PRN #1 hfa.aer.ad 01/07/21 Ascorbic Acid [Vitamin C*] 500 mg PO TID #90 tablet 01/10/21 Benzonatate [Tessalon Perle*] 100 mg PO TID PRN #10 cap 01/10/21 Cholecalciferol (Vitamin D3) [Vitamin D 1000 Iu Tab*] 2,000 unit PO DAILY #60 tab 01/10/21 Insulin Aspart [Novolog Flexpen] See Protocol SQ SEECOM #1 box 01/10/21 Thiamine HCl [Vitamin B-1*] 100 mg PO BID #60 tablet 01/10/21 Zinc Sulfate [Zinc Sulfate*] 220 mg PO DAILY #30 cap 01/10/21 Insulin Glargine Human [Lantus*] 8 units SQ BEDTIME 01/11/24 Metformin ER [Glucophage ER] 500 mg PO BID 01/11/24 - Past Medical/Surgical History Has patient received pneumonia vaccine in the past: No Diabetic: Yes -: Gallstones -: IDDM2 -: HTN Past Surgical History: Patient denies surgical history Psychosocial/ Personal History: Lives at home - Family History Mother -: Hypertension, Diabetes Sister -: Diabetes - Social History Smoking Status: Current every day smoker (vapes - nicotine.) Alcohol use: No CD- Drugs: No Caffeine use: Yes Place of Residence: Home Review of Systems 10-point ROS is otherwise unremarkable Physical Examination - Physical Exam General: Alert, Oriented x3, Other (uncomfortable appearing) HEENT: EOMI, Sclerae nonicteric Neck: Supple, No LAD Respiratory: Clear to auscultation bilaterally, Normal air movement Cardiovascular: No edema, Regular rate/rhythm, No murmurs Gastrointestinal: Soft and benign, Non-distended, No tenderness Musculoskeletal: No swelling, No contractures Integumentary: Other (Left breast, ~10 cm area of erythema with induration, significantly tender, no drainage) Neurological: Normal speech, Normal affect - Studies Laboratory Data (last 24 hrs) 01/11/24 01/11/24 01/11/24 14:56 13:30 13:30 WBC 14.40 H Hgb 13.3 Hct 40.6 Plt Count 392 PT 11.5 INR 1.05 APTT 31.7 Sodium 132 L Potassium 3.0 L BUN 5 L Creatinine 0.83 Glucose 453 H* Total Bilirubin 0.3 AST 7 L ALT 15 Alkaline Phosphatase 139 H Assessment and Plan - Advance Directives Does patient have a Living Will: No Does patient have a Durable POA for Healthcare: No Physician Review Additional Text: Problem List sepsis secondary to L breast abscess elevated lactate uncontrolled hyperglycemia with IDDM2 HTN Bipolar sepsis secondary to L breast abscess elevated lactate received cefepime/vanc in ED; continue elevated lactate 2-> 4; suspect component from severe hyperglycemia as well, not all sepsis initially SIRS 2/4 - tachycardia and leukocytosis. tachycardia resolved with pain control. vitals stable, afebrile. no other evidence of end-organ dysfunction at this time. not septic shock. not severe sepsis did receive 1L NS bolus in ED, continue IVF Dr. Lau consulted, NPO at midnight admit to tele uncontrolled hyperglycemia with IDDM2 previous admissions for DKA currently not in DKA, but significant hyperglycemia given 10u regular insulin in ED give semglee now montior glucose closely, moderate sliding scale will be NPO after midnight HTN Bipolar confirm home meds, restart when appropriate patient unable to tell me what she takes at this time VTE: lovenox Code: full Dispo: home, ~2 days Time Spent Managing Pts Care (In Minutes): 65
[2024-01-11] MEDS: INSULIN GLARGINE 100 UNIT/ML SQ ONE (17:45)
[2024-01-11] MEDS ORDERED: INSULIN GLARGINE 100 UNIT/ML SQ ONE (17:46)
[2024-01-11] MEDS: KCL 20 MEQ/100 mL IVPB 20 MEQ/100 ML BAG IV SCH (18:00)
[2024-01-11] MEDS: NA CHLORIDE 0.9% 1,000 ML IV SCH (18:00)
[2024-01-11] MEDS ORDERED: NA CHLORIDE 0.9% 2,000 ML ONE (18:35)
[2024-01-11] MEDS ORDERED: KCL 20 MEQ/100 mL IVPB 100 ML IV ONE (18:35)
[2024-01-11 20:15] VITALS: BMI 38.2
[2024-01-11] MEDS: INSULIN REGULAR (HUMAN) 100 UNIT/ML SQ SCH (20:20)
[2024-01-11] MEDS ORDERED: GLUCAGON 1 MG/VIAL IM PRN (21:07)
[2024-01-11] MEDS ORDERED: D50W 25 GM/50 ML SYRINGE IV PRN (21:07)
[2024-01-11 21:09] LABS: Anion Gap 8.3 mEq/L (5.0-15.0); Potassium 3.3 mEq/L (3.5-5.1)
[2024-01-11] MEDS ORDERED: D10W 125 ML IV PRN (21:15)
[2024-01-11] MEDS: INSULIN REGULAR (HUMAN) 100 UNIT/ML SQ ONE (21:43)
[2024-01-11] MEDS: CEFEPIME 1 GM in NA CHLORIDE 0.9% 100 ML IV SCH (21:44)
[2024-01-11] MEDS: MORPHINE 4 MG/ML SYR IV PRN (21:48)
--- NOTE | 2024-01-11 23:17 | CON ---
Date of Consultation: 01/11/2024 Brief History Of Present Illness: The patient is a 33-year-old female with past medical history of u ncontrolled diabetes, hypertension, methamphetamine and recreational drug abuse, recently incarcerate d and released from custodial approximately 2 months ago, who continues to use recreational marijuana, but denies any other recreational drug use, who noticed approximately 4 to 5 days ago some swelling, red ness, tenderness, and pain on her left breast. It got progressively larger or tender, more painful a nd as such came to the emergency room with the above-stated complaints. She started feeling a little bit of low-grade fever. She went to [facility] ER approximately 2 days ago, was given Keflex for skin infection and sent home. She noted that continued to progress and she noticed it was not getti ng significantly improved at all and as such came to the emergency room with the above-stated complai nts. There is no radiation, no nipple discharge. She has never had similar episodes before. No sic k contacts. No recent travel. No new food exposures. No skin exposures recently. No chemical expo sures. Past Medical History: Significant for diabetes, hypertension, methamphetamine, and recreational drug abuse. Allergies: NO KNOWN DRUG ALLERGIES. Home Medications: She currently takes no medications, as she has been noncompliant with medications due to her recent incarceration and does not have a primary care doctor. Past Surgical History: She denies. Social History: She lives at home. She uses vaping and does not smoke cigarettes, but still continu es to smoke marijuana on a daily basis. She denies any other recreational drug use in approximately 6 months. Family History: Significant for hypertension and diabetes in her mother and diabetes in her sister. A 10-point review of systems other than HPI, denies. Physical Examination: General: She is awake, alert, and oriented. Psychiatric: Appropriate, conversive. HEENT: She is normocephalic. Sclerae icteric. Mucous membranes are moist. Oropharynx clear. She has poor dentition. Neck: Supple without JVD. Chest: Normal expansion and excursion. She has a left breast cellulitis with swelling, tenderness e xtending to approximately 2 o'clock to the 8 o'clock position for approximately 5 to 6 cm away from t he nipple-areolar complex with some indentation of the skin and retraction of the area. It does not appear to have an inflammatory breast cancer appearance. This does appear infectious at this time. She has minimal tenderness on palpation of this area. No nipple discharge. No drainage of the colle ction at this time. The remainder of her skin exam is unremarkable. Laboratory Data: White blood count 14.4, hemoglobin was 13.3, hematocrit of 40.6, platelet count was 392. Her coags showed PT 11.5, INR 1.05, PTT was 31.7. Her chemistry showed a sodium 132, potassiu m 3.0, chloride 96, carbon dioxide 28, BUN was 5, creatinine 0.83, glucose is 453, lactic acid was 4. 8, calcium 8.6, total bilirubin 0.3, AST 7, ALT 15, alkaline phosphatase 139. UA showed 4+ glucose. Blood gas showed a pH of 7.39, pCO2 of 47, PO2 of 32, base excess 28 on room air. She had a CT scan of the chest, which was officially read. 8.8 cm fluid collection in the left breas t, probably an abscess. It is approximately 8.8 cm x 4.4 cm fluid collection left breast. Assessment/plan: 33-year-old female who presents with signs and symptoms of a left breast abscess. 1.IV fluid hydration. 2.Antibiotic coverage. 3.Correction of her significant hyperglycemia. 4.I have recommended incision and drainage surgery, however, the patient ate a full meal just prior to arrival at the emergency room and therefore is not n.p.o. at this point. As such, I have recommen ded surgical intervention tomorrow morning and I have recommend the patient remain n.p.o. after midni ght at this point and have only clear liquids between now and midnight. 5.Continue medical management and optimization for her hyperglycemia to avoid DKA situation. 6.I have explained the risks, benefits, and alternatives of incision and drainage of a breast absces s, including but not limited to bleeding, infection, damage surrounding tissue, need further operativ e procedures, high risk of recurrence given her medical history, cosmetic deformity of the nipple are olar complex as well as the breast. 7.Ongoing wound care, which might require long-term assistance, blood clots, heart attack, strokes, and other unforeseen complications in the perioperative period. Patient displayed understanding of a rocco stated plan, agreed to proceed as indicated. TK/STEFFI Voice ID: [id number] Report ID: [id number]
[2024-01-12] MEDS: HYDROCODONE/APAP 5/325 MG TAB PO PRN (00:21)
[2024-01-12] MEDS: MAGNESIUM SULFATE 1 gm IVPB 1 GM/100 ML BAG IV ONE (00:55)
[2024-01-12] MEDS ORDERED: VANCOMYCIN 2 GM in NA CHLORIDE 0.9% 500 ML IVPB SCH (07:00)
[2024-01-12 07:16] LABS: Absolute Basophils 0.1 K/uL (0-0.5); Absolute Eosinophils 0.3 K/uL (0-0.5); Absolute Lymphocytes (CBC) 2.8 K/uL (0.7-4.9); Absolute Neutrophil 10.2 K/uL (1.8-8.0); Basophils % 0.6 % (0-1.3); Eosinophils % 1.9 % (0-4.4); Hemoglobin 12.1 g/dL (12.0-15.0); Lymphocytes % 19.7 % (15.3-44.8); MCH 28.2 pg (27.0-35.0); MCHC 32.6 g/dL (32.0-36.0); MCV 86.8 fL (80-100); MPV 8.2 fL (7.6-11.3); Monocytes % 6.9 % (3.3-12.3); Neutrophils % 70.9 % (41.7-73.7); Nucleated Red Blood Cells % 0.1 % (0-0); Platelets 359 thou/uL (152-406); RBC Red Blood Cell Count 4.27 M/uL (3.86-4.86); Red Cell Distribution Width 13.3 % (12.1-15.2)
[2024-01-12 07:42] LABS: Albumin/Globulin Ratio 0.5 (1.1-1.8); Anion Gap 8.2 mEq/L (5.0-15.0); Bilirubin Total 0.3 mg/dL (0.2-1.0); Globulin 4.2 g/dL (2.3-3.5); Magnesium 1.8 mg/dL (1.6-2.4); Phosphorus 2.3 mg/dL (2.5-4.9); Potassium 3.2 mEq/L (3.5-5.1); Protein, Total 6.2 g/dL (6.4-8.2)
[2024-01-12] MEDS ORDERED: VANCOMYCIN 1.5 GM in NA CHLORIDE 0.9% 500 ML IVPB SCH (09:00)
[2024-01-12] MEDS: ENOXAPARIN 40 MG/0.4 ML SQ SCH (09:00)
[2024-01-12] MEDS: VANCOMYCIN 1.5 GM in NA CHLORIDE 0.9% 500 ML IVPB SCH (09:05)
[2024-01-12] MEDS: ONDANSETRON 4 MG/2 ML VIAL IV PRN (11:12)
[2024-01-12] MEDS ORDERED: LIDOCAINE 2% MPF 5 ML VIAL ONE (12:05)
[2024-01-12] MEDS ORDERED: MIDAZOLAM HCL 2 MG/2 ML INJ ONE (12:05)
[2024-01-12] MEDS ORDERED: ONDANSETRON 4 MG/2 ML VIAL ONE (12:05)
[2024-01-12] MEDS ORDERED: propofoL 200 MG/20 ML VIAL IV ONE (12:05)
[2024-01-12] MEDS ORDERED: FENTANYL CITR 100 MCG/2 ML ONE (12:05)
[2024-01-12] MEDS: BUPIVACAINE 0.25% PF 10 ML VIAL ONE (12:41)
[2024-01-12] MEDS: NA CHLORIDE 0.9% 1,000 ML ONE (12:45)
--- NOTE | 2024-01-12 12:57 | EKG ---
Test Date: 2024-01-11 Test Time: 13:27:24 Lead Data Architect: LISA MEASUREMENT RESULTS: Intervals: Rate: 88 FL: 150 QRSD: 82 QT: 360 QTc: 435 [place]: P: 51 FL: 150 QRS: 46 T: 28 INTERPRETIVE STATEMENTS: Normal sinus rhythm Normal ECG Compared to ECG 09/02/2023 21:09:27 No significant changes Electronically Signed On 01-12-24 12:55:01 CDT by Jeronimo Gipson
[2024-01-12] MEDS ORDERED: dexAMETHasone 4 MG/ML VIAL ONE (13:41)
--- NOTE | 2024-01-12 14:10 | P.OP ---
Preoperative diagnosis: LEFT Breast Abscess Postoperative diagnosis: LEFT Breast Abscess Primary procedure: Incision and Drainage of LEFT Breast Abscess Secondary procedure: Skin biopsy of Aerola and breast skin Anesthesia: GETA + Local Estimated blood loss: <10cc Specimen: Cultures, Skin x 2 Findings: ~9cm abscess of LEFT Breast Complications: None Transferred to: Recovery Room Condition: Good
[2024-01-12] MEDS: HYDROMORPHONE HCL 1 MG/ML INJ ONE (14:36)
[2024-01-12] MEDS: LIDOCAINE HCL/EPINEPHRINE 20 ML MDV ONE (14:42)
--- NOTE | 2024-01-12 16:00 | P.PN ---
Date of Service: 01/12/24 Subjective: no acute events overnight pain continues, but manageable with medication scheduled for OR today nothing new/worse ROS: 10 point ROS as noted above, otherwise negative Physical exam GEN: Alert, orientedx3 CV: Regular rate and rhythm, no edema Pulm: Nonlabored respirations on room air ABD: Soft, nontender, nondistended Integumentary: L breaset with ~10cm area of erythema, with induration, tender, warm, no drainage Neuro: Normal speech, normal affect Problem List sepsis secondary to L breast abscess elevated lactate uncontrolled hyperglycemia with IDDM2 HTN Bipolar sepsis secondary to L breast abscess elevated lactate received cefepime/vanc in ED; continue elevated lactate 2-> 4; component from severe hyperglycemia as well, not all sepsis initially SIRS 2/4 - tachycardia and leukocytosis. tachycardia resolved with pain control. vitals stable, afebrile. no other evidence of end-organ dysfunction not septic shock. not severe sepsis did receive 1L NS bolus in ED, continue IVF Dr. Lau consulted OR planned for today: I&D continue antibiotics - cefepime/vanc uncontrolled hyperglycemia with IDDM2 previous admissions for DKA currently not in DKA, but significant hyperglycemia given 10u regular insulin in ED prior to admit continue sliding scale adjust long acting insulin - cautious while NPO HTN Bipolar confirm home meds, restart when appropriate patient unable to tell me what she takes at this time VTE: lovenox Code: full Dispo: home, ~2 days pending surgery / findings / recovery Time Spent Managing Pts Care (In Minutes): 35
[2024-01-12] MEDS: INSULIN GLARGINE 100 UNIT/ML SQ ONE (20:43)
[2024-01-12] MEDS ORDERED: INSULIN REGULAR (HUMAN) 100 UNIT/ML SQ ONE ×2 (21:07)
--- NOTE | 2024-01-13 01:12 | OP ---
Date of Procedure: 01/12/2024 Surgeon: Amor Lau MD, Preoperative Diagnosis: Left breast abscess. Postoperative Diagnosis: Left breast abscess. Procedure Performed: Incision and drainage, left breast abscess. Secondary Procedure: Skin biopsy of the areola and breast skin adjacent. Anesthesia: General endotracheal plus local 0.25% Marcaine. Estimated Blood Loss: Less than 10 cc. Specimen: Culture sent both aerobic and anaerobic speciation and skin biopsy x2. Findings: Approximately 9 cm abscess of the left breast was appreciated. Complications: None. Disposition: The patient was transferred to recovery room in good condition. Procedure In Detail: After informed consent was obtained, patient was brought to the operating room, prepped in the usual sterile fashion. After adequate anesthesia was achieved with additional anesth esia, 1% lidocaine with epinephrine, I made a circular areola incision down to the inferior aspect at the 6 o'clock position down to the areolar border. I immediately encountered was a significant amou nt abscess material. This was cultured both aerobically and anaerobic speciation at this time and varma ctioned out completely cleared. At this point, I opened the incision slightly more and digitized the area breaking up a few loculations in there. The area was copiously irrigated at this point. I the n took 2 small skin biopsies from the nipple-areolar complex, specifically the border of the areola n ear the 6 o'clock position as well as the concomitant skin on the opposite side not involving the are brigette. This was sent off for pathologic examination to ensure there was no malignancy of this area, varma ch as, inflammatory breast cancer. At this point, the area was copiously irrigated once again. Hemo stasis was achieved with electrocautery. I then packed the wound with Vashe socked Kerlix and a ster ile dressing was placed over top. The patient tolerated the procedure without incident or complicati on, transferred to PACU in good condition. All counts were correct at the end of the case. GORDON/STEFFI Voice ID: [id number] Report ID: [id number]
[2024-01-13 04:10] LABS: Absolute Lymphocytes (CBC) 2.3 K/uL (0.7-4.9); Absolute Monocytes 0.6 K/uL (0.1-1.3); Absolute Neutrophil 10.4 K/uL (1.8-8.0); Basophils % 0.4 % (0-1.3); Eosinophils % 0.1 % (0-4.4); Hematocrit 34.5 % (36.0-45.0); Hemoglobin 11.7 g/dL (12.0-15.0); Lymphocytes % 17.2 % (15.3-44.8); MCH 29.1 pg (27.0-35.0); MCHC 33.9 g/dL (32.0-36.0); MCV 85.9 fL (80-100); Monocytes % 4.8 % (3.3-12.3); Neutrophils % 77.5 % (41.7-73.7); Nucleated Red Blood Cells % 0.1 % (0-0); Platelets 365 thou/uL (152-406); RBC Red Blood Cell Count 4.01 M/uL (3.86-4.86); Red Cell Distribution Width 13.6 % (12.1-15.2)
[2024-01-13 04:22] LABS: Phosphorus 1.8 mg/dL (2.5-4.9)
[2024-01-13 04:43] LABS: Anion Gap 7.6 mEq/L (5.0-15.0); Potassium 3.6 mEq/L (3.5-5.1)
[2024-01-13 09:06] VITALS: O2SAT 97
[2024-01-13] MEDS: POTASSIUM 25 MEQ EFFERV TAB PO ONE (12:15)
[2024-01-13] MEDS: POTASS/SODIUM PHOSPHATE 1 PKT POWD.PACK PO SCH (12:19)
[2024-01-13] MEDS: VANCOMYCIN 1.5 GM in NA CHLORIDE 0.9% 500 ML IVPB SCH (15:53)
--- NOTE | 2024-01-13 17:39 | P.DS ---
Admission Date: 01/11/24 Discharge Date: 01/13/24 Disposition: ROUTINE DISCHARGE Discharge Condition: GOOD Reason for Admission: L breast abscess, hyperglycemia, sepsis Brief History of Present Illness: 33yo F, PMH: IDDM2, HTN, presented to ED with 4 days progressively worsening L breast tenderness and swelling. She noticed a small tenderness, presented to [facility] and was prescribed keflex for skin infection and sent home. At home, the pain and swelling continued to worsen, despite taking 1 1/2 days of keflex, so she presented here for treatment. She states that she was recently released from care home past several weeks. She normally takes 8units of lantus at night, but has missed the last several days. Fasting glucose levels are typically ~120 at home when taking the insulin. In the ED, she was noted to have significant tenderness of left breast with erythema. CT noted 8.8 x 4.4 cm fluid collection of left breast. Hyperglycemic > 400, without acidosis/anion gap at this time. Patient was given IV cefepime and vancomycin, IV insulin and admitted for further management. Hospital Course: Diagnosis sepsis secondary to L breast abscess elevated lactate uncontrolled hyperglycemia with IDDM2 HTN Bipolar disorder The following medical problems were addressed during the hospital stay: Sepsis secondary to L breast abscess elevated lactate Patient was treated with IV cefepime and vancomycin Sepsis resolved, no evidence of end-organ dysfunction General surgery Dr. Lau consulted who performed incision and drainage and packed the wound. Deep tissue wound culture is growing coagulase positive staph, patient with high risk for MRSA so suspect MRSA abscess. Blood cultures yielded no growth. Patient evaluated by surgery today and deemed stable for discharge. She is prescribed Bactrim for 2 weeks. uncontrolled hyperglycemia with IDDM2 previous admissions for DKA Patient reports her blood sugar well-controlled on her current Lantus insulin plus metformin regimen at home. She requested no changes in her insulin regimen since it keeps her blood sugar below 150. Patient has been informed to regularly check her blood sugar before meals and to inform her PCP for insulin dose adjustment if her blood sugar readings was being 200. She was informed she needs to keep her blood sugar below 180 which is the target blood sugar for optimal wound healing. HTN Bipolar Stable during the hospital stay. Vital Signs/Physical Exam: Temp Pulse Resp BP Pulse Ox 96.8 F 78 15 107/63 97 01/13/24 16:00 01/13/24 16:00 01/13/24 16:00 01/13/24 16:00 01/13/24 16:00 General: Alert, In no apparent distress, Oriented x3, Obese HEENT: Mucous membr. moist/pink Neck: Supple, JVD not distended Respiratory: Clear to auscultation bilaterally, Normal air movement Cardiovascular: No edema, Regular rate/rhythm, Normal S1 S2 Gastrointestinal: Normal bowel sounds, Soft and benign, Non-distended Musculoskeletal: No swelling Integumentary: Other (Left breast surgical incision wound with clean dressing.) Neurological: Normal speech, Normal strength at 5/5 x4 extr Laboratory Data at Discharge: WBC 13.50 thou/uL (4.3-10.9) H 01/13/24 03:16 Hgb 11.7 g/dL (12.0-15.0) L 01/13/24 03:16 Hct 34.5 % (36.0-45.0) L 01/13/24 03:16 Plt Count 365 thou/uL (152-406) 01/13/24 03:16 PT 11.5 SECONDS (9.5-12.5) 01/11/24 13:30 INR 1.05 01/11/24 13:30 APTT 31.7 SECONDS (24.3-36.9) 01/11/24 13:30 Sodium 136 mEq/L (136-145) 01/13/24 03:16 Potassium 3.6 mEq/L (3.5-5.1) 01/13/24 03:16 BUN 7 mg/dL (7-18) 01/13/24 03:16 Creatinine 0.40 mg/dL (0.55-1.02) L 01/13/24 03:16 Glucose 268 mg/dL (74-106) H 01/13/24 03:16 Phosphorus 1.8 mg/dL (2.5-4.9) L 01/13/24 03:16 Magnesium 2.0 mg/dL (1.6-2.4) 01/13/24 03:16 Total Bilirubin 0.3 mg/dL (0.2-1.0) 01/12/24 06:45 AST 11 U/L (15-37) L 01/12/24 06:45 ALT 12 U/L (13-56) L 01/12/24 06:45 Alkaline Phosphatase 111 U/L (45-117) D 01/12/24 06:45 Home Medications: Gabapentin 300 mg PO BID 01/11/24 Insulin Glargine,Hum.rec.anlog [Lantus] 8 unit SQ BEDTIME 01/11/24 Metformin HCl [Glucophage*] 500 mg PO BID 01/11/24 Sertraline [Zoloft*] 10 mg PO DAILY 01/12/24 Hydrocodone 5/APAP 325 [[place] 5/325*] 1 tab PO Q6H PRN #20 tab 01/13/24 Smz./Tmp. [Bactrim Ds 800 MG/160 MG] 1 tab PO BID #28 tab 01/13/24 New Medications: Smz./Tmp. [Bactrim Ds 800 MG/160 MG] 1 tab PO BID #28 tab Hydrocodone 5/APAP 325 [[place] 5/325*] 1 tab PO Q6H PRN #20 tab PRN Reason: Pain Scale 5-7 (Moderate) Physician Discharge Instructions: Patient was treated with IV cefepime and vancomycin Sepsis resolved, no evidence of end-organ dysfunction General surgery Dr. Lau consulted who performed incision and drainage and packed the wound. Deep tissue wound culture is growing coagulase positive staph, patient with high risk for MRSA so suspect MRSA abscess. Blood cultures yielded no growth. Patient evaluated by surgery today and deemed stable for discharge. She is prescribed Bactrim for 2 weeks. PROBLEM: (list out Acute Problems for the Current visit) GOAL: Clear understanding of disease process INSTRUCTIONS: Follow up as instructed for Wound dressing. Diet: ADA Activity: Ad dusty DME DME: Date Ordered: Name of Company: [employer] Services Needed: Name of Company: Date or Referral: IMMUNIZATION Influenza Vaccine Indicated: Influenza Vaccine Given: Date Given: Pneumonia Vaccine Indicated: No Pneumonia Vaccine Given: Date Given: For uncontrolled hyperglycemia with IDDM2 Patient reports her blood sugar well-controlled on her current Lantus insulin plus metformin regimen at home. She requested no changes in her insulin regimen since it keeps her blood sugar below 150. Patient has been informed to regularly check her blood sugar before meals and to inform her PCP for insulin dose adjustment if her blood sugar readings was being 200. She is informed she needs to keep her blood sugar below 180 which is the target blood sugar for optimal wound healing. Diet: ADA Activity: Ad dusty Followup: Amor Lau MD [ACTIVE - CAN ADMIT] - 2-3 Days KENNETH RUTH [Primary Care Provider] - 1 Week Time spent managing pt's care (in minutes): 34
[2024-01-13 21:45] VITALS: BP 140/77; TEMP 97.6
== END 2024-01-13 19:35 | disposition home or self-care (01) | DRG 855 ==
LOC: ER 12:21 → ERHOLD 17:21 → 2ND 18:58
PROVIDERS: ADMIT Hospitalist; ATTEND Internal Medicine
PROC: 0H9 Skin and Breast, Drainage (ICD-10-PCS; 2024-01-12)
PROC: 0H9U0ZX Drainage of Left Breast, Open Approach, Diagnostic (ICD-10-PCS; principal; 2024-01-12 14:00)
DX: A41.9 Sepsis, unspecified organism (principal); E11.65 Type 2 diabetes mellitus with hyperglycemia; E11.40 Type 2 diabetes mellitus with diabetic neuropathy, unspecified; E86.0 Dehydration; F31.9 Bipolar disorder, unspecified; N61.1 Abscess of the breast and nipple; N61.0 Mastitis without abscess; T38.3X6A Underdosing of insulin and oral hypoglycemic [antidiabetic] drugs, initial encounter; B95.62 Methicillin resistant Staphylococcus aureus infection as the cause of diseases classified elsewhere; F17.210 Nicotine dependence, cigarettes, uncomplicated; Z79.4 Long term (current) use of insulin; Z79.84 Long term (current) use of oral hypoglycemic drugs; Z28.310 Unvaccinated for COVID-19; Z79.899 Other long term (current) drug therapy; Z91.128 Patient's intentional underdosing of medication regimen for other reason; Z91.148 Patient's other noncompliance with medication regimen for other reason
CPT/HCPCS: 36415; 71260; 80048; 80053; 80202; 81001; 81025; 82010; 82805; 82947; 83605; 83735; 84100; 85025; 85610; 85730; 87040; 87070; 87075; 87077; 87186; 87205; 88305; 93005; 94760; 96365; 96366; 96367; 96368; 96375; 99285; J0692; J1100; J1170; J1650; J1815; J2001; J2250; J2405; J2704; J3010; J3475; J3480; J7030; J7040; J7050; Q9967

== ENCOUNTER 2024-12-04 13:26 | Emergency (ER) | payer SELFPAY ==
--- OUTSIDE RECORDS SUMMARY | 2024-12-04 13:30 | XMS REPORT | Continuity of Care Document ---
Author Name Unknown Address [address] [facility] [place] [address] Organization [facility] [place] Address [address] [facility] [place] [address] Care Team Providers Care Shopfitter Name Role Phone VjJovana Daren Primary Care Physician Doctor Unassigned, [place] Attending Clinician U svetlana Collins NP, More Attending Clinician [phone] SONJA RAMIRES Attending Clinician Unavailable Sonja Ramires NP Attending Clinician Rey Wakefield MD Attending Clinician [phone] MORE CO[facility] Admitting Clinician Unavailable Payers Payer Name Policy Type Policy Number Effective Date Expirati on Date Source Problems Condition Name Condition Details Condition Category Status Onset Date Resolution Date Last Treatment Date Treating Clinician Comments Source Nexplanon insertion Nexplanon insertion Disease Active 12-03 00:00: 00 [facility] Atypical squamous cell changes of undetermin ed significan ce (ASCUS) on vaginal cytology Atypical squamous cell changes of undetermin ed significan ce (ASCUS) on vaginal cytology Disease Active 12-01 00:00: 00 Overview: Beverly g of this note might be different from the original. Awaiting on HPV results. [facility] Well woman exam Well woman exam Disease Active 11-19 00:00: 00 [facility] Diabetes insipidus Diabetes insipidus Disease Active 11-19 00:00: 00 [facility] Encounter for contracept jessica management , unspecifie d type Encounter for contracept jessica management , unspecifie d type Disease Active 11-19 00:00: 00 [facility] BMI 40.0-44.9, adult BMI 40.0-44.9, adult Disease Active 11-19 00:00: 00 [facility] Encounter for contracept jessica management , unspecifie d type Encounter for contracept jessica management , unspecifie d type Disease Active 11-19 00:00: 00 [facility] Morbid obesity Morbid obesity Disease Active 06-10 00:00: 00 [facility] Allergies, Adverse Reactions, Alerts Allergy Name Allergy Type Status Severity Reaction(s) Onset Date Inactive Date Treating Clinician Comments Source NO KNOWN ALLERGIE S Drug Class Active [facility] Social History Social Habit Start Date Stop Date Quantity Comments Source History of tobacco use Cigarette Smoker [facility] Gender identity [facility] Sexual orientation U [facility] Alcoholic beverage intake 2023-05-23 00:00:00 2023-05-23 00:00:00 0 /d [facility] Alcohol intake 2023-05-23 00:00:00 2023-05-23 00:00:00 0 /d [facility] History of Social function 2019-03-25 00:00:00 2019-03-25 00:00:00 [facility] Cigarette pack-years 2018-11-19 00:00:00 2018-11-19 00:00:00 [facility] Tobacco use and exposure 2018-11-19 00:00:00 2018-11-19 00:00:00 Smokeless tobacco non-user [facility] Cigarettes smoked current (pack per day) - Reported 2018-11-19 00:00:00 2018-11-19 00:00:00 [facility] Sex assigned at 1990 00:00:00 1990 00:00:00 [facility] Smoking Status Start Date Stop Date Source Smokes tobacco daily 2018-11-19 00:00:00 [facility] Medications Ordered Medication Name Filled Medication Name Start Date Stop Date Current Medication? Ordering Clinician Indication Dosage Frequency Signature (SIG) Comments Components Source iopamidol (ISOVUE 370-500 mL) injection 83 mL 01-08 19:30: 00 01-08 19:26 :00 No [id number] 83mL 83 mL, Intravenou s, ONCE, 1 dose, On Fri01/09/24 at 1430, Routine [facility] insulin regular human (HUMULIN R) injection 10 Units 01-08 19:30: 00 01-08 18:56 :00 No 10U 10 Units, Subcutaneo us, ONCE, 1 dose, On Fri01/09/24 at 1430, Routine
Indicatio n for insulin: Hyperglyce venita [facility] HYDROcodone -acetaminop hen (NORCO 5) 5-325 mg tablet 1 tablet 01-08 17:30: 00 01-08 17:40 :00 No 1{tbl} 1 tablet, Oral, ONCE, 1 dose, On Fri01/09/24 at 1230, GALI [facility] cephALEXin (KEFLEX) capsule 500 mg 01-08 17:30: 00 01-08 17:39 :00 No 500mg 500 mg, Oral, ONCE, 1 dose, On Fri01/09/24 at 1230, GALI
Re ason for Anti-Infec tive: Empiric Therapy for Suspected Infection< br>Empiric Therapy Site: Skin / Soft tissue
Duration of therapy: Once (ED) [facility] cephALEXin 500 mg capsule 01-08 00:00: 00 01-19 04:59 :00 No [id number] 500mg Take 1 capsule by mouth 4 (four) times daily for 10 days. [facility] insulin regular human (HUMULIN R) injection 8 Units 05-23 22:00: 00 Yes 8U 8 Units, Subcutaneo us, BID MEALS, First dose on Fri05/23/23 at 1700, Until Discontinu ed, Routine
Indicatio n for insulin: Hyperglyce venita [facility] NaCl 0.9% (NS) IV infusion 1,000 mL 05-23 18:30: 00 Yes 1000mL at 999 mL/hr, Intravenou s, CONTINUOUS , Starting on Fri05/23/23 at 1330, Until Discontinu ed, GALI [facility] NaCl 0.9% (NS) bolus infusion 1,000 mL 05-23 17:30: 00 05-23 18:11 :00 No 1000mL at 999 mL/hr, 1,000 mL, IV Infusion, ONCE, 1 dose, On Fri05/23/23 at 1230, GALI [facility] metFORMIN 500 mg tablet 05-23 00:00: 00 06-23 04:59 :00 No [id number] 500mg Take 1 tablet by mouth in the morning and 1 tablet in the evening. Take with meals. Do all this for 30 days. [facility] NaCl 0.9% (NS) IV infusion 1,000 mL 05-02 04:30: 00 Yes 1000mL at 999 mL/hr, Intravenou s, CONTINUOUS , Starting 05/01/19 at 2330, Until Discontinu ed, Routine [facility] insulin regular human (HUMULIN R) injection 10 Units 05-02 04:30: 00 05-02 03:44 :00 No 10U 10 Units, Subcutaneo us, ONCE, 1 dose, 05/01/19 at 2330, Routine [facility] No known medications No Un morelia [facility] Immunizations Ordered Immunization Name Filled Immunization Name Date Status Comments Source Tdap 2018-06-10 00:00:00 Completed [facility] TDAP 2018-06-10 00:00:00 Completed [facility] TDAP Unknown Completed [facility] TDAP Unknown Completed [facility] Vital Signs Vital Name Observation Time Observation Value Comments S cassy Systolic blood pressure 2024-01-09 21:00:00 124 mm[Hg] [facility] Diastolic blood pressure 2024-01-09 21:00:00 96 mm[Hg] [facility] Heart rate 2024-01-09 21:00:00 89 /min [facility] Body temperature 2024-01-09 21:00:00 36.5 Roseanna [facility] Respiratory rate 2024-01-09 21:00:00 16 /min [facility] Oxygen saturation in Arterial blood by Pulse oximetry 2024-01-09 21:00:00 99 /min [facility] Body height 2024-01-09 16:12:00 152.4 cm [facility] Body weight 2024-01-09 16:12:00 86.183 kg [facility] BMI 2024-01-09 16:12:00 37.11 kg/m2 [facility] Systolic blood pressure 2023-05-23 19:02:00 117 mm[Hg] [facility] Diastolic blood pressure 2023-05-23 19:02:00 71 mm[Hg] [facility] Respiratory rate 2023-05-23 19:02:00 16 /min [facility] Oxygen saturation in Arterial blood by Pulse oximetry 2023-05-23 19:02:00 99 /min [facility] Heart rate 2023-05-23 18:00:00 76 /min [facility] Body temperature 2023-05-23 16:41:00 36.83 Roseanna [facility] Body height 2023-05-23 16:41:00 152.4 cm [facility] Body weight 2023-05-23 16:41:00 77.111 kg [facility] BMI 2023-05-23 16:41:00 33.20 kg/m2 [facility] Systolic blood pressure 2019-05-02 04:00:00 98 mm[Hg] [facility] Diastolic blood pressure 2019-05-02 04:00:00 85 mm[Hg] [facility] Heart rate 2019-05-02 04:00:00 91 /min [facility] Respiratory rate 2019-05-02 04:00:00 29 /min [facility] Oxygen saturation in Arterial blood by Pulse oximetry 2019-05-02 04:00:00 97 /min [facility] Body weight 2019-05-02 02:02:00 100.245 kg [facility] BMI 2019-05-02 02:02:00 36.78 kg/m2 [facility] Body temperature 2019-05-02 00:21:00 36.89 Roseanna [facility] Systolic blood pressure 2019-05-02 04:00:00 98 mm[Hg] [facility] Diastolic blood pressure 2019-05-02 04:00:00 85 mm[Hg] [facility] Heart rate 2019-05-02 04:00:00 91 /min [facility] Respiratory rate 2019-05-02 04:00:00 29 /min [facility] Oxygen saturation in Arterial blood by Pulse oximetry 2019-05-02 04:00:00 97 /min [facility] Body weight 2019-05-02 02:02:00 100.245 kg [facility] BMI 2019-05-02 02:02:00 36.78 kg/m2 [facility] Body temperature 2019-05-02 00:21:00 36.89 Roseanna [facility] Procedures Procedure Date / Time Performed Performing Clinician Source POCT GLUCOSE (AUTOMATED) 2024-01-09 19:55:00 More Collins [facility] CT THORAX W CONTRAST 2024-01-09 19:34:18 Joshua Collins [facility] COMP. METABOLIC PANEL ([id number]) 2024-01-09 17:38:00 More Collins [facility] CBC WITH DIFF 2024-01-09 17:38:00 More Collins [facility] URINALYSIS 2024-01-09 17:38[facility](AGE >30DAYS[facility] 2023-05-23 19:03:00 Sonja Ramires [facility] POCT GLUCOSE (AUTOMATED) 2023-05-23 19:02:00 Sonja Ramires [facility] POCT GLUCOSE (AUTOMATED) 2023-05-23 17:52:00 Sonja Ramires [facility] BASIC METABOLIC PANEL (NA, K, CL, CO2, GLUCOSE, BUN, CREATININE, CA) 2023-05-23 16:55:00 Sonja Ramires [facility] CBC WITH DIFF 2023-05-23 16:55:00 Sonja Ramires [facility] GLYCOSYLATED HEMOGLOBIN (A1C) 2023-05-23 16:55:00 Sonja Ramires [facility] POCT GLUCOSE (AUTOMATED) 2023-05-23 16:41:00 Doctor Unassigned, [place] [facility] POCT GLUCOSE(AGE >30DAYS) 2019-05-02 04:43:00 Rey Wakefield [facility] POCT GLUCOSE (AUTOMATED) 2019-05-02 04:40:00 Rey Wakefield [facility] POCT TEST 2019-05-02 02:05:00 Rey Wakefield [facility] LIPASE 2019-05-02 02:04:00 Rey Wakefield [facility] COMP. METABOLIC PANEL ([id number]) 2019-05-02 02:04:00 Rey Wakefield [facility] CBC WITH DIFFERENTIAL 2019-05-02 02:04:00 Wm Wakefield [facility] URINALYSIS 2019-05-02 02:04:00 Rey Wakefield [facility] NOTICE OF PRIVACY PRACTICES 2019-05-02 00:05:46 Doctor Unassigned, [place] [facility] CONSENT/REFUSAL FOR DIAGNOSIS AND TREATMENT 2019-05-02 00:05:32 Doctor Unassigned, [place] [facility] Encounters Start Date/Time End Date/Time Encounter Type Admission Type Attending [facility] Care Department Encounter ID Source 2024-01-14 00:00:00 2024-02-14 18:05:17 Patient Secure Msg Doctor Unassigned, [place] [facility] [id number] [id number] [id number] [facility] 2024-01-09 11:15:00 2024-01-09 16:34:00 Emergency More Collins [facility] [id number] [id number] [id number] [facility] 2024-01-09 11:15:00 2024-01-09 16:34:00 Emergency X MORE COLLINS [facility] ERT [id number] [facility] 2023-09-03 10:58:14 2023-09-03 10:58:14 Outpatient [facility] [id number] [place] 2023-08-15 17:29:39 2023-08-15 17:29:39 Outpatient [facility] [id number] [place] 2023-05-23 11:39:00 2023-05-23 14:32:00 Emergency X SONJA RAMIRES [facility] ERT [id number] [facility] 2023-05-23 11:39:00 2023-05-23 14:32:00 Emergency Sonja Ramires [facility] [id number] [id number] [id number] [facility] 2019-05-01 19:23:31 2019-05-02 00:11:00 Emergency Rey Wakefield [facility] [id number] [id number] [id number] [facility] 2019-05-01 19:23:31 2019-05-02 00:11:00 Emergency Rey Wakefield [facility] [id number] [id number] [id number] Results Test Description Test Time Test Comments [...] thyroid lobe nodule requires no follow-up (image 11/3). Visualized abdomen: Adrenal glands are normal. The liver is fatty.Gallbladder is normal. There is no biliary dilation. Osseous Structures: No suspicious lesions are identified[id number] 18:32:09* Test Item Value Reference Range Interpretation Comme nts NA (test code = 6446420446) 130 mmol/L 135-145 L K (test code = 5505903787) 3.3 mmol/L 3.5-5.0 L CL (test code = 1817870389) 95 mmol/L 98-108 L CO2 TOTAL (test code = 5976273244) 23 mmol/L 23-31 AGAP (test code = 8677868914) 12 2-16 BUN (test code = 3015784283) 4 mg/dL 7-23 L GLUCOSE (test code = 4588321995) 594 mg/dL 70-110 HH CREATININE (test code = 2160-0) 0.41 mg/dL 0.50-1.04 L TOTAL BILI (test code = 5263353096) 0.5 mg/dL 0.1-1.1 CALCIUM (test code = 5665421703) 9.2 mg/dL 8.6-10.6 T PROTEIN (test code = 8816389053) 7.7 g/dL 6.3-8.2 ALBUMIN (test code = 9956888974) 3.6 g/dL 3.5-5.0 ALK PHOS (test code = 6441124125) 145 U/L 34-122 H ALTv (test code = 1742-6) 21 U/L 5-35 AST(SGOT) (test code = 0961492316) 19 U/L 13-40 eGFR (test code = 32004-0) 134.3 mL/min/1.73m2 CKD-EPI eGFR (2020). Assuming creatinine has been stable day-to-day for at least three months, the eGFR indicates Category G1 (>= 90 mL/min/1.73 m2) Lab Interpretation (test code = 92779-9) Abnormal [facility] WITH [id number] 17:59:16* Test Item Value Reference Range Interpretation [...] 32.1 g/dL 31.6-35.1 RDW-SD (test code = 37156-3) 42.4 fL 39.0-49.9 RDW-CV (test code = 788-0) 12.9 % 12.0-15.5 PLT (test code = 777-3) 368 166-358 H MPV (test code = 25721-4) 10.1 fL 9.5-12.9 NRBC/100 WBC (test code = 9522771855) 0.0 0.0-10.0 NRBC x10^3 (test code = 6523553935) See_Comment [Automated message] The system which generated this result transmitted reference range: 10*3/?L. The reference range was not used to interpret this result as normal/abnormal. GRAN MAT (NEUT) % (test code = 770-8) 79.4 % IMM GRAN % (test code = 7911879824) 1.20 % LYMPH % (test code = 736-9) 13.2 % MONO % (test code = 5905-5) 5.3 % EOS % (test code = 713-8) 0.4 % BASO % (test code = 706-2) 0.5 % GRAN MAT x10^3(ANC) (test code = 9232141854) 10.37 10*3/uL 1.88-7.09 H IMM GRAN x10^3 (test code = 3734862448) 0.16 10*3/uL 0.00-0.06 H LYMPH x10^3 (test code = 731-0) 1.73 10*3/uL 1.32-3.29 MONO x10^3 (test code = 742-7) 0.69 10*3/uL 0.33-0.92 EOS x10^3 (test code = 711-2) 0.05 10*3/uL 0.03-0.39 BASO x10^3 (test code = 704-7) 0.07 10*3/uL 0.01-0.07 Lab Interpretation (test code = 10076-6) [facility] [id number] 05:03:30* Test Item Value Reference Range Interpretation Comme nts GLUCOSE (test code = 2217) 196 MG/DL 70-99 H BUN (test code = 2208) 10 MG/DL 6-20 CREATININE (test code = 2214) 0.54 MG/DL 0.60-1.30 L eGFR (2020 CKD-EPI) (test code = 44789) 126 ML/MIN/1.73 >60 CALC BUN/CREAT (test code [...] code = 2219) 31 U/L 5-40 LIPID [id number] 05:03:30* Test Item Value Reference Range Interpretation Comme nts CHOLESTEROL (test code = 2210) 198 MG/DL <200 TRIGLYCERIDES (test code = 2232) 417 MG/DL <150 H HDL CHOLESTEROL (test code = 0) 54 MG/DL >39 CALC LDL CHOL (test code = 2236) (NOTE) MG/DL <100 UNABLE TO CALCUL ATE [...] SPECIMENS. FOR MOREINFORMATION, SEE CLIENT ANNOUNCEMENT AT [email or web address] CalcLDL-C RISK RATIO LDL/HDL (test code = 223) (NOTE) RATIO <3.22 UNABLE TO NOHEMI CULATE UNLESS OTHERWISE INDICATED, ALL TESTING PERFORMED AT [facility] [address] [place] [address] KEYSEATING MACHINE SET UP OPERATOR: JUDI DERAS M.D. CLIA NUMBER [id number] [facility] [place]. [id number] HEMOGLOBIN [id number] 03:03:11* Test Item Value Reference Range Interpretation Comme nts HEMOGLOBIN A1c (test code = 80273) 8.5 % 4.2-5.6 H [employer] GUIDELINES FOR HGB A1C: [...] Test Item Value Reference Range Interpretation Comme [facility] POCT GLU (test code = 0208691957) 237 mg/dL 70-110 H Lab Interpretation (test cod e = 53838-5) Abnormal [facility] GLUCOSE(AGE >30DAYS)2023-05-23 19:03:00* Test Item Value Reference Range Interpretation Comme [facility] POCT Glu (age>30days) (test code = 3342) 237 mg/dL 70-110 A Lab Interpretation (test cod e = 94680-4) Abnormal [facility] GLUCOSE (AUTOMATED)2023-05-23 17:52:48* Test Item Value Reference Range Interpretation Comme [facility] POCT GLU (test code = 1193276410) 295 mg/dL 70-110 H Lab Interpretation (test cod e = 68658-1) [facility]A1C)2023-05-23 17:12:32* Test Item Value Reference Range Interpretation Comme [facility] HGB A1C (test code = 4548-4) 9.8 % 4.0-5.7 H CHAVA (test code = CHAVA) Reference RangesNormal: <5.7%Prediabetes: 5.7 - 6.4%Diabetes: > 6.5% Lab Interpretation (test code = 28547-6) [facility] (NA, K, CL, CO2, GLUCOSE, BUN, CREATININE, CA)2023-05-23 17:11:51* Test Item Value Reference Range Interpretation Comme [facility] NA (test code = 7144475592) 133 mmol/L 135-145 L K (test code = 7041774124) 3.9 mmol/L 3.5-5.0 CL (test code = 7512848869) 99 mmol/L 98-108 CO2 TOTAL (test code = 3461261688) 27 mmol/L 23-31 AGAP (test code = 1420955164) 7 2-16 BUN (test code = 1210362834) 13 mg/dL 7-23 GLUCOSE (test code = 4854887494) 307 mg/dL 70-110 H CREATININE (test code = 3883142547) 0.42 mg/dL 0.50-1.04 L CALCIUM (test code = 7040181219) 8.8 mg/dL 8.6-10.6 eGFR (test code = 1825849250) 176.0 mL/min/1.73m2 CHAVA (test code = CHAVA) [...] imaging tests). Lab Interpretation (test code = 63374-3) Abnormal [facility] WITH [id number] 17:02:31* Test Item Value Reference Range Interpretation [...] 34.6 g/dL 31.6-35.1 RDW-SD (test code = 88159-4) 37.3 fL 39.0-49.9 L RDW-CV (test code = 788-0) 11.7 % 12.0-15.5 L PLT (test code = 777-3) 269 See_Comment [Automated message] The system which generated this result transmitted reference range: 166 - 358 10*3/?L. The reference range was not used to interpret this result as normal/abnormal. MPV (test code = 20414-5) 10.1 fL 9.5-12.9 NRBC/100 WBC (test code = 8092533431) 0.0 See_Comment [Automated message] The system which generated this result transmitted reference range: 0.0 - 10.0 /100 WBCs. The reference range was not used to interpret this result as normal/abnormal. NRBC x10^3 (test code = 9445686388) See_Comment [Automated message] The system which generated this result transmitted reference range: 10*3/?L. The reference range was not used to interpret this result as normal/abnormal. GRAN MAT (NEUT) % (test code = 770-8) 79.3 % IMM GRAN % (test code = 2731118824) 0.40 % LYMPH % (test code = 736-9) 14.6 % MONO % (test code = 5905-5) 4.5 % EOS % (test code = 713-8) 0.8 % BASO % (test code = 706-2) 0.4 % GRAN MAT x10^3(ANC) (test code = 0739078998) 11.18 10*3/uL 1.88-7.09 H IMM GRAN x10^3 (test code = 1422186495) 0.06 10*3/uL 0.00-0.06 LYMPH x10^3 (test code = 731-0) 2.06 10*3/uL 1.32-3.29 MONO x10^3 (test code = 742-7) 0.64 10*3/uL 0.33-0.92 EOS x10^3 (test code = 711-2) 0.12 10*3/uL 0.03-0.39 BASO x10^3 (test code = 704-7) 0.06 10*3/uL 0.01-0.07 Lab Interpretation (test code = 38642-0) Abnormal [facility] GLUCOSE (AUTOMATED)2023-05-23 16:43:05* Test Item Value Reference Range Interpretation Comme nts POCT GLU (test code = 3868779106) 326 mg/dL 70-110 H Lab Interpretation (test cod e = 14930-9) Abnormal [facility] GLUCOSE(AGE >30DAYS)2019-05-02 04:43:00* Test Item Value Reference Range Interpretation Comme nts POCT Glu (age>30days) (test code = 3342) 250 mg/dL 70-110 A Lab Interpretation (test cod e = 11259-9) Abnormal [facility] GLUCOSE (AUTOMATED)2019-05-02 04:41:00* Test Item Value Reference Range Interpretation Comme nts POCT GLU (test code = 2911506403) 250 mg/dL 70-110 H Lab Interpretation (test cod e = 47715-4) Abnormal [facility]. METABOLIC PANEL (67502)2019-05-02 02:54:00* Test Item Value Reference Range Interpretation Comme nts NA (test code = 3118209369) 138 mmol/L 135-145 K (test code = 7917123760) 3.5 mmol/L 3.5-5 CL (test code = 5994419255) 101 mmol/L 98-108 CO2 TOTAL (test code = 6286376713) 22 mmol/L 23-31 L AGAP (test code = 4994679857) 2-16 BUN (test code = 6334235333) 5 mg/dL 7-23 L GLUCOSE (test code = 9127384496) 507 mg/dL 70-110 HH CREATININE (test code = 8226588038) 0.40 mg/dL 0.5-1.04 L TOTAL BILI (test code = 9706673351) 0.7 mg/dL 0.1-1.1 CALCIUM (test code = 2356124262) 9.3 mg/dL 8.6-10.6 T PROTEIN (test code = 0143821612) 7.2 g/dL 6.3-8.2 ALBUMIN (test code = 7869429718) 4.0 g/dL 3.5-5 ALK PHOS (test code = 7939651353) 104 U/L 34-122 ALT(SGPT) (test code = 8002203518) 31 U/L 9-51 AST(SGOT) (test code = 7545285271) 38 U/L 13-40 eGFR Calculation (Non-) (test code = 2862209472) mL/min/1.73m2 eGFR Calculation () (test code = 8575058093) mL/min/1.73m2 CHAVA (test code = CHAVA) Association [...] imaging tests). Lab Interpretation (test code = 24340-8) [facility] 02:31:00* Test Item Value Reference Range Interpretation Comme nts LIPASE (test code = 8576328278) 98 U/L 0-220 Lab Interpretation (test cod e = 84287-6) Normal [facility] 02:23:00* Test Item Value Reference Range Interpretation Comme nts APPEARANCE (test code = 2441304468) Clear Clear COLOR (test code = 8902323121) Yellow Yellow PH (test code = 6773967722) 4.8-8.0 SP GRAVITY (test code = 0451185734) 1.003-1.030 GLU U QUAL (test code = 8175339340) >1000 mg/dL Negative A BLOOD (test code = 1900922940) Negative Negative KETONES (test code = 5593630817) 15 mg/dL Negative A PROTEIN (test code = 2887-8) Negative Negative UROBILIN (test code = 7733452091) 0.2 mg/dL See_Comment [BLAZER & FLIP FLOPS] The system which generated this result transmitted reference range: 0-1.0 mg/dL. The reference range was not used to interpret this result as normal/abnormal. BILIRUBIN (test code = 9556908417) Negative Negative NITRITE (test code = 8847504249) Negative Negative LEUK ADAM (test code = 8342858687) Negative Negative RBC/HPF (test code = 7082744119) See_Comment [Automated [email or web address]] The system which generated this result transmitted reference range: 0 - 3 HPF. The reference range was not used to interpret this result as normal/abnormal. WBC/HPF (test code = 8597177022) See_Comment [BLAZER [employer] FLIP [employer]OPS] The system which generated this result transmitted reference range: 0 - 5 HPF. The reference range was not used to interpret this result as normal/abnormal. BACTERIA (test code = 5747657930) Negative Negative Lab Interpretation (test code = 44635-0) [facility] [id number] 02:11:00* Test Item Value Reference Range Interpretation [...] 33.0 g/dL 31.6-35.1 RDW-SD (test code = 51940-5) 40.3 fL 39-49.9 RDW-CV (test code = 788-0) 12.5 % 12-15.5 PLT (test code = 777-3) See_Comment [Automated messa ge] The system which generated this result transmitted reference range: 166 - 358 10*3/?L. The reference range was not used to interpret this result as normal/abnormal. MPV (test code = 39657-9) 11.2 fL 9.5-12.9 NRBC/100 WBC (test code = 4465274346) See_Comment [Automated [employer] ssage] The system which generated this result transmitted reference range: 0.0 - 10.0 /100 WBCs. The reference range was not used to interpret this result as normal/abnormal. NRBC x10^3 (test code = 1631777750) <0.01 See_Comment [Automated messa ge] The system which generated this result transmitted reference range: 10*3/?L. The reference range was not used to interpret this result as normal/abnormal. GRAN MAT (NEUT) % (test code = 770-8) 71.2 % IMM GRAN % (test code = 2111549564) 0.30 % LYMPH % (test code = 736-9) 21.2 % MONO % (test code = 5905-5) 6.6 % EOS % (test code = 713-8) 0.2 % BASO % (test code = 706-2) 0.5 % GRAN MAT x10^3(ANC) (test code = 2769206012) 4.29 10*3/uL 1.88-7.09 IMM GRAN x10^3 (test code = 5776714946) <0.03 0-0.06 LYMPH x10^3 (test code = 731-0) 1.28 10*3/uL 1.32-3.29 L MONO x10^3 (test code = 742-7) 0.40 10*3/uL 0.33-0.92 EOS x10^3 (test code = 711-2) <0.03 0.03-0.39 L BASO x10^3 (test code = 704-7) 0.03 10*3/uL 0.01-0.07 Lab Interpretation (test code = 54077-9) [id number]* Test Item Value Reference Range Interpretation Comme nts POCT PREG (test code = 1605) negative On board controls acceptable with C Line (test code = 3574) present POCT PREG LOT # (test code = 3575) [id number] POCT PREG TEST DATE ( test code = 3576) 09/14/2020 Lab Interpretation (test cod e = 77764-3) Normal [facility] Notes Date/Time Note Provider Source 2024-01-09 16:31:50 Written/verbal d/c instructions out of er no distress Damaris Saldana RN [facility] 2024-01-09 11:11:55 Patient arrived via private car c/o of left breast pain and infection. Patient said that 3 days ago redness like a boil started on her left breast and progressed. The area is redness, tender to touch, warm. Hx: DM Edwige Velázquez RN [facility] 2023-05-23 14:29:39 Formatting of this n ote might be different from the original. Pt given printed and verbal discharge instructions regarding hyperglycemia, encouraged hydration. 1 Prescriptions provided. Discussed ibuprofen and to take with food to avoid GI distress. Pt verbalized understanding of instructions, pt awake alert oriented, resp reg unlabored, skin w/d, color appropriate for race, moves all ext well,pt encouraged to follow up with pcp. Advised to seek medical attention for new/prolonged/worsening of symptoms, Symptoms improved. No adverse reaction to meds given in ER noted upon discharge. PIV d'cd, dressing to site, catheter in tact. Awake, alert oriented, resp reg unlabored, skin w/d, pt leaving via wheelchair, in no apparent distress. Damaris Freire RN [facility] 2023-05-23 11:40:08 Formatting of this n ote might be different from the original. [facility] officer states: "She had bgl of 247. She was acting fine until I put her in the back of my patrol car. She states that she has been out of her insulin for 5 days" Pt awake, answering questions, no distress. Ana Silverio RN [facility]
[2024-12-04] MEDS ORDERED: ONDANSETRON 4 MG/2 ML VIAL ONE (13:47)
[2024-12-04] MEDS ORDERED: NA CHLORIDE 0.9% 1,000 ML ONE (13:48)
[2024-12-04] MEDS ORDERED: MORPHINE 2 MG/ML SYR ONE (13:48)
[2024-12-04 13:52] LABS: Absolute Basophils 0.1 K/uL (0-0.5); Absolute Eosinophils 0.3 K/uL (0-0.5); Absolute Lymphocytes (CBC) 3.7 K/uL (0.7-4.9); Absolute Monocytes 0.6 K/uL (0.1-1.3); Absolute Neutrophil 6.2 K/uL (1.8-8.0); Basophils % 0.8 % (0-1.3); Eosinophils % 2.4 % (0-4.4); Hematocrit 43.6 % (36.0-45.0); Hemoglobin 14.9 g/dL (12.0-15.0); Lymphocytes % 34.1 % (15.3-44.8); MCH 30.1 pg (27.0-35.0); MCHC 34.1 g/dL (32.0-36.0); MCV 88.1 fL (80-100); MPV 8.3 fL (7.6-11.3); Monocytes % 5.4 % (3.3-12.3); Neutrophils % 57.3 % (41.7-73.7); Nucleated Red Blood Cells % 0.1 % (0-0); Platelets 307 thou/uL (152-406); RBC Red Blood Cell Count 4.95 M/uL (3.86-4.86); Red Cell Distribution Width 12.6 % (12.1-15.2)
--- NOTE | 2024-12-04 14:01 | RAD REPORT ---
EXAM: Abdominal exam Limited ultrasound CLINICAL HISTORY: Abdominal pain COMPARISON: 2015 FINDINGS: Multiple gallstones. Gallbladder wall not thickened. Biliary tree normal caliber IMPRESSION: Cholelithiasis without evidence of cholecystitis
[2024-12-04 14:19] LABS: Albumin 2.9 g/dL (3.4-5.0); Albumin/Globulin Ratio 0.7 (1.1-1.8); Bilirubin Total 0.5 mg/dL (0.2-1.0); Protein, Total 6.9 g/dL (6.4-8.2)
--- NOTE | 2024-12-04 15:38 | EDPHYS ---
Physician Documentation [facility] Name: Chiquis Palma Age: 34 yrs Sex: Female : 1990 Arrival Date: 12/04/2024 Time: 13:26 Bed 11 Private MD: ED Physician Kristel Santillan HPI: 12/04 17:49 This 34 yrs old Female presents to ER via EMS with complaints of Abdominal dr5 Pain. 17:49 Patient is a 31-year-old female with history of diabetes, hypertension and neuropathy dr5 coming in with right upper quadrant abdominal pain that started after eating a grilled cheese sandwich this afternoon. Patient denies having gallbladder removed.. 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 - Infectious Disease History:: Denies. - Social history:: Smoking status: Reported history of juuling and/or vaping. ROS: 17:49 Constitutional: as per hpi dr5 Exam: 17:49 Constitutional: This is a well developed, well nourished patient who is awake, alert, dr5 and in no acute distress. Head/Face: Normocephalic, atraumatic. Neck: Trachea midline, no thyromegaly or masses palpated, and no cervical lymphadenopathy. Supple, full range of motion without nuchal rigidity, or vertebral point tenderness. No Meningismus. Chest/axilla: Normal chest wall appearance and motion. Nontender with no deformity. No lesions are appreciated. Cardiovascular: Regular rate and rhythm with a normal S1 and S2. Normal PMI, no JVD. No pulse deficits. Respiratory: Lungs have equal breath sounds bilaterally, clear to auscultation. No rales, rhonchi or wheezes noted. No increased work of breathing, no retractions or nasal flaring. Back: No spinal tenderness. No costovertebral tenderness. Full range of motion. Skin: Warm, dry with normal turgor. Normal color with no rashes, no lesions, and no evidence of cellulitis. Neuro: Awake and alert, GCS 15, oriented to person, place, time, and situation. Cranial nerves II-XII grossly intact. Motor strength 5/5 in all extremities. Sensory grossly intact. Cerebellar exam normal. Normal gait. 17:49 Abdomen/GI: Inspection: abdomen appears normal, Palpation: moderate abdominal tenderness, in the right upper quadrant, Vital Signs: 13:32 Temp 98.3; Weight 83.91 kg; Pain 10/10; ap3 13:44 BP 108 / 86; Pulse 67; Resp 19; Pulse Ox 96% on R/A; ap3 15:44 BP 128 / 72; Pulse 68; Resp 18; Pulse Ox 100% on R/A; Pain 0/10; ap3 13:32 Pain Scale: Adult ap3 15:44 Pain Scale: Adult ap3 MDM: 13:32 Medical Screening Exam initiated dr5 17:49 Differential Diagnosis Cholecystitis, cholelithiasis, electrolyte abnormality. Data dr5 reviewed: vital signs, nurses notes, lab test result(s), radiologic studies. I considered the following discharge prescriptions or medication management in the emergency department Medications were administered in the Emergency Department. See MAR. Care significantly affected by the following chronic conditions: Diabetes, Hypertension. Care significantly affected by the following Social Determinants of Health: Poor access to healthcare and/or lack of insurance, Poor access to transportation, Problems related to employment. Counseling: I had a detailed discussion with the patient and/or guardian regarding the historical points, exam findings, and any diagnostic results supporting the discharge/admit diagnosis, the presence of at least one elevated blood pressure reading (>120/80) during this emergency department visit, lab results, the need for outpatient follow up, for definitive care, a family practitioner, a general surgeon, to return to the emergency department if symptoms worsen or persist or if there are any questions or concerns that arise at home. ED course: Patient's pain has resolved and is felt much better. Discussed ultrasound that shows cholelithiasis without cholecystitis. Recommended patient follow-up with general surgeon for cholecystectomy. Diet plan given. All questions answered and strict ER precautions given.. 12/04 13:32 Order name: CBC with Diff; Complete Time: 13:59 dr5 12/04 13:32 Order name: CMP; Complete Time: 14:23 dr5 12/04 13:32 Order name: Lipase; Complete Time: 14:23 dr5 12/04 13:32 Order name: Abdomen Limited US: RUQ Please; Complete Time: 14:05 dr5 12/04 13:32 Order name: IV Saline Lock; Complete Time: 13:42 dr5 12/04 13:32 Order name: Labs collected and sent; Complete Time: 13:42 dr5 Administered Medications: 13:55 Drug: Ondansetron IVP 4 mg IVP once; over 2 minutes Route: IVP; Site: right antecubital;ap3 15:09 Follow up: Response: No adverse reaction; Pain is decreased ap3 13:55 Drug: morphine IVP or IV 4 mg IVP once over 4 mins Route: IVP; Infused Over: 4 mins; ap3 Site: right antecubital; 15:09 Follow up: Response: No adverse reaction; Pain is decreased ap3 13:55 Drug: NS 0.9% IV 1000 ml IV at 1 bolus Per protocol; to be given as a bolus over 60 ap3 minutes Route: IV; Rate: 1 bolus; Site: right antecubital; 15:46 Follow up: IV Status: Completed infusion; IV Intake: 1000ml ap3 Disposition Summary: 12/04/24 15:37 Discharge Ordered Notes: Location: Home dr5 Condition: Stable dr5 Diagnosis - Other cholelithiasis without obstruction dr5 Followup: dr5 - With: Private Physician - When: 1 - 2 days - Reason: Recheck today's complaints, Continuance of care, Re-evaluation by your physician Followup: dr5 - With: Emergency Department - When: As needed - Reason: Worsening of condition Followup: dr5 - With: Demond Peterson MD - When: 1 week - Reason: Recheck today's complaints, Continuance of care, Re-evaluation by your physician Discharge Instructions: - Discharge Summary Sheet dr5 - Cholelithiasis dr5 - Gallbladder Eating Plan dr5 Forms: - Medication Reconciliation Form dr5 - Patient Portal Instructions dr5 - Leadership Thank You Letter dr5 Signatures: Dispatcher [employer] Rosalinda Davila RN RN ap3 Rodney Lu FNP-C FNP-Cdr5
--- NOTE | 2024-12-04 15:38 | ER ---
Nurse's Notes [facility] Name: Chiquis Palma Age: 34 yrs Sex: Female : 1990 Arrival Date: 12/04/2024 Time: 13:26 Bed 11 Private MD: Diagnosis: Other cholelithiasis without obstruction Presentation: 12/04 13:32 Chief complaint: EMS states: patient started having abdominal pain this afternoon after ap3 eating a grilled cheese sandwhich. patient currently rates her pain as a 10/10 on the pain scale. Coronavirus screen: At this time, the client does not indicate any symptoms associated with coronavirus-19. Ebola Screen: No symptoms or risks identified at this time. Risk Assessment: Do you want to hurt yourself or someone else? Patient reports no desire to harm self or others. Onset of symptoms was December 04, 2024. 13:32 Method Of Arrival: EMS: [facility] ap3 13:32 Acuity: CHANTEL 3 ap3 15:45 Initial Sepsis Screen: Does the patient meet any 2 criteria? No. Patient's initial ap3 sepsis screen is negative. Does the patient have a suspected source of infection? No. Patient's initial sepsis screen is negative. Triage Assessment: 13:33 General: Appears uncomfortable, Behavior is cooperative, restless. Pain: Complains of ap3 pain in abdomen Pain currently is 10 out of 10 on a pain scale. Neuro: Level of Consciousness is awake, alert, obeys commands, Oriented to person, place, time, situation, Appropriate for age. Cardiovascular: Patient's skin is warm and dry. Respiratory: Airway is patent Respiratory effort is even, unlabored, Respiratory pattern is regular, symmetrical. GI: Reports lower abdominal pain, upper abdominal pain. 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 - Infectious Disease History:: Denies. - Social history:: Smoking status: Reported history of juuling and/or vaping. Screenin:34 [facility] ED Fall Risk Assessment (Adult) History of falling in the last 3 months, ap3 including since admission No falls in past 3 months (0 pts) Confusion or Disorientation No (0 pts) Intoxicated or Sedated No (0 pts) Impaired Gait No (0 pts) Mobility Assist Device Used No (0 pt) Altered Elimination No (0 pt) Score/Fall Risk Level 0 - 2 = Low Risk Oriented to surroundings, Maintained a safe environment, Educated pt \T\ family on fall prevention, incl call for assistance when getting out of bed, Assessed \T\ reinforced patient's understanding of fall precautions, Hourly rounding (assess needs \T\ fall precautionary measures) done, Used ambulatory aids as needed (educated on \T\ assisted with). Abuse screen: Denies threats or abuse. Nutritional screening: No deficits noted. Tuberculosis screening: No symptoms or risk factors identified. Assessment: 15:10 Reassessment: Patient and/or family updated on plan of care and expected duration. Pain ap3 level reassessed. Patient is alert, oriented x 3, equal unlabored respirations, skin warm/dry/pink. Patient states feeling better. Patient states symptoms have improved. Neuro: Level of Consciousness is awake, alert, obeys commands, Oriented to person, place, time, situation, Appropriate for age. Vital Signs: 13:32 Temp 98.3; Weight 83.91 kg; Pain 10/10; ap3 13:44 BP 108 / 86; Pulse 67; Resp 19; Pulse Ox 96% on R/A; ap3 15:44 BP 128 / 72; Pulse 68; Resp 18; Pulse Ox 100% on R/A; Pain 0/10; ap3 13:32 Pain Scale: Adult ap3 15:44 Pain Scale: Adult ap3 ED Course: 13:31 Patient arrived in ED. ap3 13:31 Patient has correct armband on for positive identification. Bed in low position. Call ap3 light in reach. Side rails up X2. Client placed on continuous cardiac and pulse oximetry monitoring. NIBP monitoring applied. case monitor on. Pulse ox on. NIBP on. 13:32 Rodney Lu FNP-C is [facility]. dr5 13:32 Kristel Santillan MD is Attending Physician. dr5 13:33 Triage completed. ap3 13:34 Arm band placed on right wrist. ap3 13:35 Rosalinda Shaver, SELAM is Primary Nurse. ap3 13:42 Initial lab(s) drawn, by me, sent to lab. Inserted saline lock: 20 gauge in right ap3 antecubital area, using aseptic technique. Blood collected. Flushed with 10 mL NS. 13:58 Abdomen Limited US: RUQ Please In Process Unspecified. EDMS 15:36 Demond Peterson MD is Referral Physician. dr5 15:45 Provided Education on: discharge instructions. ap3 15:45 No provider procedures requiring assistance completed. IV discontinued, intact, ap3 bleeding controlled, No redness/swelling at site. Pressure dressing applied. Administered Medications: 13:55 Drug: Ondansetron IVP 4 mg IVP once; over 2 minutes Route: IVP; Site: right antecubital;ap3 15:09 Follow up: Response: No adverse reaction; Pain is decreased ap3 13:55 Drug: morphine IVP or IV 4 mg IVP once over 4 mins Route: IVP; Infused Over: 4 mins; ap3 Site: right antecubital; 15:09 Follow up: Response: No adverse reaction; Pain is decreased ap3 13:55 Drug: NS 0.9% IV 1000 ml IV at 1 bolus Per protocol; to be given as a bolus over 60 ap3 minutes Route: IV; Rate: 1 bolus; Site: right antecubital; 15:46 Follow up: IV Status: Completed infusion; IV Intake: 1000ml ap3 Medication: 15:46 VIS not applicable for this client. ap3 Intake: 15:46 IV: 1000ml; Total: 1000ml. ap3 Outcome: 15:37 Discharge ordered by . dr5 15:45 Discharged to to lobby to wait for ride ap3 15:45 Condition: good 15:45 Discharge instructions given to patient, Instructed on discharge instructions, follow up and referral plans. Demonstrated understanding of instructions, follow-up care, 15:46 Patient left the ED. ap3 Signatures: Dispatcher [employer] EDMS Rosalinda Shaver RN RN ap3 Rodney Lu, SEAT JOINER CHAINSTITCH-C SEAT JOINER CHAINSTITCH-Cdr5
[2024-12-04 16:32] VITALS: TEMP 98.3
[2024-12-04 16:46] VITALS: BP 128/72; O2SAT 100
== END 2024-12-04 15:46 | disposition home or self-care (01) ==
LOC: ER 13:26
DX: K80.80 Other cholelithiasis without obstruction (principal)
CPT/HCPCS: 36415; 76705; 80053; 83690; 85025; 96361; 96374; 96375; 99285; J2270; J2405; J7030

== ENCOUNTER 2025-07-01 20:41 | Emergency (ER) | payer SELFPAY ==
--- OUTSIDE RECORDS SUMMARY | 2025-07-01 20:46 | XMS REPORT | Continuity of Care Document ---
Author Name Unknown Address [address] [facility]. [address] [place] [address] Organization [facility] [place] Address [address] [facility] [address] [place] [address] Care Team Providers Care Cork Tipper Name Role Phone Jovana Zabala Primary Care Physician Doctor Unassigned, [place] Attending Clinician U More Kauffman NP Attending Clinician [phone] SONJA RAMIRES Attending Clinician Unavailable Sonja Ramires NP Attending Clinician Rey Wakefield MD Attending Clinician [phone] MORE COLLINS Admitting Clinician Unavailable Payers Payer Name Policy Type Policy Number Effective Date Expirati on Date Source Problems Condition Name Condition Details Condition Category Status Onset Date Resolution Date Last Treatment Date Treating Clinician Comments Source Nexplanon insertion Nexplanon insertion Disease Active 12-03 00:00: 00 [facility] Atypical squamous cell changes of undetermin ed significan ce (ASCUS) on vaginal cytology Atypical squamous cell changes of undetermin ed significan ce (ASCUS) on vaginal cytology Disease Active 12-01 00:00: 00 Overview: Beverly g of this note might be different from the original. Awaiting on HPV results. [facility] Well woman exam Well woman exam Disease Active 11-19 00:00: 00 [facility] Diabetes insipidus Diabetes insipidus Disease Active 11-19 00:00: 00 [facility] Encounter for contracept jessica management , unspecifie d type Encounter for contracept jessica management , unspecifie d type Disease Active 11-19 00:00: 00 [facility] BMI 40.0-44.9, adult BMI 40.0-44.9, adult Disease Active 11-19 00:00: 00 [facility] Encounter for contracept jessica management , unspecifie d type Encounter for contracept jessica management , unspecifie d type Disease Active 11-19 00:00: 00 [facility] Morbid obesity Morbid obesity Disease Active 06-10 00:00: 00 [facility] Allergies, Adverse Reactions, Alerts Allergy Name Allergy Type Status Severity Reaction(s) Onset Date Inactive Date Treating Clinician Comments Source NO KNOWN ALLERGIE S Drug Class Active [facility] Social History Social Habit Start Date Stop Date Quantity Comments Source History of tobacco use Cigarette Smoker [facility] Gender identity [facility] Sexual orientation U [facility] Alcoholic beverage intake 2023-05-23 00:00:00 2023-05-23 00:00:00 0 /d [facility] Alcohol intake 2023-05-23 00:00:00 2023-05-23 00:00:00 0 /d [facility] History of Social function 2019-03-25 00:00:00 2019-03-25 00:00:00 [facility] Cigarette pack-years 2018-11-19 00:00:00 2018-11-19 00:00:00 [facility] Tobacco use and exposure 2018-11-19 00:00:00 2018-11-19 00:00:00 Smokeless tobacco non-user [facility] Cigarettes smoked current (pack per day) - Reported 2018-11-19 00:00:00 2018-11-19 00:00:00 [facility] Sex assigned at 1990 00:00:00 1990 00:00:00 [facility] Smoking Status Start Date Stop Date Source Smokes tobacco daily 2018-11-19 00:00:00 [facility] Medications Ordered Medication Name Filled Medication Name Start Date Stop Date Current Medication? Ordering Clinician Indication Dosage Frequency Signature (SIG) Comments Components Source iopamidol (ISOVUE 370-500 mL) injection 83 mL 01-08 19:30: 00 01-08 19:26 :00 No [id number] 83mL 83 mL, Intravenou s, ONCE, 1 dose, On Fri01/09/24 at 1430, Routine [facility] insulin regular human (HUMULIN R) injection 10 Units 01-08 19:30: 00 01-08 18:56 :00 No 10U 10 Units, Subcutaneo us, ONCE, 1 dose, On Fri01/09/24 at 1430, Routine
Indicatio n for insulin: Hyperglyce [facility] HYDROcodone -acetaminop hen (NORCO 5) 5-325 mg tablet 1 tablet 01-08 17:30: 00 01-08 17:40 :00 No 1{tbl} 1 tablet, Oral, ONCE, 1 dose, On Fri01/09/24 at 1230, GALI [facility] cephALEXin (KEFLEX) capsule 500 mg 01-08 17:30: 00 01-08 17:39 :00 No 500mg 500 mg, Oral, ONCE, 1 dose, On Fri01/09/24 at 1230, GALI
Re ason for Anti-Infec tive: Empiric Therapy for Suspected Infection< br>Empiric Therapy Site: Skin / Soft tissue
Duration of therapy: Once (ED) [facility] cephALEXin 500 mg capsule 01-08 00:00: 00 01-19 04:59 :00 No [id number] 500mg Take 1 capsule by mouth 4 (four) times daily for 10 days. [facility] insulin regular human (HUMULIN R) injection 8 Units 05-23 22:00: 00 Yes 8U 8 Units, Subcutaneo us, BID MEALS, First dose on Fri05/23/23 at 1700, Until Discontinu ed, Routine
Indicatio n for insulin: Hyperglyce [facility] NaCl 0.9% (NS) IV infusion 1,000 mL 05-23 18:30: 00 Yes 1000mL at 999 mL/hr, Intravenou s, CONTINUOUS , Starting on Fri05/23/23 at 1330, Until Discontinu ed, [facility] NaCl 0.9% (NS) bolus infusion 1,000 mL 05-23 17:30: 00 05-23 18:11 :00 No 1000mL at 999 mL/hr, 1,000 mL, IV Infusion, ONCE, 1 dose, On Fri05/23/23 at 1230, [facility] metFORMIN 500 mg tablet 05-23 00:00: 00 06-23 04:59 :00 No [id number] 500mg Take 1 tablet by mouth in the morning and 1 tablet in the evening. Take with meals. Do all this for 30 days. [facility] NaCl 0.9% (NS) IV infusion 1,000 mL 05-02 04:30: 00 Yes 1000mL at 999 mL/hr, Intravenou s, CONTINUOUS , Starting 05/01/19 at 2330, Until Discontinu ed, Routine [facility] insulin regular human (HUMULIN R) injection 10 Units 05-02 04:30: 00 05-02 03:44 :00 No 10U 10 Units, Subcutaneo us, ONCE, 1 dose, 05/01/19 at 2330, Routine [facility] No known medications No Un morelia [facility] Immunizations Ordered Immunization Name Filled Immunization Name Date Status Comments Source Tdap 2018-06-10 00:00:00 Completed [facility] TDAP 2018-06-10 00:00:00 Completed [facility] TDAP Unknown Completed [facility] TDAP Unknown Completed [facility] Vital Signs Vital Name Observation Time Observation Value Comments S cassy Systolic blood pressure 2024-01-09 21:00:00 124 mm[Hg] [facility] Diastolic blood pressure 2024-01-09 21:00:00 96 mm[Hg] [facility] Heart rate 2024-01-09 21:00:00 89 /min [facility] Body temperature 2024-01-09 21:00:00 36.5 Roseanna [facility] Respiratory rate 2024-01-09 21:00:00 16 /min [facility] Oxygen saturation in Arterial blood by Pulse oximetry 2024-01-09 21:00:00 99 /min [facility] Body height 2024-01-09 16:12:00 152.4 cm [facility] Body weight 2024-01-09 16:12:00 86.183 kg [facility] BMI 2024-01-09 16:12:00 37.11 kg/m2 [facility] Systolic blood pressure 2023-05-23 19:02:00 117 mm[Hg] [facility] Diastolic blood pressure 2023-05-23 19:02:00 71 mm[Hg] [facility] Respiratory rate 2023-05-23 19:02:00 16 /min [facility] Oxygen saturation in Arterial blood by Pulse oximetry 2023-05-23 19:02:00 99 /min [facility] Heart rate 2023-05-23 18:00:00 76 /min [facility] Body temperature 2023-05-23 16:41:00 36.83 Roseanna [facility] Body height 2023-05-23 16:41:00 152.4 cm [facility] Body weight 2023-05-23 16:41:00 77.111 kg [facility] BMI 2023-05-23 16:41:00 33.20 kg/m2 [facility] Systolic blood pressure 2019-05-02 04:00:00 98 mm[Hg] [facility] Diastolic blood pressure 2019-05-02 04:00:00 85 mm[Hg] [facility] Heart rate 2019-05-02 04:00:00 91 /min [facility] Respiratory rate 2019-05-02 04:00:00 29 /min [facility] Oxygen saturation in Arterial blood by Pulse oximetry 2019-05-02 04:00:00 97 /min [facility] Body weight 2019-05-02 02:02:00 100.245 kg [facility] BMI 2019-05-02 02:02:00 36.78 kg/m2 [facility] Body temperature 2019-05-02 00:21:00 36.89 Roseanna [facility] Systolic blood pressure 2019-05-02 04:00:00 98 mm[Hg] [facility] Diastolic blood pressure 2019-05-02 04:00:00 85 mm[Hg] [facility] Heart rate 2019-05-02 04:00:00 91 /min [facility] Respiratory rate 2019-05-02 04:00:00 29 /min [facility] Oxygen saturation in Arterial blood by Pulse oximetry 2019-05-02 04:00:00 97 /min [facility] Body weight 2019-05-02 02:02:00 100.245 kg [facility] BMI 2019-05-02 02:02:00 36.78 kg/m2 [facility] Body temperature 2019-05-02 00:21:00 36.89 Roseanna [facility] Procedures Procedure Date / Time Performed Performing Clinician Source POCT GLUCOSE (AUTOMATED) 2024-01-09 19:55:00 More Collins [facility] CT THORAX W CONTRAST 2024-01-09 19:34:18 Joshua Collins [facility] COMP. METABOLIC PANEL ([id number]) 2024-01-09 17:38:00 More Collins [facility] CBC WITH DIFF 2024-01-09 17:38:00 More Collins [facility] URINALYSIS 2024-01-09 17:38:00 More Collins [facility] POCT GLUCOSE(AGE >30DAYS) 2023-05-23 19:03:00 Sonja Ramires [facility] POCT GLUCOSE (AUTOMATED) 2023-05-23 19:02:00 Sonja Ramires [facility] POCT GLUCOSE (AUTOMATED) 2023-05-23 17:52:00 Sonja Ramires [facility] BASIC METABOLIC PANEL (NA, K, CL, CO2, GLUCOSE, BUN, CREATININE, CA) 2023-05-23 16:55:00 Sonja Ramires [facility] CBC WITH DIFF 2023-05-23 16:55:00 Sojna Ramires [facility] GLYCOSYLATED HEMOGLOBIN (A1C) 2023-05-23 16:55:00 Sonja Ramires [facility] POCT GLUCOSE (AUTOMATED) 2023-05-23 16:41:00 Doctor Unassigned, [place] [facility] POCT GLUCOSE(AGE >30DAYS) 2019-05-02 04:43:00 Rey Wakefield [facility] POCT GLUCOSE (AUTOMATED) 2019-05-02 04:40:00 Rey Wakefield [facility] POCT TEST 2019-05-02 02:05:00 Rey Wakefield [facility] LIPASE 2019-05-02 02:04:00 Rey Wakefield [facility] COMP. METABOLIC PANEL ([id number]) 2019-05-02 02:04:00 Rey Wakefield [facility] CBC WITH DIFFERENTIAL 2019-05-02 02:04:00 Wm Wakefield [facility] URINALYSIS 2019-05-02 02:04:00 Rey Wakefield [facility] NOTICE OF PRIVACY PRACTICES 2019-05-02 00:05:46 Doctor Unassigned, [place] [facility] CONSENT/REFUSAL FOR DIAGNOSIS AND TREATMENT 2019-05-02 00:05:32 Doctor Unassigned, [place] [facility] Encounters Start Date/Time End Date/Time Encounter Type Admission Type Attending [facility] Care Department Encounter ID Source 2024-01-14 00:00:00 2024-02-14 18:05:17 Patient Secure Msg Doctor Unassigned, [place] [facility] [id number] [id number] [facility] 2024-01-09 11:15:00 2024-01-09 16:34:00 Emergency More Collins [facility] [id number] [id number] [id number] [id number] [facility] 2024-01-09 11:15:00 2024-01-09 16:34:00 Emergency X MORE COLLINS [facility] ERT [id number] [facility] 2023-09-03 10:58:14 2023-09-03 10:58:14 Outpatient [facility] [id number] Crum 2023-08-15 17:29:39 2023-08-15 17:29:39 Outpatient [facility] [id number] Core[address] Milner Radames 2023-05-23 11:39:00 2023-05-23 14:32:00 Emergency X SONJA RAMIRES [facility] ERT [id number] [facility] 2023-05-23 11:39:00 2023-05-23 14:32:00 Emergency Sonja Ramires [facility] [id number] [id number] [id number] [facility] 2019-05-01 19:23:31 2019-05-02 00:11:00 [facility] [id number] [id number] 4.2.7.2.686 [id number] [facility] 2019-05-01 19:23:31 2019-05-02 00:11:00 Emergency Rey Wakefield [facility] [id number] [id number] [id number] [id number] Results Test Description Test Time Test Comments [...] Osseous Structures: No suspicious lesions are identified. [facility] ([id number][facility]2024-01-09 18:32:09* Test Item Value Reference Range Interpretation Comme nts NA (test code = 3424725311) 130 mmol/L 135-145 L K (test code = 3228882229) 3.3 mmol/L 3.5-5.0 L CL (test code = 0445905710) 95 mmol/L 98-108 L CO2 TOTAL (test code = 5219769498) 23 mmol/L 23-31 AGAP (test code = 2336489635) 12 2-16 BUN (test code = 5485451457) 4 mg/dL 7-23 L GLUCOSE (test code = 0625252414) 594 mg/dL 70-110 HH CREATININE (test code = 2160-0) 0.41 mg/dL 0.50-1.04 L TOTAL BILI (test code = 9102070948) 0.5 mg/dL 0.1-1.1 CALCIUM (test code = 0608479825) 9.2 mg/dL 8.6-10.6 T PROTEIN (test code = 0882008680) 7.7 g/dL 6.3-8.2 ALBUMIN (test code = 7678926359) 3.6 g/dL 3.5-5.0 ALK PHOS (test code = 8332434163) 145 U/L 34-122 H ALTv (test code = 1742-6) 21 U/L 5-35 AST(SGOT) (test code = 3164133041) 19 U/L 13-40 eGFR (test code = 12099-6) 134.3 mL/min/1.73m2 CKD-EPI eGFR (2020). Assuming creatinine has been stable day-to-day for at least three months, the eGFR indicates Category G1 (>= 90 mL/min/1.73 m2) Lab Interpretation (test code = 25614-1) Abnormal [facility] WITH [id number] 17:59:16* Test Item Value Reference Range Interpretation [...] 32.1 g/dL 31.6-35.1 RDW-SD (test code = 62874-9) 42.4 fL 39.0-49.9 RDW-CV (test code = 788-0) 12.9 % 12.0-15.5 PLT (test code = 777-3) 368 166-358 H MPV (test code = 59901-9) 10.1 fL 9.5-12.9 NRBC/100 WBC (test code = 6665100788) 0.0 0.0-10.0 NRBC x10^3 (test code = 0005616944) See_Comment [Automated message] The system which generated this result transmitted reference range: 10*3/?L. The reference range was not used to interpret this result as normal/abnormal. GRAN MAT (NEUT) % (test code = 770-8) 79.4 % IMM GRAN % (test code = 0880600315) 1.20 % LYMPH % (test code = 736-9) 13.2 % MONO % (test code = 5905-5) 5.3 % EOS % (test code = 713-8) 0.4 % BASO % (test code = 706-2) 0.5 % GRAN MAT x10^3(ANC) (test code = 8828623853) 10.37 10*3/uL 1.88-7.09 H IMM GRAN x10^3 (test code = 9397947895) 0.16 10*3/uL 0.00-0.06 H LYMPH x10^3 (test code = 731-0) 1.73 10*3/uL 1.32-3.29 MONO x10^3 (test code = 742-7) 0.69 10*3/uL 0.33-0.92 EOS x10^3 (test code = 711-2) 0.05 10*3/uL 0.03-0.39 BASO x10^3 (test code = 704-7) 0.07 10*3/uL 0.01-0.07 Lab Interpretation (test code = 22980-5) [facility]normal [facility] [id number] 05:03:30* Test Item Value Reference Range Interpretation Comme nts GLUCOSE (test code = 2217) 196 MG/DL 70-99 H BUN (test code = 2208) 10 MG/DL 6-20 CREATININE (test code = 2214) 0.54 MG/DL 0.60-1.30 L eGFR (2020 CKD-EPI) (test code = 87170) 126 ML/MIN/1.73 >60 CALC BUN/CREAT (test code = 2235) 19 RATIO 6-28 SODIUM (test code = 2231) 137 MEQ/L 133-146 POTASSIUM (test code = 2228) 4.3 MEQ/L 3.5-5.4 CHLORIDE (test code = 2215) 101 MEQ/L 95-107 CARBON DIOXIDE (test code = 2206) 25 MEQ/L 19-31 CALCIUM (test code = 2209) 9.2 MG/DL 8.5-10.5 PROTEIN, TOTAL (test code = 2228) 6.5 G/DL 6.1-8.3 ALBUMIN (test code = 2201) 3.9 G/DL 3.5-5.2 CALC GLOBULIN (test code = 2240) 2.6 G/DL 1.9-3.7 CALC A/G RATIO (test code = 2234) 1.5 RATIO 1.0-2.6 BILIRUBIN, TOTAL (test code = 7) 0.3 MG/DL <=1.2 ALKALINE PHOSPHATASE (test code = 2203) 77 U/L 40-114 AST (test code = 2218) 29 U/L 9-40 ALT (test code = 2219) 31 U/L 5-40 LIPID [id number] 05:03:30* Test Item Value Reference Range Interpretation Comme nts CHOLESTEROL (test code = 0) 198 MG/DL <200 TRIGLYCERIDES (test code = [...] SPECIMENS. FOR MOREINFORMATION, SEE CLIENT ANNOUNCEMENT AT [email or web address] CalcLDL-[email or web address] RISK RATIO LDL/HDL (test code = 223) (NOTE) RATIO <3.22 UNABLE TO NOHEMI CULATE UNLESS OTHERWISE INDICATED, ALL TESTING PERFORMED AT [facility] [address] [place] [address] TRANSIT PLANNER: JUDI DERAS M.D. [place] NUMBER [id number] [facility] [place]. [id number] HEMOGLOBIN [id number] 03:03:11* Test Item Value Reference Range Interpretation Comme nts HEMOGLOBIN A1c (test code = 15852) 8.5 % 4.2-5.6 H [employer] GUIDELINES FOR HGB A1C: [...] Test Item Value Reference Range Interpretation Comme [facility] POCT GLU (test code = 6219021657) 237 mg/dL 70-110 H Lab Interpretation (test cod e = 27109-3) Abnormal [facility] GLUCOSE(AGE >30DAYS)2023-05-23 19:03:00* Test Item Value Reference Range Interpretation Comme [facility] POCT Glu (age>30days) (test code = 3342) 237 mg/dL 70-110 A Lab Interpretation (test cod e = 13008-8) Abnormal [facility] GLUCOSE (AUTOMATED)2023-05-23 17:52:48* Test Item Value Reference Range Interpretation Comme [facility] POCT GLU (test code = 4271422767) 295 mg/dL 70-110 H Lab Interpretation (test cod e = 03932-6) Abnormal [facility] (A1C)2023-05-23 17:12:32* Test Item Value Reference Range Interpretation Comme [facility] HGB A1C (test code = 4548-4) 9.8 % 4.0-5.7 H CHAVA (test code = CHAVA) Reference RangesNormal: <5.7%Prediabetes: 5.7 - 6.4%Diabetes: > 6.5% Lab Interpretation (test code = 55552-2) [facility]normal [facility] (NA, K, CL, CO2, GLUCOSE, BUN, CREATININE, CA)2023-05-23 17:11:51* Test Item Value Reference Range Interpretation Comme [facility] NA (test code = 2795696693) 133 mmol/L 135-145 L K (test code = 2486288723) 3.9 mmol/L 3.5-5.0 CL (test code = 2127725166) 99 mmol/L 98-108 CO2 TOTAL (test code = 4691317520) 27 mmol/L 23-31 AGAP (test code = 7357993048) 7 2-16 BUN (test code = 5703298725) 13 mg/dL 7-23 GLUCOSE (test code = 3308166886) 307 mg/dL 70-110 H CREATININE (test code = 1301453419) 0.42 mg/dL 0.50-1.04 L CALCIUM (test code = 8102207165) 8.8 mg/dL 8.6-10.6 eGFR (test code = 0631019846) 176.0 mL/min/1.73m2 CHAVA (test code = CHAVA) [...] imaging tests). Lab Interpretation (test code = 05855-6) Abnormal [facility] WITH [id number] 17:02:31* Test Item Value Reference Range Interpretation [...] 34.6 g/dL 31.6-35.1 RDW-SD (test code = 48009-6) 37.3 fL 39.0-49.9 L RDW-CV (test code = 788-0) 11.7 % 12.0-15.5 L PLT (test code = 777-3) 269 See_Comment [Automated message] The system which generated this result transmitted reference range: 166 - 358 10*3/?L. The reference range was not used to interpret this result as normal/abnormal. MPV (test code = 95381-1) 10.1 fL 9.5-12.9 NRBC/100 WBC (test code = 1336650847) 0.0 See_Comment [Automated message] The system which generated this result transmitted reference range: 0.0 - 10.0 /100 WBCs. The reference range was not used to interpret this result as normal/abnormal. NRBC x10^3 (test code = 9192645436) See_Comment [Automated message] The system which generated this result transmitted reference range: 10*3/?L. The reference range was not used to interpret this result as normal/abnormal. GRAN MAT (NEUT) % (test code = 770-8) 79.3 % IMM GRAN % (test code = 9365232552) 0.40 % LYMPH % (test code = 736-9) 14.6 % MONO % (test code = 5905-5) 4.5 % EOS % (test code = 713-8) 0.8 % BASO % (test code = 706-2) 0.4 % GRAN MAT x10^3(ANC) (test code = 1111754835) 11.18 10*3/uL 1.88-7.09 H IMM GRAN x10^3 (test code = 7965955722) 0.06 10*3/uL 0.00-0.06 LYMPH x10^3 (test code = 731-0) 2.06 10*3/uL 1.32-3.29 MONO x10^3 (test code = 742-7) 0.64 10*3/uL 0.33-0.92 EOS x10^3 (test code = 711-2) 0.12 10*3/uL 0.03-0.39 BASO x10^3 (test code = 704-7) 0.06 10*3/uL 0.01-0.07 Lab Interpretation (test code = 12357-7) Abnormal [facility] GLUCOSE (AUTOMATED)2023-05-23 16:43:05* Test Item Value Reference Range Interpretation Comme nts POCT GLU (test code = 1100774010) 326 mg/dL 70-110 H Lab Interpretation (test cod e = 14893-1) Abnormal [facility] GLUCOSE(AGE >30DAYS)2019-05-02 04:43:00* Test Item Value Reference Range Interpretation Comme nts POCT Glu (age>30days) (test code = 3342) 250 mg/dL 70-110 A Lab Interpretation (test cod e = 51415-7) Abnormal [facility] GLUCOSE (AUTOMATED)2019-05-02 04:41:00* Test Item Value Reference Range Interpretation Comme nts POCT GLU (test code = 7553480307) 250 mg/dL 70-110 H Lab Interpretation (test cod e = 81245-3) Abnormal [facility]. METABOLIC PANEL (32812)2019-05-02 02:54:00* Test Item Value Reference Range Interpretation Comme nts NA (test code = 4485723625) 138 mmol/L 135-145 K (test code = 4149258551) 3.5 mmol/L 3.5-5 CL (test code = 0287469328) 101 mmol/L 98-108 CO2 TOTAL (test code = 7530576135) 22 mmol/L 23-31 L AGAP (test code = 6964827668) 2-16 BUN (test code = 2789328464) 5 mg/dL 7-23 L GLUCOSE (test code = 3988986045) 507 mg/dL 70-110 HH CREATININE (test code = 3579542125) 0.40 mg/dL 0.5-1.04 L TOTAL BILI (test code = 9361989675) 0.7 mg/dL 0.1-1.1 CALCIUM (test code = 6963514067) 9.3 mg/dL 8.6-10.6 T PROTEIN (test code = 9794738806) 7.2 g/dL 6.3-8.2 ALBUMIN (test code = 4551735078) 4.0 g/dL 3.5-5 ALK PHOS (test code = 1545831037) 104 U/L 34-122 ALT(SGPT) (test code = 7399484847) 31 U/L 9-51 AST(SGOT) (test code = 7222713024) 38 U/L 13-40 eGFR Calculation (Non-) (test code = 4932150232) mL/min/1.73m2 eGFR Calculation () (test code = 1223748834) mL/min/1.73m2 CHAVA (test code = CHAVA) Association [...] imaging tests). Lab Interpretation (test code = 35145-8) [facility]:31[facility]* Test Item Value Reference Range Interpretation Comme nts LIPASE (test code = 6173960787) 98 U/L 0-220 Lab Interpretation (test cod e = 80769-7) Normal [facility] 02:23:00* Test Item Value Reference Range Interpretation Comme nts APPEARANCE (test code = 5894335796) Clear Clear COLOR (test code = 4188259357) Yellow Yellow PH (test code = 3432356760) 4.8-8.0 SP GRAVITY (test code = 0597541265) 1.003-1.030 GLU U QUAL (test code = 6173196929) >1000 mg/dL Negative A BLOOD (test code = 0592507115) Negative Negative KETONES (test code = 1794242448) 15 mg/dL Negative A PROTEIN (test code = 2887-8) Negative Negative UROBILIN (test code = 1297913409) 0.2 mg/dL See_Comment [Snapwiz] The system which generated this result transmitted reference range: 0-1.0 mg/dL. The reference range was not used to interpret this result as normal/abnormal. BILIRUBIN (test code = 0969201493) Negative Negative NITRITE (test code = 4775129098) Negative Negative LEUK ADAM (test code = 7535534353) Negative Negative RBC/HPF (test code = 6112862642) See_Comment [Automated Applause] The system which generated this result transmitted reference range: 0 - 3 HPF. The reference range was not used to interpret this result as normal/abnormal. WBC/HPF (test code = 5665654415) See_Comment [Sn[employer]wiz] The system which generated this result transmitted reference range: 0 - 5 HPF. The reference range was not used to interpret this result as normal/abnormal. BACTERIA (test code = 1268464127) Negative Negative Lab Interpretation (test code = 05100-6) [facility] [id number] 02:11:00* Test Item Value Reference Range Interpretation [...] 33.0 g/dL 31.6-35.1 RDW-SD (test code = 68481-5) 40.3 fL 39-49.9 RDW-CV (test code = 788-0) 12.5 % 12-15.5 PLT (test code = 777-3) See_Comment [Automated messa ge] The system which generated this result transmitted reference range: 166 - 358 10*3/?L. The reference range was not used to interpret this result as normal/abnormal. MPV (test code = 58351-8) 11.2 fL 9.5-12.9 NRBC/100 WBC (test code = 1694007721) See_Comment [Automated [employer] ssage] The system which generated this result transmitted reference range: 0.0 - 10.0 /100 WBCs. The reference range was not used to interpret this result as normal/abnormal. NRBC x10^3 (test code = 9749240616) <0.01 See_Comment [Automated messa ge] The system which generated this result transmitted reference range: 10*3/?L. The reference range was not used to interpret this result as normal/abnormal. GRAN MAT (NEUT) % (test code = 770-8) 71.2 % IMM GRAN % (test code = 9847386239) 0.30 % LYMPH % (test code = 736-9) 21.2 % MONO % (test code = 5905-5) 6.6 % EOS % (test code = 713-8) 0.2 % BASO % (test code = 706-2) 0.5 % GRAN MAT x10^3(ANC) (test code = 8920428270) 4.29 10*3/uL 1.88-7.09 IMM GRAN x10^3 (test code = 9565543358) <0.03 0-0.06 LYMPH x10^3 (test code = 731-0) 1.28 10*3/uL 1.32-3.29 L MONO x10^3 (test code = 742-7) 0.40 10*3/uL 0.33-0.92 EOS x10^3 (test code = 711-2) <0.03 0.03-0.39 L BASO x10^3 (test code = 704-7) 0.03 10*3/uL 0.01-0.07 Lab Interpretation (test code = 79855-7) [facility]normal [facility] [id number] 02:05:00* Test Item Value Reference Range Interpretation Comme nts POCT PREG (test code = 1605) negative On board controls acceptable with C Line (test code = 3574) present POCT PREG LOT # (test code = 3575) [id number] POCT PREG TEST DATE ( test code = 3576) 09/14/2020 Lab Interpretation (test cod e = 58268-5) Normal [facility] Notes Date/Time Note Provider Source 2024-01-09 16:31:50 Written/verbal d/c instructions out of er no distress Damaris Saldana RN [facility] 2024-01-09 11:11:55 Patient arrived via private car c/o of left breast pain and infection. Patient said that 3 days ago redness like a boil started on her left breast and progressed. The area is redness, tender to touch, warm. Hx: DM Edwieg Velázquez RN [facility] 2023-05-23 14:29:39 Formatting of this n ote [...] in no apparent distress. Damaris Freire RN [facility] 2023-05-23 11:40:08 Formatting of this n ote might be different from the original. [facility] officer states: "She had bgl of 247. She was acting fine until I put her in the back of my patrol car. She states that she has been out of her insulin for 5 days" Pt awake, answering questions, no distress. Ana Silverio RN [facility]
[2025-07-01 21:37] LABS: Absolute Lymphocytes (CBC) 1.9 K/uL (0.7-4.9); Hematocrit 43.5 % (36.0-45.0); Hemoglobin 14.5 g/dL (12.0-15.0); MCH 29.7 pg (27.0-35.0); MCHC 33.4 g/dL (32.0-36.0); MCV 88.9 fL (80-100); MPV 8.8 fL (7.6-11.3); Nucleated RBC Absolute Count 0.0 (0-0); Nucleated Red Blood Cells % 0.0 % (0-0); RBC Red Blood Cell Count 4.89 M/uL (3.86-4.86); White Blood Count 17.60 thou/uL (4.3-10.9)
[2025-07-01] MEDS ORDERED: FAMOTIDINE 20 MG/2 ML VIAL IV ONE (21:50)
[2025-07-01] MEDS ORDERED: NA CHLORIDE 0.9% 1,000 ML ONE ×3 (21:50→23:42)
[2025-07-01 22:09] LABS: ALT/SGPT 21.0 U/L (13-56); Albumin 3.1 g/dL (3.4-5.0); Albumin/Globulin Ratio 0.8 (1.1-1.8); Alkaline Phosphatase 89.0 U/L (45-117); Anion Gap 8.5 mEq/L (5.0-15.0); BUN Blood Urea Nitrogen 9.0 mg/dL (7-18); Globulin 3.9 g/dL (2.3-3.5); Glucose Level 227.0 mg/dL (74-106); Lipase 115.0 U/L (13-75)
[2025-07-01 22:10] LABS: AST/SGOT 16.0 U/L (15-37); Potassium 3.5 mEq/L (3.5-5.1)
[2025-07-02 01:04] LABS: Sqamous Epithelial <5 /HPF (None Seen); Urine Culture Reflex Order NOT NEEDED; Urine Microscopic Reflex YN ORDER UMIC
--- NOTE | 2025-07-02 01:11 | ER ---
Nurse's Notes [facility] Name: Chiquis Palma Age: 34 yrs Sex: Female : 1990 Arrival Date: 07/01/2025 Time: 20:41 Bed 19 Private MD: Diagnosis: Nausea with vomiting, unspecified;Hypovolemia;Acute cystitis Presentation: 07/01 20:47 Chief complaint: EMS states: pt had syncopal episode today. Pt been having abdominal ss12 pain since 3-4 days. Not been able to keep anything down since 2-3 days. no active vomiting today. upon EMs assessment pt seems dehydrated. Bp 90/60. EMS tried SL to start fluids but unable to get a SL. Cardiac guerra SR with EMs. BS 231. Pt is noncompliant diabetic, has bipolar, and schizophrenia. Coronavirus screen: Client denies travel out of the [place] in the last 14 days. Ebola Screen: Patient negative for fever greater than or equal to 101.5 degrees Fahrenheit, and additional compatible Ebola Virus Disease symptoms Patient denies exposure to infectious person. Patient denies travel to an Ebola-affected area in the 21 days before illness onset. Initial Sepsis Screen: Does the patient meet any 2 criteria? No. Patient's initial sepsis screen is negative. Does the patient have a suspected source of infection? No. Patient's initial sepsis screen is negative. Risk Assessment: Do you want to hurt yourself or someone else? Patient reports no desire to harm self or others. Onset of symptoms was June 28, 2025. 20:47 Method Of Arrival: EMS: [facility] 20:47 Acuity: CHANTEL 3 ss12 Triage Assessment: 20:50 General: Appears in no apparent distress. uncomfortable, Behavior is calm, cooperative, ss12 quiet. Pain: Complains of pain in abdominal Pain does not radiate. Pain currently is 8 out of 10 on a pain scale. Quality of pain is described as aching. EENT: No deficits noted. No signs and/or symptoms were reported regarding the EENT system. Neuro: No deficits noted. Level of Consciousness is awake, alert, obeys commands, Oriented to person, place, time, situation. Cardiovascular: No deficits noted. Patient's skin is warm and dry. mucus membrane dry. Rhythm is sinus rhythm. Respiratory: No deficits noted. Airway is patent Respiratory effort is even, unlabored, Respiratory pattern is regular, symmetrical. GI: No deficits noted. Abdomen is flat, non-distended. : No deficits noted. No signs and/or symptoms were reported regarding the genitourinary system. Derm: No deficits noted. Skin is intact, with poor turgor Skin is clammy, Skin is pale. Musculoskeletal: No deficits noted. No signs and/or symptoms reported regarding the musculoskeletal system. 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 - Infectious Disease History:: Denies. - Social history:: Smoking status: Patient reports the use of cigarette tobacco products, Patient uses marijuana, Patient/guardian denies using street drugs. Screenin:50 [facility] ED Fall Risk Assessment (Adult) History of falling in the last 3 months, ss12 including since admission No falls in past 3 months (0 pts) Confusion or Disorientation No (0 pts) Intoxicated or Sedated No (0 pts) Impaired Gait No (0 pts) Mobility Assist Device Used No (0 pt) Altered Elimination No (0 pt) Score/Fall Risk Level 0 - 2 = Low Risk Oriented to surroundings, Maintained a safe environment, Educated pt \T\ family on fall prevention, incl call for assistance when getting out of bed, Assessed \T\ reinforced patient's understanding of fall precautions, Provided non-skid footwear. Abuse screen: Denies threats or abuse. Denies injuries from another. Abuse screen: Denies threats or abuse. Denies injuries from another. Nutritional screening: No deficits noted. Tuberculosis screening: No symptoms or risk factors identified. Assessment: 20:47 Reassessment: see triage assessment. ss12 21:45 Reassessment: Patient appears in no apparent distress at this time. Patient and/or ss12 family updated on plan of care and expected duration. Pain level reassessed. Patient is alert, oriented x 3, equal unlabored respirations, skin warm/dry/pink. 23:00 Reassessment: Patient appears in no apparent distress at this time. Patient and/or ss12 family updated on plan of care and expected duration. Pain level reassessed. Patient is alert, oriented x 3, equal unlabored respirations, skin warm/dry/pink. 07/02 00:10 Reassessment: Patient appears in no apparent distress at this time. Patient and/or ss12 family updated on plan of care and expected duration. Pain level reassessed. Patient is alert, oriented x 3, equal unlabored respirations, skin warm/dry/pink. 01:59 Reassessment: Patient appears in no apparent distress at this time. Patient and/or ss12 family updated on plan of care and expected duration. Pain level reassessed. Patient is alert, oriented x 3, equal unlabored respirations, skin warm/dry/pink. 02:01 GI: Bowel sounds present X 4 quads. Abd is soft and non tender X 4 quads. ss12 Vital Signs: 07/01 20:47 BP 95 / 61; Pulse 79; Resp 18; Temp 98.1; Pulse Ox 95% on R/A; ss12 21:25 BP 91 / 55; Pulse 79; Resp 14; Pulse Ox 99% on R/A; ss12 22:30 BP 97 / 59; Pulse 83; Resp 17; Pulse Ox 99% on R/A; ss12 23:30 BP 90 / 60; Pulse 78; Resp 18; Pulse Ox 99% on R/A; ss12 07/02 00:30 BP 91 / 55; Pulse 74; Resp 16; Pulse Ox 98% on R/A; ss12 Dobbins Coma Score: 00:30 Eye Response: spontaneous(4). Motor Response: obeys commands(6). Verbal Response: ss12 oriented(5). Total: 15. ED Course: 07/01 20:47 Patient arrived in ED. ha1 20:47 Lasha Moeller DO is Attending Physician. tt7 20:49 Colleen Macias, RN is Primary Nurse. ss12 20:50 Arm band placed on right wrist. ss12 21:30 Inserted saline lock: 22 gauge in left antecubital area, using aseptic technique. Blood ss12 collected. Flushed with 10 mL NS. 21:38 Triage completed. ss12 07/02 00:57 UA Rfx Pedro Cult if indicated Sent. ss12 02:01 No provider procedures requiring assistance completed. ss12 02:01 Patient has correct armband on for positive identification. ss12 02:02 IV discontinued, intact, bleeding controlled, No redness/swelling at site. Pressure 12 dressing applied. 02:02 Provided Education on: plan of care. 12 Administered Medications: 07/01 21:30 Drug: Droperidol IVP 1.25 mg IVP once Route: IVP; Site: left antecubital; 12 23:23 Follow up: Response: No adverse reaction 12 21:35 Drug: Famotidine IVP 20 mg IVP once; dilute with 10 mL 0.9% NaCl; give over 2 minutes 12 Route: IVP; Site: left antecubital; 23:23 Follow up: Response: No adverse reaction 12 21:35 Drug: NS 0.9% IV 1000 ml IV at 1 bolus Per protocol; to be given as a bolus over 60 ss12 minutes Route: IV; Rate: 1 bolus; Site: left antecubital; 22:35 Follow up: IV Status: Completed infusion; IV Intake: 1000ml [facility] 22:51 Drug: NS 0.9% IV 1000 ml IV at 1000 ml once; to be given as a bolus over 60 minutes [facility] Route: IV; Rate: 1000 ml; Site: left antecubital; 07/02 00:00 Follow up: Response: No adverse reaction; IV Status: Completed infusion; IV Intake: ss12 1000ml 07/01 23:10 Drug: NS 0.9% IV 1000 ml IV at 1000 ml once; to be given as a bolus over 60 minutes 12 Route: IV; Rate: 1000 ml; Site: left antecubital; 07/02 00:30 Follow up: IV Status: Completed infusion; IV Intake: 1000ml [facility] 01:30 Drug: Rocephin IV 1 grams IV at bolus once; Given slow IV push per pharmacy 12 instructions Route: IV; Rate: bolus; Site: left antecubital; 01:55 Follow up: Response: No adverse reaction; IV Status: Completed infusion; IV Intake: [id number] Medication: 02:01 VIS not applicable for this client. 12 Intake: 07/01 22:35 IV: 1000ml; Total: 1000ml. 12 07/02 00:00 IV: 1000ml; Total: 2000ml. 12 00:30 IV: 1000ml; Total: 3000ml. 12 01:55 IV: 10ml; Total: 3010ml. [facility] Outcome: 01:11 Discharge ordered by tt7 02:02 Discharged to home ambulatory, 12 02:02 Condition: stable 02:02 Discharge instructions given to patient, family, Instructed on discharge instructions, follow up and referral plans. Demonstrated understanding of instructions, follow-up care, medications, Prescriptions given X 2, 02:03 Patient left the ED. [facility] Signatures: Diann Carrillo RN RN ha1 Colleen Macias RN RN 12 Lasha Moeller DO DO tt7 Corrections: (The following items were deleted from the chart) 07/01 21:31 20:50 Droperidol IVP 1.25 mg IVP in right antecubital [place] [id number] 22:07 21:47 Reassessment: see triage assessment [place] [id number] 22:57 21:25 BP 91 / 25; Pulse 79bpm; Resp 14bpm; Pulse Ox 99% RA; [place] [id number] 22:58 20:00 BP 131 / 60; Pulse 74bpm; Resp 14bpm; Pulse Ox 98% RA; [place] [id number]
--- NOTE | 2025-07-02 01:11 | EDPHYS ---
Physician Documentation [facility] Name: Chiquis Palma Age: 34 yrs Sex: Female : 1990 Arrival Date: 07/01/2025 Time: 20:41 Bed 19 Private MD: ED Physician Lasha Moeller HPI: 07/02 07:06 This 34 yrs old Female presents to ER via EMS with complaints of vomiting, tt7 dehydration. 07:16 Patient reports 2 to 3 days of nausea with multiple episodes of nonbloody nonbilious tt7 vomiting, has not been tolerating very much oral intake over the past 2 to 3 days, has had some mild abdominal cramping pain, past medical history includes diabetes, hypertension, bipolar disorder. 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 - Infectious Disease History:: Denies. - Social history:: Smoking status: Patient reports the use of cigarette tobacco products, Patient uses marijuana, Patient/guardian denies using street drugs. ROS: 07/02 07:17 Constitutional: negative for fever. Cardiovascular: negative for chest pain. tt7 Respiratory: negative for shortness of breath. MS/Extremity: negative for injury and deformity. Skin: negative for rash. Neuro: negative for focal weakness. Abdomen/GI: Positive for abdominal pain, nausea and vomiting, Exam: 07:17 Constitutional: vital signs reviewed, well appearing. Head/Face: normocephalic, tt7 atraumatic. Eyes: no conjunctival injection, anicteric sclerae. ENT: mucus membranes dry Neck: trachea midline, no JVD, no meningismus. Chest/axilla: normal chest wall appearance and motion, nontender, no crepitus. Cardiovascular: regular rate and rhythm, no murmurs, no rubs, no lower extremity edema. Respiratory: normal respiratory effort, no accessory muscle use, lungs CTAB. Abdomen/GI: soft, nondistended, nontender, no guarding or rebound, negative Cortez's sign, no McBurney point tenderness. Back: normal ROM. Skin: warm, dry, intact, normal turgor, normal color, no rash. MS/ Extremity: normal ROM of extremities, no gross deformities. Neuro: alert and oriented with appropriate mental status, normal speech, follows commands, no focal neurologic deficits. Vital Signs: 07/01 20:47 BP 95 / 61; Pulse 79; Resp 18; Temp 98.1; Pulse Ox 95% on R/A; ss12 21:25 BP 91 / 55; Pulse 79; Resp 14; Pulse Ox 99% on R/A; ss12 22:30 BP 97 / 59; Pulse 83; Resp 17; Pulse Ox 99% on R/A; ss12 23:30 BP 90 / 60; Pulse 78; Resp 18; Pulse Ox 99% on R/A; ss12 07/02 00:30 BP 91 / 55; Pulse 74; Resp 16; Pulse Ox 98% on R/A; ss12 Megan Coma Score: 00:30 Eye Response: spontaneous(4). Motor Response: obeys commands(6). Verbal Response: ss12 oriented(5). Total: 15. MDM: 07/01 20:47 Medical Screening Exam initiated tt7 22:29 Differential Diagnosis pancreatitis, . Data reviewed: vital signs, nurses notes, lab tt7 test result(s). ED course: I do not suspect sepsis or infectious source. 07/02 07:17 ED course: Presentation concerning for hypovolemia, blood pressure slightly soft, tt7 laboratory studies ordered, abdominal exam is benign, do not think imaging is indicated at this time, patient was given IV antiemetics, she was resuscitated with 3 L of IV fluids, laboratory studies showed a leukocytosis, otherwise no significant abnormalities, I reassessed the patient after interventions, felt significantly improved, able to tolerate oral intake in the emergency department, able to ambulate to the restroom multiple times without feeling lightheaded or having near syncopal symptoms, urinalysis concerning for potential infection, she was treated for pyelonephritis with 1 g of IV ceftriaxone and discharged with as needed Zofran and course of cefdinir, strict return precautions discussed, after completion of the patient's emergency department evaluation, I do not suspect a life-threatening or disabling process. Patient is medically stable and not in need of emergent medical intervention. I had a detailed discussion with the patient regarding the historical points, exam findings, emergency department evaluation, diagnostic results, and the discharge diagnosis. I instructed the patient on outpatient management of their condition. I discussed the need for outpatient follow-up with a primary care physician. I informed the patient on return precautions, including the need to return to the ED if symptoms do not improve, worsen, or if there are any questions or concerns that arise at home. The patient was discharged in stable condition. 07/01 20:48 Order name: CBC with Diff; Complete Time: 22:27 tt7 07/01 20:48 Order name: CMP; Complete Time: 22:27 tt7 07/01 20:48 Order name: Lipase; Complete Time: 22:27 tt7 07/01 20:49 Order name: Test, Serum; Complete Time: 22:27 tt7 07/01 22:13 Order name: Glucose, Ancillary Testing; Complete Time: 22:27 EDMS 07/01 22:28 Order name: UA Rfx Pedro Cult if indicated tt7 07/01 20:49 Order name: IV Saline Lock; Complete Time: 22:05 tt7 07/01 20:49 Order name: Labs collected and sent; Complete Time: 22:05 tt7 07/01 23:07 Order name: PO challenge; Complete Time: 00:56 tt7 Administered Medications: 07/01 21:30 Drug: Droperidol IVP 1.25 mg IVP once Route: IVP; Site: left antecubital; ss12 23:23 Follow up: Response: No adverse reaction ss12 21:35 Drug: Famotidine IVP 20 mg IVP once; dilute with 10 mL 0.9% NaCl; give over 2 minutes ss12 Route: IVP; Site: left antecubital; 23:23 Follow up: Response: No adverse reaction ss12 21:35 Drug: NS 0.9% IV 1000 ml IV at 1 bolus Per protocol; to be given as a bolus over 60 ss12 minutes Route: IV; Rate: 1 bolus; Site: left antecubital; 22:35 Follow up: IV Status: Completed infusion; IV Intake: 1000ml ss12 22:51 Drug: NS 0.9% IV 1000 ml IV at 1000 ml once; to be given as a bolus over 60 minutes ss12 Route: IV; Rate: 1000 ml; Site: left antecubital; 07/02 00:00 Follow up: Response: No adverse reaction; IV Status: Completed infusion; IV Intake: ss12 1000ml 07/01 23:10 Drug: NS 0.9% IV 1000 ml IV at 1000 ml once; to be given as a bolus over 60 minutes ss12 Route: IV; Rate: 1000 ml; Site: left antecubital; 07/02 00:30 Follow up: IV Status: Completed infusion; IV Intake: 1000ml ss12 01:30 Drug: Rocephin IV 1 grams IV at bolus once; Given slow IV push per pharmacy ss12 instructions Route: IV; Rate: bolus; Site: left antecubital; 01:55 Follow up: Response: No adverse reaction; IV Status: Completed infusion; IV Intake: [id number] Disposition: 07:20 Co-signature as Attending Physician, Lasha Moeller DO. tt7 Disposition Summary: 07/02/25 01:11 Discharge Ordered Notes: Location: Home tt7 Problem: new tt7 Symptoms: have improved tt7 Condition: Stable tt7 Diagnosis - Nausea with vomiting, unspecified tt7 - Hypovolemia tt7 - Acute cystitis tt7 Followup: tt7 - With: Emergency Department - When: As needed - Reason: Followup: tt7 - With: Private Physician - When: 1 - 2 days - Reason: Recheck today's complaints, Re-evaluation by your physician Discharge Instructions: - Discharge Summary Sheet tt7 - Dehydration, Adult tt7 - Nausea and Vomiting, Adult tt7 - Urinary Tract Infection, Adult, [id number]-[id number] tt7 Forms: - Medication Reconciliation Form tt7 - Antibiotic Education tt7 - Prescription Opioid Use tt7 - Patient Portal Instructions tt7 - Leadership Thank You Letter tt7 Prescriptions: - cefdinir 300 mg Oral capsule - take 1 capsule ORAL route 2 times per day for 10 days; 20 capsule; Refills: 0, tt7 Product Selection Permitted - ondansetron HCl 4 mg Oral tablet - take 1 tablet ORAL route every 8 hours As needed as needed for nausea and tt7 vomiting; 20 tablet; Refills: 0, Product Selection Permitted Signatures: [facility] Colleen Meneses RN RN Lasha Herrera DO DO tt7 Corrections: (The following items were deleted from the chart) 07/01 22:29 22:29 UA Rfx Pedro Cult if indicated+U.LAB.BRZ ordered. [facility] 07/02 07:20 07:17 ED course: Presentation concerning for hypovolemia, blood pressure slightly soft, tt7 laboratory studies ordered, abdominal exam is benign, do not think imaging is indicated at this time,. tt7
[2025-07-02] MEDS ORDERED: CEFTRIAXONE 1000 MG/VIAL ONE (01:26)
[2025-07-02 02:17] LABS: Urine Yeast (Budding) Trace /HPF (None Seen)
[2025-07-02 09:09] VITALS: TEMP 98.1
[2025-07-02 09:13] VITALS: BP 91/55; O2SAT 98
== END 2025-07-02 02:03 | disposition home or self-care (01) ==
LOC: ER 20:41
DX: E86.1 Hypovolemia (principal); N30.00 Acute cystitis without hematuria
CPT/HCPCS: 36415; 80053; 81001; 82947; 83690; 84703; 85025; 96361; 96365; 96375; 99284; J0696; J1790; J7030